=== PATIENT | male | born 1940 | race Caucasian/White ===

== ENCOUNTER 2016-07-14 19:40 | Emergency (ER) | payer MEDICARE, OTHER ==
[~2016-07-14] VITALS: Ht 167.6 cm; Wt 113.4 kg
[2016-07-14 20:21] VITALS: BP 147/60
[2016-07-14 20:39] LABS: BASOPHILS % (AUTO) 1.6 % (0.0-2.0); EOSINOPHILS % (AUTO) 7.5 % (0.0-3.0); LYMPHOCYTES % (AUTO) 14.8 % (20.0-45.0); MEAN CORPUSCULAR HEMOGLOBIN 30.8 PG (27.0-31.0); MEAN CORPUSCULAR HGB CONC 31.2 G/DL (32.0-36.0); MEAN CORPUSCULAR VOLUME 99 FL (80-99); MEAN PLATELET VOLUME 7.3 FL (6.5-10.1); MONOCYTES % (AUTO) 8.8 % (1.0-10.0); NEUTROPHILS % (AUTO) 67.3 % (45.0-75.0); PLATELET COUNT 108 K/UL (150-450); RED BLOOD COUNT 3.07 M/UL (4.70-6.10); RED CELL DISTRIBUTION WIDTH 15.5 % (11.6-14.8); WHITE BLOOD COUNT 7.9 K/UL (4.8-10.8)
[2016-07-14 20:48] LABS: INR 1.2 (0.9-1.1); PROTHROMBIN TIME 11.8 SEC (9.30-11.50)
[2016-07-14 20:51] LABS: TROPONIN I < 0.30 ng/mL (<=0.30)
[2016-07-14 20:54] LABS: AMMONIA 52 umol/L (16-60)
[2016-07-14 20:55] LABS: ALANINE AMINOTRANSFERASE 20 U/L (3-41); ALBUMIN/GLOBULIN RATIO 1.2 (1.0-2.7); ANION GAP 23 (5-15); ASPARTATE AMINO TRANSFERASE 35 U/L (5-40); CALCIUM 8.8 mg/dL (8.6-10.2); CARBON DIOXIDE 13 mEQ/L (20-30); CHLORIDE 103 mEQ/L (98-107); CREATININE 3.5 mg/dL (0.7-1.2); HEMOLYSIS 8; POTASSIUM 4.2 mEQ/L (3.4-4.9); SODIUM 139 mEQ/L (135-145); TOTAL PROTEIN 5.6 g/dL (6.6-8.7)
[2016-07-14 21:00] VITALS: BP 146/54
[2016-07-14 21:05] LABS: CKMB 4.3 ng/mL (< 6.7)
[2016-07-14 21:13] LABS: APPEARANCE,URINE CLEAR; KETONES,URINE NEGATIVE (NEGATIVE); LEUKOCYTE ESTERASE ,URINE NEGATIVE (NEGATIVE); NITRITE,URINE NEGATIVE (NEGATIVE); PH,URINE 5 (4.5-8.0); PROTEIN,URINE 3+ (NEGATIVE); UROBILINOGEN,URINE NORMAL MG/DL (0.0-1.0)
[2016-07-14] MEDS ORDERED: XIFAXAN550 MG ORAL (21:21)
[2016-07-14] MEDS ORDERED: DEXILANT60 MG ORAL (21:21)
[2016-07-14] MEDS ORDERED: FUROSEMIDE40 MG ORAL (21:21)
[2016-07-14] MEDS ORDERED: AMLODIPINE BESYL5 MG ORAL (21:21)
[2016-07-14] MEDS ORDERED: ATORVASTATIN CA40 MG ORAL (21:21)
[2016-07-14] MEDS ORDERED: IRON325 M2 PO (21:21)
[2016-07-14] MEDS ORDERED: TOPROL XL200 MG ORAL (21:21)
[2016-07-14] MEDS ORDERED: CYMBALTA20 MG ORAL (21:21)
[2016-07-14] MEDS ORDERED: ZANTAC150 MG ORAL (21:21)
[2016-07-14] MEDS ORDERED: ROCALTROL0.5 MCG GT (21:21)
[2016-07-14] MEDS ORDERED: ASPIR 8181 MG ORAL (21:21)
[2016-07-14] MEDS ORDERED: CLOPIDOGREL75 MG ORAL (21:21)
[2016-07-14 21:22] LABS: RBC,URINE 0-2 /HPF (0 - 0); WBC,URINE 0-2 /HPF (0 - 0)
--- NOTE | 2016-07-14 21:22 | Emergency Room Report ---
History of Present Illness General Chief Complaint: Altered Level of Consciousness Source: Patient, Family Member, EMS Present Illness HPI Patient was sent to the hospital by paramedics Family reported the patient has been more confused than usual last time he had a presentation like this they were told that his ammonia level was high Patient himself does appear somewhat confused Not able to provide full input Family denies any recent fevers There was no reports of chest pain Patient has multiple medical conditions including liver disease History of present illness the state limited secondary to his mental status Allergies: Coded Allergies: No Known Allergies (Unverified , 07/14/16) Patient History Limited by: medical condition Past Medical History: see triage record Pertinent Family History: none Reviewed Nursing Documentation: PMH: Agreed, PSxH: Agreed Nursing Documentation-PMH Hx Cardiac Problems: Yes - Stent Hx Hypertension: Yes Hx Diabetes: Yes Review of Systems All Other Systems: limited - Other than the ones mentioned in the history of present illness all others are reviewed however they do stay limited due to the patient's mental status Physical Exam Vital Signs Date Time Temp Pulse Resp B/P Pulse Ox O2 Delivery O2 Flow Rate FiO2 07/14/16 19:31 94.6 64 16 147/60 100 Room Air Sp02 EP Interpretation: reviewed, normal General Appearance: no apparent distress Head: normocephalic, atraumatic Eyes: bilateral eye EOMI, bilateral eye PERRL ENT: hearing grossly normal, normal pharynx, TMs + canals normal, uvula midline Neck: full range of motion, supple, no meningismus, no bony tend Respiratory: no respiratory distress, no retraction, no accessory muscle use, crackles - in both lower lobes Cardiovascular #1: normal peripheral pulses, regular rate, rhythm, no gallop, no JVD, no murmur Gastrointestinal: normal bowel sounds, non tender, soft, no mass, no hernia, no pulsatile mass, no rebound Genitourinary: no CVA tenderness Musculoskeletal: other - No obvious focal deficits Neurologic: responsive, 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 III-XII nml as tested, motor strength/tone normal, sensory intact Psychiatric: mood/affect normal Skin: warm/dry, palpation normal Lymphatic: no adenopathy Medical Decision Making Diagnostic Impression: Primary Impression: Altered level of consciousness Additional Impressions: CHF (congestive heart failure) Renal failure ER Course Multiple differentials considered patient's complex require blood work and imaging Patient's ammonia level is 52 not significantly elevated Therefore CT head was also obtained Patient's kidney function appears to be at baseline no obvious signs of sepsis however given the patient's confusion continued decreased oral intake Also CO2 of 13 which is low Patient requires further IV intervention and admission Labs Test 07/14/16 20:15 White Blood Count 7.9 K/UL (4.8-10.8) Red Blood Count 3.07 M/UL (4.70-6.10) Hemoglobin 9.4 G/DL (14.2-18.0) Hematocrit 30.2 % (42.0-52.0) Mean Corpuscular Volume 99 FL (80-99) Mean Corpuscular Hemoglobin 30.8 PG (27.0-31.0) Mean Corpuscular Hemoglobin Concent 31.2 G/DL (32.0-36.0) Red Cell Distribution Width 15.5 % (11.6-14.8) Platelet Count 108 K/UL (150-450) Mean Platelet Volume 7.3 FL (6.5-10.1) Neutrophils (%) (Auto) 67.3 % (45.0-75.0) Lymphocytes (%) (Auto) 14.8 % (20.0-45.0) Monocytes (%) (Auto) 8.8 % (1.0-10.0) Eosinophils (%) (Auto) 7.5 % (0.0-3.0) Basophils (%) (Auto) 1.6 % (0.0-2.0) Prothrombin Time 11.8 SEC (9.30-11.50) Prothromb Time International Ratio 1.2 (0.9-1.1) Activated Partial Thromboplast Time 34 SEC (23-33) Urine Color Pale yellow Urine Appearance Clear Urine pH 5 (4.5-8.0) Urine Specific Odd 1.015 (1.005-1.035) Urine Protein 3+ (NEGATIVE) Urine Glucose (UA) 1+ (NEGATIVE) Urine Ketones Negative (NEGATIVE) Urine Occult Blood 1+ (NEGATIVE) Urine Nitrite Negative (NEGATIVE) Urine Bilirubin Negative (NEGATIVE) Urine Urobilinogen Normal MG/DL (0.0-1.0) Urine Leukocyte Esterase Negative (NEGATIVE) Urine RBC 0-2 /HPF (0 - 0) Urine WBC 0-2 /HPF (0 - 0) Urine Squamous Epithelial Cells None /LPF (NONE/OCC) Urine Bacteria None /HPF (NONE) Sodium Level 139 mEQ/L (135-145) Potassium Level 4.2 mEQ/L (3.4-4.9) Chloride Level 103 mEQ/L (98-107) Carbon Dioxide Level 13 mEQ/L (20-30) Anion Gap 23 (5-15) Blood Urea Nitrogen 64 mg/dL (7-23) Creatinine 3.5 mg/dL (0.7-1.2) Estimat Glomerular Filtration Rate mL/min (>60) Glucose Level 198 mg/dL (74-106) Calcium Level 8.8 mg/dL (8.6-10.2) Total Bilirubin 0.5 mg/dL (0.0-1.2) Aspartate Amino Transf (AST/SGOT) 35 U/L (5-40) Alanine Aminotransferase (ALT/SGPT) 20 U/L (3-41) Alkaline Phosphatase 298 U/L (40-129) Ammonia 52 umol/L (16-60) Total Creatine Kinase 40 U/L (38-174) Creatine Kinase MB 4.3 ng/mL (< 6.7) Creatine Kinase MB Relative Index 10.7 Troponin I < 0.30 ng/mL (<=0.30) Pro-B-Type Natriuretic Peptide 12910 pg/mL (0-450) Total Protein 5.6 g/dL (6.6-8.7) Albumin 3.1 g/dL (3.5-5.2) Globulin 2.5 g/dL Albumin/Globulin Ratio 1.2 (1.0-2.7) Rhythm Strip Diag. Results EP Interpretation: yes Rate: 74 Rhythm: NSR, no PVC's, no ectopy Chest X-Ray Diagnostic Results EP Interpretation: Yes Findings: no consolidation, no pneumothorax, other - Bilateral effusions, appearance of congestion cannot rule out underlying infiltrate, Number of Views: 1 CT/MRI/US Diagnostic Results CT/MRI/US Diagnostic Results : Impression CT head no acute disease Last Vital Signs Date Time Temp Pulse Resp B/P Pulse Ox O2 Delivery O2 Flow Rate FiO2 07/14/16 21:00 69 16 146/54 97 Room Air 07/14/16 20:21 94.6 Status: improved [facility] Condition: Improved Referrals: Carmela Quinteros MD (PCP) СВЕТЛАНА SAVAGE D.O. Jul 14, 2016 21:22
[2016-07-14 22:00] VITALS: BP 151/54
[2016-07-14 23:00] VITALS: BP 159/60
[2016-07-15] VITALS: BP 157/49
[2016-07-15 00:46] VITALS: BP 157/49
--- NOTE | 2016-07-15 11:53 | Diagnostic Imaging Report ---
Indication: Headache Technique: Contiguous 5 mm thick transaxial imaging of the head obtained in a Siemens Sensation [address] scanner. Soft tissue and bone windows generated. Total Dose length Product (DLP): [address] Dose Index Volume (CTDIvol): 70.38 mGy Comparison: none Findings: There is moderate prominence of the ventricles, basal cisterns, and cerebral sulci consistent with atrophy. Moderate, nonspecific, white matter hypoattenuation is noted throughout the brain consistent with chronic small vessel disease. There is no midline shift, edema, acute hemorrhage, mass effect, or abnormal extra-axial fluid collections. Bones and extra osseous soft tissues are unremarkable. Impression: No acute intracranial bleed, mass effect or edema. Moderate atrophy of the brain. Evidence of chronic small vessel disease involving white matter tracts. [facility] has communicated the preliminary results to the Emergency Department. Their findings are largely concordant with this report. The CT scanner at [facility] is accredited by the [employer] and the scans are performed using protocols designed to limit radiation exposure to as low as reasonably achievable to attain images of sufficient resolution adequate for diagnostic evaluation.
--- NOTE | 2016-07-15 12:14 | Diagnostic Imaging Report ---
Indication: Chest Pain Comparison: None A single view chest radiograph was obtained. Findings: Vascular congestion interstitial edema noted with cardio megaly. Bilateral pleural effusion could be present given hazy basilar opacities. Old rib fractures are noted on the left. Bones are osteopenic. Impression: Congestive heart failure
--- NOTE | 2016-08-12 15:29 | Cardiology Report ---
APPROVED REPORT EKG Measurement Heart [id number] Normal sinus rhythm Low voltage QRS Septal infarct, age undetermined Abnormal ECG
== END 2016-07-15 00:48 | disposition short-term general hospital (02) ==
LOC: EDBD 19:40 → EMR 20:53
DX: R40.4 Transient alteration of awareness (principal); I50.9 Heart failure, unspecified; N19 Unspecified kidney failure; I10 Essential (primary) hypertension; E11.9 Type 2 diabetes mellitus without complications; Z95.5 Presence of coronary angioplasty implant and graft
CPT/HCPCS: 36415; 70450; 71010; 80053; 81003; 82140; 82550; 82553; 83880; 84484; 85025; 85610; 85730; 93005; 96361; 96374; 99284; J1940; J7040

== ENCOUNTER 2016-09-02 18:06 | Inpatient (IN) | payer MEDICARE, OTHER ==
[~2016-09-02] VITALS: Ht 180.3 cm; Wt 111.1 kg
[~2016-09-02 18:06] MED LIST: AMLODIPINE BESYL5 MG ORAL; ASPIR 8181 MG ORAL; ATORVASTATIN CA40 MG ORAL; CLOPIDOGREL75 MG ORAL; CYMBALTA20 MG ORAL; DEXILANT60 MG ORAL; FUROSEMIDE40 MG ORAL; IRON325 M2 PO; ROCALTROL0.5 MCG GT; TOPROL XL200 MG ORAL; XIFAXAN550 MG ORAL; ZANTAC150 MG ORAL
[2016-09-02 19:03] VITALS: BP 157/57
[2016-09-02 19:16] LABS: BASOPHILS % (AUTO) 1.5 % (0.0-2.0); EOSINOPHILS % (AUTO) 2.3 % (0.0-3.0); INR 1.3 (0.9-1.1); LYMPHOCYTES % (AUTO) 16.2 % (20.0-45.0); MEAN CORPUSCULAR HEMOGLOBIN 30.8 PG (27.0-31.0); MEAN CORPUSCULAR HGB CONC 31.3 G/DL (32.0-36.0); MEAN CORPUSCULAR VOLUME 99 FL (80-99); MEAN PLATELET VOLUME 6.3 FL (6.5-10.1); MONOCYTES % (AUTO) 8.1 % (1.0-10.0); NEUTROPHILS % (AUTO) 71.8 % (45.0-75.0); PLATELET COUNT 126 K/UL (150-450); PROTHROMBIN TIME 13.4 SEC (9.30-11.50); RED BLOOD COUNT 3.17 M/UL (4.70-6.10); RED CELL DISTRIBUTION WIDTH 17.5 % (11.6-14.8); WHITE BLOOD COUNT 8.3 K/UL (4.8-10.8)
[2016-09-02 19:36] LABS: TROPONIN I < 0.30 ng/mL (<=0.30)
[2016-09-02 19:38] LABS: ALANINE AMINOTRANSFERASE 57 U/L (3-41); ALBUMIN/GLOBULIN RATIO 0.7 (1.0-2.7); ANION GAP 15 (5-15); ASPARTATE AMINO TRANSFERASE 81 U/L (5-40); CALCIUM 8.4 mg/dL (8.6-10.2); CARBON DIOXIDE 28 mEQ/L (20-30); CHLORIDE 95 mEQ/L (98-107); CHOLESTEROL 119 mg/dL (< 200); CHOLESTEROL/HDL RATIO 11.9 (3.3-4.4); CREATININE 4.2 mg/dL (0.7-1.2); HEMOLYSIS 7; LDL CHOLESTEROL (CALC.) 85 mg/dL (60-99); POTASSIUM 3.6 mEQ/L (3.4-4.9); SODIUM 138 mEQ/L (135-145); TOTAL PROTEIN 5.5 g/dL (6.6-8.7)
[2016-09-02 19:54] LABS: BILIRUBIN,DIRECT 1.2 mg/dL (0.1-0.3)
[2016-09-02 20:08] VITALS: BP 160/44
[2016-09-02 22:26] VITALS: BP 154/42
[2016-09-02] MEDS ORDERED: UNOBMED (22:45)
--- NOTE | 2016-09-02 23:03 | Emergency Room Report ---
History of Present Illness General Chief Complaint: Stroke Symptoms Source: Family Member, Medical Record Present Illness HPI 75-year-old male presents to ED. Per EMS patient is having slurred speech and facial droop left arm weakness. Symptoms started approximately 6 hours ago while patient was on dialysis. Daughter saw the patient at the half-way and call 911. Patient is unable to provide any additional history at this time. Patient is having slurred speech and left arm weakness. Patient denies chest pain or shortness of breath. Patient has history of dialysis. No other aggravating relieving factors. Denies any other associated symptoms Allergies: Coded Allergies: No Known Allergies (Unverified , 07/14/16) Patient History Past Medical History: DM, HTN, CAD Past Surgical History: none Pertinent Family History: none Social History: Denies: alcohol use, drug use, smoking Immunizations: UTD Reviewed Nursing Documentation: PMH: Agreed, PSxH: Agreed Nursing Documentation-PMH Hx Cardiac Problems: Yes - Stent Hx Hypertension: Yes Hx Diabetes: Yes Review of Systems All Other Systems: negative except mentioned in HPI Physical Exam Vital Signs Date Time Temp Pulse Resp B/P Pulse Ox O2 Delivery O2 Flow Rate FiO2 09/02/16 18:05 78 20 156/60 98 Room Air 09/02/16 20:08 99.2 Sp02 EP Interpretation: reviewed, normal General Appearance: no apparent distress, alert, GCS 15, non-toxic Head: normocephalic Eyes: bilateral eye PERRL, bilateral eye normal inspection ENT: normal ENT inspection Neck: normal inspection Respiratory: chest non-tender, lungs clear, normal breath sounds, speaking full sentences Cardiovascular #1: regular rate, rhythm, no edema Gastrointestinal: normal bowel sounds, non tender, soft, non-distended, no guarding, no rebound Rectal: deferred Genitourinary: no CVA tenderness Musculoskeletal: normal inspection Neurologic: alert, oriented x3, responsive, sensory intact, facial droop, other - slurred speech. facial droop. L arm weakness Psychiatric: normal inspection Skin: normal inspection Lymphatic: normal inspection Medical Decision Making Diagnostic Impression: Primary Impression: CVA (cerebral vascular accident) Qualified Codes: I63.9 - Cerebral infarction, unspecified Additional Impression: ESRD (end stage renal disease) on dialysis ER Course Hospital Course 75-year-old male presents to ED with slurred speech and facial droop with left arm weakness x6 hours Differential diagnoses include: MS/unstable angina, SVT/Vtach/AFib, CVA/TIA Clinical course Patient placed on stretcher. on playground monitor. After initial history and physical I ordered labs, EKG, chest x-ray, and CT head labs reviewed- BUN/Cr elevated, troponins negative, no leukocytosis, Hb/Hct stable EKG - NSR, no acute changes CT brain - no acute process noted Given rectal aspirin in ED. because patient was at a therapeutic window no TPA indicated Case discussed with Dr. Quinteros and he agreed to accept the patient to his service for further care and support I. I feel this is a highly complex case requiring extensive working including EKG/Rhythm strip, Xray/CT/US, Blood/urine lab work, repeat exams while in ED, and administration of strong opiates/narcotics for pain control, admission to hospital or close patient follow up. Diagnosis - CVA, ESRD on dialysis admitted to telemetry in serious condition Labs Test 09/02/16 18:37 White Blood Count 8.3 K/UL (4.8-10.8) Red Blood Count 3.17 M/UL (4.70-6.10) Hemoglobin 9.8 G/DL (14.2-18.0) Hematocrit 31.2 % (42.0-52.0) Mean Corpuscular Volume 99 FL (80-99) Mean Corpuscular Hemoglobin 30.8 PG (27.0-31.0) Mean Corpuscular Hemoglobin Concent 31.3 G/DL (32.0-36.0) Red Cell Distribution Width 17.5 % (11.6-14.8) Platelet Count 126 K/UL (150-450) Mean Platelet Volume 6.3 FL (6.5-10.1) Neutrophils (%) (Auto) 71.8 % (45.0-75.0) Lymphocytes (%) (Auto) 16.2 % (20.0-45.0) Monocytes (%) (Auto) 8.1 % (1.0-10.0) Eosinophils (%) (Auto) 2.3 % (0.0-3.0) Basophils (%) (Auto) 1.5 % (0.0-2.0) Prothrombin Time 13.4 SEC (9.30-11.50) Prothromb Time International Ratio 1.3 (0.9-1.1) Activated Partial Thromboplast Time 33 SEC (23-33) Sodium Level 138 mEQ/L (135-145) Potassium Level 3.6 mEQ/L (3.4-4.9) Chloride Level 95 mEQ/L (98-107) Carbon Dioxide Level 28 mEQ/L (20-30) Anion Gap 15 (5-15) Blood Urea Nitrogen 40 mg/dL (7-23) Creatinine 4.2 mg/dL (0.7-1.2) Estimat Glomerular Filtration Rate mL/min (>60) Glucose Level 290 mg/dL (74-106) Calcium Level 8.4 mg/dL (8.6-10.2) Total Bilirubin 2.1 mg/dL (0.0-1.2) Direct Bilirubin 1.2 mg/dL (0.1-0.3) Aspartate Amino Transf (AST/SGOT) 81 U/L (5-40) Alanine Aminotransferase (ALT/SGPT) 57 U/L (3-41) Alkaline Phosphatase 536 U/L (40-129) Troponin I < 0.30 ng/mL (<=0.30) Total Protein 5.5 g/dL (6.6-8.7) Albumin 2.3 g/dL (3.5-5.2) Globulin 3.2 g/dL Albumin/Globulin Ratio 0.7 (1.0-2.7) Triglycerides Level 119 mg/dL (< 150) Cholesterol Level 119 mg/dL (< 200) LDL Cholesterol 85 mg/dL (60-99) HDL Cholesterol 10 mg/dL (> 60) Cholesterol/HDL Ratio 11.9 (3.3-4.4) EKG Diagnostic Results Rate: tachycardiac Rhythm: NSR ST Segments: no acute changes ASA given to the pt in ED: No Rhythm Strip Diag. Results EP Interpretation: yes Rhythm: NSR, no PVC's, no ectopy Chest X-Ray Diagnostic Results EP Interpretation: Yes Findings: no consolidation, no effusion, no pneumothorax, no acute cardiopulmonary disease Number of Views: 1 CT/MRI/US Diagnostic Results CT/MRI/US Diagnostic Results : Imaging Test Ordered: CT Head Impression no acute process Last Vital Signs Date Time Temp Pulse Resp B/P Pulse Ox O2 Delivery O2 Flow Rate FiO2 09/02/16 22:26 97.8 83 12 154/42 98 Room Air Status: improved Disposition: ADMITTED INPATIENT Condition: Serious Referrals: Carmela Quinteros MD (PCP) JULISA SMITH M.D. Sep 02, 2016 23:03
[2016-09-03 00:20] VITALS: BP 147/86
[2016-09-03] MEDS ORDERED: ACETAMINOPHEN80 MG ORAL (03:15)
[2016-09-03] MEDS ORDERED: NEPHROVITE1 TAB ORAL (03:15)
[2016-09-03 04:36] VITALS: BP 167/49
[2016-09-03 05:34] LABS: BASOPHILS % (AUTO) 1.3 % (0.0-2.0); EOSINOPHILS % (AUTO) 2.8 % (0.0-3.0); LYMPHOCYTES % (AUTO) 21.4 % (20.0-45.0); MEAN CORPUSCULAR HEMOGLOBIN 30.6 PG (27.0-31.0); MEAN CORPUSCULAR HGB CONC 31.9 G/DL (32.0-36.0); MEAN CORPUSCULAR VOLUME 96 FL (80-99); MEAN PLATELET VOLUME 6.5 FL (6.5-10.1); MONOCYTES % (AUTO) 9.9 % (1.0-10.0); NEUTROPHILS % (AUTO) 64.5 % (45.0-75.0); PLATELET COUNT 150 K/UL (150-450); RED BLOOD COUNT 3.49 M/UL (4.70-6.10); RED CELL DISTRIBUTION WIDTH 16.7 % (11.6-14.8); WHITE BLOOD COUNT 9.9 K/UL (4.8-10.8)
[2016-09-03 05:54] LABS: ANION GAP 16 (5-15); CALCIUM 8.3 mg/dL (8.6-10.2); CARBON DIOXIDE 27 mEQ/L (20-30); CHLORIDE 100 mEQ/L (98-107); CREATININE 4.6 mg/dL (0.7-1.2); HEMOLYSIS 1; SODIUM 143 mEQ/L (135-145)
[2016-09-03] MEDS: NovoLOG Insulin Flexpen SUBQ SCH ×4 (06:30→21:00)
[2016-09-03 07:09] LABS: AMMONIA 105 umol/L (16-60)
[2016-09-03] MEDS: Heparin 5000 units/ml inj SUBQ SCH ×3 (07:30→22:02)
[2016-09-03 07:32] LABS: CHOLESTEROL 115 mg/dL (< 200); CHOLESTEROL/HDL RATIO 8.8 (3.3-4.4); LDL CHOLESTEROL (CALC.) 83 mg/dL (60-99)
[2016-09-03 07:59] VITALS: BP 173/66
[2016-09-03] MEDS: Lactulose 20gm/30ml UDC ORAL SCH ×4 (08:28→18:00)
[2016-09-03] MEDS: Nephrovite tab ORAL SCH ×2 (08:28→09:00)
[2016-09-03] MEDS: Calcitriol 0.25mcg Cap ORAL SCH ×2 (08:28→09:00)
[2016-09-03] MEDS: Famotidine 20 MG/ 2ML VIAL IVP SCH (08:28)
[2016-09-03] MEDS: Rifaximin 550mg tab ORAL SCH ×3 (08:29→21:00)
[2016-09-03] MEDS: Aspirin Baby 81mg ORAL SCH ×2 (08:29→09:00)
[2016-09-03] MEDS: Furosemide 80mg tab ORAL SCH ×3 (08:29→21:00)
[2016-09-03] MEDS: Metoprolol XL 100mg tab ORAL SCH ×2 (08:30→09:00)
--- NOTE | 2016-09-03 09:50 | History & Physical ---
Frieda Bell NP 09/03/16 0950: History and Physical History & Physicial [id number] Carmela Quinteros MD 09/03/16 2220: History and Physical History & Physicial The patient was seen and examined at bedside and all new and available data was reviewed in the patients chart. I agree with the above findings, impression and plan. (Patient seen earlier today. Signature stamp does not reflect patient encounter time.). -MD Arabella Culver Jacqueline Robles NP Sep 03, 2016 09:50 Carmela Quinteros MD Sep 03, 2016 22:20
[2016-09-03] MEDS: D5 1/2NS 1,000 ML IV SCH (10:59)
--- NOTE | 2016-09-03 10:59 | Diagnostic Imaging Report ---
Indication: Altered mental status Technique: Contiguous 5 mm thick transaxial imaging of the head obtained in a Siemens Sensation [address] scanner. Soft tissue and bone windows generated. Total Dose length Product (DLP): [address] Dose Index Volume (CTDIvol): 70.38 mGy Comparison: 07/14/16 Findings: There is mild prominence of the ventricles, basal cisterns, and cerebral sulci consistent with atrophy. Mild, nonspecific, white matter hypoattenuation is noted throughout the brain consistent with chronic small vessel disease. There is no midline shift, edema, acute hemorrhage, mass effect, or abnormal extra-axial fluid collections. Bones and extra osseous soft tissues are unremarkable. Impression: No acute intracranial bleed, mass effect or edema. Mild atrophy of the brain. Nonspecific white matter hypoattenuation probably due to chronic small vessel disease. The CT scanner at [facility] is accredited by the [employer] and the scans are performed using protocols designed to limit radiation exposure to as low as reasonably achievable to attain images of sufficient resolution adequate for diagnostic evaluation.
[2016-09-03 11:23] VITALS: BP 165/71
[2016-09-03] MEDS ORDERED: Metoprolol 5mg/5ml Inj IVP ONE (11:30)
--- NOTE | 2016-09-03 12:12 | Consultation ---
Consult Note Assessment/Plan Renal consult dictated # [id number] NICOLASA WELLS Sep 03, 2016 12:12
--- NOTE | 2016-09-03 12:13 | Neurology Progress Note ---
Objective Physical Exam Last Vital Signs Date Time Temp Pulse Resp B/P Pulse Ox O2 Delivery O2 Flow Rate FiO2 09/03/16 11:37 86 165/71 09/03/16 11:23 99.1 20 100 Room Air Laboratory Tests Test 09/02/16 18:37 09/03/16 05:12 09/03/16 05:15 White Blood Count 8.3 K/UL (4.8-10.8) 9.9 K/UL (4.8-10.8) Red Blood Count 3.17 M/UL (4.70-6.10) L 3.49 M/UL (4.70-6.10) L Hemoglobin 9.8 G/DL (14.2-18.0) L 10.7 G/DL (14.2-18.0) L Hematocrit 31.2 % (42.0-52.0) L 33.5 % (42.0-52.0) L Mean Corpuscular Volume 99 FL (80-99) 96 FL (80-99) Mean Corpuscular Hemoglobin 30.8 PG (27.0-31.0) 30.6 PG (27.0-31.0) Mean Corpuscular Hemoglobin Concent 31.3 G/DL (32.0-36.0) L 31.9 G/DL (32.0-36.0) L Red Cell Distribution Width 17.5 % (11.6-14.8) H 16.7 % (11.6-14.8) H Platelet Count 126 K/UL (150-450) L 150 K/UL (150-450) Mean Platelet Volume 6.3 FL (6.5-10.1) L 6.5 FL (6.5-10.1) Neutrophils (%) (Auto) 71.8 % (45.0-75.0) 64.5 % (45.0-75.0) Lymphocytes (%) (Auto) 16.2 % (20.0-45.0) L 21.4 % (20.0-45.0) Monocytes (%) (Auto) 8.1 % (1.0-10.0) 9.9 % (1.0-10.0) Eosinophils (%) (Auto) 2.3 % (0.0-3.0) 2.8 % (0.0-3.0) Basophils (%) (Auto) 1.5 % (0.0-2.0) 1.3 % (0.0-2.0) Prothrombin Time 13.4 SEC (9.30-11.50) H Prothromb Time International Ratio 1.3 (0.9-1.1) H Activated Partial Thromboplast Time 33 SEC (23-33) Sodium Level 138 mEQ/L (135-145) 143 mEQ/L (135-145) Potassium Level 3.6 mEQ/L (3.4-4.9) 4.0 mEQ/L (3.4-4.9) Chloride Level 95 mEQ/L (98-107) L 100 mEQ/L (98-107) Carbon Dioxide Level 28 mEQ/L (20-30) 27 mEQ/L (20-30) Anion Gap 15 (5-15) 16 (5-15) H Blood Urea Nitrogen 40 mg/dL (7-23) H 48 mg/dL (7-23) H Creatinine 4.2 mg/dL (0.7-1.2) H 4.6 mg/dL (0.7-1.2) H Estimat Glomerular Filtration Rate mL/min (>60) mL/min (>60) Glucose Level 290 mg/dL (74-106) H 202 mg/dL (74-106) H Calcium Level 8.4 mg/dL (8.6-10.2) L 8.3 mg/dL (8.6-10.2) L Total Bilirubin 2.1 mg/dL (0.0-1.2) H Direct Bilirubin 1.2 mg/dL (0.1-0.3) H Aspartate Amino Transf (AST/SGOT) 81 U/L (5-40) H Alanine Aminotransferase (ALT/SGPT) 57 U/L (3-41) H Alkaline Phosphatase 536 U/L (40-129) H Troponin I < 0.30 ng/mL (<=0.30) Total Protein 5.5 g/dL (6.6-8.7) L Albumin 2.3 g/dL (3.5-5.2) L Globulin 3.2 g/dL Albumin/Globulin Ratio 0.7 (1.0-2.7) L Triglycerides Level 119 mg/dL (< 150) 97 mg/dL (< 150) Cholesterol Level 119 mg/dL (< 200) 115 mg/dL (< 200) LDL Cholesterol 85 mg/dL (60-99) 83 mg/dL (60-99) HDL Cholesterol 10 mg/dL (> 60) 13 mg/dL (> 60) Cholesterol/HDL Ratio 11.9 (3.3-4.4) H 8.8 (3.3-4.4) H Hemoglobin A1c 7.0 % (< 6.0) H Ammonia 105 umol/L (16-60) H Thyroid Stimulating Hormone (TSH) 0.960 uIU/mL (0.300-4.500) Impression/Recommendations Problems: (1) L arm palsy, r/p brach plexopathy,r/o lacunar stroke (2) Hepatic encephalopathy (3) ESRD (end stage renal disease) on dialysis (4) CHF (congestive heart failure) Status: unchanged Recommendations # [id number] MICHEAL BLOOM Sep 03, 2016 12:13
--- NOTE | 2016-09-03 14:05 | Diagnostic Imaging Report ---
Indication: Altered level of consciousness. Left-sided weakness Technique: The head was imaged in a 1.5 Radha magnet. Sequences obtained include sagittal T1 FLAIR, axial T2 fast spin echo with fat saturation, diffusion and ADC map. Comparison: None Study is incomplete. Not all pulse sequences were done due to agitation and confusion. Patient could not tolerate further imaging. This there is diffusion restriction involving the right parietal lobe in the area of the postcentral gyrus.. There is no hemorrhage appreciated. Findings consistent with acute CVA. Impression: Acute CVA involving right postcentral gyrus. No acute hemorrhage definitely seen. Critical value communication. Findings were discussed via telephone with 2 E. floor nurse at 09/03/16, 2 PM .
--- NOTE | 2016-09-03 15:35 | Cardiology Report ---
APPROVED REPORT EKG Measurement Heart [id number] CO [id number] [id number] Sinus tachycardia Inferior infarct, age undetermined Anteroseptal infarct, age undetermined Prolonged QT Abnormal ECG
--- NOTE | 2016-09-03 15:48 | Wound Care Consultation ---
Wound Assessment Wound Assessment : Wound Present on Admission: Yes New Wound: No Status Change of Wound: No Wound Location Body Site: perineal area - and sacral area Wound Type: rash - multiple rash Loan Test: Does not Loan Percent of Wound [place]/Red: 100 Wound Drainage Amount: None Wound Drainage Odor: None/Absent Tissue Surrounding Wound: Erythemic Wound General Appearance: Reddened Wound Comment #1 Perineal area rash and sacral area #2 With multiple Scar tissues on different part of the body #3 Scratch hernández on left arm Recommendation -Keep clean and dry -Turn and reposition (Remind Pt not to stay in one position no longer than 2hrs) -Optimize nutrition -Local treatment with nystatin cream TID as ordered -Offload both heels while Pt is in bed -Assess and f/u accordingly for any changes MARLEN FRANK RN Sep 03, 2016 15:48
--- NOTE | 2016-09-03 15:56 | Cardiac Electrophysiology PN ---
Subjective Subjective [id number]. PAF/ RVR on Toprol 100 daily, Coumadin when OK with Neuro. Acute CVA. ESRD Objective Last 24 Hour Vital Signs Date Time Temp Pulse Resp B/P Pulse Ox O2 Delivery O2 Flow Rate FiO2 09/03/16 11:37 86 165/71 09/03/16 11:23 99.1 86 20 165/71 100 Room Air 09/03/16 09:00 90 173/66 09/03/16 08:30 173/66 09/03/16 08:00 91 09/03/16 07:59 99.0 90 20 173/66 100 Room Air 09/03/16 04:36 98.0 84 20 167/49 98 Room Air 09/03/16 04:31 09/03/16 04:00 89 09/03/16 00:20 97.7 85 20 147/86 96 Room Air 09/02/16 23:04 83 12 154/42 98 Room Air 09/02/16 22:26 97.8 83 12 154/42 98 Room Air 09/02/16 20:08 99.2 82 25 160/44 99 Room Air 09/02/16 19:03 106 17 157/57 100 Room Air 09/02/16 18:05 78 20 156/60 98 Room Air Intake and Output 09/02/16 09/03/16 19:00 07:00 Intake Total 0 ml Balance 0 ml Intake Oral 0 ml # Voids 1 Laboratory Tests Test 09/02/16 18:37 09/03/16 05:12 09/03/16 05:15 White Blood Count 8.3 K/UL (4.8-10.8) 9.9 K/UL (4.8-10.8) Red Blood Count 3.17 M/UL (4.70-6.10) L 3.49 M/UL (4.70-6.10) L Hemoglobin 9.8 G/DL (14.2-18.0) L 10.7 G/DL (14.2-18.0) L Hematocrit 31.2 % (42.0-52.0) L 33.5 % (42.0-52.0) L Mean Corpuscular Volume 99 FL (80-99) 96 FL (80-99) Mean Corpuscular Hemoglobin 30.8 PG (27.0-31.0) 30.6 PG (27.0-31.0) Mean Corpuscular Hemoglobin Concent 31.3 G/DL (32.0-36.0) L 31.9 G/DL (32.0-36.0) L Red Cell Distribution Width 17.5 % (11.6-14.8) H 16.7 % (11.6-14.8) H Platelet Count 126 K/UL (150-450) L 150 K/UL (150-450) Mean Platelet Volume 6.3 FL (6.5-10.1) L 6.5 FL (6.5-10.1) Neutrophils (%) (Auto) 71.8 % (45.0-75.0) 64.5 % (45.0-75.0) Lymphocytes (%) (Auto) 16.2 % (20.0-45.0) L 21.4 % (20.0-45.0) Monocytes (%) (Auto) 8.1 % (1.0-10.0) 9.9 % (1.0-10.0) Eosinophils (%) (Auto) 2.3 % (0.0-3.0) 2.8 % (0.0-3.0) Basophils (%) (Auto) 1.5 % (0.0-2.0) 1.3 % (0.0-2.0) Prothrombin Time 13.4 SEC (9.30-11.50) H Prothromb Time International Ratio 1.3 (0.9-1.1) H Activated Partial Thromboplast Time 33 SEC (23-33) Sodium Level 138 mEQ/L (135-145) 143 mEQ/L (135-145) Potassium Level 3.6 mEQ/L (3.4-4.9) 4.0 mEQ/L (3.4-4.9) Chloride Level 95 mEQ/L (98-107) L 100 mEQ/L (98-107) Carbon Dioxide Level 28 mEQ/L (20-30) 27 mEQ/L (20-30) Anion Gap 15 (5-15) 16 (5-15) H Blood Urea Nitrogen 40 mg/dL (7-23) H 48 mg/dL (7-23) H Creatinine 4.2 mg/dL (0.7-1.2) H 4.6 mg/dL (0.7-1.2) H Estimat Glomerular Filtration Rate mL/min (>60) mL/min (>60) Glucose Level 290 mg/dL (74-106) H 202 mg/dL (74-106) H Calcium Level 8.4 mg/dL (8.6-10.2) L 8.3 mg/dL (8.6-10.2) L Total Bilirubin 2.1 mg/dL (0.0-1.2) H Direct Bilirubin 1.2 mg/dL (0.1-0.3) H Aspartate Amino Transf (AST/SGOT) 81 U/L (5-40) H Alanine Aminotransferase (ALT/SGPT) 57 U/L (3-41) H Alkaline Phosphatase 536 U/L (40-129) H Troponin I < 0.30 ng/mL (<=0.30) Total Protein 5.5 g/dL (6.6-8.7) L Albumin 2.3 g/dL (3.5-5.2) L Globulin 3.2 g/dL Albumin/Globulin Ratio 0.7 (1.0-2.7) L Triglycerides Level 119 mg/dL (< 150) 97 mg/dL (< 150) Cholesterol Level 119 mg/dL (< 200) 115 mg/dL (< 200) LDL Cholesterol 85 mg/dL (60-99) 83 mg/dL (60-99) HDL Cholesterol 10 mg/dL (> 60) 13 mg/dL (> 60) Cholesterol/HDL Ratio 11.9 (3.3-4.4) H 8.8 (3.3-4.4) H Hemoglobin A1c 7.0 % (< 6.0) H Ammonia 105 umol/L (16-60) H Thyroid Stimulating Hormone (TSH) 0.960 uIU/mL (0.300-4.500) PRINCESS AGGARWAL Sep 03, 2016 15:56
[2016-09-03 16:00] VITALS: BP 151/69
[2016-09-03] MEDS ORDERED: LORazepam Inj 2mg/ml 1ml IV ONE (17:00)
--- NOTE | 2016-09-03 17:18 | HX and Phyl Repo 2 Sig ---
DATE OF ADMISSION: 09/02/2016 CHIEF COMPLAINT: Altered mental status and weakness. HISTORY OF PRESENT ILLNESS: The patient is a 75-year-old male, who is a resident of [facility] with past medical history of diabetes mellitus, liver cirrhosis, hypertension and end-stage renal disease, on hemodialysis, was taken to [facility] for complaints of altered mental status and slurring of speech as noted by daughter. History was obtained through phone call with the patient's daughter, Divina, at [phone], who stated the patient was on his usual dialysis schedule and she was called by the nurses as the patient kept on screaming and was confused. She later on saw the patient and he was talking nonsense and was noted to have slurring of speech. He was then taken to [facility] where on evaluation, CT of the brain did not show any acute process. He was given aspirin and was admitted to telemetry for further evaluation. PAST MEDICAL HISTORY: As stated above. PAST SURGICAL HISTORY: Status post amputation of the left metatarsal and has a right chest dialysis catheter. SOCIAL HISTORY: The patient lives at a long term. Family is involved in the patient's care. He stopped smoking 20 years ago and used to drink excessively several years ago. CODE STATUS: Full code. ALLERGIES: No known allergy. MEDICATIONS: From long term include famotidine, furosemide, Humalog, Lantus, lactulose, metoprolol succinate, Nephro-Kelly, Lidoderm patch. REVIEW OF SYSTEMS: Unable to be performed. PHYSICAL EXAMINATION: VITAL SIGNS: Blood pressure 173/66, pulse 90, temperature 99, and 100% oxygen saturation on room air. GENERAL APPEARANCE: The patient is awake, able to verbalize, and follows simple commands; however, there was noted facial droop and weakness on the left side. HEENT: Pupils equal and reactive to light. NECK: Supple. CARDIOVASCULAR: S1 and S2 regular. RESPIRATORY: Lungs are clear. No use of accessory muscles of respiration. ABDOMEN: Slightly distended, but soft. Positive bowel sounds. GENITOURINARY: Normal external exam. EXTREMITIES: He has +1 bilateral lower extremity edema. Left foot left toe amputated. SKIN: Warm and dry with a chemical burn on the perianal area. Excoriations on bilateral buttocks. NEUROLOGIC: The patient is awake, able to verbalize, and unable to move the left side of the body. LABORATORY AND DIAGNOSTIC DATA: WBC on admission 8.3, hemoglobin 9.8, hematocrit 31.2, and platelets 126,000. Sodium 138, potassium 3.6, chloride 95, BUN 40, creatinine 4.2, glucose 290, calcium 8.4, total bilirubin 2.1, direct bilirubin 1.2, AST 81, ALT 57, alkaline phosphatase 536, albumin 2.3. INR 1.3. CT scan of the head done at ED, no official result yet. Preliminary result was negative. ASSESSMENT: 1. Acute metabolic encephalopathy. 2. Possible cerebrovascular accident as presented by slurring of speech and left-sided hemiparesis. 3. Liver cirrhosis with hepatic encephalopathy. 4. Hypertensive urgency. 5. Hyperlipidemia. 6. Elevated liver transaminases. 7. End-stage renal disease, on hemodialysis. 8. Perianal and buttock excoriation, present on admission. PLAN: The patient was admitted to telemetry with neuro-checks every shift. Check MRI brain. Ammonia level was elevated. Given Lactulose and Xifaxan. Dr. Magdi Sauceda,nephrology consult; Dr. Hurd, neurology consult ; Dr. Ambrosio, gastrointestinal consult. We will keep the patient on n.p.o. for now pending swallow evaluation. The patient will have PT and OT. Continue to monitor sugar. Initiate wound care. Carmela Quinteros M.D. Frieda Bell N.P. DR: Damian JOB#: [id number] CC: JUSTINA
[2016-09-03 20:00] VITALS: BP 160/56
--- NOTE | 2016-09-03 20:58 | Consultation ---
DATE OF CONSULTATION: NEPHROLOGY CONSULTATION CONSULTING PHYSICIAN: Magdi Sauceda M.D. REFERRING PHYSICIAN: Carmela Quinteros M.D. REASON FOR CONSULTATION: End-stage renal disease, requiring hemodialysis. HISTORY OF PRESENT ILLNESS: This is a 75-year-old [place]er male with history of end-stage renal disease. Apparently, the patient has been on dialysis for about a month and a half. The patient is unable to provide any history. History was obtained from the chart and also talking to the patient's daughter who is at bedside. According to the daughter, the patient has had diabetes and that is why she developed end-stage renal disease. PAST MEDICAL HISTORY: Also includes history of alcoholic liver cirrhosis, history of coronary disease, hypertension, and diabetes. MEDICATIONS: Reviewed in the EMR. ALLERGIES: No known drug allergies. SOCIAL HISTORY: The patient lives in a [facility], [facility]. He has history of alcohol abuse as mentioned. REVIEW OF SYSTEMS: Unobtainable. PHYSICAL EXAMINATION: GENERAL: The patient is a 75-year-old male. He is lethargic, although he was shaking and he shouts. VITAL SIGNS: Blood pressure is 165/71, pulse 86, and temperature 99.1. HEENT: [place] conjunctivae. Anicteric sclerae. NECK: Supple. LUNGS: Coarse breath sounds. HEART: S1 and S2 without murmurs or rubs. ABDOMEN: Soft and nontender. EXTREMITIES: Bilateral pedal edema. LABORATORY FINDINGS: The chemistry panel shows a WBC of 9.9, hematocrit 33.5, hemoglobin is 10.7, and . Chemistry panel shows serum sodium of 143, potassium 4, chloride 100, CO2 of 27, BUN is 48, creatinine 4.6, blood sugar is 202, and calcium is 8.3. Ammonia level is 105 and as of yesterday, ALT was 57, AST 81, and serum albumin of 2.3. ASSESSMENT: This is a 75-year-old [place] male with history of end-stage renal disease, on hemodialysis, every Thursday, , and Thursday. The patient apparently went to dialysis yesterday and developed some slurred speech with facial droop and left arm weakness afterwards. The patient was admitted with diagnosis of cerebrovascular accident. In terms of his dialysis, his numbers are okay for now, although he has edema. He does not appear to be short of breath. He is mildly anemic. PLAN: I will order dialysis for tomorrow. His blood pressure medication will be adjusted. The patient needs to be on lactulose for increased ammonia and change in mental status and hepatic encephalopathy. Case will be discussed with Dr. Quinteros and his PA, Yamilet. Thank you very much for this consultation. Magdi Sauceda M.D. DR: DENNIS JOB#: [id number] CC: JUSTINA
[2016-09-03] MEDS: Atorvastatin 80mg tab ORAL SCH (21:00)
--- NOTE | 2016-09-03 21:07 | General Progress Note ---
Assessment/Plan Assessment/Plan Assessment - EtOH Cirrhosis - Renal failure - Acute CVA - Poor Px Recommendations - NGT - Lactulose - xifaxan - check labs - check U/S - check AFP - Goals and level of care discussion Thank you Suzanne Ambrosio MD Subjective Allergies: Coded Allergies: No Known Allergies (Unverified , 07/14/16) Objective Last 24 Hour Vital Signs Date Time Temp Pulse Resp B/P Pulse Ox O2 Delivery O2 Flow Rate FiO2 09/03/16 20:00 97.7 82 21 160/56 96 Room Air 09/03/16 16:00 98.1 86 21 151/69 97 Room Air 09/03/16 11:37 86 165/71 09/03/16 11:23 99.1 86 20 165/71 100 Room Air 09/03/16 09:00 90 173/66 09/03/16 08:30 173/66 09/03/16 08:00 91 09/03/16 07:59 99.0 90 20 173/66 100 Room Air 09/03/16 04:36 98.0 84 20 167/49 98 Room Air 09/03/16 04:31 09/03/16 04:00 89 09/03/16 00:20 97.7 85 20 147/86 96 Room Air 09/02/16 23:04 83 12 154/42 98 Room Air 09/02/16 22:26 97.8 83 12 154/42 98 Room Air Intake and Output 09/02/16 09/03/16 19:00 07:00 Intake Total 0 ml Balance 0 ml Intake Oral 0 ml # Voids 1 Laboratory Tests 09/03/16 05:12: Hemoglobin A1c 7.0H 09/03/16 05:15: White Blood Count 9.9, Red Blood Count 3.49L, Hemoglobin 10.7L, Hematocrit 33.5L , Mean Corpuscular Volume 96, Mean Corpuscular Hemoglobin 30.6, Mean Corpuscular Hemoglobin Concent 31.9L, Red Cell Distribution Width 16.7H, Platelet Count 150, Mean Platelet Volume 6.5, Neutrophils (%) (Auto) 64.5, Lymphocytes (%) (Auto) 21.4, Monocytes (%) (Auto) 9.9, Eosinophils (%) (Auto) 2.8, Basophils (%) (Auto) 1.3, Sodium Level 143, Potassium Level 4.0, Chloride Level 100, Carbon Dioxide Level 27, Anion Gap 16H, Blood Urea Nitrogen 48H, Creatinine 4.6H, Estimat Glomerular Filtration Rate , Glucose Level 202H, Calcium Level 8.3L, Ammonia 105H, Triglycerides Level 97, Cholesterol Level 115 , LDL Cholesterol 83, HDL Cholesterol 13, Cholesterol/HDL Ratio 8.8H, Thyroid Stimulating Hormone (TSH) 0.960 Height (Feet): 5 Height (Inches): 11.00 Weight (Pounds): 245 ESPINOZA AMBROSIO Sep 03, 2016 21:07
--- NOTE | 2016-09-03 21:38 | Consultation ---
DATE OF CONSULTATION: 09/03/2016 NEUROLOGICAL CONSULTATION CONSULTING PHYSICIAN: Danny Hurd M.D. REQUESTING PHYSICIAN: Carmela Quinteros M.D. HISTORY OF PRESENT ILLNESS: This is a 75-year-old gentleman, who is seen in neurological consultation to evaluate acute stroke. According to the patient's daughter, who was present during this examination known that, the patient who is a resident of nursing facility, was complaining of increasing pain in his both lower extremities for the last couple of weeks. On the day of admission, he was at dialysis. When he started to complain of severe pain and discomfort, the patient's daughter picked up the phone and spoke to him. She found that he was very slurred, very confused, disoriented, and was complaining that his left arm is weak. On arrival, she found him in the bed with left arm motionless, speech still slurred, and with this, the patient was brought to emergency room. On admission, vital signs stable, blood pressure 156/60 and heart rate of 78. Following admission, diagnostic studies included laboratory work with evidence of anemia, hemoglobin 9.9, hematocrit 31.2, and platelet count 126,000, mild coagulopathy with INR 1.3, and PT of 13.4. Chemistry panel, BUN of 40, creatinine 4.2, but also elevated total bilirubin 2.1, AST 81, ALT 67, alk phosphatase 536, and albumin 2.3. Lipid panel, unremarkable as well as TSH. Elevated ammonia level 105. His imaging studies included CAT scan of the brain, which revealed mild diffuse atrophy, but there is no evidence of acute intracranial abnormalities or signs of chronic small vessel disease noted. Following admission, the patient was noted to have episodes of paroxysmal tachycardia at rate of 160. EKG revealed normal sinus rhythm with no acute changes. PAST MEDICAL HISTORY: The patient has a history of hypertension, diabetes type 2, coronary artery disease, status post angioplasty, end-stage renal disease, on hemodialysis, degenerative joint disease with aches and pain in his both lower extremities. The patient described as being increasingly confused and disoriented in the last couple of years and forgetfulness. There is a history of abnormal gait in the last two to three years. He remained essentially bedridden, refusing to ambulate, although he is able to walk using walker. Treatment prior to admission included amlodipine, aspirin, atorvastatin, Plavix, Dexilant, Cymbalta 20 mg b.i.d., ferrous sulfate, furosemide, metoprolol, ranitidine, rifaximin, and vitamin B complex. Following current admission, the patient is started on lactulose, continued with IV fluids, and metoprolol. ALLERGIES: None reported. SOCIAL HISTORY: . He with family. The patient speaks Farsi only. PHYSICAL EXAMINATION: GENERAL: A well-developed, moderately obese man, who was found to be lying in bed with eyes closed. His daughter at the bedside. VITAL SIGNS: Vital signs now are stable. Blood pressure 165/71, heart rate back to 86, and temperature 99.1 degrees. HEENT: Head normocephalic. No evidence of injuries. There is a palpable tenderness in the neck region. The patient apparently did not complain previously of the pain in his neck. MUSCULOSKELETAL EXAMINATION: Revealed arthritic changes and bruises in both knees. Significant palpable tenderness in both knees, ankles, and calves, but also significant pain with palpation and percussion in the cervical region. Peripheral pulses 1+ and symmetric. There is a left toes amputation. MENTAL STATUS: The patient is arousable, speaks Farsi, was able to indicate that he has pain and unable to move his left arm. He is not feeling overall well. Verbal output was limited. He was able to follow simple commands, slow responses. CRANIAL NERVE II: Both pupils appears are 3 mm and responding to light and accommodation. Extraocular movement full range. Visual willard are normal. Fundi, poorly visualized. CRANIAL NERVE V: Normal corneal responses. CRANIAL NERVE VII: Minor facial asymmetry. The patient is edentulous. CRANIAL NERVE VIII: Sightly decreased hearing. CRANIAL NERVE IX THROUGH XII: Tongue is in midline. Symmetric palate elevation. Reduced gag response. MOTOR EXAMINATION: Flaccid left upper extremity painful when lifted arms. Currently, pain in the left shoulder and left elbow. Able to lift right arm against the gravity. Weakness 3/5 in both lower extremities as the patient was able to lift briefly legs against the gravity. Deep tendon reflexes depressed. Biceps, triceps, and brachioradialis plantar response is mute. SENSORY EXAMINATION: Withdrawing to pin stimulation in the right upper and right lower extremity. Lesser response to pin stimulation in the left arm. GAIT: No tested. IMPRESSION: 1. This is a 75-year-old man with acute onset of left upper extremity pulses and sensory loss. Rule out a brachioplexopathy, rule out cervical radiculopathy, rule out acute lacunar brainstem stroke. 2. Abnormal liver function with elevated ammonia level. Rule out ammonia level. 3. Hypertension. 4. Diabetes type 2, diabetic polyneuropathy. 5. Peripheral vascular disease. 6. Coronary artery disease status post angioplasty. 7. End-stage renal disease, on hemodialysis. 8. Chronic anemia. 9. Persistent lethargy, multifactorial probably related to hepatic encephalopathy. Rule out hepatic encephalopathy and metabolic derangement. RECOMMENDATION: 1. MRI of the brain and MRI of the cervical spine without contrast. 2. Carotid duplex study. 3. Hepatitis panel. 4. Hold statins temporarily. 5. Continue aspirin/Plavix. 6. Continue cardiac monitoring in view of paroxysmal tachycardia. 7. Continue current treatment, I discussed the patient's status with the family. Thank you for allowing me to see this interesting patient in neurological consultation. Danny Hurd M.D. DR: EUN JOB#: [id number] CC:
--- NOTE | 2016-09-03 22:38 | Consultation ---
DATE OF CONSULTATION: 09/03/2016 CONSULTING PHYSICIAN: Arnulfo Tapia M.D. REFERRING PHYSICIAN: Carmela Quinteros M.D. REASON FOR CONSULTATION: Management of hypertension and atrial fibrillation in the setting of stroke. HISTORY OF PRESENT ILLNESS: The patient is a 75-year-old [place] gentleman with history of hypertension and atrial fibrillation as well as end-stage renal disease on hemodialysis as well as liver cirrhosis, who was brought to the emergency room for slurring of speech, facial droop, and left-sided weakness. The episode started approximately six hours earlier when he was on dialysis. I saw the patient in the assisted and called 911. The patient was admitted to telemetry floor and cardiology consultation was obtained for further evaluation. REVIEW OF SYSTEMS: Negative other than what is mentioned in history of present illness. PAST MEDICAL HISTORY: 1. Hypertension. 2. Diabetes. 3. Coronary artery disease. 4. End-stage renal disease, on hemodialysis. 5. Atrial fibrillation. FAMILY HISTORY: Noncontributory. SOCIAL HISTORY: He lives in assisted. Does not smoke or drink alcohol. PHYSICAL EXAMINATION: VITAL SIGNS: Blood pressure is 173/66, pulse 90, respirations 18, and temperature 99.1. HEAD AND NECK: No JVD. LUNGS: Decreased breath sounds. CARDIOVASCULAR: Shows irregular S1 and S2 with no gallop or murmur. ABDOMEN: Soft and nontender. EXTREMITIES: There is 1+ pitting edema. DIAGNOSTIC DATA: EKG showed sinus rhythm with frequent PACs. Sinus tachycardia with old inferior myocardial infarction. Apparently, dialysis access in the right chest. Labs - white count 9.9, hemoglobin 10.7, and hematocrit 33.5. Sodium 143, potassium 4.0, BUN 48, and creatinine 4.6. Glucose 202. His INR is 1.3. Telemetry strips show episodes of atrial fibrillation with rapid ventricular response with heart rate up to 150s. ASSESSMENT AND PLAN: 1. Atrial fibrillation with rapid ventricular response. The patient is on Toprol-XL 100 mg daily, already converted to sinus rhythm. I will also start the patient on anticoagulation with heparin, but we will have to wait until we get okay from Neurology, as the patient has history of hemorrhagic conversion stroke. In the meantime, the patient is still on aspirin and Plavix. 2. End-stage renal disease, on hemodialysis. 3. Hyperlipidemia, on Lipitor. 4. Cirrhosis of the liver, on Lasix 80 mg and lactulose. 5. Diabetes, on insulin. Thank you very much, Dr. Carmela Quinteros, for allowing me to participate in the care of this patient. Please do not hesitate to contact me for any questions regarding my evaluation. Arnulfo Tapia M.D. DR: KOSTA JOB#: [id number] CC:
[2016-09-04] VITALS (7 sets, daily range): BP systolic 103–177; BP diastolic 54–68
[2016-09-04] MEDS: Lactulose 20gm/30ml UDC ORAL SCH ×5 (04:36→21:00)
[2016-09-04] MEDS: Heparin 5000 units/ml inj SUBQ SCH ×3 (05:56→23:06)
[2016-09-04] MEDS: NovoLOG Insulin Flexpen SUBQ SCH ×4 (06:30→21:00)
[2016-09-04 08:22] LABS: BASOPHILS % (AUTO) 1.4 % (0.0-2.0); EOSINOPHILS % (AUTO) 2.1 % (0.0-3.0); LYMPHOCYTES % (AUTO) 17.3 % (20.0-45.0); MEAN CORPUSCULAR HGB CONC 32.1 G/DL (32.0-36.0); MEAN CORPUSCULAR VOLUME 97 FL (80-99); MEAN PLATELET VOLUME 6.9 FL (6.5-10.1); MONOCYTES % (AUTO) 9.2 % (1.0-10.0); PLATELET COUNT 160 K/UL (150-450); RED BLOOD COUNT 3.45 M/UL (4.70-6.10); RED CELL DISTRIBUTION WIDTH 16.6 % (11.6-14.8); WHITE BLOOD COUNT 10.9 K/UL (4.8-10.8)
[2016-09-04] MEDS: Nephrovite tab ORAL SCH (08:40)
[2016-09-04] MEDS: Furosemide 80mg tab ORAL SCH ×2 (08:41→21:00)
[2016-09-04] MEDS: Famotidine 20 MG/ 2ML VIAL IVP SCH (08:41)
[2016-09-04] MEDS: Aspirin Baby 81mg ORAL SCH (08:41)
[2016-09-04] MEDS: Calcitriol 0.25mcg Cap ORAL SCH (08:42)
--- NOTE | 2016-09-04 08:43 | General Progress Note ---
Assessment/Plan Assessment/Plan Assessment - EtOH Cirrhosis - Renal failure - Acute CVA, (L) carolyn - Poor Px Recommendations - NGT - Lactulose - xifaxan - check labs - check U/S - check AFP - Goals and level of care discussion Subjective Allergies: Coded Allergies: No Known Allergies (Unverified , 07/14/16) Subjective slightly more awake NGT tube in for swallow eval d/w RN Objective Last 24 Hour Vital Signs Date Time Temp Pulse Resp B/P Pulse Ox O2 Delivery O2 Flow Rate FiO2 09/04/16 04:25 97.9 89 20 151/64 96 Room Air 09/04/16 00:58 98.2 88 18 148/57 94 Room Air 09/04/16 00:00 98.2 115 18 177/59 94 Room Air 09/04/16 00:00 86 09/03/16 20:00 91 09/03/16 20:00 97.7 82 21 160/56 96 Room Air 09/03/16 16:00 85 09/03/16 16:00 98.1 86 21 151/69 97 Room Air 09/03/16 11:37 86 165/71 09/03/16 11:23 99.1 86 20 165/71 100 Room Air 09/03/16 09:00 90 173/66 Intake and Output 09/03/16 09/04/16 19:00 07:00 Intake Total 240 ml Balance 240 ml IV Total 240 ml # Voids 3 Laboratory Tests 09/04/16 06:43: White Blood Count 10.9H, Red Blood Count 3.45L, Hemoglobin 10.7L, Hematocrit 33.3L, Mean Corpuscular Volume 97, Mean Corpuscular Hemoglobin 31.0, Mean Corpuscular Hemoglobin Concent 32.1, Red Cell Distribution Width 16.6H, Platelet Count 160, Mean Platelet Volume 6.9, Neutrophils (%) (Auto) 70.0, Lymphocytes (%) (Auto) 17.3L, Monocytes (%) (Auto) 9.2, Eosinophils (%) (Auto) 2.1, Basophils (%) (Auto) 1.4, Sodium Level [Pending], Potassium Level [Pending] , Chloride Level [Pending], Carbon Dioxide Level [Pending], Blood Urea Nitrogen [Pending], Creatinine [Pending], Estimat Glomerular Filtration Rate [Pending], Glucose Level [Pending], Calcium Level [Pending], Phosphorus Level [Pending], Total Bilirubin [Pending], Aspartate Amino Transf (AST/SGOT) [Pending], Alanine Aminotransferase (ALT/SGPT) [Pending], Alkaline Phosphatase [Pending], Ammonia [ Pending], Total Protein [Pending], Albumin [Pending], Globulin [Pending], Alpha Fetoprotein [Pending] Height (Feet): 5 Height (Inches): 11.00 Weight (Pounds): 245 Objective conversant but confused NCAT supple CTA RRR soft ND NT awake / responsive, but slow to respond slurred speech (L) weakness ESPINOZA WOOTEN Sep 04, 2016 08:43
[2016-09-04] MEDS: Metoprolol XL 100mg tab ORAL SCH (08:46)
[2016-09-04] MEDS: Rifaximin 550mg tab ORAL SCH ×2 (08:47→21:00)
[2016-09-04 08:53] LABS: ALANINE AMINOTRANSFERASE 51 U/L (3-41); ALBUMIN/GLOBULIN RATIO 0.9 (1.0-2.7); ANION GAP 22 (5-15); ASPARTATE AMINO TRANSFERASE 83 U/L (5-40); CALCIUM 8.5 mg/dL (8.6-10.2); CARBON DIOXIDE 25 mEQ/L (20-30); CHLORIDE 97 mEQ/L (98-107); CREATININE 5.8 mg/dL (0.7-1.2); HEMOLYSIS 8; POTASSIUM 4.4 mEQ/L (3.4-4.9); SODIUM 144 mEQ/L (135-145); TOTAL PROTEIN 5.4 g/dL (6.6-8.7)
[2016-09-04 09:43] LABS: BILIRUBIN,DIRECT 1.3 mg/dL (0.1-0.3)
[2016-09-04] MEDS: D5 1/2NS 1,000 ML IV SCH (10:30)
--- NOTE | 2016-09-04 11:16 | Nephrology Progress Note ---
Assessment/Plan Problem List: (1) ESRD (end stage renal disease) on dialysis (2) L arm palsy, r/p brach plexopathy,r/o lacunar stroke (3) Hepatic encephalopathy (4) Altered level of consciousness Plan HD today Discussed with artur and Dr Hurd follow labs cont lactulose Subjective Subjective more alert Objective Objective Last 24 Hour Vital Signs Date Time Temp Pulse Resp B/P Pulse Ox O2 Delivery O2 Flow Rate FiO2 09/04/16 08:46 107 148/63 09/04/16 08:00 97.9 107 18 148/63 97 Room Air 105 09/04/16 04:25 97.9 89 20 151/64 96 Room Air 09/04/16 00:58 98.2 88 18 148/57 94 Room Air 09/04/16 00:00 98.2 115 18 177/59 94 Room Air 09/04/16 00:00 86 09/03/16 20:00 91 09/03/16 20:00 97.7 82 21 160/56 96 Room Air 09/03/16 16:00 85 09/03/16 16:00 98.1 86 21 151/69 97 Room Air 09/03/16 11:37 86 165/71 09/03/16 11:23 99.1 86 20 165/71 100 Room Air Intake and Output 09/03/16 09/04/16 19:00 07:00 Intake Total 240 ml Balance 240 ml IV Total 240 ml # Voids 3 Laboratory Tests 09/04/16 06:43: White Blood Count 10.9H, Red Blood Count 3.45L, Hemoglobin 10.7L, Hematocrit 33.3L, Mean Corpuscular Volume 97, Mean Corpuscular Hemoglobin 31.0, Mean Corpuscular Hemoglobin Concent 32.1, Red Cell Distribution Width 16.6H, Platelet Count 160, Mean Platelet Volume 6.9, Neutrophils (%) (Auto) 70.0, Lymphocytes (%) (Auto) 17.3L, Monocytes (%) (Auto) 9.2, Eosinophils (%) (Auto) 2.1, Basophils (%) (Auto) 1.4, Sodium Level 144, Potassium Level 4.4, Chloride Level 97L, Carbon Dioxide Level 25, Anion Gap 22H, Blood Urea Nitrogen 65H, Creatinine 5.8H, Estimat Glomerular Filtration Rate , Glucose Level 182H, Calcium Level 8.5L, Phosphorus Level 8.4H, Total Bilirubin 2.3H, Direct Bilirubin 1.3H, Aspartate Amino Transf (AST/SGOT) 83H, Alanine Aminotransferase (ALT/SGPT) 51H, Alkaline Phosphatase 490H, Ammonia 160H, Total Protein 5.4L, Albumin 2.6L, Globulin 2.8, Albumin/Globulin Ratio 0.9L, Alpha Fetoprotein [ Pending] Height (Feet): 5 Height (Inches): 11.00 Weight (Pounds): 245 Cardiovascular: normal rate Respiratory/Chest: lungs clear Extremities: severe edema NICOLASA WELLS Sep 04, 2016 11:16
--- NOTE | 2016-09-04 12:32 | Neurology Progress Note ---
Interim History Interim History ROS Limited/Unobtainable: Yes Complaints: lethargic noncommunicating Events: Acute R MCA stroke on MRI brain. restless Objective Physical Exam Last Vital Signs Date Time Temp Pulse Resp B/P Pulse Ox O2 Delivery O2 Flow Rate FiO2 09/04/16 12:01 97.2 77 18 157/68 96 Room Air 83 Laboratory Tests Test 09/04/16 06:43 White Blood Count 10.9 K/UL (4.8-10.8) H Red Blood Count 3.45 M/UL (4.70-6.10) L Hemoglobin 10.7 G/DL (14.2-18.0) L Hematocrit 33.3 % (42.0-52.0) L Mean Corpuscular Volume 97 FL (80-99) Mean Corpuscular Hemoglobin 31.0 PG (27.0-31.0) Mean Corpuscular Hemoglobin Concent 32.1 G/DL (32.0-36.0) Red Cell Distribution Width 16.6 % (11.6-14.8) H Platelet Count 160 K/UL (150-450) Mean Platelet Volume 6.9 FL (6.5-10.1) Neutrophils (%) (Auto) 70.0 % (45.0-75.0) Lymphocytes (%) (Auto) 17.3 % (20.0-45.0) L Monocytes (%) (Auto) 9.2 % (1.0-10.0) Eosinophils (%) (Auto) 2.1 % (0.0-3.0) Basophils (%) (Auto) 1.4 % (0.0-2.0) Sodium Level 144 mEQ/L (135-145) Potassium Level 4.4 mEQ/L (3.4-4.9) Chloride Level 97 mEQ/L (98-107) L Carbon Dioxide Level 25 mEQ/L (20-30) Anion Gap 22 (5-15) H Blood Urea Nitrogen 65 mg/dL (7-23) H Creatinine 5.8 mg/dL (0.7-1.2) H Estimat Glomerular Filtration Rate mL/min (>60) Glucose Level 182 mg/dL (74-106) H Calcium Level 8.5 mg/dL (8.6-10.2) L Phosphorus Level 8.4 mg/dL (2.5-4.8) H Total Bilirubin 2.3 mg/dL (0.0-1.2) H Direct Bilirubin 1.3 mg/dL (0.1-0.3) H Aspartate Amino Transf (AST/SGOT) 83 U/L (5-40) H Alanine Aminotransferase (ALT/SGPT) 51 U/L (3-41) H Alkaline Phosphatase 490 U/L (40-129) H Ammonia 160 umol/L (16-60) H Total Protein 5.4 g/dL (6.6-8.7) L Albumin 2.6 g/dL (3.5-5.2) L Globulin 2.8 g/dL Albumin/Globulin Ratio 0.9 (1.0-2.7) L Alpha Fetoprotein Pending General: well developed, other - obese, on HD L arm pain on movement Head: normocophalic, atraumatic Neck: other - rigid Neurologic Exam Mental Status: other - sleepy restless, Speech: other Language: other - aphasia Cranial Nerve II: no papilledema Cranial Nerves III, IV, : PERRLA, EOMI, pupils Cranial Nerve V: masseters function normal Cranial Nerve VII: other - droopy L face Cranial Nerve VIII: no nystagmus Cranial Nerve IX: other Cranial Nerve X: other Cranial Nerve XI: trapezii function normal Cranial Nerve XII: no tongue atrophy/fasciculations Motor System: other - flaccid L arm 1/5 BLE Sensory: other Coordination: other Deep Tendon Reflexes: 0 ankle (L), 0 ankle (R), 0 bicep (L), 0 bicep (R), 0 brachioradialis (L), 0 brachioradialis (R), 0 knee (L), 0 knee (R), 0 tricep (L) , 0 tricep (R) Reflexes: mute plantar (L), mute plantar (R) Impression/Recommendations Problems: (1) 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 (2) Hepatic encephalopathy (3) ESRD (end stage renal disease) on dialysis (4) CHF (congestive heart failure) (5) Left arm pain (6) L arm pain Status: unchanged, deteriorating Recommendations # [id number] d/w family xray L arm/shoulder keep SBP>130 cont current rx pt/ot MICHEAL BLOOM Sep 04, 2016 12:32
--- NOTE | 2016-09-04 12:45 | Diagnostic Imaging Report ---
Indication: Post nasogastric tube placement Technique: Supine view of the abdomen Comparison: none Findings: There is a right jugular dialysis catheter in place. Nasogastric tube tip projects in the gastric fundus with the proximal port probably just beyond the gastroesophageal junction Impression: Nasogastric tube tip within the stomach. This agrees with the preliminary interpretation provided overnight by [facility].
--- NOTE | 2016-09-04 13:22 | Diagnostic Imaging Report ---
Indication: Post nasogastric tube placement Technique: Supine view of the abdomen Comparison: 2 hours earlier Findings: Nasogastric tube is again demonstrated, projects slightly farther into the stomach currently, currently at the level of the gastric body. Prominent small bowel loops are seen in the right lower quadrant. Impression: Improved and satisfactory position of nasogastric tube This agrees with the preliminary interpretation provided overnight by [facility].
--- NOTE | 2016-09-04 13:46 | Diagnostic Imaging Report ---
Indication: Post nasogastric tube placement Technique: Supine view of the abdomen Comparison: none Findings: Nasogastric tube is difficult to visualize, but the tip projects at the level of the gastric fundus. The bowel gas pattern is unremarkable Impression: Nasogastric tube tip at the level gastric fundus, poorly visualized This agrees with the preliminary interpretation provided overnight by [facility].
[2016-09-04] MEDS ORDERED: Sterile Water Irrig 1000ml IRRIG ONE (15:00)
[2016-09-04] MEDS ORDERED: D5 1/2NS 1000ml IV ONE (15:00)
--- NOTE | 2016-09-04 15:26 | Diagnostic Imaging Report ---
Indication: ABN LABS Technique: Jauregui-scale and duplex images of the upper abdomen were obtained Comparison: None Findings: There is a small amount of ascites fluid present. Gallbladder demonstrates sludge and stones. Gallbladder is incompletely distended. Gallbladder wall is equivocally mildly thickened. Sonographic Fink's sign is negative. Common bile duct measures mm in diameter. No intrahepatic biliary ductal dilatation. Liver demonstrates coarsened echogenicity with surface micro-nodularity. Portal vein and hepatic veins are poorly visualized; patient had difficulty cooperating. Varices are seen adjacent to the left hepatic lobe. Pancreas is unremarkable. The spleen is enlarged, measuring 17 cm long axis dimension. There is a accessory splenule within the splenic hilum. Left kidney measures 11.9 cm in length. Right kidney measures 10.2 cm length. Both kidneys demonstrate normal echogenicity. There is no hydronephrosis. The kidneys demonstrate small cysts bilaterally. Abdominal aorta is partially obscured by bowel gas, visualized portions are non-aneurysmal. There are bilateral pleural effusions Impression: Evidence of cirrhosis, with coarse and echogenic liver, liver surface micro-nodularity Stigmata of portal hypertension, presumably related to the above, with ascites and splenomegaly and varices Gallbladder sludge and stones The bladder wall thickening. Most likely edema secondary to hemodynamic derangements ossified the liver disease, but acute cholecystitis also a possibility. Consider nuclear medicine hepatobiliary scan if there is high clinical suspicion Incidental finding of bilateral renal cysts Bilateral pleural effusions Incomplete visualization of the abdominal aorta Note suboptimal visualization of vascular structures within the liver due to inability of patient to cooperate
--- NOTE | 2016-09-04 16:05 | Cardiac Electrophysiology PN ---
Assessment/Plan Assessment/Plan 1. Atrial fibrillation with rapid ventricular response, already converted to sinus rhythm. The patient is on Toprol-XL 100 mg daily,Hold full anticoagulation until okay from Neurology, as the patient has history of hemorrhagic conversion stroke. In the meantime, the patient is still on aspirin and Plavix. 2. End-stage renal disease, on hemodialysis. 3. Hyperlipidemia, on Lipitor. 4. Cirrhosis of the liver, on Lasix 80 mg and lactulose. 5. Diabetes, on insulin. 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 Just had dialysis today. In SR with PVCs Objective Last 24 Hour Vital Signs Date Time Temp Pulse Resp B/P Pulse Ox O2 Delivery O2 Flow Rate FiO2 09/04/16 15:30 Room Air 09/04/16 12:20 Room Air 09/04/16 12:01 97.2 77 18 157/68 96 Room Air 83 09/04/16 12:00 74 09/04/16 08:46 107 148/63 09/04/16 08:00 87 09/04/16 08:00 97.9 107 18 148/63 97 Room Air 105 09/04/16 04:25 97.9 89 20 151/64 96 Room Air 09/04/16 00:58 98.2 88 18 148/57 94 Room Air 09/04/16 00:00 98.2 115 18 177/59 94 Room Air 09/04/16 00:00 86 09/03/16 20:00 91 09/03/16 20:00 97.7 82 21 160/56 96 Room Air Intake and Output 09/03/16 09/04/16 19:00 07:00 Intake Total 240 ml Balance 240 ml IV Total 240 ml # Voids 3 Laboratory Tests Test 09/04/16 06:43 White Blood Count 10.9 K/UL (4.8-10.8) H Red Blood Count 3.45 M/UL (4.70-6.10) L Hemoglobin 10.7 G/DL (14.2-18.0) L Hematocrit 33.3 % (42.0-52.0) L Mean Corpuscular Volume 97 FL (80-99) Mean Corpuscular Hemoglobin 31.0 PG (27.0-31.0) Mean Corpuscular Hemoglobin Concent 32.1 G/DL (32.0-36.0) Red Cell Distribution Width 16.6 % (11.6-14.8) H Platelet Count 160 K/UL (150-450) Mean Platelet Volume 6.9 FL (6.5-10.1) Neutrophils (%) (Auto) 70.0 % (45.0-75.0) Lymphocytes (%) (Auto) 17.3 % (20.0-45.0) L Monocytes (%) (Auto) 9.2 % (1.0-10.0) Eosinophils (%) (Auto) 2.1 % (0.0-3.0) Basophils (%) (Auto) 1.4 % (0.0-2.0) Sodium Level 144 mEQ/L (135-145) Potassium Level 4.4 mEQ/L (3.4-4.9) Chloride Level 97 mEQ/L (98-107) L Carbon Dioxide Level 25 mEQ/L (20-30) Anion Gap 22 (5-15) H Blood Urea Nitrogen 65 mg/dL (7-23) H Creatinine 5.8 mg/dL (0.7-1.2) H Estimat Glomerular Filtration Rate mL/min (>60) Glucose Level 182 mg/dL (74-106) H Calcium Level 8.5 mg/dL (8.6-10.2) L Phosphorus Level 8.4 mg/dL (2.5-4.8) H Total Bilirubin 2.3 mg/dL (0.0-1.2) H Direct Bilirubin 1.3 mg/dL (0.1-0.3) H Aspartate Amino Transf (AST/SGOT) 83 U/L (5-40) H Alanine Aminotransferase (ALT/SGPT) 51 U/L (3-41) H Alkaline Phosphatase 490 U/L (40-129) H Ammonia 160 umol/L (16-60) H Total Protein 5.4 g/dL (6.6-8.7) L Albumin 2.6 g/dL (3.5-5.2) L Globulin 2.8 g/dL Albumin/Globulin Ratio 0.9 (1.0-2.7) L Alpha Fetoprotein Pending Objective HEAD AND NECK: No JVD. LUNGS: Decreased breath sounds. CARDIOVASCULAR: Regular S1 and S2 with no gallop or murmur. ABDOMEN: Soft and nontender. EXTREMITIES: There is 1+ pitting edema. PRINCESS AGGARWAL Sep 04, 2016 16:05
[2016-09-04] MEDS ORDERED: LORazepam Inj 2mg/ml 1ml IV ONE (20:00)
--- NOTE | 2016-09-04 20:36 | General Progress Note ---
Assessment/Plan Assessment/Plan 75 y/o male admitted with the following problems: pulled out NGT today -Acute CVA with left hemiparesis -Cirrhosi with hepatic encephalopathy -ESRD on HD -DM insulin requiring -paroxismal atrial fibrillation now in sinus rhythm -leukoctosis -left upper extremity edema Plan: -xray and venous duplex of left UE -HD per nephrology -replace NGT, ativan for sedation -video swallow study in am -continue plavix and asa, coumadin when stable from neurology stand point -pt/ot/st and rehab placement when medically stable -continue all meds -VTE with heparin sq tid discussed in detain with daughter and at bedside Subjective Date patient seen: Sep 04, 2016 Time patient seen: 20:30 ROS Limited/Unobtainable: Yes Allergies: Coded Allergies: No Known Allergies (Unverified , 07/14/16) Objective Last 24 Hour Vital Signs Date Time Temp Pulse Resp B/P Pulse Ox O2 Delivery O2 Flow Rate FiO2 09/04/16 16:00 97.6 68 19 138/54 97 Room Air 09/04/16 15:30 Room Air 09/04/16 12:20 Room Air 09/04/16 12:01 97.2 77 18 157/68 96 Room Air 83 09/04/16 12:00 74 09/04/16 08:46 107 148/63 09/04/16 08:00 87 09/04/16 08:00 97.9 107 18 148/63 97 Room Air 105 09/04/16 04:25 97.9 89 20 151/64 96 Room Air 09/04/16 00:58 98.2 88 18 148/57 94 Room Air 09/04/16 00:00 98.2 115 18 177/59 94 Room Air 09/04/16 00:00 86 Intake and Output 09/03/16 09/04/16 19:00 07:00 Intake Total 240 ml Balance 240 ml IV Total 240 ml # Voids 3 Laboratory Tests 09/04/16 06:43: White Blood Count 10.9H, Red Blood Count 3.45L, Hemoglobin 10.7L, Hematocrit 33.3L, Mean Corpuscular Volume 97, Mean Corpuscular Hemoglobin 31.0, Mean Corpuscular Hemoglobin Concent 32.1, Red Cell Distribution Width 16.6H, Platelet Count 160, Mean Platelet Volume 6.9, Neutrophils (%) (Auto) 70.0, Lymphocytes (%) (Auto) 17.3L, Monocytes (%) (Auto) 9.2, Eosinophils (%) (Auto) 2.1, Basophils (%) (Auto) 1.4, Sodium Level 144, Potassium Level 4.4, Chloride Level 97L, Carbon Dioxide Level 25, Anion Gap 22H, Blood Urea Nitrogen 65H, Creatinine 5.8H, Estimat Glomerular Filtration Rate , Glucose Level 182H, Calcium Level 8.5L, Phosphorus Level 8.4H, Total Bilirubin 2.3H, Direct Bilirubin 1.3H, Aspartate Amino Transf (AST/SGOT) 83H, Alanine Aminotransferase (ALT/SGPT) 51H, Alkaline Phosphatase 490H, Ammonia 160H, Total Protein 5.4L, Albumin 2.6L, Globulin 2.8, Albumin/Globulin Ratio 0.9L, Alpha Fetoprotein [ Pending] Height (Feet): 5 Height (Inches): 11.00 Weight (Pounds): 245 General Appearance: WD/WN, overweight, obese EENT: PERRL/EOMI Neck: non-tender Cardiovascular: regular rhythm Respiratory/Chest: chest wall non-tender, lungs clear Abdomen: normal bowel sounds, soft Genitourinary/Rectal: normal genital exam Extremities: other - swelling of left upper extremity Edema: 2+ Arm (L), no edema noted Arm (R), no edema noted Leg (L), no edema noted Leg (R), no edema noted Pedal (L), no edema noted Pedal (R), no edema noted Generalized Edema: mild edema Neurologic: client executive II-XII grossly normal, alert, responsive Skin: normal pigmentation Lymphatic: normal anterior cervical (L), normal anterior cervical (R), normal axillary (L), normal axillary (R), normal inguinal (L), normal inguinal (R), normal other, normal posterior cervical (L), normal posterior cervical (R), normal submandibular (L), normal submandibular (R), normal supraclavicular (L), normal supraclavicular (R) Carmela Quinteros MD Sep 04, 2016 20:36
[2016-09-04] MEDS: Atorvastatin 80mg tab ORAL SCH (21:00)
[2016-09-05] VITALS: BP 138/58
[2016-09-05] MEDS: Haloperidol 5mg/ml Inj IM PRN (01:37)
[2016-09-05 04:00] VITALS: BP 143/58
[2016-09-05] MEDS: NovoLOG Insulin Flexpen SUBQ SCH ×4 (06:30→21:00)
[2016-09-05] MEDS: Heparin 5000 units/ml inj SUBQ SCH ×3 (06:48→21:49)
[2016-09-05 08:00] VITALS: BP 165/55
--- NOTE | 2016-09-05 09:30 | Diagnostic Imaging Report ---
Indication: NG-tube Comparison: 09/04/16 Single view of the abdomen obtained NG tube is been further advanced and is well situated in the stomach. Impression: NG tube in good position
[2016-09-05] MEDS: Lactulose 20gm/30ml UDC ORAL SCH ×4 (10:17→21:40)
[2016-09-05] MEDS: Rifaximin 550mg tab ORAL SCH ×2 (10:17→21:40)
[2016-09-05] MEDS: Metoprolol XL 100mg tab ORAL SCH (10:18)
[2016-09-05] MEDS: Calcitriol 0.25mcg Cap ORAL SCH (10:18)
[2016-09-05] MEDS: Furosemide 80mg tab ORAL SCH (10:19)
[2016-09-05] MEDS: Nephrovite tab ORAL SCH (10:19)
[2016-09-05] MEDS: Aspirin Baby 81mg ORAL SCH (10:20)
[2016-09-05] MEDS: Famotidine 20 MG/ 2ML VIAL IVP SCH (10:23)
[2016-09-05] MEDS: D5 1/2NS 1,000 ML IV SCH ×2 (10:30→11:37)
--- NOTE | 2016-09-05 10:36 | Neurology Progress Note ---
Interim History Interim History ROS Limited/Unobtainable: Yes Complaints: lethargic limited communicating Events: intermittently restless pulled NG, moreresponsive Objective Physical Exam Last Vital Signs Date Time Temp Pulse Resp B/P Pulse Ox O2 Delivery O2 Flow Rate FiO2 09/05/16 10:18 72 165/55 09/05/16 08:00 97.5 Room Air 09/05/16 04:00 18 99 General: well developed, other - obese, on HD L arm pain on movementr/o L shoulder fx get xray Head: normocophalic, atraumatic Neck: other - rigid Neurologic Exam Mental Status: other - sleepy restless,mumbling Speech: other - incoherent inFarsy Language: other - aphasia Cranial Nerve II: no papilledema Cranial Nerves III, IV, : PERRLA, EOMI, pupils Cranial Nerve V: masseters function normal Cranial Nerve VII: other - droopy L face Cranial Nerve VIII: no nystagmus Cranial Nerve IX: other Cranial Nerve X: other Cranial Nerve XI: trapezii function normal Cranial Nerve XII: no tongue atrophy/fasciculations Motor System: other - flaccid L arm 1/5 BLE Sensory: other Coordination: other Deep Tendon Reflexes: 0 ankle (L), 0 ankle (R), 0 bicep (L), 0 bicep (R), 0 brachioradialis (L), 0 brachioradialis (R), 0 knee (L), 0 knee (R), 0 tricep (L) , 0 tricep (R) Reflexes: mute plantar (L), mute plantar (R) Impression/Recommendations Problems: (1) 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 (2) Hepatic encephalopathy (3) ESRD (end stage renal disease) on dialysis (4) CHF (congestive heart failure) (5) L arm pain Status: unchanged, deteriorating Recommendations # [id number] d/w family xray L arm/shoulder keep SBP>130 cont current rx pt/ot MICHEAL BLOOM Sep 05, 2016 10:36
[2016-09-05 12:00] VITALS: BP 130/67
--- NOTE | 2016-09-05 13:01 | Nephrology Progress Note ---
Assessment/Plan Problem List: (1) ESRD (end stage renal disease) on dialysis (2) L arm palsy, r/p brach plexopathy,r/o lacunar stroke (3) Hepatic encephalopathy (4) Altered level of consciousness Plan HD tomorrow DC Lasix follow labs increase lactulose ? Discussed with daughter Subjective Subjective In NAD Objective Objective Last 24 Hour Vital Signs Date Time Temp Pulse Resp B/P Pulse Ox O2 Delivery O2 Flow Rate FiO2 09/05/16 12:00 97.7 67 18 130/67 96 Room Air 09/05/16 10:18 72 165/55 09/05/16 08:00 97.5 70 165/55 Room Air 72 09/05/16 04:00 98.2 72 18 143/58 99 Room Air 09/05/16 04:00 71 09/05/16 00:00 69 09/05/16 00:00 98.1 72 18 138/58 94 Room Air 09/04/16 20:00 97.5 110 19 103/65 98 Room Air 09/04/16 20:00 132 09/04/16 16:00 71 09/04/16 16:00 97.6 68 19 138/54 97 Room Air 09/04/16 15:30 Room Air Intake and Output 09/04/16 09/05/16 19:00 07:00 Output Total 2000 ml 1 ml Balance -2000 ml -1 ml Output Stool Total 1 ml Hemodialysis UF 2000 ml # Voids 2 2 # Bowel Movements 3 Height (Feet): 5 Height (Inches): 11.00 Weight (Pounds): 245 Cardiovascular: normal rate Respiratory/Chest: lungs clear Extremities: moderate edema NICOLASA WELLS Sep 05, 2016 13:01
--- NOTE | 2016-09-05 13:54 | Diagnostic Imaging Report ---
Indication: Pain Findings: 3 views of the left shoulder were obtained. The bones are osteopenic. There is no fracture or malalignment. There is moderate to severe osteoarthritis with narrowing of the clinic in the joint, subchondral sclerosis and osteophyte formation. Impression: No acute injury Severe osteoarthritis
[2016-09-05] MEDS ORDERED: LORazepam 0.5mg tab ORAL ONE (14:15)
--- NOTE | 2016-09-05 14:27 | Cardiac Electrophysiology PN ---
Assessment/Plan Assessment/Plan 1. Atrial fibrillation with rapid ventricular response, converted to sinus rhythm. Change Toprol-XL 100 mg daily to metoprolol 50 bid as unable to swallow .Hold full anticoagulation until okay from Neurology, as the patient has history of hemorrhagic conversion stroke. On aspirin and Plavix. 2. End-stage renal disease, on hemodialysis. 3. Hyperlipidemia, on Lipitor. 4. Cirrhosis of the liver, on Lasix 80 mg and lactulose. 5. Diabetes, on insulin. 6. Dysphagia. 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 In SR with PVCs. Failed Video swallow today and pulled out the NG tube. Objective Last 24 Hour Vital Signs Date Time Temp Pulse Resp B/P Pulse Ox O2 Delivery O2 Flow Rate FiO2 09/05/16 12:00 97.7 67 18 130/67 96 Room Air 09/05/16 10:18 72 165/55 09/05/16 08:00 97.5 70 165/55 Room Air 72 09/05/16 04:00 98.2 72 18 143/58 99 Room Air 09/05/16 04:00 71 09/05/16 00:00 69 09/05/16 00:00 98.1 72 18 138/58 94 Room Air 09/04/16 20:00 97.5 110 19 103/65 98 Room Air 09/04/16 20:00 132 09/04/16 16:00 71 09/04/16 16:00 97.6 68 19 138/54 97 Room Air 09/04/16 15:30 Room Air Intake and Output 09/04/16 09/05/16 19:00 07:00 Output Total 2000 ml 1 ml Balance -2000 ml -1 ml Output Stool Total 1 ml Hemodialysis UF 2000 ml # Voids 2 2 # Bowel Movements 3 Labs Test 09/04/16 06:43 White Blood Count 10.9 K/UL (4.8-10.8) Red Blood Count 3.45 M/UL (4.70-6.10) Hemoglobin 10.7 G/DL (14.2-18.0) Hematocrit 33.3 % (42.0-52.0) Mean Corpuscular Volume 97 FL (80-99) Mean Corpuscular Hemoglobin 31.0 PG (27.0-31.0) Mean Corpuscular Hemoglobin Concent 32.1 G/DL (32.0-36.0) Red Cell Distribution Width 16.6 % (11.6-14.8) Platelet Count 160 K/UL (150-450) Mean Platelet Volume 6.9 FL (6.5-10.1) Neutrophils (%) (Auto) 70.0 % (45.0-75.0) Lymphocytes (%) (Auto) 17.3 % (20.0-45.0) Monocytes (%) (Auto) 9.2 % (1.0-10.0) Eosinophils (%) (Auto) 2.1 % (0.0-3.0) Basophils (%) (Auto) 1.4 % (0.0-2.0) Sodium Level 144 mEQ/L (135-145) Potassium Level 4.4 mEQ/L (3.4-4.9) Chloride Level 97 mEQ/L (98-107) Carbon Dioxide Level 25 mEQ/L (20-30) Anion Gap 22 (5-15) Blood Urea Nitrogen 65 mg/dL (7-23) Creatinine 5.8 mg/dL (0.7-1.2) Estimat Glomerular Filtration Rate mL/min (>60) Glucose Level 182 mg/dL (74-106) Calcium Level 8.5 mg/dL (8.6-10.2) Phosphorus Level 8.4 mg/dL (2.5-4.8) Total Bilirubin 2.3 mg/dL (0.0-1.2) Direct Bilirubin 1.3 mg/dL (0.1-0.3) Aspartate Amino Transf (AST/SGOT) 83 U/L (5-40) Alanine Aminotransferase (ALT/SGPT) 51 U/L (3-41) Alkaline Phosphatase 490 U/L (40-129) Ammonia 160 umol/L (16-60) Total Protein 5.4 g/dL (6.6-8.7) Albumin 2.6 g/dL (3.5-5.2) Globulin 2.8 g/dL Albumin/Globulin Ratio 0.9 (1.0-2.7) Alpha Fetoprotein 1.4 ng/mL (0.0-8.3) Current Medications Medications (Trade) Dose Ordered Sig/Jacqueline Route PRN Reason Start Time Stop Time Status Last Admin Dose Admin Acetaminophen (Tylenol) 650 mg Q6H PRN ORAL Mild Pain/Temp > 100.5 09/03/16 04:30 10/03/16 04:29 Aspirin (ASA) 81 mg DAILY ORAL 09/03/16 09:00 10/03/16 08:59 09/05/16 10:20 Atorvastatin Calcium (Lipitor) 80 mg BEDTIME ORAL 09/03/16 21:00 10/03/16 20:59 Calcitriol (Rocatrol) 0.25 mcg DAILY ORAL 09/03/16 09:00 10/03/16 08:59 09/05/16 10:18 Clonidine HCl (Catapres) 0.1 mg Q4H PRN ORAL for SBP >170 09/03/16 04:30 10/03/16 04:29 09/03/16 08:30 Clopidogrel Bisulfate (Plavix) 75 mg DAILY ORAL 09/03/16 09:00 10/03/16 08:59 09/05/16 10:19 Dextrose (Dextrose 50%) STAT PRN IV Hypoglycemia 09/03/16 04:30 10/03/16 04:29 Dextrose/Sodium Chloride (D5 0.45% NS) 1,000 ml @ 30 mls/hr Q24H IV 09/03/16 10:30 10/03/16 10:29 09/05/16 11:37 Duloxetine HCl (Cymbalta) 20 mg BID ORAL 09/03/16 09:00 10/03/16 08:59 09/05/16 10:17 Famotidine (Pepcid I.v.) 20 mg DAILY IVP 09/03/16 09:00 10/03/16 08:59 09/05/16 10:23 Haloperidol Lactate 2 mg 2 mg Q6H PRN IM Agitation 09/04/16 10:30 10/04/16 10:29 09/05/16 01:37 Heparin Sodium (Porcine) (Heparin 5000 units/ml) 5,000 units EVERY 8 HOURS SUBQ 09/03/16 07:30 10/03/16 07:29 09/05/16 06:48 Insulin Aspart (NovoLOG) BEFORE MEALS AND HS SUBQ 09/03/16 06:30 10/03/16 06:29 09/05/16 11:47 Lactulose (Cephulac) 20 gm FOUR TIMES A DAY ORAL 09/03/16 09:00 10/03/16 08:59 09/05/16 10:17 Lidocaine (Lidoderm 5% PATCH) 2 patch DAILY TDERMAL 09/03/16 09:00 10/03/16 08:59 09/05/16 09:00 Lorazepam (Ativan) 0.5 mg ONCE ONCE ORAL 09/05/16 14:15 09/05/16 14:16 UNV Metoprolol Succinate 100 mg 100 mg DAILY ORAL 09/03/16 09:00 10/03/16 08:59 09/05/16 10:18 Nystatin (Nystatin) 1 applic THREE TIMES A DAY TOPIC 09/03/16 18:00 10/03/16 17:59 09/05/16 13:00 Rifaximin (Xifaxan) 550 mg EVERY 12 HOURS ORAL 09/03/16 09:00 09/10/16 08:59 09/05/16 10:17 Sennosides (Senokot) 8.6 mg BEDTIME PRN ORAL Constipation 09/03/16 04:30 10/03/16 04:29 Sodium Chloride (Sodium Chloride 1000ml bag) 1,000 ml @ 500 mls/hr Q2H PRN IVLG sbp<90 during hd 09/06/16 12:40 09/06/16 23:59 Vitamin B Complex/ Vit C/Folic Acid (Nephrovite) 1 tab DAILY ORAL 09/03/16 09:00 10/03/16 08:59 09/05/16 10:19 Microbiology Date/Time Source Procedure Growth Status 09/02/16 22:54 Nasal Nares MRSA Culture - Final NO METHICILLIN RESISTANT STAPH AUREUS... Complete 09/02/16 22:54 Rectum VRE Culture - Final Enterococcus Faecium - Vre Complete Objective HEAD AND NECK: No JVD. LUNGS: Decreased breath sounds. CARDIOVASCULAR: Regular S1 and S2 with no gallop or murmur. ABDOMEN: Soft and nontender. EXTREMITIES: There is 1+ pitting edema. PRINCESS AGGARWAL Sep 05, 2016 14:27
[2016-09-05] MEDS ORDERED: LORazepam Inj 2mg/ml 1ml IV SCH (14:30)
[2016-09-05 16:00] VITALS: BP 121/53
--- NOTE | 2016-09-05 19:16 | General Progress Note ---
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 -ESRD on HD -DM insulin requiring -paroxismal atrial fibrillation now in sinus rhythm -leukoctosis -left upper extremity edema, improving -dysphasia -severe OA of left shoulder Plan: -xray and venous duplex of left UE -HD per nephrology -replace NGT, ativan for sedation -video swallow study in am -continue plavix and asa, coumadin when stable from neurology stand point -pt/ot/st and rehab placement when medically stable -continue all meds -VTE with heparin sq tid -recheck xray for NGT position prior to starting meds and tube feeding discussed in detain with nurse am labs Subjective Date patient seen: Sep 05, 2016 Time patient seen: 19:12 ROS Limited/Unobtainable: Yes Allergies: Coded Allergies: No Known Allergies (Unverified , 07/14/16) Objective Last 24 Hour Vital Signs Date Time Temp Pulse Resp B/P Pulse Ox O2 Delivery O2 Flow Rate FiO2 09/05/16 16:00 97.7 68 17 121/53 94 Room Air 09/05/16 12:00 68 09/05/16 12:00 97.7 67 18 130/67 96 Room Air 09/05/16 10:18 72 165/55 09/05/16 08:00 97.5 70 165/55 Room Air 72 09/05/16 08:00 69 09/05/16 04:00 98.2 72 18 143/58 99 Room Air 09/05/16 04:00 71 09/05/16 00:00 69 09/05/16 00:00 98.1 72 18 138/58 94 Room Air 09/04/16 20:00 97.5 110 19 103/65 98 Room Air 09/04/16 20:00 132 Intake and Output 09/04/16 09/05/16 19:00 07:00 Output Total 2000 ml 1 ml Balance -2000 ml -1 ml Output Stool Total 1 ml Hemodialysis UF 2000 ml # Voids 2 2 # Bowel Movements 3 Height (Feet): 5 Height (Inches): 11.00 Weight (Pounds): 245 General Appearance: WD/WN, lethargic EENT: PERRL/EOMI Neck: non-tender Cardiovascular: normal rate Respiratory/Chest: lungs clear Abdomen: normal bowel sounds Extremities: normal range of motion Edema: 1+ Arm (L), no edema noted Arm (R), no edema noted Leg (L), no edema noted Leg (R), no edema noted Pedal (L), no edema noted Pedal (R), no edema noted Generalized Edema: trace edema Neurologic: unresponsive Skin: normal pigmentation Lymphatic: normal anterior cervical (L), normal anterior cervical (R), normal axillary (L), normal axillary (R), normal inguinal (L), normal inguinal (R), normal other, normal posterior cervical (L), normal posterior cervical (R), normal submandibular (L), normal submandibular (R), normal supraclavicular (L), normal supraclavicular (R) Carmela Quinteros MD Sep 05, 2016 19:16
[2016-09-05 20:00] VITALS: BP 67/39
[2016-09-05] MEDS: Atorvastatin 80mg tab ORAL SCH (21:00)
[2016-09-05] MEDS: Metoprolol 50mg tab ORAL SCH (21:45)
--- NOTE | 2016-09-05 21:51 | General Progress Note ---
Assessment/Plan Assessment/Plan Assessment - EtOH Cirrhosis - Renal failure - Acute CVA, (L) carolyn - dysphagia -- unable to place PEG due to cirrhosis - agitation - Poor Px Recommendations - NGT - Lactulose --> can potentially give rectally, but still needs NGT for feeds - xifaxan - Goals and level of care discussion Subjective Allergies: Coded Allergies: No Known Allergies (Unverified , 07/14/16) Subjective more awake NGT tube in --> but pulled out by pt failed swallow eval d/w RN Objective Last 24 Hour Vital Signs Date Time Temp Pulse Resp B/P Pulse Ox O2 Delivery O2 Flow Rate FiO2 09/05/16 20:00 97.9 69 18 67/39 97 Room Air 09/05/16 16:48 82 09/05/16 16:00 97.7 68 17 121/53 94 Room Air 09/05/16 12:00 68 09/05/16 12:00 97.7 67 18 130/67 96 Room Air 09/05/16 10:18 72 165/55 09/05/16 08:00 97.5 70 165/55 Room Air 72 09/05/16 08:00 69 09/05/16 04:00 98.2 72 18 143/58 99 Room Air 09/05/16 04:00 71 09/05/16 00:00 69 09/05/16 00:00 98.1 72 18 138/58 94 Room Air Intake and Output 09/04/16 09/05/16 19:00 07:00 Output Total 2000 ml 1 ml Balance -2000 ml -1 ml Output Stool Total 1 ml Hemodialysis UF 2000 ml # Voids 2 2 # Bowel Movements 3 Height (Feet): 5 Height (Inches): 11.00 Weight (Pounds): 245 Objective conversant but confused NCAT supple CTA RRR soft ND NT awake / responsive, but slow to respond slurred speech (L) weakness ESPINOZA WOOTEN Sep 05, 2016 21:51
[2016-09-06] VITALS: BP 144/61
[2016-09-06] MEDS ORDERED: NovoLOG Insulin Flexpen SUBQ ONE (00:45)
[2016-09-06] MEDS: NovoLOG Insulin Flexpen SUBQ SCH ×4 (01:43→17:36)
[2016-09-06 04:00] VITALS: BP 149/54
[2016-09-06] MEDS ORDERED: NovoLOG Insulin Flexpen SUBQ SCH (06:00)
[2016-09-06] MEDS: Heparin 5000 units/ml inj SUBQ SCH ×3 (06:18→21:14)
[2016-09-06 07:17] LABS: BASOPHILS % (AUTO) 1.7 % (0.0-2.0); EOSINOPHILS % (AUTO) 3.6 % (0.0-3.0); LYMPHOCYTES % (AUTO) 19.1 % (20.0-45.0); MEAN CORPUSCULAR HEMOGLOBIN 30.9 PG (27.0-31.0); MEAN CORPUSCULAR HGB CONC 31.9 G/DL (32.0-36.0); MEAN CORPUSCULAR VOLUME 97 FL (80-99); MEAN PLATELET VOLUME 6.2 FL (6.5-10.1); MONOCYTES % (AUTO) 10.1 % (1.0-10.0); NEUTROPHILS % (AUTO) 65.4 % (45.0-75.0); PLATELET COUNT 184 K/UL (150-450); RED BLOOD COUNT 3.59 M/UL (4.70-6.10)
[2016-09-06 07:58] VITALS: BP 126/46
[2016-09-06 08:01] LABS: ANION GAP 23 (5-15); CALCIUM 8.6 mg/dL (8.6-10.2); CARBON DIOXIDE 22 mEQ/L (20-30); CHLORIDE 95 mEQ/L (98-107); CREATININE 5.7 mg/dL (0.7-1.2); HEMOLYSIS 11; PHOSPHORUS 8.6 mg/dL (2.5-4.8); POTASSIUM 4.3 mEQ/L (3.4-4.9); SODIUM 140 mEQ/L (135-145)
[2016-09-06] MEDS: Metoprolol 50mg tab ORAL SCH ×2 (09:00→21:10)
[2016-09-06] MEDS: Aspirin Baby 81mg ORAL SCH (09:03)
[2016-09-06] MEDS: Rifaximin 550mg tab ORAL SCH ×2 (09:03→21:11)
[2016-09-06] MEDS: Famotidine 20 MG/ 2ML VIAL IVP SCH (09:03)
[2016-09-06] MEDS: Lactulose 20gm/30ml UDC ORAL SCH ×4 (09:03→21:11)
[2016-09-06] MEDS: Calcitriol 0.25mcg Cap ORAL SCH (09:03)
[2016-09-06] MEDS: Nephrovite tab ORAL SCH (09:03)
--- NOTE | 2016-09-06 10:11 | Diagnostic Imaging Report ---
Indication: NG tube placement Technique: XRAY ABDOMEN 1VIEW/KUB Comparison: 09/05/2016. Findings: There is considerable motion making visualization difficult. However, a nasogastric tube does appear to be in the stomach. The bowel gas pattern is nonobstructive. No other change. Impression: NG tube in the stomach. Nonobstructive bowel gas pattern. The above report is concordant with preliminary reading by [facility] .
[2016-09-06 11:25] VITALS: BP 105/51
--- NOTE | 2016-09-06 13:16 | General Progress Note ---
Assessment/Plan Assessment/Plan Assessment - EtOH Cirrhosis - Renal failure - Acute CVA, (L) carolyn - dysphagia -- unable to place PEG due to cirrhosis - agitation - Poor Px Recommendations - NGT - Lactulose --> can potentially give rectally, but still needs NGT for feeds - xifaxan - Goals and level of care discussion Subjective Allergies: Coded Allergies: No Known Allergies (Unverified , 07/14/16) Subjective sleepy / arousable getting HD NGT tube in d/w RN Objective Last 24 Hour Vital Signs Date Time Temp Pulse Resp B/P Pulse Ox O2 Delivery O2 Flow Rate FiO2 09/06/16 12:00 Room Air 09/06/16 11:25 97.1 72 20 105/51 92 Room Air 09/06/16 09:00 70 126/46 09/06/16 08:50 Room Air 09/06/16 08:00 73 09/06/16 07:58 96.8 70 20 126/46 94 Room Air 09/06/16 04:00 97.9 69 20 149/54 95 Room Air 09/06/16 04:00 69 09/06/16 00:00 97.9 68 20 144/61 96 Room Air 09/05/16 21:45 68 142/54 09/05/16 20:00 97.9 69 18 67/39 97 Room Air 09/05/16 16:48 82 09/05/16 16:00 97.7 68 17 121/53 94 Room Air Intake and Output 09/05/16 09/06/16 19:00 07:00 Intake Total 430 ml Balance 430 ml Free Water 100 ml Tube Feeding 330 ml # Voids 2 1 # Bowel Movements 1 Laboratory Tests 09/06/16 04:45: White Blood Count 13.0H, Red Blood Count 3.59L, Hemoglobin 11.1L, Hematocrit 34.8L, Mean Corpuscular Volume 97, Mean Corpuscular Hemoglobin 30.9, Mean Corpuscular Hemoglobin Concent 31.9L, Red Cell Distribution Width 17.0H, Platelet Count 184, Mean Platelet Volume 6.2L, Neutrophils (%) (Auto) 65.4, Lymphocytes (%) (Auto) 19.1L, Monocytes (%) (Auto) 10.1H, Eosinophils (%) (Auto ) 3.6H, Basophils (%) (Auto) 1.7, Sodium Level 140, Potassium Level 4.3, Chloride Level 95L, Carbon Dioxide Level 22, Anion Gap 23H, Blood Urea Nitrogen 66H, Creatinine 5.7H, Estimat Glomerular Filtration Rate , Glucose Level 193H, Calcium Level 8.6, Phosphorus Level 8.6H Height (Feet): 5 Height (Inches): 11.00 Weight (Pounds): 245 Objective conversant but confused NCAT supple CTA RRR soft ND NT awake / responsive, but slow to respond slurred speech (L) weakness ESPINOZA WOOTEN Sep 06, 2016 13:16
--- NOTE | 2016-09-06 14:10 | Cardiac Electrophysiology PN ---
Assessment/Plan Assessment/Plan 1. Atrial fibrillation with rapid ventricular response, converted to sinus rhythm. On metoprolol 50 bid. Hold full anticoagulation until okay from Neurology, as the patient has history of hemorrhagic conversion stroke. On aspirin and Plavix. 2. End-stage renal disease, had hemodialysis today. 3. Hyperlipidemia, on Lipitor. 4. Cirrhosis of the liver 5. Diabetes, on insulin. 6. Dysphagia. May need PEG DW RStill awaiting transfer to [facility] Subjective Subjective Confused.In NAD. SR.NG tube is back in. Objective Last 24 Hour Vital Signs Date Time Temp Pulse Resp B/P Pulse Ox O2 Delivery O2 Flow Rate FiO2 09/06/16 12:00 Room Air 09/06/16 11:25 97.1 72 20 105/51 92 Room Air 09/06/16 09:00 70 126/46 09/06/16 08:50 Room Air 09/06/16 08:00 73 09/06/16 07:58 96.8 70 20 126/46 94 Room Air 09/06/16 04:00 97.9 69 20 149/54 95 Room Air 09/06/16 04:00 69 09/06/16 00:00 97.9 68 20 144/61 96 Room Air 09/05/16 21:45 68 142/54 09/05/16 20:00 97.9 69 18 67/39 97 Room Air 09/05/16 16:48 82 09/05/16 16:00 97.7 68 17 121/53 94 Room Air Intake and Output 09/05/16 09/06/16 19:00 07:00 Intake Total 430 ml Balance 430 ml Free Water 100 ml Tube Feeding 330 ml # Voids 2 1 # Bowel Movements 1 Laboratory Tests Test 09/06/16 04:45 White Blood Count 13.0 K/UL (4.8-10.8) H Red Blood Count 3.59 M/UL (4.70-6.10) L Hemoglobin 11.1 G/DL (14.2-18.0) L Hematocrit 34.8 % (42.0-52.0) L Mean Corpuscular Volume 97 FL (80-99) Mean Corpuscular Hemoglobin 30.9 PG (27.0-31.0) Mean Corpuscular Hemoglobin Concent 31.9 G/DL (32.0-36.0) L Red Cell Distribution Width 17.0 % (11.6-14.8) H Platelet Count 184 K/UL (150-450) Mean Platelet Volume 6.2 FL (6.5-10.1) L Neutrophils (%) (Auto) 65.4 % (45.0-75.0) Lymphocytes (%) (Auto) 19.1 % (20.0-45.0) L Monocytes (%) (Auto) 10.1 % (1.0-10.0) H Eosinophils (%) (Auto) 3.6 % (0.0-3.0) H Basophils (%) (Auto) 1.7 % (0.0-2.0) Sodium Level 140 mEQ/L (135-145) Potassium Level 4.3 mEQ/L (3.4-4.9) Chloride Level 95 mEQ/L (98-107) L Carbon Dioxide Level 22 mEQ/L (20-30) Anion Gap 23 (5-15) H Blood Urea Nitrogen 66 mg/dL (7-23) H Creatinine 5.7 mg/dL (0.7-1.2) H Estimat Glomerular Filtration Rate mL/min (>60) Glucose Level 193 mg/dL (74-106) H Calcium Level 8.6 mg/dL (8.6-10.2) Phosphorus Level 8.6 mg/dL (2.5-4.8) H Objective HEAD AND NECK: No JVD. LUNGS: Decreased breath sounds. CARDIOVASCULAR: Regular S1 and S2 with no gallop or murmur. ABDOMEN: Soft and nontender. EXTREMITIES: There is 1+ pitting edema. PRINCESS AGGARWAL Sep 06, 2016 14:10
--- NOTE | 2016-09-06 14:51 | Cardiology Report ---
APPROVED REPORT EXAM: Two-dimensional and M-mode echocardiogram with Doppler and color Doppler. INDICATION CVA M-Mode DIMENSIONS IVSd1.6 (0.7-1.1cm)Left Atrium (MM)3.2 (1.6-4.0cm) LVDd5.6 (3.5-5.6cm)Aortic Root3.5 (2.0-3.7cm) PWd1.5 (0.7-1.1cm)Aortic Cusp Exc.1.7 (1.5-2.0cm) LVDs3.8 (2.5-4.0cm) PWs2.1 cm Technically difficult study due to poor acoustic windows. Study quality precludes accurate assessment of regional wall motion. Normal left ventricular chamber size, systolic function and wall motion. Left ventricular ejection fraction estimated to be 55 %. Mild left ventricular hypertrophy. No evidence of pericardial fat or effusion. All other cardiac chamber sizes are within normal limits. Mild focal aortic valve sclerosis with adequate cusp excursion. Mildly thickened mitral valve leaflets with normal excursion. Mild mitral annulus and aortic root calcification. Pulmonic valve not well visualized. Normal tricuspid valve structure. IVC at normal size with minimal physiologic collapse. A color flow and spectral Doppler study was performed and revealed: No aortic regurgitation. Trace mitral regurgitation. Mitral diastolic velocities shows E/A near equalization suggesting beginning of reduced left ventricular relaxation c/w diastolic dysfunction Trace tricuspid regurgitation. Tricuspid systolic velocities suggests peak right ventricular systolic pressure of 19 mmHg. No pulmonic regurgitation present.
--- NOTE | 2016-09-06 15:30 | Nephrology Progress Note ---
Assessment/Plan Problem List: (1) ESRD (end stage renal disease) on dialysis (2) L arm palsy, r/p brach plexopathy,r/o lacunar stroke (3) Hepatic encephalopathy (4) Altered level of consciousness Plan HD as tolerated TF cont lactulose follow labs Subjective Subjective In NAD Objective Objective Last 24 Hour Vital Signs Date Time Temp Pulse Resp B/P Pulse Ox O2 Delivery O2 Flow Rate FiO2 09/06/16 12:00 74 09/06/16 12:00 Room Air 09/06/16 11:25 97.1 72 20 105/51 92 Room Air 09/06/16 09:00 70 126/46 09/06/16 08:50 Room Air 09/06/16 08:00 73 09/06/16 07:58 96.8 70 20 126/46 94 Room Air 09/06/16 04:00 97.9 69 20 149/54 95 Room Air 09/06/16 04:00 69 09/06/16 00:00 97.9 68 20 144/61 96 Room Air 09/05/16 21:45 68 142/54 09/05/16 20:00 97.9 69 18 67/39 97 Room Air 09/05/16 16:48 82 09/05/16 16:00 97.7 68 17 121/53 94 Room Air Intake and Output 09/05/16 09/06/16 19:00 07:00 Intake Total 530 ml Balance 530 ml Free Water 150 ml Tube Feeding 380 ml # Voids 2 1 # Bowel Movements 1 Laboratory Tests 09/06/16 04:45: White Blood Count 13.0H, Red Blood Count 3.59L, Hemoglobin 11.1L, Hematocrit 34.8L, Mean Corpuscular Volume 97, Mean Corpuscular Hemoglobin 30.9, Mean Corpuscular Hemoglobin Concent 31.9L, Red Cell Distribution Width 17.0H, Platelet Count 184, Mean Platelet Volume 6.2L, Neutrophils (%) (Auto) 65.4, Lymphocytes (%) (Auto) 19.1L, Monocytes (%) (Auto) 10.1H, Eosinophils (%) (Auto ) 3.6H, Basophils (%) (Auto) 1.7, Sodium Level 140, Potassium Level 4.3, Chloride Level 95L, Carbon Dioxide Level 22, Anion Gap 23H, Blood Urea Nitrogen 66H, Creatinine 5.7H, Estimat Glomerular Filtration Rate , Glucose Level 193H, Calcium Level 8.6, Phosphorus Level 8.6H Height (Feet): 5 Height (Inches): 11.00 Weight (Pounds): 245 Cardiovascular: normal rate Respiratory/Chest: lungs clear Extremities: moderate edema NICOLASA WELLS Sep 06, 2016 15:30
[2016-09-06 16:00] VITALS: BP 138/80
--- NOTE | 2016-09-06 17:35 | General Progress Note ---
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 -ESRD on HD -DM insulin requiring -paroxismal atrial fibrillation now in sinus rhythm -leukoctosis -left upper extremity edema, improving -dysphasia -severe OA of left shoulder Plan: -xray and venous duplex of left UE -HD per nephrology -replace NGT, ativan for sedation -failed swallow study in am -continue plavix and asa, coumadin when stable from neurology stand point -pt/ot/st and rehab placement when medically stable -continue all meds -VTE with heparin sq tid -continue NGT position prior to starting meds and tube feeding discussed in detain with nurse am labs discussed with Dr Hassan Subjective Date patient seen: Sep 06, 2016 Time patient seen: 17:30 ROS Limited/Unobtainable: Yes Allergies: Coded Allergies: No Known Allergies (Unverified , 07/14/16) Objective Last 24 Hour Vital Signs Date Time Temp Pulse Resp B/P Pulse Ox O2 Delivery O2 Flow Rate FiO2 09/06/16 16:00 98.1 84 22 138/80 94 Room Air 09/06/16 12:00 74 09/06/16 12:00 Room Air 09/06/16 11:25 97.1 72 20 105/51 92 Room Air 09/06/16 09:00 70 126/46 09/06/16 08:50 Room Air 09/06/16 08:00 73 09/06/16 07:58 96.8 70 20 126/46 94 Room Air 09/06/16 04:00 97.9 69 20 149/54 95 Room Air 09/06/16 04:00 69 09/06/16 00:00 97.9 68 20 144/61 96 Room Air 09/05/16 21:45 68 142/54 09/05/16 20:00 97.9 69 18 67/39 97 Room Air Intake and Output 09/05/16 09/06/16 19:00 07:00 Intake Total 530 ml Balance 530 ml Free Water 150 ml Tube Feeding 380 ml # Voids 2 1 # Bowel Movements 1 Laboratory Tests 09/06/16 04:45: White Blood Count 13.0H, Red Blood Count 3.59L, Hemoglobin 11.1L, Hematocrit 34.8L, Mean Corpuscular Volume 97, Mean Corpuscular Hemoglobin 30.9, Mean Corpuscular Hemoglobin Concent 31.9L, Red Cell Distribution Width 17.0H, Platelet Count 184, Mean Platelet Volume 6.2L, Neutrophils (%) (Auto) 65.4, Lymphocytes (%) (Auto) 19.1L, Monocytes (%) (Auto) 10.1H, Eosinophils (%) (Auto ) 3.6H, Basophils (%) (Auto) 1.7, Sodium Level 140, Potassium Level 4.3, Chloride Level 95L, Carbon Dioxide Level 22, Anion Gap 23H, Blood Urea Nitrogen 66H, Creatinine 5.7H, Estimat Glomerular Filtration Rate , Glucose Level 193H, Calcium Level 8.6, Phosphorus Level 8.6H Height (Feet): 5 Height (Inches): 11.00 Weight (Pounds): 245 General Appearance: WD/WN, alert, overweight EENT: PERRL/EOMI Neck: non-tender Cardiovascular: regular rhythm Respiratory/Chest: chest wall non-tender Abdomen: normal bowel sounds Genitourinary/Rectal: normal genital exam Extremities: non-tender Edema: no edema noted Arm (L), no edema noted Arm (R), no edema noted Leg (L), no edema noted Leg (R), no edema noted Pedal (L), no edema noted Pedal (R), no edema noted Generalized 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
[2016-09-06 19:30] LABS: BASOPHILS % (AUTO) 1.6 % (0.0-2.0); EOSINOPHILS % (AUTO) 2.2 % (0.0-3.0); LYMPHOCYTES % (AUTO) 19.2 % (20.0-45.0); MEAN CORPUSCULAR HEMOGLOBIN 33.4 PG (27.0-31.0); MEAN CORPUSCULAR HGB CONC 34.4 G/DL (32.0-36.0); MEAN CORPUSCULAR VOLUME 97 FL (80-99); MONOCYTES % (AUTO) 5.2 % (1.0-10.0); NEUTROPHILS % (AUTO) 71.9 % (45.0-75.0); PLATELET COUNT 161 K/UL (150-450); RED BLOOD COUNT 3.08 M/UL (4.70-6.10); RED CELL DISTRIBUTION WIDTH 16.7 % (11.6-14.8); WHITE BLOOD COUNT 14.9 K/UL (4.8-10.8)
[2016-09-06 20:00] VITALS: BP 140/58
[2016-09-06 20:07] LABS: ALANINE AMINOTRANSFERASE 71 U/L (3-41); ALBUMIN/GLOBULIN RATIO 0.8 (1.0-2.7); ANION GAP 20 (5-15); ASPARTATE AMINO TRANSFERASE 169 U/L (5-40); CALCIUM 8.2 mg/dL (8.6-10.2); CARBON DIOXIDE 24 mEQ/L (20-30); CHLORIDE 96 mEQ/L (98-107); CREATININE 3.8 mg/dL (0.7-1.2); HEMOLYSIS 5; POTASSIUM 3.6 mEQ/L (3.4-4.9); SODIUM 140 mEQ/L (135-145); TOTAL PROTEIN 5.3 g/dL (6.6-8.7)
[2016-09-06 20:33] LABS: BILIRUBIN,DIRECT 1.7 mg/dL (0.1-0.3)
[2016-09-06] MEDS: Atorvastatin 80mg tab ORAL SCH (21:10)
[2016-09-06] MEDS ORDERED: Sterile Water For Irrig 2000ml IRRIG ONE (21:40)
[2016-09-07 00:22] VITALS: BP 115/50
[2016-09-07] MEDS: NovoLOG Insulin Flexpen SUBQ SCH ×4 (00:45→19:21)
[2016-09-07 04:22] VITALS: BP 109/78
[2016-09-07] MEDS: Heparin 5000 units/ml inj SUBQ SCH ×3 (05:32→21:33)
[2016-09-07 08:00] VITALS: BP 115/46
[2016-09-07] MEDS: Calcitriol 0.25mcg Cap ORAL SCH (08:47)
[2016-09-07] MEDS: Metoprolol 50mg tab ORAL SCH ×2 (08:47→21:35)
[2016-09-07] MEDS: Lactulose 20gm/30ml UDC ORAL SCH ×4 (08:48→21:30)
[2016-09-07] MEDS: Aspirin Baby 81mg ORAL SCH (08:50)
[2016-09-07] MEDS: Nephrovite tab ORAL SCH (08:50)
[2016-09-07] MEDS: Rifaximin 550mg tab ORAL SCH ×2 (08:50→21:30)
[2016-09-07] MEDS: Famotidine 20 MG/ 2ML VIAL IVP SCH (08:50)
[2016-09-07] MEDS: D5 1/2NS 1,000 ML IV SCH (10:39)
[2016-09-07 11:35] VITALS: BP 123/56
--- NOTE | 2016-09-07 14:12 | Cardiac Electrophysiology PN ---
Assessment/Plan Assessment/Plan 1. Atrial fibrillation with rapid ventricular response. Remained in SR over night on metoprolol 50 bid. Off full anticoagulation until okay from Neurology, as the patient has history of hemorrhagic conversion stroke. On aspirin and Plavix. 2. End-stage renal disease on hemodialysis 3. Hyperlipidemia, on Lipitor. 4. Cirrhosis of the liver 5. Diabetes, on insulin. 6. Dysphagia. PEG DW RN Awaiting transfer to [facility] Subjective Subjective Confused.In restraint. In SR.NG tube is in. Objective Last 24 Hour Vital Signs Date Time Temp Pulse Resp B/P Pulse Ox O2 Delivery O2 Flow Rate FiO2 09/07/16 12:00 74 09/07/16 11:35 99.1 76 20 123/56 96 Room Air 09/07/16 08:47 75 115/79 09/07/16 08:00 77 09/07/16 08:00 99.1 75 20 115/46 95 Room Air 09/07/16 04:22 98.8 77 19 109/78 98 09/07/16 04:00 75 09/07/16 00:22 98.8 77 19 115/50 93 Room Air 09/07/16 00:00 78 09/06/16 21:10 83 140/58 09/06/16 20:00 81 09/06/16 20:00 97.7 83 20 140/58 94 Room Air 09/06/16 16:00 98.1 84 22 138/80 94 Room Air 09/06/16 16:00 79 Intake and Output 09/06/16 09/07/16 19:00 07:00 Intake Total 200 ml 150 ml Output Total 2580 ml Balance -2380 ml 150 ml Free Water 50 ml 100 ml Tube Feeding 150 ml 50 ml Hemodialysis UF 2580 ml # Bowel Movements 1 Laboratory Tests Test 09/06/16 19:00 White Blood Count 14.9 K/UL (4.8-10.8) H Red Blood Count 3.08 M/UL (4.70-6.10) L Hemoglobin 10.3 G/DL (14.2-18.0) L Hematocrit 29.9 % (42.0-52.0) L Mean Corpuscular Volume 97 FL (80-99) Mean Corpuscular Hemoglobin 33.4 PG (27.0-31.0) H Mean Corpuscular Hemoglobin Concent 34.4 G/DL (32.0-36.0) Red Cell Distribution Width 16.7 % (11.6-14.8) H Platelet Count 161 K/UL (150-450) Mean Platelet Volume 6.0 FL (6.5-10.1) L Neutrophils (%) (Auto) 71.9 % (45.0-75.0) Lymphocytes (%) (Auto) 19.2 % (20.0-45.0) L Monocytes (%) (Auto) 5.2 % (1.0-10.0) Eosinophils (%) (Auto) 2.2 % (0.0-3.0) Basophils (%) (Auto) 1.6 % (0.0-2.0) Objective HEAD AND NECK: No JVD.NG tube is in LUNGS: Decreased breath sounds. CARDIOVASCULAR: Regular S1 and S2 with no gallop or murmur. ABDOMEN: Soft and nontender. EXTREMITIES: 1+ pitting edema. PRINCESS AGGARWAL Sep 07, 2016 14:12
--- NOTE | 2016-09-07 14:53 | General Progress Note ---
Assessment/Plan Assessment/Plan Assessment - EtOH Cirrhosis - Renal failure - Acute CVA, (L) carolyn - dysphagia -- unable to place PEG due to cirrhosis - agitation - Poor Px Recommendations - NGT - Lactulose --> can potentially give rectally, but still needs NGT for feeds - xifaxan - Goals and level of care discussion Subjective Allergies: Coded Allergies: No Known Allergies (Unverified , 07/14/16) Subjective sleepy / arousable incoherent responses NGT tube in d/w RN Objective Last 24 Hour Vital Signs Date Time Temp Pulse Resp B/P Pulse Ox O2 Delivery O2 Flow Rate FiO2 09/07/16 12:00 74 09/07/16 11:35 99.1 76 20 123/56 96 Room Air 09/07/16 08:47 75 115/79 09/07/16 08:00 77 09/07/16 08:00 99.1 75 20 115/46 95 Room Air 09/07/16 04:22 98.8 77 19 109/78 98 09/07/16 04:00 75 09/07/16 00:22 98.8 77 19 115/50 93 Room Air 09/07/16 00:00 78 09/06/16 21:10 83 140/58 09/06/16 20:00 81 09/06/16 20:00 97.7 83 20 140/58 94 Room Air 09/06/16 16:00 98.1 84 22 138/80 94 Room Air 09/06/16 16:00 79 Intake and Output 09/06/16 09/07/16 19:00 07:00 Intake Total 200 ml 150 ml Output Total 2580 ml Balance -2380 ml 150 ml Free Water 50 ml 100 ml Tube Feeding 150 ml 50 ml Hemodialysis UF 2580 ml # Bowel Movements 1 Laboratory Tests 09/06/16 19:00: White Blood Count 14.9H, Red Blood Count 3.08L, Hemoglobin 10.3L, Hematocrit 29.9L, Mean Corpuscular Volume 97, Mean Corpuscular Hemoglobin 33.4H, Mean Corpuscular Hemoglobin Concent 34.4, Red Cell Distribution Width 16.7H, Platelet Count 161, Mean Platelet Volume 6.0L, Neutrophils (%) (Auto) 71.9, Lymphocytes (%) (Auto) 19.2L, Monocytes (%) (Auto) 5.2, Eosinophils (%) (Auto) 2.2, Basophils (%) (Auto) 1.6 Height (Feet): 5 Height (Inches): 11.00 Weight (Pounds): 245 Objective conversant but confused NCAT supple CTA RRR soft ND NT awake / responsive, but slow to respond slurred speech (L) weakness ESPINOZA WOOTEN Sep 07, 2016 14:53
--- NOTE | 2016-09-07 15:44 | Nephrology Progress Note ---
Assessment/Plan Problem List: (1) ESRD (end stage renal disease) on dialysis (2) L arm palsy, r/p brach plexopathy,r/o lacunar stroke (3) Hepatic encephalopathy (4) Altered level of consciousness Plan HD on 09/09 TF cont lactulose follow labs Subjective Subjective In NAD Objective Objective Last 24 Hour Vital Signs Date Time Temp Pulse Resp B/P Pulse Ox O2 Delivery O2 Flow Rate FiO2 09/07/16 12:00 74 09/07/16 11:35 99.1 76 20 123/56 96 Room Air 09/07/16 08:47 75 115/79 09/07/16 08:00 77 09/07/16 08:00 99.1 75 20 115/46 95 Room Air 09/07/16 04:22 98.8 77 19 109/78 98 09/07/16 04:00 75 09/07/16 00:22 98.8 77 19 115/50 93 Room Air 09/07/16 00:00 78 09/06/16 21:10 83 140/58 09/06/16 20:00 81 09/06/16 20:00 97.7 83 20 140/58 94 Room Air 09/06/16 16:00 98.1 84 22 138/80 94 Room Air 09/06/16 16:00 79 Intake and Output 09/06/16 09/07/16 19:00 07:00 Intake Total 200 ml 150 ml Output Total 2580 ml Balance -2380 ml 150 ml Free Water 50 ml 100 ml Tube Feeding 150 ml 50 ml Hemodialysis UF 2580 ml # Bowel Movements 1 Laboratory Tests 09/06/16 19:00: White Blood Count 14.9H, Red Blood Count 3.08L, Hemoglobin 10.3L, Hematocrit 29.9L, Mean Corpuscular Volume 97, Mean Corpuscular Hemoglobin 33.4H, Mean Corpuscular Hemoglobin Concent 34.4, Red Cell Distribution Width 16.7H, Platelet Count 161, Mean Platelet Volume 6.0L, Neutrophils (%) (Auto) 71.9, Lymphocytes (%) (Auto) 19.2L, Monocytes (%) (Auto) 5.2, Eosinophils (%) (Auto) 2.2, Basophils (%) (Auto) 1.6 Height (Feet): 5 Height (Inches): 11.00 Weight (Pounds): 245 Cardiovascular: normal rate Respiratory/Chest: lungs clear Extremities: moderate edema NICOLASA WELLS Sep 07, 2016 15:44
[2016-09-07 16:00] VITALS: BP 90/42
--- NOTE | 2016-09-07 16:26 | General Progress Note ---
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 -ESRD on HD -DM insulin requiring -paroxismal atrial fibrillation now in sinus rhythm -leukoctosis -left upper extremity edema, improving -dysphasia -severe OA of left shoulder Plan: -xray and venous duplex of left UE -HD per nephrology -continue NGT -failed swallow study -continue plavix and asa, coumadin when stable from neurology stand point -pt/ot/st and rehab placement when medically stable -continue all meds -VTE with heparin sq tid -continue NGT position prior to starting meds and tube feeding discussed in detail with nurse and family am labs pt/ot/st Subjective Date patient seen: Sep 07, 2016 Time patient seen: 16:23 ROS Limited/Unobtainable: Yes Allergies: Coded Allergies: No Known Allergies (Unverified , 07/14/16) Objective Last 24 Hour Vital Signs Date Time Temp Pulse Resp B/P Pulse Ox O2 Delivery O2 Flow Rate FiO2 09/07/16 12:00 74 09/07/16 11:35 99.1 76 20 123/56 96 Room Air 09/07/16 08:47 75 115/79 09/07/16 08:00 77 09/07/16 08:00 99.1 75 20 115/46 95 Room Air 09/07/16 04:22 98.8 77 19 109/78 98 09/07/16 04:00 75 09/07/16 00:22 98.8 77 19 115/50 93 Room Air 09/07/16 00:00 78 09/06/16 21:10 83 140/58 09/06/16 20:00 81 09/06/16 20:00 97.7 83 20 140/58 94 Room Air Intake and Output 09/06/16 09/07/16 19:00 07:00 Intake Total 200 ml 150 ml Output Total 2580 ml Balance -2380 ml 150 ml Free Water 50 ml 100 ml Tube Feeding 150 ml 50 ml Hemodialysis UF 2580 ml # Bowel Movements 1 Laboratory Tests 09/06/16 19:00: White Blood Count 14.9H, Red Blood Count 3.08L, Hemoglobin 10.3L, Hematocrit 29.9L, Mean Corpuscular Volume 97, Mean Corpuscular Hemoglobin 33.4H, Mean Corpuscular Hemoglobin Concent 34.4, Red Cell Distribution Width 16.7H, Platelet Count 161, Mean Platelet Volume 6.0L, Neutrophils (%) (Auto) 71.9, Lymphocytes (%) (Auto) 19.2L, Monocytes (%) (Auto) 5.2, Eosinophils (%) (Auto) 2.2, Basophils (%) (Auto) 1.6 Height (Feet): 5 Height (Inches): 11.00 Weight (Pounds): 245 General Appearance: WD/WN, lethargic EENT: PERRL/EOMI, scleral icterus Neck: non-tender Cardiovascular: normal peripheral pulses, normal rate Respiratory/Chest: chest wall non-tender, lungs clear Abdomen: normal bowel sounds, soft Genitourinary/Rectal: normal genital exam Extremities: no calf tenderness, swelling - left arm Edema: 1+ Arm (L), no edema noted Arm (R), no edema noted Leg (L), no edema noted Leg (R), no edema noted Pedal (L), no edema noted Pedal (R), no edema noted Generalized Edema: trace edema Neurologic: responsive, motor weakness - left arm Skin: normal pigmentation Lymphatic: normal anterior cervical (L), normal anterior cervical (R), normal axillary (L), normal axillary (R), normal inguinal (L), normal inguinal (R), normal other, normal posterior cervical (L), normal posterior cervical (R), normal submandibular (L), normal submandibular (R), normal supraclavicular (L), normal supraclavicular (R) Carmela Quinteros MD Sep 07, 2016 16:25
[2016-09-07 20:00] VITALS: BP 139/54
[2016-09-07] MEDS: Atorvastatin 80mg tab ORAL SCH (21:31)
[2016-09-08 00:20] VITALS: BP 115/47
[2016-09-08] MEDS: NovoLOG Insulin Flexpen SUBQ SCH ×4 (00:32→17:12)
[2016-09-08 04:08] VITALS: BP 118/48
[2016-09-08] MEDS: Heparin 5000 units/ml inj SUBQ SCH ×3 (06:54→22:01)
[2016-09-08 08:02] VITALS: BP 128/45
[2016-09-08 08:07] LABS: ALANINE AMINOTRANSFERASE 74 U/L (3-41); ALBUMIN/GLOBULIN RATIO 0.6 (1.0-2.7); ANION GAP 20 (5-15); ASPARTATE AMINO TRANSFERASE 85 U/L (5-40); CALCIUM 8.4 mg/dL (8.6-10.2); CARBON DIOXIDE 23 mEQ/L (20-30); CHLORIDE 94 mEQ/L (98-107); CREATININE 5.5 mg/dL (0.7-1.2); HEMOLYSIS 3; POTASSIUM 3.1 mEQ/L (3.4-4.9); SODIUM 137 mEQ/L (135-145); TOTAL PROTEIN 5.7 g/dL (6.6-8.7)
[2016-09-08 08:08] LABS: EOSINOPHILS % (AUTO) 2.4 % (0.0-3.0); LYMPHOCYTES % (AUTO) 14.4 % (20.0-45.0); MEAN CORPUSCULAR HEMOGLOBIN 32.2 PG (27.0-31.0); MEAN CORPUSCULAR HGB CONC 32.5 G/DL (32.0-36.0); MEAN CORPUSCULAR VOLUME 99 FL (80-99); MEAN PLATELET VOLUME 6.9 FL (6.5-10.1); MONOCYTES % (AUTO) 9.1 % (1.0-10.0); NEUTROPHILS % (AUTO) 73.2 % (45.0-75.0); PLATELET COUNT 153 K/UL (150-450); RED CELL DISTRIBUTION WIDTH 17.6 % (11.6-14.8); WHITE BLOOD COUNT 14.3 K/UL (4.8-10.8)
[2016-09-08 08:21] LABS: BILIRUBIN,DIRECT 1.5 mg/dL (0.1-0.3)
[2016-09-08] MEDS: Rifaximin 550mg tab ORAL SCH ×2 (08:47→21:14)
[2016-09-08] MEDS: Aspirin Baby 81mg ORAL SCH (08:47)
[2016-09-08] MEDS: Calcitriol 0.25mcg Cap ORAL SCH (08:47)
[2016-09-08] MEDS: Nephrovite tab ORAL SCH (08:47)
[2016-09-08] MEDS: Famotidine 20 MG/ 2ML VIAL IVP SCH (08:47)
[2016-09-08] MEDS: Lactulose 20gm/30ml UDC ORAL SCH ×4 (08:48→21:13)
[2016-09-08] MEDS: Metoprolol 50mg tab ORAL SCH ×2 (08:48→21:14)
[2016-09-08] MEDS ORDERED: KCl 10% 40mEq/30ml liquid NG ONE ×2 (10:00)
[2016-09-08] MEDS: D5 1/2NS 1,000 ML IV SCH (10:46)
--- NOTE | 2016-09-08 10:59 | General Progress Note ---
Assessment/Plan Assessment/Plan 75 y/o male admitted with the following problems: -Acute CVA with left hemiparesis -Cirrhosis with hepatic encephalopathy -ESRD on HD -DM insulin requiring -paroxismal atrial fibrillation now in sinus rhythm -leukoctosis -left upper extremity edema, improving -dysphasia -severe OA of left shoulder Plan: -HD per nephrology -continue NGT -failed swallow study -continue plavix and asa, coumadin when stable from neurology stand point, possilby in 2 weekd -pt/ot/st and rehab placement when medically stable -continue all meds -VTE with heparin sq tid -continue NGT position prior to starting meds and tube feeding discussed with nurse am labs pt/ot/st, ?[facility] placement vs sn[facility] Subjective Date patient seen: Sep 08, 2016 Time patient seen: 10:56 ROS Limited/Unobtainable: Yes - mumbles Allergies: Coded Allergies: No Known Allergies (Unverified , 07/14/16) Objective Last 24 Hour Vital Signs Date Time Temp Pulse Resp B/P Pulse Ox O2 Delivery O2 Flow Rate FiO2 09/08/16 08:48 77 128/45 09/08/16 08:02 98.6 77 20 128/45 93 Room Air 09/08/16 04:08 98.8 74 20 118/48 96 Room Air 09/08/16 03:56 73 09/08/16 00:24 75 09/08/16 00:20 98.6 71 21 115/47 93 Room Air 09/07/16 21:35 75 139/54 09/07/16 20:00 98.6 75 20 139/54 99 Room Air 09/07/16 20:00 72 09/07/16 19:23 72 09/07/16 16:00 98.0 75 22 90/42 96 Room Air 09/07/16 16:00 75 09/07/16 12:00 74 09/07/16 11:35 99.1 76 20 123/56 96 Room Air Intake and Output 09/07/16 09/08/16 19:00 07:00 Intake Total 220 ml 600 ml Balance 220 ml 600 ml IV Total 180 ml Tube Feeding 40 ml 520 ml Other 80 ml # Voids 2 # Bowel Movements 3 2 Laboratory Tests 09/08/16 07:10: White Blood Count 14.3H, Red Blood Count 3.30L, Hemoglobin 10.6L, Hematocrit 32.8L, Mean Corpuscular Volume 99, Mean Corpuscular Hemoglobin 32.2H, Mean Corpuscular Hemoglobin Concent 32.5, Red Cell Distribution Width 17.6H, Platelet Count 153, Mean Platelet Volume 6.9, Neutrophils (%) (Auto) 73.2, Lymphocytes (%) (Auto) 14.4L, Monocytes (%) (Auto) 9.1, Eosinophils (%) (Auto) 2.4, Basophils (%) (Auto) 1.0, Sodium Level 137, Potassium Level 3.1L, Chloride Level 94L, Carbon Dioxide Level 23, Anion Gap 20H, Blood Urea Nitrogen 64H, Creatinine 5.5H, Estimat Glomerular Filtration Rate , Glucose Level 430H, Calcium Level 8.4L, Total Bilirubin 2.6H, Direct Bilirubin 1.5H, Aspartate Amino Transf (AST/SGOT) 85H, Alanine Aminotransferase (ALT/SGPT) 74H, Alkaline Phosphatase 359H, Total Protein 5.7L, Albumin 2.2L, Globulin 3.5, Albumin/ Globulin Ratio 0.6L Height (Feet): 5 Height (Inches): 11.00 Weight (Pounds): 245 General Appearance: no apparent distress, alert, overweight EENT: PERRL/EOMI, scleral icterus Neck: non-tender Cardiovascular: regular rhythm Respiratory/Chest: lungs clear Abdomen: normal bowel sounds Genitourinary/Rectal: normal genital exam Extremities: non-tender Edema: 1+ Arm (L), 1+ Arm (R), 1+ Leg (L), 1+ Leg (R), 1+ Pedal (L), 1+ Pedal ( R), 1+ Generalized Edema: trace edema 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
[2016-09-08] MEDS ORDERED: Levemir Flexpen SUBQ SCH (11:00)
[2016-09-08] MEDS ORDERED: NovoLOG Insulin Flexpen SUBQ SCH (11:30)
[2016-09-08 11:36] VITALS: BP 115/41
--- NOTE | 2016-09-08 12:03 | Nephrology Progress Note ---
Assessment/Plan Problem List: (1) ESRD (end stage renal disease) on dialysis (2) L arm palsy, r/p brach plexopathy,r/o lacunar stroke (3) Hepatic encephalopathy (4) Altered level of consciousness (5) Hypokalemia Plan HD on 09/09 TF cont lactulose follow labs Replete K Subjective Subjective confused Objective Objective Last 24 Hour Vital Signs Date Time Temp Pulse Resp B/P Pulse Ox O2 Delivery O2 Flow Rate FiO2 09/08/16 11:36 98.4 71 20 115/41 99 Room Air 09/08/16 08:48 77 128/45 09/08/16 08:02 98.6 77 20 128/45 93 Room Air 09/08/16 04:08 98.8 74 20 118/48 96 Room Air 09/08/16 03:56 73 09/08/16 00:24 75 09/08/16 00:20 98.6 71 21 115/47 93 Room Air 09/07/16 21:35 75 139/54 09/07/16 20:00 98.6 75 20 139/54 99 Room Air 09/07/16 20:00 72 09/07/16 19:23 72 09/07/16 16:00 98.0 75 22 90/42 96 Room Air 09/07/16 16:00 75 Intake and Output 09/07/16 09/08/16 19:00 07:00 Intake Total 220 ml 600 ml Balance 220 ml 600 ml IV Total 180 ml Tube Feeding 40 ml 520 ml Other 80 ml # Voids 2 # Bowel Movements 3 2 Laboratory Tests 09/08/16 07:10: White Blood Count 14.3H, Red Blood Count 3.30L, Hemoglobin 10.6L, Hematocrit 32.8L, Mean Corpuscular Volume 99, Mean Corpuscular Hemoglobin 32.2H, Mean Corpuscular Hemoglobin Concent 32.5, Red Cell Distribution Width 17.6H, Platelet Count 153, Mean Platelet Volume 6.9, Neutrophils (%) (Auto) 73.2, Lymphocytes (%) (Auto) 14.4L, Monocytes (%) (Auto) 9.1, Eosinophils (%) (Auto) 2.4, Basophils (%) (Auto) 1.0, Sodium Level 137, Potassium Level 3.1L, Chloride Level 94L, Carbon Dioxide Level 23, Anion Gap 20H, Blood Urea Nitrogen 64H, Creatinine 5.5H, Estimat Glomerular Filtration Rate , Glucose Level 430H, Calcium Level 8.4L, Total Bilirubin 2.6H, Direct Bilirubin 1.5H, Aspartate Amino Transf (AST/SGOT) 85H, Alanine Aminotransferase (ALT/SGPT) 74H, Alkaline Phosphatase 359H, Total Protein 5.7L, Albumin 2.2L, Globulin 3.5, Albumin/ Globulin Ratio 0.6L Height (Feet): 5 Height (Inches): 11.00 Weight (Pounds): 245 Cardiovascular: normal rate Respiratory/Chest: rhonchi - bilaterally Extremities: moderate edema NICOLASA WELLS Sep 08, 2016 12:03
[2016-09-08] MEDS ORDERED: Vancomycin 1.5 GM in D5W 325 ML IVPB ONE (14:00)
--- NOTE | 2016-09-08 14:57 | Cardiac Electrophysiology PN ---
Assessment/Plan Assessment/Plan 1. Atrial fibrillation with rapid ventricular response. Remained in SR on metoprolol 50 bid. Off full anticoagulation until okay from Neurology, as the patient has history of hemorrhagic conversion stroke. On aspirin and Plavix. 2. End-stage renal disease hemodialysis tomorrow 3. Hyperlipidemia, on Lipitor. 4. Cirrhosis of the liver 5. Diabetes, on insulin. 6. Dysphagia. Still NG tube is in. DW RN Awaiting placement Subjective Subjective Confused. In SR 70s with PVCs.NG tube is in. Objective Last 24 Hour Vital Signs Date Time Temp Pulse Resp B/P Pulse Ox O2 Delivery O2 Flow Rate FiO2 09/08/16 12:00 69 09/08/16 11:36 98.4 71 20 115/41 99 Room Air 09/08/16 08:48 77 128/45 09/08/16 08:02 98.6 77 20 128/45 93 Room Air 09/08/16 08:00 76 09/08/16 04:08 98.8 74 20 118/48 96 Room Air 09/08/16 03:56 73 09/08/16 00:24 75 09/08/16 00:20 98.6 71 21 115/47 93 Room Air 09/07/16 21:35 75 139/54 09/07/16 20:00 98.6 75 20 139/54 99 Room Air 09/07/16 20:00 72 09/07/16 19:23 72 09/07/16 16:00 98.0 75 22 90/42 96 Room Air 09/07/16 16:00 75 Intake and Output 09/07/16 09/08/16 19:00 07:00 Intake Total 220 ml 600 ml Balance 220 ml 600 ml IV Total 180 ml Tube Feeding 40 ml 520 ml Other 80 ml # Voids 2 # Bowel Movements 3 2 Laboratory Tests Test 09/08/16 07:10 White Blood Count 14.3 K/UL (4.8-10.8) H Red Blood Count 3.30 M/UL (4.70-6.10) L Hemoglobin 10.6 G/DL (14.2-18.0) L Hematocrit 32.8 % (42.0-52.0) L Mean Corpuscular Volume 99 FL (80-99) Mean Corpuscular Hemoglobin 32.2 PG (27.0-31.0) H Mean Corpuscular Hemoglobin Concent 32.5 G/DL (32.0-36.0) Red Cell Distribution Width 17.6 % (11.6-14.8) H Platelet Count 153 K/UL (150-450) Mean Platelet Volume 6.9 FL (6.5-10.1) Neutrophils (%) (Auto) 73.2 % (45.0-75.0) Lymphocytes (%) (Auto) 14.4 % (20.0-45.0) L Monocytes (%) (Auto) 9.1 % (1.0-10.0) Eosinophils (%) (Auto) 2.4 % (0.0-3.0) Basophils (%) (Auto) 1.0 % (0.0-2.0) Sodium Level 137 mEQ/L (135-145) Potassium Level 3.1 mEQ/L (3.4-4.9) L Chloride Level 94 mEQ/L (98-107) L Carbon Dioxide Level 23 mEQ/L (20-30) Anion Gap 20 (5-15) H Blood Urea Nitrogen 64 mg/dL (7-23) H Creatinine 5.5 mg/dL (0.7-1.2) H Estimat Glomerular Filtration Rate mL/min (>60) Glucose Level 430 mg/dL (74-106) H Calcium Level 8.4 mg/dL (8.6-10.2) L Total Bilirubin 2.6 mg/dL (0.0-1.2) H Direct Bilirubin 1.5 mg/dL (0.1-0.3) H Aspartate Amino Transf (AST/SGOT) 85 U/L (5-40) H Alanine Aminotransferase (ALT/SGPT) 74 U/L (3-41) H Alkaline Phosphatase 359 U/L (40-129) H Total Protein 5.7 g/dL (6.6-8.7) L Albumin 2.2 g/dL (3.5-5.2) L Globulin 3.5 g/dL Albumin/Globulin Ratio 0.6 (1.0-2.7) L Objective HEAD AND NECK: No JVD.NG tube is in LUNGS: Decreased breath sounds. CARDIOVASCULAR: Regular S1 and S2 with no gallop or murmur. ABDOMEN: Soft and nontender.Ascites EXTREMITIES: 1+ pitting edema. PRINCESS AGGARWAL Sep 08, 2016 14:57
[2016-09-08 16:00] VITALS: BP 123/69
[2016-09-08] MEDS: Haloperidol 5mg/ml Inj IM PRN (17:14)
--- NOTE | 2016-09-08 18:58 | Consultation ---
DATE OF CONSULTATION: 09/08/2016 INFECTIOUS DISEASE CONSULTATION CONSULTING PHYSICIAN: Kathryn Garvin M.D REFERRING PHYSICIAN: Carmela Quinteros M.D. REASON FOR CONSULTATION: Leukocytosis. HISTORY OF PRESENTING ILLNESS: This is a 75-year-old gentleman with history of diabetes, hypertension, cirrhosis, end-stage renal disease on dialysis who came in with altered mental status and slurring of speech. He was found to have a leukocytosis and an Infectious Diseases consultation has been obtained for antibiotics. PAST MEDICAL HISTORY: 1. History of diabetes. 2. Hypertension. 3. Cirrhosis. 4. End-stage renal failure, on dialysis. 5. Status post amputation of the left toes. MEDICATIONS: As an inpatient, he is on albumin, insulin, metoprolol, , atorvastatin, nystatin, vitamin B and C, folic acid, rifaximin, aspirin, calcitriol, Plavix, duloxetine, famotidine, lidocaine, lactulose, subcutaneous heparin, Tylenol, Senokot, clonidine. SOCIAL HISTORY: He used to be a smoker, he does not smoke anymore. He used to drink but does not drink anymore. FAMILY HISTORY: Unknown. REVIEW OF SYSTEMS: Unable to obtain currently. ALLERGIES: No known drug allergies. PHYSICAL EXAMINATION: VITAL SIGNS: Temperature of 98.6, T-max of 99.1, pulse of 77, respiratory rate 20, blood pressure 128/45, O2 saturation of 93%. HEENT: Pupils are equally reactive to light and accommodation. Mouth appears clean without thrush. NECK: Supple. No adenopathy. No JVD. CARDIOVASCULAR: Regular rate and rhythm. No murmurs. Right chest catheter noted. LUNGS: Clear to auscultation bilaterally. No crackles. No wheezes. ABDOMEN: Soft, nontender. No organomegaly. EXTREMITIES: No cyanosis. No clubbing. Edema noted bilaterally. Left foot stump appears clean. LABORATORY AND DIAGNOSTIC DATA: White count of 14.3, hemoglobin 10.6, hematocrit 32.8, MCV 99, platelet count of 153,000 with neutrophils of 73%. Sodium 137, potassium 3.1, chloride 94, bicarbonate 23, BUN 64, creatinine 5.5, glucose 430. Calcium 8.4. Total bilirubin 2.6 and . AST 85, ALT 74, alkaline phosphatase 359. Total protein 5.7. Albumin 2.2. 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 Nasal swab was negative for MRSA. Abdominal x-ray showing nonobstructive bowel gas pattern. 2D echocardiogram showing trace mitral regurgitation, trace tricuspid regurgitation. Abdominal ultrasound showing cirrhosis, portal hypertension, ascites, splenomegaly and varices, gallbladder sludge and stones noted, bladder wall thickening noted. MRI of the brain showing acute CVA involving the right postcentral gyrus. CT head showing no bleed, mass effect, or edema, mild atrophy of the brain noted. ASSESSMENT: 1. This is a 75-year-old gentleman with history of cirrhosis, diabetes, hypertension and renal failure, who comes in and is found to have a leukocytosis, would be concerned regarding a catheter sepsis as a possibility. 2. We will also be concerned regarding pneumonia as a possibility. PLAN: 1. We will order blood cultures. 2. We will order a chest x-ray. 3. We will give one dose of intravenous vancomycin. 4. We will follow up cultures and adjust antibiotics accordingly. I would like to thank, Dr. Quinteros for this consultation. Kathryn Garvin M.D. DR: Irvin JOB#: [id number] CC: Carmela Quinteros M.D.
[2016-09-08 20:00] VITALS: BP 102/45
[2016-09-08] MEDS: Atorvastatin 80mg tab ORAL SCH (21:14)
--- NOTE | 2016-09-08 21:54 | General Progress Note ---
Assessment/Plan Assessment/Plan Assessment - EtOH Cirrhosis - Renal failure - Acute CVA, (L) carolyn - dysphagia -- unable to place PEG due to cirrhosis - agitation - Poor Px Recommendations - NGT - Lactulose --> can potentially give rectally, but still needs NGT for feeds - xifaxan - Goals and level of care discussion Subjective Allergies: Coded Allergies: No Known Allergies (Unverified , 07/14/16) Subjective sleepy / arousable incoherent responses NGT tube in d/w PMD re feeding options Objective Last 24 Hour Vital Signs Date Time Temp Pulse Resp B/P Pulse Ox O2 Delivery O2 Flow Rate FiO2 09/08/16 21:14 76 132/74 09/08/16 16:00 97.7 68 16 123/69 100 Room Air 09/08/16 12:00 69 09/08/16 11:36 98.4 71 20 115/41 99 Room Air 09/08/16 08:48 77 128/45 09/08/16 08:02 98.6 77 20 128/45 93 Room Air 09/08/16 08:00 76 09/08/16 04:08 98.8 74 20 118/48 96 Room Air 09/08/16 03:56 73 09/08/16 00:24 75 09/08/16 00:20 98.6 71 21 115/47 93 Room Air Intake and Output 09/07/16 09/08/16 19:00 07:00 Intake Total 220 ml 630 ml Balance 220 ml 630 ml IV Total 180 ml 30 ml Tube Feeding 40 ml 520 ml Other 80 ml # Voids 2 # Bowel Movements 3 2 Laboratory Tests 09/08/16 07:10: White Blood Count 14.3H, Red Blood Count 3.30L, Hemoglobin 10.6L, Hematocrit 32.8L, Mean Corpuscular Volume 99, Mean Corpuscular Hemoglobin 32.2H, Mean Corpuscular Hemoglobin Concent 32.5, Red Cell Distribution Width 17.6H, Platelet Count 153, Mean Platelet Volume 6.9, Neutrophils (%) (Auto) 73.2, Lymphocytes (%) (Auto) 14.4L, Monocytes (%) (Auto) 9.1, Eosinophils (%) (Auto) 2.4, Basophils (%) (Auto) 1.0, Sodium Level 137, Potassium Level 3.1L, Chloride Level 94L, Carbon Dioxide Level 23, Anion Gap 20H, Blood Urea Nitrogen 64H, Creatinine 5.5H, Estimat Glomerular Filtration Rate , Glucose Level 430H, Calcium Level 8.4L, Total Bilirubin 2.6H, Direct Bilirubin 1.5H, Aspartate Amino Transf (AST/SGOT) 85H, Alanine Aminotransferase (ALT/SGPT) 74H, Alkaline Phosphatase 359H, Total Protein 5.7L, Albumin 2.2L, Globulin 3.5, Albumin/ Globulin Ratio 0.6L Height (Feet): 5 Height (Inches): 11.00 Weight (Pounds): 245 Objective conversant but confused NCAT supple CTA RRR soft ND NT awake / responsive, but slow to respond slurred speech (L) weakness ESPINOZA WOOTEN Sep 08, 2016 21:53
[2016-09-09] MEDS: NovoLOG Insulin Flexpen SUBQ SCH ×4 (00:17→18:56)
[2016-09-09 00:19] VITALS: BP 101/38
[2016-09-09 04:06] VITALS: BP 107/43
[2016-09-09] MEDS: Heparin 5000 units/ml inj SUBQ SCH ×3 (05:23→21:10)
[2016-09-09] MEDS: Haloperidol 5mg/ml Inj IM PRN (06:37)
[2016-09-09 07:14] LABS: BASOPHILS % (AUTO) 1.1 % (0.0-2.0); EOSINOPHILS % (AUTO) 3.7 % (0.0-3.0); LYMPHOCYTES % (AUTO) 14.9 % (20.0-45.0); MEAN CORPUSCULAR HEMOGLOBIN 31.6 PG (27.0-31.0); MEAN CORPUSCULAR HGB CONC 31.6 G/DL (32.0-36.0); MEAN CORPUSCULAR VOLUME 100 FL (80-99); MEAN PLATELET VOLUME 7.3 FL (6.5-10.1); MONOCYTES % (AUTO) 9.9 % (1.0-10.0); NEUTROPHILS % (AUTO) 70.5 % (45.0-75.0); PLATELET COUNT 128 K/UL (150-450); RED BLOOD COUNT 3.05 M/UL (4.70-6.10); RED CELL DISTRIBUTION WIDTH 17.5 % (11.6-14.8); WHITE BLOOD COUNT 11.8 K/UL (4.8-10.8)
[2016-09-09 07:22] LABS: ANION GAP 21 (5-15); CALCIUM 7.9 mg/dL (8.6-10.2); CARBON DIOXIDE 22 mEQ/L (20-30); CHLORIDE 97 mEQ/L (98-107); CREATININE 6.4 mg/dL (0.7-1.2); HEMOLYSIS 9; PHOSPHORUS 6.2 mg/dL (2.5-4.8); POTASSIUM 3.7 mEQ/L (3.4-4.9); SODIUM 140 mEQ/L (135-145)
[2016-09-09 08:18] VITALS: BP 124/46
--- NOTE | 2016-09-09 08:48 | Nephrology Progress Note ---
Assessment/Plan Problem List: (1) ESRD (end stage renal disease) on dialysis (2) L arm palsy, r/p brach plexopathy,r/o lacunar stroke (3) Hepatic encephalopathy (4) Altered level of consciousness (5) Hypokalemia Plan HD today TF cont lactulose Subjective Subjective In NAD Objective Objective Last 24 Hour Vital Signs Date Time Temp Pulse Resp B/P Pulse Ox O2 Delivery O2 Flow Rate FiO2 09/09/16 08:18 98.2 69 20 124/46 96 Room Air 09/09/16 04:06 98.8 69 19 107/43 100 Room Air 09/09/16 04:00 63 09/09/16 00:19 98.2 66 20 101/38 97 Room Air 09/08/16 21:14 76 132/74 09/08/16 20:00 76 09/08/16 20:00 98.2 73 18 102/45 96 Room Air 09/08/16 16:00 97.7 68 16 123/69 100 Room Air 09/08/16 12:00 69 09/08/16 11:36 98.4 71 20 115/41 99 Room Air 09/08/16 08:48 77 128/45 Intake and Output 09/08/16 09/09/16 19:00 07:00 Intake Total 1015.0 ml 580 ml Balance 1015.0 ml 580 ml Free Water 100 ml IV Total 595.0 ml 180 ml Tube Feeding 320 ml 400 ml # Bowel Movements 1 1 Laboratory Tests 09/09/16 06:20: White Blood Count 11.8H, Red Blood Count 3.05L, Hemoglobin 9.6L, Hematocrit 30.5L, Mean Corpuscular Volume 100H, Mean Corpuscular Hemoglobin 31.6H, Mean Corpuscular Hemoglobin Concent 31.6L, Red Cell Distribution Width 17.5H, Platelet Count 128L, Mean Platelet Volume 7.3, Neutrophils (%) (Auto) 70.5, Lymphocytes (%) (Auto) 14.9L, Monocytes (%) (Auto) 9.9, Eosinophils (%) (Auto) 3.7H, Basophils (%) (Auto) 1.1, Sodium Level 140, Potassium Level 3.7, Chloride Level 97L, Carbon Dioxide Level 22, Anion Gap 21H, Blood Urea Nitrogen 77H, Creatinine 6.4H, Estimat Glomerular Filtration Rate , Glucose Level 354H, Calcium Level 7.9L, Phosphorus Level 6.2H, Random Vancomycin Level 27.4 Height (Feet): 5 Height (Inches): 11.00 Weight (Pounds): 245 Cardiovascular: normal rate Respiratory/Chest: lungs clear Extremities: moderate edema NICOLASA WELLS Sep 09, 2016 08:48
[2016-09-09] MEDS: Famotidine 20 MG/ 2ML VIAL IVP SCH (09:04)
[2016-09-09] MEDS: Aspirin Baby 81mg ORAL SCH (09:05)
[2016-09-09] MEDS: Metoprolol 50mg tab ORAL SCH ×2 (09:05→21:00)
[2016-09-09] MEDS: Lactulose 20gm/30ml UDC ORAL SCH ×4 (09:05→21:07)
[2016-09-09] MEDS: Nephrovite tab ORAL SCH (09:05)
[2016-09-09] MEDS: Rifaximin 550mg tab ORAL SCH ×2 (09:05→21:08)
[2016-09-09] MEDS: Calcitriol 0.25mcg Cap ORAL SCH (09:10)
--- NOTE | 2016-09-09 09:14 | Diagnostic Imaging Report ---
Indication: COUGH Technique: One view of the chest Comparison: 07/14/2016 Findings: Bilateral diffuse extensive mostly interstitial parenchymal disease appears similar to the previous study. No definite effusions. The heart is enlarged. There is a right jugular tunneled dialysis catheter now present. Previously demonstrated rib fracture deformities are less evident currently. There is a nasogastric tube in good position Impression: Bilateral extensive interstitial disease. This is similar to the previous exam. Suspect on the basis of recurrent interstitial edema, but could indicate chronic fibrotic changes.
[2016-09-09] MEDS: Levemir Flexpen SUBQ SCH (09:18)
[2016-09-09 11:51] VITALS: BP 128/41
[2016-09-09 16:00] VITALS: BP 92/38
--- NOTE | 2016-09-09 16:13 | Cardiac Electrophysiology PN ---
Assessment/Plan Assessment/Plan 1. Atrial fibrillation with rapid ventricular response. Remained in SR on metoprolol 50 bid. On aspirin and Plavix.Off full anticoagulation until okay from Neurology, as the patient has history of hemorrhagic conversion stroke. 2. End-stage renal disease, getting hemodialysis today 3. Hyperlipidemia, on Lipitor. 4. Cirrhosis of the liver 5. Diabetes, on insulin. 6. Dysphagia. NG tube is in.No PEG per GI in view of ascites. DW RN Awaiting placement Subjective Subjective Confused.Getting hemodialysis. In SR with PVCs. No events overnight. Objective Last 24 Hour Vital Signs Date Time Temp Pulse Resp B/P Pulse Ox O2 Delivery O2 Flow Rate FiO2 09/09/16 15:58 Room Air 09/09/16 12:00 Room Air 09/09/16 11:51 98.4 66 20 128/41 95 Room Air 09/09/16 09:05 69 124/46 09/09/16 08:18 98.2 69 20 124/46 96 Room Air 09/09/16 08:00 69 09/09/16 04:06 98.8 69 19 107/43 100 Room Air 09/09/16 04:00 63 09/09/16 00:19 98.2 66 20 101/38 97 Room Air 09/08/16 21:14 76 132/74 09/08/16 20:00 76 09/08/16 20:00 98.2 73 18 102/45 96 Room Air Intake and Output 09/08/16 09/09/16 19:00 07:00 Intake Total 1015.0 ml 650 ml Balance 1015.0 ml 650 ml Free Water 100 ml IV Total 595.0 ml 210 ml Tube Feeding 320 ml 440 ml # Bowel Movements 1 1 Laboratory Tests Test 09/09/16 06:20 White Blood Count 11.8 K/UL (4.8-10.8) H Red Blood Count 3.05 M/UL (4.70-6.10) L Hemoglobin 9.6 G/DL (14.2-18.0) L Hematocrit 30.5 % (42.0-52.0) L Mean Corpuscular Volume 100 FL (80-99) H Mean Corpuscular Hemoglobin 31.6 PG (27.0-31.0) H Mean Corpuscular Hemoglobin Concent 31.6 G/DL (32.0-36.0) L Red Cell Distribution Width 17.5 % (11.6-14.8) H Platelet Count 128 K/UL (150-450) L Mean Platelet Volume 7.3 FL (6.5-10.1) Neutrophils (%) (Auto) 70.5 % (45.0-75.0) Lymphocytes (%) (Auto) 14.9 % (20.0-45.0) L Monocytes (%) (Auto) 9.9 % (1.0-10.0) Eosinophils (%) (Auto) 3.7 % (0.0-3.0) H Basophils (%) (Auto) 1.1 % (0.0-2.0) Sodium Level 140 mEQ/L (135-145) Potassium Level 3.7 mEQ/L (3.4-4.9) Chloride Level 97 mEQ/L (98-107) L Carbon Dioxide Level 22 mEQ/L (20-30) Anion Gap 21 (5-15) H Blood Urea Nitrogen 77 mg/dL (7-23) H Creatinine 6.4 mg/dL (0.7-1.2) H Estimat Glomerular Filtration Rate mL/min (>60) Glucose Level 354 mg/dL (74-106) H Calcium Level 7.9 mg/dL (8.6-10.2) L Phosphorus Level 6.2 mg/dL (2.5-4.8) H Random Vancomycin Level 27.4 ug/mL Objective HEAD AND NECK: No JVD.NG tube is in LUNGS: Decreased breath sounds. CARDIOVASCULAR: Regular S1 and S2 with no gallop or murmur. ABDOMEN: Soft and nontender.Ascites EXTREMITIES: 1+ pitting edema. PRINCESS AGGARWAL Sep 09, 2016 16:13
[2016-09-09 20:00] VITALS: BP 98/76
--- NOTE | 2016-09-09 20:18 | Consultation ---
History of Present Illness General Date patient seen: Sep 09, 2016 Chief Complaint: Stroke Symptoms Reason for Consultation: G tube placement Present Illness HPI 75 M with multiple medical comorbidities as noted below. Currently been hospitalized after stoke. Unfortunately has not been able to regain full function and is unable to have oral intake. Has NG tube in place with feeds but has pulled tube out multiple times requiring re-insertion and restraints. Unknown if will be safe for oral intake soon. Surgery called to evaluate for possible G tube placement. Allergies: Coded Allergies: No Known Allergies (Unverified , 07/14/16) Medication History Scheduled Amlodipine Besylate* (Amlodipine Besylate*), 5 MG ORAL DAILY, (Reported) Aspirin* (Aspir 81*), 81 MG ORAL DAILY, (Reported) Atorvastatin Calcium* (Atorvastatin Calcium*), 80 MG ORAL BEDTIME, (Reported) Calcitriol (Calcitriol), 0.25 MCG GT DAILY, (Reported) Clopidogrel* (Clopidogrel*), 75 MG ORAL DAILY, (Reported) Dexlansoprazole (Dexilant), 60 MG ORAL DAILY, (Reported) Duloxetine (Cymbalta), 20 MG ORAL BID, (Reported) Ferrous Sulfate (Iron), 325 MG PO DAILY, (Reported) Furosemide* (Lasix*), 40 MG ORAL TWICE A DAY, (Reported) Metoprolol Succinate (Toprol Xl), 100 MG ORAL DAILY, (Reported) Ranitidine Hcl* (Zantac*), 150 MG ORAL DAILY, (Reported) Rifaximin* (Xifaxan*), 550 MG ORAL TWICE A DAY, (Reported) Vitamin B Cmplx/Vit C/Folic AC (Nephro-Kelly Tablet), 1 TAB ORAL DAILY, (Reported ) Scheduled PRN Acetaminophen (Acetaminophen), 325 MG ORAL Q6HR PRN for Prn Headache/Temp > 101, (Reported) Miscellaneous Medications Unable to Obtain Medications (Unable To Obtain Meds), (Reported) Patient History Limited by: medical condition History Provided By: Family Member Healthcare decision maker pt's dtr Resuscitation status Full Code Advanced Directive on File Past Medical/Surgical History Past Medical/Surgical History: (1) CVA (cerebral vascular accident) (2) Kidney disease, chronic, end stage on dialysis (3) Renal failure (4) Hepatic encephalopathy (5) CHF (congestive heart failure) (6) ESRD (end stage renal disease) on dialysis (7) L arm palsy, r/p brach plexopathy,r/o lacunar stroke (8) Altered level of consciousness (9) Left arm pain (10) L arm pain (11) 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 (12) Hypokalemia (13) Dysphagia Review of Systems ROS Narrative unable to obtain given current medical condition Physical Exam General Appearance: confused, agitated Lines, tubes and drains: peripheral HEENT: atraumatic Respiratory/Chest: normal breath sounds Cardiovascular/Chest: regularly irregular Abdomen: normal bowel sounds, non tender, soft, distended Extremities: moderate edema Skin Exam: normal pigmentation Neurologic: disoriented Last 24 Hour Vital Signs Date Time Temp Pulse Resp B/P Pulse Ox O2 Delivery O2 Flow Rate FiO2 09/09/16 16:00 97.3 66 18 92/38 97 Room Air 09/09/16 15:58 Room Air 09/09/16 12:00 Room Air 09/09/16 11:51 98.4 66 20 128/41 95 Room Air 09/09/16 09:05 69 124/46 09/09/16 08:18 98.2 69 20 124/46 96 Room Air 09/09/16 08:00 69 09/09/16 04:06 98.8 69 19 107/43 100 Room Air 09/09/16 04:00 63 09/09/16 00:19 98.2 66 20 101/38 97 Room Air 09/08/16 21:14 76 132/74 Intake and Output 09/08/16 09/09/16 19:00 07:00 Intake Total 1015.0 ml 650 ml Balance 1015.0 ml 650 ml Free Water 100 ml IV Total 595.0 ml 210 ml Tube Feeding 320 ml 440 ml # Bowel Movements 1 1 Laboratory Tests Test 09/09/16 06:20 White Blood Count 11.8 K/UL (4.8-10.8) H Red Blood Count 3.05 M/UL (4.70-6.10) L Hemoglobin 9.6 G/DL (14.2-18.0) L Hematocrit 30.5 % (42.0-52.0) L Mean Corpuscular Volume 100 FL (80-99) H Mean Corpuscular Hemoglobin 31.6 PG (27.0-31.0) H Mean Corpuscular Hemoglobin Concent 31.6 G/DL (32.0-36.0) L Red Cell Distribution Width 17.5 % (11.6-14.8) H Platelet Count 128 K/UL (150-450) L Mean Platelet Volume 7.3 FL (6.5-10.1) Neutrophils (%) (Auto) 70.5 % (45.0-75.0) Lymphocytes (%) (Auto) 14.9 % (20.0-45.0) L Monocytes (%) (Auto) 9.9 % (1.0-10.0) Eosinophils (%) (Auto) 3.7 % (0.0-3.0) H Basophils (%) (Auto) 1.1 % (0.0-2.0) Sodium Level 140 mEQ/L (135-145) Potassium Level 3.7 mEQ/L (3.4-4.9) Chloride Level 97 mEQ/L (98-107) L Carbon Dioxide Level 22 mEQ/L (20-30) Anion Gap 21 (5-15) H Blood Urea Nitrogen 77 mg/dL (7-23) H Creatinine 6.4 mg/dL (0.7-1.2) H Estimat Glomerular Filtration Rate mL/min (>60) Glucose Level 354 mg/dL (74-106) H Calcium Level 7.9 mg/dL (8.6-10.2) L Phosphorus Level 6.2 mg/dL (2.5-4.8) H Random Vancomycin Level 27.4 ug/mL Height (Feet): 5 Height (Inches): 11.00 Weight (Pounds): 245 Medications Current Medications Medications (Trade) Dose Ordered Sig/Jacqueline Route PRN Reason Start Time Stop Time Status Last Admin Dose Admin Acetaminophen (Tylenol) 650 mg Q6H PRN ORAL Mild Pain/Temp > 100.5 09/03/16 04:30 10/03/16 04:29 Albumin Human (Albumisol) 100 ml @ 200 mls/hr PRN PRN IV sbp<90 during hd 09/09/16 06:00 09/09/16 23:59 Aspirin (ASA) 81 mg DAILY ORAL 09/03/16 09:00 10/03/16 08:59 09/09/16 09:05 Atorvastatin Calcium (Lipitor) 80 mg BEDTIME ORAL 09/03/16 21:00 10/03/16 20:59 09/08/16 21:14 Calcitriol (Rocatrol) 0.25 mcg DAILY ORAL 09/03/16 09:00 10/03/16 08:59 09/09/16 09:10 Clonidine HCl (Catapres) 0.1 mg Q4H PRN ORAL for SBP >170 09/03/16 04:30 10/03/16 04:29 09/03/16 08:30 Clopidogrel Bisulfate (Plavix) 75 mg DAILY ORAL 09/03/16 09:00 10/03/16 08:59 09/09/16 09:05 Dextrose STAT PRN IV Hypoglycemia 09/08/16 09:30 10/08/16 09:29 Duloxetine HCl (Cymbalta) 20 mg BID ORAL 09/03/16 09:00 10/03/16 08:59 09/09/16 18:55 Famotidine (Pepcid I.v.) 20 mg DAILY IVP 09/03/16 09:00 10/03/16 08:59 09/09/16 09:04 Haloperidol Lactate (Haldol) 2 mg Q6H PRN IM Agitation 09/04/16 10:30 10/04/16 10:29 09/09/16 06:37 Heparin Sodium (Porcine) (Heparin 5000 units/ml) 5,000 units EVERY 8 HOURS SUBQ 09/03/16 07:30 10/03/16 07:29 09/09/16 05:23 Insulin Aspart (NovoLOG) Q6HR SUBQ 09/08/16 12:00 10/08/16 11:59 09/09/16 18:56 Insulin Detemir 25 units 25 units DAILY SUBQ 09/09/16 09:00 10/09/16 08:59 09/09/16 09:18 Lactulose (Cephulac) 20 gm FOUR TIMES A DAY ORAL 09/03/16 09:00 10/03/16 08:59 09/09/16 18:55 Lidocaine (Lidoderm 5% PATCH) 2 patch DAILY TDERMAL 09/03/16 09:00 10/03/16 08:59 09/09/16 09:05 Metoprolol Tartrate (Lopressor) 50 mg Q12HR ORAL 09/05/16 21:00 10/05/16 20:59 09/09/16 09:05 Nystatin (Nystatin) 1 applic THREE TIMES A DAY TOPIC 09/03/16 18:00 10/03/16 17:59 09/09/16 18:55 Rifaximin (Xifaxan) 550 mg EVERY 12 HOURS ORAL 09/03/16 09:00 09/10/16 08:59 09/09/16 09:05 Sennosides (Senokot) 8.6 mg BEDTIME PRN ORAL Constipation 09/03/16 04:30 10/03/16 04:29 Sodium Chloride (Sodium Chloride 1000ml bag) 1,000 ml @ 30 mls/hr Q24H IV 09/08/16 23:00 10/08/16 22:59 09/08/16 23:00 Vancomycin HCl (Vanco rx to dose) 1 ea DAILY PRN MISC Per rx protocol 09/08/16 11:30 10/08/16 11:29 Vitamin B Complex/ Vit C/Folic Acid (Nephrovite) 1 tab DAILY ORAL 09/03/16 09:00 10/03/16 08:59 09/09/16 09:05 Assessment/Plan Assessment/Plan 75 male requiring feeds. unsafe for oral intake given recent stroke but has functioning GI tract. NG tube with feeds currently but requires restraints given multiple removal of NG tube. Unsure of when or if he will regain capacity for safe oral intake. Unfortunately given medical comorbidities, ct findings of ascites, hepatic cirrhosis, varices, would not advise G tube placement. High risk for self removal of tube, infection, poor healing of surgical wounds, leaking ascites and further complications. Safest method of nutrition for him with functional GI tract would be nasogastric. Can consider placement of smaller feeding tube for comfort instead of NG tube but would not advise g-tube or peg placement. Thank you for this consultation. Alexis Blanca Sep 09, 2016 20:18
--- NOTE | 2016-09-09 20:20 | General Progress Note ---
Assessment/Plan Status: progressing Assessment/Plan 75 y/o male admitted with the following problems: -Acute CVA with left hemiparesis -Cirrhosis with hepatic encephalopathy -ESRD on HD -DM insulin requiring -paroxismal atrial fibrillation now in sinus rhythm -leukoctosis -left upper extremity edema, improving -dysphasia -severe OA of left shoulder -Bilatera UE dependant edema Plan: -HD per nephrology -continue NGT -failed swallow study -continue plavix and asa, coumadin when stable from neurology stand point, possilby in 2 weekd -pt/ot/st and rehab placement when medically stable -continue all meds -VTE with heparin sq tid -continue NGT -ID fu appreciated -per GI and surgery not feasable to place G tube due to high risk of infection and patient noncompliance discussed with nurse and daughter at lenght am labs pt/ot/st, ?[place] [facility] placement vs rehab [facility] Subjective Date patient seen: Sep 09, 2016 Time patient seen: 20:16 Allergies: Coded Allergies: No Known Allergies (Unverified , 07/14/16) All Systems: reviewed and negative except above Objective Last 24 Hour Vital Signs Date Time Temp Pulse Resp B/P Pulse Ox O2 Delivery O2 Flow Rate FiO2 09/09/16 16:00 97.3 66 18 92/38 97 Room Air 09/09/16 15:58 Room Air 09/09/16 12:00 Room Air 09/09/16 11:51 98.4 66 20 128/41 95 Room Air 09/09/16 09:05 69 124/46 09/09/16 08:18 98.2 69 20 124/46 96 Room Air 09/09/16 08:00 69 09/09/16 04:06 98.8 69 19 107/43 100 Room Air 09/09/16 04:00 63 09/09/16 00:19 98.2 66 20 101/38 97 Room Air 09/08/16 21:14 76 132/74 Intake and Output 09/08/16 09/09/16 19:00 07:00 Intake Total 1015.0 ml 650 ml Balance 1015.0 ml 650 ml Free Water 100 ml IV Total 595.0 ml 210 ml Tube Feeding 320 ml 440 ml # Bowel Movements 1 1 Laboratory Tests 09/09/16 06:20: White Blood Count 11.8H, Red Blood Count 3.05L, Hemoglobin 9.6L, Hematocrit 30.5L, Mean Corpuscular Volume 100H, Mean Corpuscular Hemoglobin 31.6H, Mean Corpuscular Hemoglobin Concent 31.6L, Red Cell Distribution Width 17.5H, Platelet Count 128L, Mean Platelet Volume 7.3, Neutrophils (%) (Auto) 70.5, Lymphocytes (%) (Auto) 14.9L, Monocytes (%) (Auto) 9.9, Eosinophils (%) (Auto) 3.7H, Basophils (%) (Auto) 1.1, Sodium Level 140, Potassium Level 3.7, Chloride Level 97L, Carbon Dioxide Level 22, Anion Gap 21H, Blood Urea Nitrogen 77H, Creatinine 6.4H, Estimat Glomerular Filtration Rate , Glucose Level 354H, Calcium Level 7.9L, Phosphorus Level 6.2H, Random Vancomycin Level 27.4 Height (Feet): 5 Height (Inches): 11.00 Weight (Pounds): 245 General Appearance: WD/WN, alert, mild distress EENT: PERRL/EOMI Neck: non-tender Cardiovascular: normal rate Respiratory/Chest: lungs clear Abdomen: normal bowel sounds, soft Genitourinary/Rectal: normal genital exam Extremities: swelling - bilateral upper extremities due to dependant edema Edema: 1+ Arm (L), 1+ Arm (R), no edema noted Leg (L), no edema noted Leg (R), no edema noted Pedal (L), no edema noted Pedal (R), no edema noted Generalized Edema: trace edema Neurologic: envelope maker II-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
[2016-09-09] MEDS: Atorvastatin 80mg tab ORAL SCH (21:07)
--- NOTE | 2016-09-09 21:59 | General Progress Note ---
Assessment/Plan Assessment/Plan Assessment - EtOH Cirrhosis - Renal failure - Acute CVA, (L) carolyn - dysphagia -- unable to place PEG due to cirrhosis -- may not be accepted to SNF with NGT - Poor Px Recommendations - NGT - Lactulose --> can potentially give rectally, but still needs NGT for feeds - xifaxan - check NH3 - Goals and level of care discussion Subjective Allergies: Coded Allergies: No Known Allergies (Unverified , 07/14/16) Subjective sleepy / arousable incoherent responses NGT tube in getting HD Objective Last 24 Hour Vital Signs Date Time Temp Pulse Resp B/P Pulse Ox O2 Delivery O2 Flow Rate FiO2 09/09/16 21:00 91 98/76 09/09/16 20:00 97.5 91 20 98/76 96 Room Air 09/09/16 16:00 97.3 66 18 92/38 97 Room Air 09/09/16 15:58 Room Air 09/09/16 12:00 Room Air 09/09/16 11:51 98.4 66 20 128/41 95 Room Air 09/09/16 09:05 69 124/46 09/09/16 08:18 98.2 69 20 124/46 96 Room Air 09/09/16 08:00 69 09/09/16 04:06 98.8 69 19 107/43 100 Room Air 09/09/16 04:00 63 09/09/16 00:19 98.2 66 20 101/38 97 Room Air Intake and Output 09/08/16 09/09/16 19:00 07:00 Intake Total 1015.0 ml 650 ml Balance 1015.0 ml 650 ml Free Water 100 ml IV Total 595.0 ml 210 ml Tube Feeding 320 ml 440 ml # Bowel Movements 1 1 Laboratory Tests 09/09/16 06:20: White Blood Count 11.8H, Red Blood Count 3.05L, Hemoglobin 9.6L, Hematocrit 30.5L, Mean Corpuscular Volume 100H, Mean Corpuscular Hemoglobin 31.6H, Mean Corpuscular Hemoglobin Concent 31.6L, Red Cell Distribution Width 17.5H, Platelet Count 128L, Mean Platelet Volume 7.3, Neutrophils (%) (Auto) 70.5, Lymphocytes (%) (Auto) 14.9L, Monocytes (%) (Auto) 9.9, Eosinophils (%) (Auto) 3.7H, Basophils (%) (Auto) 1.1, Sodium Level 140, Potassium Level 3.7, Chloride Level 97L, Carbon Dioxide Level 22, Anion Gap 21H, Blood Urea Nitrogen 77H, Creatinine 6.4H, Estimat Glomerular Filtration Rate , Glucose Level 354H, Calcium Level 7.9L, Phosphorus Level 6.2H, Random Vancomycin Level 27.4 Height (Feet): 5 Height (Inches): 11.00 Weight (Pounds): 245 Objective conversant but confused NCAT supple CTA RRR soft ND NT awake / responsive, but slow to respond slurred speech (L) weakness ESPINOZA WOOTEN Sep 09, 2016 21:59
[2016-09-10] VITALS: BP 115/56
[2016-09-10] MEDS: NovoLOG Insulin Flexpen SUBQ SCH ×4 (00:47→18:11)
[2016-09-10 04:00] VITALS: BP 159/62
[2016-09-10] MEDS: Heparin 5000 units/ml inj SUBQ SCH ×3 (06:16→21:13)
[2016-09-10 08:25] VITALS: BP 146/57
[2016-09-10] MEDS: Nephrovite tab ORAL SCH (09:57)
[2016-09-10] MEDS: Calcitriol 0.25mcg Cap ORAL SCH (09:57)
[2016-09-10] MEDS: Metoprolol 50mg tab ORAL SCH ×2 (09:57→21:12)
[2016-09-10] MEDS: Lactulose 20gm/30ml UDC ORAL SCH ×4 (09:57→21:12)
[2016-09-10] MEDS: Famotidine 20 MG/ 2ML VIAL IVP SCH (09:58)
[2016-09-10] MEDS: Aspirin Baby 81mg ORAL SCH (09:58)
[2016-09-10] MEDS: Levemir Flexpen SUBQ SCH (10:21)
[2016-09-10 11:40] VITALS: BP 126/46
--- NOTE | 2016-09-10 11:58 | General Progress Note ---
Progress Note Progress Note Surgery: patient seen and examined at bedside. more alert this morning and talkative. no acute events abdomen distended, non tender, soft, fluid shift Continue current care and management Tube feeds as tolerated Not candidate for g tube or peg as mental status improves can repeat swallow study and see if he can eat. next time will do swallow study without NG tube in place. if fails will replace with smaller feeding tube. Alexis Blanca Sep 10, 2016 11:58
--- NOTE | 2016-09-10 15:01 | Wound Care Consultation ---
Wound Assessment Wound Assessment : Wound Number: #1 Wound Present on Admission: Yes New Wound: No Status Change of Wound: No Wound Location Body Site: perineal area - and sacral area Wound Type: rash - multiple rash Loan Test: Does not Loan Percent of Wound [place]/Red: 100 Wound Drainage Amount: None Wound Drainage Odor: None/Absent Tissue Surrounding Wound: Erythemic Wound General Appearance: Reddened Wound Comment #1 Perineal area rash and sacral area- noted good progress, treatment effective , decrease in redness noted, skin remains intact, clean and dry. #2 With multiple Scar tissues on different part of the body #3 Scratch hernández on left arm - clean , dry. Recommendation -Keep clean and dry -Turn and reposition (Remind Pt not to stay in one position no longer than 2hrs) -Optimize nutrition -Local treatment with nystatin cream TID as ordered -Offload both heels while Pt is in bed -Avoid shear and friction -Assess and notify MD for any changes of condition to skin. GIOVANA ROTH Sep 10, 2016 15:01
--- NOTE | 2016-09-10 15:49 | Nephrology Progress Note ---
Assessment/Plan Problem List: (1) ESRD (end stage renal disease) on dialysis (2) L arm palsy, r/p brach plexopathy,r/o lacunar stroke (3) Hepatic encephalopathy (4) Altered level of consciousness (5) Hypokalemia Plan HD tomorrow TF cont lactulose follow BMP Subjective Subjective In NAD Objective Objective Last 24 Hour Vital Signs Date Time Temp Pulse Resp B/P Pulse Ox O2 Delivery O2 Flow Rate FiO2 09/10/16 11:54 65 09/10/16 11:40 97.7 64 20 126/46 97 Room Air 09/10/16 09:57 74 146/57 09/10/16 09:00 74 09/10/16 08:25 98.1 78 20 146/57 95 Room Air 09/10/16 04:00 77 09/10/16 04:00 97.7 76 18 159/62 96 09/10/16 00:00 98.1 68 18 115/56 96 Room Air 09/10/16 00:00 68 09/09/16 21:00 91 98/76 09/09/16 20:00 97.5 91 20 98/76 96 Room Air 09/09/16 20:00 94 09/09/16 16:00 68 09/09/16 16:00 97.3 66 18 92/38 97 Room Air 09/09/16 15:58 Room Air Intake and Output 09/09/16 09/10/16 19:00 07:00 Intake Total 870 ml 960 ml Output Total 1700 ml 1 ml Balance -830 ml 959 ml Free Water 100 ml 80 ml IV Total 330 ml 360 ml Tube Feeding 400 ml 480 ml Other 40 ml 40 ml Output Urine Total 1 ml Hemodialysis UF 1700 ml # Bowel Movements 1 1 Laboratory Tests 09/10/16 12:45: Ammonia 63H, Random Vancomycin Level 22.7 Height (Feet): 5 Height (Inches): 11.00 Weight (Pounds): 245 Cardiovascular: normal rate Respiratory/Chest: lungs clear Extremities: moderate edema NICOLASA WELLS Sep 10, 2016 15:49
--- NOTE | 2016-09-10 16:03 | Infectious Diseases Prog Note ---
Assessment/Plan Assessment/Plan A; Leukocytosis ESRD on HD Cirrhosis DM HPN P: will f/u cultures Subjective ROS Limited/Unobtainable: Yes Neurologic: Reports: confusion, other - on restraint Allergies: Coded Allergies: No Known Allergies (Unverified , 07/14/16) Objective Vital Signs Last 24 Hour Vital Signs Date Time Temp Pulse Resp B/P Pulse Ox O2 Delivery O2 Flow Rate FiO2 09/10/16 11:54 65 09/10/16 11:40 97.7 64 20 126/46 97 Room Air 09/10/16 09:57 74 146/57 09/10/16 09:00 74 09/10/16 08:25 98.1 78 20 146/57 95 Room Air 09/10/16 04:00 77 09/10/16 04:00 97.7 76 18 159/62 96 09/10/16 00:00 98.1 68 18 115/56 96 Room Air 09/10/16 00:00 68 09/09/16 21:00 91 98/76 09/09/16 20:00 97.5 91 20 98/76 96 Room Air 09/09/16 20:00 94 Height (Feet): 5 Height (Inches): 11.00 Weight (Pounds): 245 HEENT: mucous membranes moist Respiratory/Chest: lungs clear Cardiovascular: normal rate Abdomen: soft, non tender, other - NG tube Extremities: other - mild edema of hands Neurologic/Psychiatric: alert, responsive, disoriented Microbiology Date/Time Source Procedure Growth Status 09/08/16 13:35 Blood Blood Culture - Preliminary NO GROWTH AFTER 24 HOURS Resulted Laboratory Tests Test 09/10/16 12:45 Ammonia 63 umol/L (16-60) H Random Vancomycin Level 22.7 ug/mL Current Medications Medications (Trade) Dose Ordered Sig/Jacqueline Route PRN Reason Start Time Stop Time Status Last Admin Dose Admin Acetaminophen (Tylenol) 650 mg Q6H PRN ORAL Mild Pain/Temp > 100.5 09/03/16 04:30 10/03/16 04:29 Aspirin (ASA) 81 mg DAILY ORAL 09/03/16 09:00 10/03/16 08:59 09/10/16 09:58 Atorvastatin Calcium (Lipitor) 80 mg BEDTIME ORAL 09/03/16 21:00 10/03/16 20:59 09/09/16 21:07 Calcitriol (Rocatrol) 0.25 mcg DAILY ORAL 09/03/16 09:00 10/03/16 08:59 09/10/16 09:57 Clonidine HCl (Catapres) 0.1 mg Q4H PRN ORAL for SBP >170 09/03/16 04:30 10/03/16 04:29 09/03/16 08:30 Clopidogrel Bisulfate (Plavix) 75 mg DAILY ORAL 09/03/16 09:00 10/03/16 08:59 09/10/16 09:57 Dextrose (Dextrose 50%) STAT PRN IV Hypoglycemia 09/08/16 09:30 10/08/16 09:29 Duloxetine HCl (Cymbalta) 20 mg BID ORAL 09/03/16 09:00 10/03/16 08:59 09/10/16 09:57 Famotidine (Pepcid I.v.) 20 mg DAILY IVP 09/03/16 09:00 10/03/16 08:59 09/10/16 09:58 Haloperidol Lactate (Haldol) 2 mg Q6H PRN IM Agitation 09/04/16 10:30 10/04/16 10:29 09/09/16 06:37 Heparin Sodium (Porcine) (Heparin 5000 units/ml) 5,000 units EVERY 8 HOURS SUBQ 09/03/16 07:30 10/03/16 07:29 09/10/16 06:16 Insulin Aspart (NovoLOG) Q6HR SUBQ 09/08/16 12:00 10/08/16 11:59 09/10/16 12:38 Insulin Detemir 25 units 25 units DAILY SUBQ 09/09/16 09:00 10/09/16 08:59 09/10/16 10:21 Lactulose (Cephulac) 20 gm FOUR TIMES A DAY ORAL 09/03/16 09:00 10/03/16 08:59 09/10/16 12:46 Lidocaine (Lidoderm 5% PATCH) 2 patch DAILY TDERMAL 09/03/16 09:00 10/03/16 08:59 09/10/16 09:58 Metoprolol Tartrate (Lopressor) 50 mg Q12HR ORAL 09/05/16 21:00 10/05/16 20:59 09/10/16 09:57 Nystatin (Nystatin) 1 applic THREE TIMES A DAY TOPIC 09/03/16 18:00 10/03/16 17:59 09/10/16 12:46 Sennosides (Senokot) 8.6 mg BEDTIME PRN ORAL Constipation 09/03/16 04:30 10/03/16 04:29 Sodium Chloride 1,000 ml @ 30 mls/hr Q24H IV 09/08/16 23:00 10/08/16 22:59 09/09/16 21:08 Vancomycin HCl (Vanco rx to dose) 1 ea DAILY PRN MISC Per rx protocol 09/08/16 11:30 10/08/16 11:29 Vancomycin HCl/ Dextrose (Vancomycin/D5W) 275 ml @ 183.708 mls/hr ONCE ONCE IVPB 09/11/16 21:00 09/11/16 22:29 Vitamin B Complex/ Vit C/Folic Acid (Nephrovite) 1 tab DAILY ORAL 09/03/16 09:00 10/03/16 08:59 09/10/16 09:57 TOY WELLS Sep 10, 2016 16:03
[2016-09-10 16:13] VITALS: BP 141/54
[2016-09-10 20:00] VITALS: BP 120/46
[2016-09-10] MEDS: Atorvastatin 80mg tab ORAL SCH (21:12)
--- NOTE | 2016-09-10 21:56 | General Progress Note ---
Assessment/Plan Assessment/Plan 75 y/o male admitted with the following problems: -Acute CVA with left hemiparesis -Cirrhosis with hepatic encephalopathy -ESRD on HD -DM insulin requiring -paroxismal atrial fibrillation now in sinus rhythm -leukoctosis -left upper extremity edema, improving -dysphasia -severe OA of left shoulder -Bilatera UE dependant edema Plan: -HD per nephrology -continue NGT -failed swallow study -continue plavix and asa, coumadin when stable from neurology stand point, possilby in 2 weekd -pt/ot/st and rehab placement when medically stable -continue all meds -VTE with heparin sq tid -continue NGT -ID fu appreciated -per GI and surgery not feasable to place G tube due to high risk of infection and patient noncompliance discussed with nurse and daughter at lenght am labs pt/ot/st, ?[place] [facility] placement vs rehab center [facility] will dc to rehab when bed available and cleared by all consultants Subjective Date patient seen: Sep 10, 2016 Time patient seen: 21:54 ROS Limited/Unobtainable: Yes Allergies: Coded Allergies: No Known Allergies (Unverified , 07/14/16) All Systems: reviewed and negative except above Objective Last 24 Hour Vital Signs Date Time Temp Pulse Resp B/P Pulse Ox O2 Delivery O2 Flow Rate FiO2 09/10/16 21:12 69 141/54 09/10/16 16:13 98.2 69 20 141/54 95 Room Air 09/10/16 11:54 65 09/10/16 11:40 97.7 64 20 126/46 97 Room Air 09/10/16 09:57 74 146/57 09/10/16 09:00 74 09/10/16 08:25 98.1 78 20 146/57 95 Room Air 09/10/16 04:00 77 09/10/16 04:00 97.7 76 18 159/62 96 09/10/16 00:00 98.1 68 18 115/56 96 Room Air 09/10/16 00:00 68 Intake and Output 09/09/16 09/10/16 19:00 07:00 Intake Total 870 ml 960 ml Output Total 1700 ml 1 ml Balance -830 ml 959 ml Free Water 100 ml 80 ml IV Total 330 ml 360 ml Tube Feeding 400 ml 480 ml Other 40 ml 40 ml Output Urine Total 1 ml Hemodialysis UF 1700 ml # Bowel Movements 1 1 Laboratory Tests 09/10/16 12:45: Ammonia 63H, Random Vancomycin Level 22.7 Height (Feet): 5 Height (Inches): 11.00 Weight (Pounds): 245 General Appearance: WD/WN, overweight EENT: PERRL/EOMI Neck: non-tender Cardiovascular: normal peripheral pulses, regular rhythm Respiratory/Chest: lungs clear Abdomen: non tender Genitourinary/Rectal: normal genital exam Extremities: non-tender Edema: 1+ Arm (L), 1+ Arm (R), no edema noted Leg (L), no edema noted Leg (R), no edema noted Pedal (L), no edema noted Pedal (R), no edema noted Generalized Edema: trace edema 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
--- NOTE | 2016-09-10 22:21 | General Progress Note ---
Assessment/Plan Assessment/Plan Assessment - EtOH Cirrhosis - Renal failure - Acute CVA, (L) carolyn - dysphagia - Jaundice - Poor Px Recommendations - NGT feeds - Lactulose - xifaxan - check CT abd - d/c Statin and tylenol - HD per renal - recheck swallow evaluation next week Subjective Allergies: Coded Allergies: No Known Allergies (Unverified , 07/14/16) Subjective resting NGT tube in tolerating NGT feeds arousable Objective Last 24 Hour Vital Signs Date Time Temp Pulse Resp B/P Pulse Ox O2 Delivery O2 Flow Rate FiO2 09/10/16 21:12 69 141/54 09/10/16 16:13 98.2 69 20 141/54 95 Room Air 09/10/16 11:54 65 09/10/16 11:40 97.7 64 20 126/46 97 Room Air 09/10/16 09:57 74 146/57 09/10/16 09:00 74 09/10/16 08:25 98.1 78 20 146/57 95 Room Air 09/10/16 04:00 77 09/10/16 04:00 97.7 76 18 159/62 96 09/10/16 00:00 98.1 68 18 115/56 96 Room Air 09/10/16 00:00 68 Intake and Output 09/09/16 09/10/16 19:00 07:00 Intake Total 870 ml 960 ml Output Total 1700 ml 1 ml Balance -830 ml 959 ml Free Water 100 ml 80 ml IV Total 330 ml 360 ml Tube Feeding 400 ml 480 ml Other 40 ml 40 ml Output Urine Total 1 ml Hemodialysis UF 1700 ml # Bowel Movements 1 1 Laboratory Tests 09/10/16 12:45: Ammonia 63H, Random Vancomycin Level 22.7 Height (Feet): 5 Height (Inches): 11.00 Weight (Pounds): 245 Objective conversant but confused NCAT, (+) NGT supple CTA RRR soft ND NT awake / responsive, but slow to respond slurred speech (L) weakness (+) trace edema ESPINOZA WOOTEN Sep 10, 2016 22:21
[2016-09-11] VITALS: BP 126/55
[2016-09-11] MEDS: NovoLOG Insulin Flexpen SUBQ SCH ×4 (00:10→18:44)
[2016-09-11 04:00] VITALS: BP 132/80
[2016-09-11] MEDS: Heparin 5000 units/ml inj SUBQ SCH ×3 (06:00→21:54)
[2016-09-11 08:27] VITALS: BP 137/49
[2016-09-11 08:51] LABS: BASOPHILS % (AUTO) 0.9 % (0.0-2.0); EOSINOPHILS % (AUTO) 3.4 % (0.0-3.0); LYMPHOCYTES % (AUTO) 14.5 % (20.0-45.0); MEAN CORPUSCULAR HGB CONC 31.9 G/DL (32.0-36.0); MEAN CORPUSCULAR VOLUME 101 FL (80-99); MEAN PLATELET VOLUME 7.9 FL (6.5-10.1); MONOCYTES % (AUTO) 11.1 % (1.0-10.0); NEUTROPHILS % (AUTO) 70.2 % (45.0-75.0); PLATELET COUNT 132 K/UL (150-450); RED BLOOD COUNT 3.05 M/UL (4.70-6.10); RED CELL DISTRIBUTION WIDTH 18.1 % (11.6-14.8); WHITE BLOOD COUNT 10.6 K/UL (4.8-10.8)
[2016-09-11 08:52] LABS: INR 1.2 (0.9-1.1); PROTHROMBIN TIME 12.1 SEC (9.30-11.50)
[2016-09-11 08:58] LABS: ALANINE AMINOTRANSFERASE 54 U/L (3-41); ALBUMIN/GLOBULIN RATIO 0.7 (1.0-2.7); ANION GAP 19 (5-15); ASPARTATE AMINO TRANSFERASE 56 U/L (5-40); CALCIUM 8.1 mg/dL (8.6-10.2); CARBON DIOXIDE 24 mEQ/L (20-30); CHLORIDE 95 mEQ/L (98-107); CREATININE 6.8 mg/dL (0.7-1.2); HEMOLYSIS 4; POTASSIUM 3.8 mEQ/L (3.4-4.9); SODIUM 138 mEQ/L (135-145); TOTAL PROTEIN 5.1 g/dL (6.6-8.7)
[2016-09-11] MEDS: Aspirin Baby 81mg ORAL SCH (09:00)
[2016-09-11] MEDS: Metoprolol 50mg tab ORAL SCH ×2 (09:00→21:52)
[2016-09-11] MEDS: Nephrovite tab ORAL SCH (09:00)
[2016-09-11] MEDS: Lactulose 20gm/30ml UDC ORAL SCH ×4 (09:00→21:52)
[2016-09-11] MEDS: Calcitriol 0.25mcg Cap ORAL SCH (09:00)
[2016-09-11] MEDS: Famotidine 20 MG/ 2ML VIAL IVP SCH (09:00)
--- NOTE | 2016-09-11 09:13 | Infectious Diseases Prog Note ---
Assessment/Plan Assessment/Plan A; Leukocytosis resolved ESRD on HD Cirrhosis DM HPN P: will f/u cultures Observe off antibiotic Subjective ROS Limited/Unobtainable: Yes Allergies: Coded Allergies: No Known Allergies (Unverified , 07/14/16) Objective Vital Signs Last 24 Hour Vital Signs Date Time Temp Pulse Resp B/P Pulse Ox O2 Delivery O2 Flow Rate FiO2 09/11/16 08:27 98.9 73 20 137/49 94 Room Air 09/11/16 04:00 98.2 70 20 132/80 100 Room Air 09/11/16 04:00 70 09/11/16 00:00 97.9 65 20 126/55 93 Room Air 09/11/16 00:00 64 09/10/16 21:12 69 141/54 09/10/16 20:00 93 09/10/16 20:00 97.9 96 20 120/46 93 Room Air 09/10/16 16:13 98.2 69 20 141/54 95 Room Air 09/10/16 16:00 68 09/10/16 11:54 65 09/10/16 11:40 97.7 64 20 126/46 97 Room Air 09/10/16 09:57 74 146/57 Height (Feet): 5 Height (Inches): 11.00 Weight (Pounds): 245 General Appearance: no acute distress HEENT: mucous membranes moist Respiratory/Chest: lungs clear Cardiovascular: normal rate, other - R side Port Abdomen: soft, non tender, other - NG tube Extremities: other - edema more in hands Neurologic/Psychiatric: other - sleeping Microbiology Date/Time Source Procedure Growth Status 09/08/16 13:35 Blood Blood Culture - Preliminary NO GROWTH AFTER 48 HOURS Resulted Laboratory Tests Test 09/10/16 12:45 09/11/16 06:40 Ammonia 63 umol/L (16-60) H Random Vancomycin Level 22.7 ug/mL White Blood Count 10.6 K/UL (4.8-10.8) Red Blood Count 3.05 M/UL (4.70-6.10) L Hemoglobin 9.8 G/DL (14.2-18.0) L Hematocrit 30.6 % (42.0-52.0) L Mean Corpuscular Volume 101 FL (80-99) H Mean Corpuscular Hemoglobin 32.0 PG (27.0-31.0) H Mean Corpuscular Hemoglobin Concent 31.9 G/DL (32.0-36.0) L Red Cell Distribution Width 18.1 % (11.6-14.8) H Platelet Count 132 K/UL (150-450) L Mean Platelet Volume 7.9 FL (6.5-10.1) Neutrophils (%) (Auto) 70.2 % (45.0-75.0) Lymphocytes (%) (Auto) 14.5 % (20.0-45.0) L Monocytes (%) (Auto) 11.1 % (1.0-10.0) H Eosinophils (%) (Auto) 3.4 % (0.0-3.0) H Basophils (%) (Auto) 0.9 % (0.0-2.0) Prothrombin Time 12.1 SEC (9.30-11.50) H Prothromb Time International Ratio 1.2 (0.9-1.1) H Activated Partial Thromboplast Time 35 SEC (23-33) H Sodium Level 138 mEQ/L (135-145) Potassium Level 3.8 mEQ/L (3.4-4.9) Chloride Level 95 mEQ/L (98-107) L Carbon Dioxide Level 24 mEQ/L (20-30) Anion Gap 19 (5-15) H Blood Urea Nitrogen 80 mg/dL (7-23) H Creatinine 6.8 mg/dL (0.7-1.2) H Estimat Glomerular Filtration Rate mL/min (>60) Glucose Level 299 mg/dL (74-106) H Calcium Level 8.1 mg/dL (8.6-10.2) L Phosphorus Level 7.1 mg/dL (2.5-4.8) H Total Bilirubin 1.8 mg/dL (0.0-1.2) H Direct Bilirubin Pending Aspartate Amino Transf (AST/SGOT) 56 U/L (5-40) H Alanine Aminotransferase (ALT/SGPT) 54 U/L (3-41) H Alkaline Phosphatase 329 U/L (40-129) H Total Protein 5.1 g/dL (6.6-8.7) L Albumin 2.2 g/dL (3.5-5.2) L Globulin 2.9 g/dL Albumin/Globulin Ratio 0.7 (1.0-2.7) L Current Medications Medications (Trade) Dose Ordered Sig/Jacqueline Route PRN Reason Start Time Stop Time Status Last Admin Dose Admin Albumin Human (Albumisol) 100 ml @ 200 mls/hr PRN PRN IV sbp<90 during hd 09/11/16 16:00 10/11/16 15:59 Aspirin (ASA) 81 mg DAILY ORAL 09/03/16 09:00 10/03/16 08:59 09/10/16 09:58 Calcitriol (Rocatrol) 0.25 mcg DAILY ORAL 09/03/16 09:00 10/03/16 08:59 09/10/16 09:57 Clonidine HCl (Catapres) 0.1 mg Q4H PRN ORAL for SBP >170 09/03/16 04:30 10/03/16 04:29 09/03/16 08:30 Clopidogrel Bisulfate (Plavix) 75 mg DAILY ORAL 09/03/16 09:00 10/03/16 08:59 09/10/16 09:57 Dextrose (Dextrose 50%) STAT PRN IV Hypoglycemia 09/08/16 09:30 10/08/16 09:29 Duloxetine HCl (Cymbalta) 20 mg BID ORAL 09/03/16 09:00 10/03/16 08:59 09/10/16 18:05 Famotidine (Pepcid I.v.) 20 mg DAILY IVP 09/03/16 09:00 10/03/16 08:59 09/10/16 09:58 Haloperidol Lactate (Haldol) 2 mg Q6H PRN IM Agitation 09/04/16 10:30 10/04/16 10:29 09/09/16 06:37 Heparin Sodium (Porcine) (Heparin 5000 units/ml) 5,000 units EVERY 8 HOURS SUBQ 09/03/16 07:30 10/03/16 07:29 09/10/16 21:13 Insulin Aspart (NovoLOG) Q6HR SUBQ 09/08/16 12:00 10/08/16 11:59 09/11/16 06:03 Insulin Detemir 25 units 25 units DAILY SUBQ 09/09/16 09:00 10/09/16 08:59 09/10/16 10:21 Lactulose (Cephulac) 20 gm FOUR TIMES A DAY ORAL 09/03/16 09:00 10/03/16 08:59 09/10/16 21:12 Lidocaine (Lidoderm 5% PATCH) 2 patch DAILY TDERMAL 09/03/16 09:00 10/03/16 08:59 09/10/16 09:58 Metoprolol Tartrate (Lopressor) 50 mg Q12HR ORAL 09/05/16 21:00 10/05/16 20:59 09/10/16 21:12 Nystatin (Nystatin) 1 applic THREE TIMES A DAY TOPIC 09/03/16 18:00 10/03/16 17:59 09/10/16 18:06 Sennosides (Senokot) 8.6 mg BEDTIME PRN ORAL Constipation 09/03/16 04:30 10/03/16 04:29 Sodium Chloride 1,000 ml @ 30 mls/hr Q24H IV 09/08/16 23:00 10/08/16 22:59 09/11/16 00:08 Vancomycin HCl (Vanco rx to dose) 1 ea DAILY PRN MISC Per rx protocol 09/08/16 11:30 10/08/16 11:29 Vancomycin HCl 1 gm/Dextrose 275 ml @ 183.708 mls/hr ONCE ONCE IVPB 09/11/16 21:00 09/11/16 22:29 Vitamin B Complex/ Vit C/Folic Acid (Nephrovite) 1 tab DAILY ORAL 09/03/16 09:00 10/03/16 08:59 09/10/16 09:57 TOY WELLS Sep 11, 2016 09:12
[2016-09-11] MEDS: Levemir Flexpen SUBQ SCH (09:46)
[2016-09-11 11:30] VITALS: BP 132/37
--- NOTE | 2016-09-11 11:45 | General Progress Note ---
Progress Note Progress Note Afebrile. Pt is awake, non communicative, NG tube is in place thanks to arm restraints. Due to cirrhosis and renal failure he is not a good candidate for an open gastrostomy tube placement. Jake Hale MD Sep 11, 2016 11:45
--- NOTE | 2016-09-11 13:35 | Nephrology Progress Note ---
Assessment/Plan Problem List: (1) ESRD (end stage renal disease) on dialysis (2) L arm palsy, r/p brach plexopathy,r/o lacunar stroke (3) Hepatic encephalopathy (4) Altered level of consciousness (5) Hypokalemia Plan HD as tolerated TF cont lactulose Subjective Subjective In NAD Objective Objective Last 24 Hour Vital Signs Date Time Temp Pulse Resp B/P Pulse Ox O2 Delivery O2 Flow Rate FiO2 09/11/16 11:30 97.7 74 20 132/37 96 Room Air 09/11/16 11:15 Room Air 09/11/16 11:05 Room Air 09/11/16 09:00 73 137/49 09/11/16 08:27 98.9 73 20 137/49 94 Room Air 09/11/16 04:00 98.2 70 20 132/80 100 Room Air 09/11/16 04:00 70 09/11/16 00:00 97.9 65 20 126/55 93 Room Air 09/11/16 00:00 64 09/10/16 21:12 69 141/54 09/10/16 20:00 93 09/10/16 20:00 97.9 96 20 120/46 93 Room Air 09/10/16 16:13 98.2 69 20 141/54 95 Room Air 09/10/16 16:00 68 Intake and Output 09/10/16 09/11/16 19:00 07:00 Intake Total 960 ml 840 ml Balance 960 ml 840 ml Free Water 80 ml 40 ml IV Total 360 ml 360 ml Tube Feeding 520 ml 440 ml # Bowel Movements 3 3 Laboratory Tests 09/11/16 06:40: White Blood Count 10.6, Red Blood Count 3.05L, Hemoglobin 9.8L, Hematocrit 30.6L , Mean Corpuscular Volume 101H, Mean Corpuscular Hemoglobin 32.0H, Mean Corpuscular Hemoglobin Concent 31.9L, Red Cell Distribution Width 18.1H, Platelet Count 132L, Mean Platelet Volume 7.9, Neutrophils (%) (Auto) 70.2, Lymphocytes (%) (Auto) 14.5L, Monocytes (%) (Auto) 11.1H, Eosinophils (%) (Auto ) 3.4H, Basophils (%) (Auto) 0.9, Prothrombin Time 12.1H, Prothromb Time International Ratio 1.2H, Activated Partial Thromboplast Time 35H, Sodium Level 138, Potassium Level 3.8, Chloride Level 95L, Carbon Dioxide Level 24, Anion Gap 19H, Blood Urea Nitrogen 80H, Creatinine 6.8H, Estimat Glomerular Filtration Rate , Glucose Level 299H, Calcium Level 8.1L, Phosphorus Level 7.1H , Total Bilirubin 1.8H, Direct Bilirubin 1.0H, Aspartate Amino Transf (AST/SGOT ) 56H, Alanine Aminotransferase (ALT/SGPT) 54H, Alkaline Phosphatase 329H, Total Protein 5.1L, Albumin 2.2L, Globulin 2.9, Albumin/Globulin Ratio 0.7L Height (Feet): 5 Height (Inches): 11.00 Weight (Pounds): 245 Cardiovascular: normal rate Respiratory/Chest: lungs clear Extremities: moderate edema NICOLASA WELLS Sep 11, 2016 13:35
--- NOTE | 2016-09-11 14:00 | Cardiology Report ---
APPROVED REPORT EKG Measurement Heart [id number] Atrial fibrillation with rapid ventricular response Septal infarct, age undetermined Abnormal ECG
[2016-09-11] MEDS ORDERED: D5NS 1000ml IV ONE (15:26)
[2016-09-11] MEDS ORDERED: NS 275ml ONE (15:26)
[2016-09-11 16:00] VITALS: BP 121/48
--- NOTE | 2016-09-11 16:01 | Diagnostic Imaging Report ---
Indication: Abdominal pain. History of occult cirrhosis, renal failure, dysphagia Technique: Spiral acquisitions obtained through the abdomen only, per referring physician request. Patient ingested oral contrast. No IV contrast utilized, per referring physician request. Multiplanar reconstructions were generated. Total dose length product 634 mGycm. CTDIvol(s) mGy Comparison: None Findings: There is a nasogastric tube, tip at the level gastric body/antrum junction. There is equivocal mild wall thickening of the stomach, but this is probably an artifact of under distention. There is likewise equivocal minimal wall thickening of the duodenum. Proximal small bowel loops are nondilated. There is suggestion of wall thickening of the splenic flexure the colon and the proximal transverse: Again this is likely artifact of under distention. The appendix is visualized and appears normal. No free or loculated intraperitoneal air or fluid. There is a small amount of ascites present over the dome of the liver. The liver demonstrates slight atrophy, and nodular surface architecture. It demonstrates one or more small calcifications. The gallbladder demonstrates one or more small gallstones. There is no pericholecystic inflammation. Bile ducts are unremarkable. The pancreas is unremarkable. The spleen is enlarged, measuring 16 cm long axis dimension. The adrenals are unremarkable. The left kidney is larger than the right. The left kidney demonstrates multiple cysts. Both kidneys demonstrate subcentimeter low-attenuation lesions which are too small to characterize, most likely benign simple cortical cysts. The right kidney demonstrates a 14 mm exophytic lesion which demonstrates nonspecific soft tissue attenuation. Calcifications are seen in the left renal sinus. Suspect more likely arterial than calyceal. No retroperitoneal mass or adenopathy. There is edema of the bilateral flank subcutaneous fat There is a large right pleural effusion, resulting in compressive atelectasis of much of the right lower lobe. There is a smaller left pleural effusion, likewise with a small amount of compressive atelectasis of the left lower lobe. Impression: Suggest wall thickening of the hepatic flexure of the colon and proximal transverse colon. Suspect that this is artifactual due to under distention, but colitis cannot be excluded. Likewise, there is suggestion of gastric and duodenal wall thickening. Suspect also artifact of under distention, but gastritis/duodenitis should be considered Nasogastric tube in good position Evidence of hepatic cirrhosis, with somewhat atrophic liver with surface nodularity Small amount of ascites. Splenomegaly. The presence of these suggests portal hypertension Bilateral right greater than left pleural effusions graft edema of the bilateral flank subcutaneous fat Cholelithiasis Right renal atrophy 14 mm right renal exophytic lesion with nonspecific soft tissue attenuation. Recent ultrasound shows what appears to be a cyst in this area, so suspect this lesion represents a hyperdense cyst. However, this cannot be stated for certain, and short interval followup imaging should be obtained, versus multiphasic contrast imaging when patient able to tolerate such Other bilateral renal cysts. Bilateral low-attenuation renal lesions are too small to characterize, most likely benign simple cortical cysts. Further followup necessary Bilateral pleural effusions, right greater than left Bilateral subcutaneous flank edema The CT scanner at [facility] is accredited by the [employer] and the scans are performed using protocols designed to limit radiation exposure to as low as reasonably achievable to attain images of sufficient resolution adequate for diagnostic evaluation. Abdomen noncontrast
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
--- NOTE | 2016-09-11 19:35 | Cardiac Electrophysiology PN ---
Assessment/Plan Assessment/Plan 1. Atrial fibrillation with rapid ventricular response. In SR on metoprolol 50 bid aspirin and Plavix.Off full anticoagulation for history of hemorrhagic conversion stroke and cirrhosis.. 2. End-stage renal disease, S/P hemodialysis today 3. Hyperlipidemia, on Lipitor. 4. Cirrhosis of the liver 5. Diabetes, on insulin. 6. Dysphagia. NG tube is in.No PEG per GI in view of ascites. DW RN and family Subjective Subjective Confused.Had hemodialysis. In SR with PVCs. Family at bedside. Objective Last 24 Hour Vital Signs Date Time Temp Pulse Resp B/P Pulse Ox O2 Delivery O2 Flow Rate FiO2 09/11/16 16:00 97.9 71 18 121/48 95 Room Air 09/11/16 16:00 70 09/11/16 11:55 70 09/11/16 11:30 97.7 74 20 132/37 96 Room Air 09/11/16 11:15 Room Air 09/11/16 11:05 Room Air 09/11/16 09:00 73 137/49 09/11/16 08:27 98.9 73 20 137/49 94 Room Air 09/11/16 08:00 74 09/11/16 04:00 98.2 70 20 132/80 100 Room Air 09/11/16 04:00 70 09/11/16 00:00 97.9 65 20 126/55 93 Room Air 09/11/16 00:00 64 09/10/16 21:12 69 141/54 09/10/16 20:00 93 09/10/16 20:00 97.9 96 20 120/46 93 Room Air Intake and Output 09/10/16 09/11/16 19:00 07:00 Intake Total 960 ml 840 ml Balance 960 ml 840 ml Free Water 80 ml 40 ml IV Total 360 ml 360 ml Tube Feeding 520 ml 440 ml # Bowel Movements 3 3 Laboratory Tests Test 09/11/16 06:40 White Blood Count 10.6 K/UL (4.8-10.8) Red Blood Count 3.05 M/UL (4.70-6.10) L Hemoglobin 9.8 G/DL (14.2-18.0) L Hematocrit 30.6 % (42.0-52.0) L Mean Corpuscular Volume 101 FL (80-99) H Mean Corpuscular Hemoglobin 32.0 PG (27.0-31.0) H Mean Corpuscular Hemoglobin Concent 31.9 G/DL (32.0-36.0) L Red Cell Distribution Width 18.1 % (11.6-14.8) H Platelet Count 132 K/UL (150-450) L Mean Platelet Volume 7.9 FL (6.5-10.1) Neutrophils (%) (Auto) 70.2 % (45.0-75.0) Lymphocytes (%) (Auto) 14.5 % (20.0-45.0) L Monocytes (%) (Auto) 11.1 % (1.0-10.0) H Eosinophils (%) (Auto) 3.4 % (0.0-3.0) H Basophils (%) (Auto) 0.9 % (0.0-2.0) Prothrombin Time 12.1 SEC (9.30-11.50) H Prothromb Time International Ratio 1.2 (0.9-1.1) H Activated Partial Thromboplast Time 35 SEC (23-33) H Sodium Level 138 mEQ/L (135-145) Potassium Level 3.8 mEQ/L (3.4-4.9) Chloride Level 95 mEQ/L (98-107) L Carbon Dioxide Level 24 mEQ/L (20-30) Anion Gap 19 (5-15) H Blood Urea Nitrogen 80 mg/dL (7-23) H Creatinine 6.8 mg/dL (0.7-1.2) H Estimat Glomerular Filtration Rate mL/min (>60) Glucose Level 299 mg/dL (74-106) H Calcium Level 8.1 mg/dL (8.6-10.2) L Phosphorus Level 7.1 mg/dL (2.5-4.8) H Total Bilirubin 1.8 mg/dL (0.0-1.2) H Direct Bilirubin 1.0 mg/dL (0.1-0.3) H Aspartate Amino Transf (AST/SGOT) 56 U/L (5-40) H Alanine Aminotransferase (ALT/SGPT) 54 U/L (3-41) H Alkaline Phosphatase 329 U/L (40-129) H Total Protein 5.1 g/dL (6.6-8.7) L Albumin 2.2 g/dL (3.5-5.2) L Globulin 2.9 g/dL Albumin/Globulin Ratio 0.7 (1.0-2.7) L Microbiology Date/Time Source Procedure Growth Status 09/10/16 06:30 Indwelling Cath Urine Culture - Preliminary Resulted Objective HEAD AND NECK: No JVD.NG tube is in LUNGS: Decreased breath sounds. CARDIOVASCULAR: Regular S1 and S2 with no gallop or murmur. ABDOMEN: Soft and nontender.Ascites EXTREMITIES: 1+ pitting edema. PRINCESS AGGARWAL Sep 11, 2016 19:35
[2016-09-11 20:00] VITALS: BP 133/48
--- NOTE | 2016-09-11 20:16 | General Progress Note ---
Assessment/Plan Status: doing well Assessment/Plan 75 y/o male admitted with the following problems: -Acute CVA with left hemiparesis -Cirrhosis with hepatic encephalopathy -ESRD on HD -DM insulin requiring -paroxismal atrial fibrillation now in sinus rhythm -leukoctosis -left upper extremity edema, improving -dysphasia -severe OA of left shoulder -Bilatera UE dependant edema Plan: -HD per nephrology -continue NGT -failed swallow study -continue plavix and asa, coumadin when stable from neurology stand point, possilby in 2 weekd -pt/ot/st and rehab placement when medically stable -continue all meds -VTE with heparin sq tid -continue NGT -ID fu appreciated -per GI and surgery not feasable to place G tube due to high risk of infection and patient noncompliance discussed with nurse and daughter at lenght am labs pt/ot/st, ?[place] [facility] placement vs [facility] will dc to rehab when bed available and cleared by all consultants Gi carlson in progress, repeat swallow eval for tomorrow, if fails may need to have PEG placed next week discussed at length with family Subjective Date patient seen: Sep 11, 2016 Time patient seen: 20:11 Allergies: Coded Allergies: No Known Allergies (Unverified , 07/14/16) Objective Last 24 Hour Vital Signs Date Time Temp Pulse Resp B/P Pulse Ox O2 Delivery O2 Flow Rate FiO2 09/11/16 16:00 97.9 71 18 121/48 95 Room Air 09/11/16 16:00 70 09/11/16 11:55 70 09/11/16 11:30 97.7 74 20 132/37 96 Room Air 09/11/16 11:15 Room Air 09/11/16 11:05 Room Air 09/11/16 09:00 73 137/49 09/11/16 08:27 98.9 73 20 137/49 94 Room Air 09/11/16 08:00 74 09/11/16 04:00 98.2 70 20 132/80 100 Room Air 09/11/16 04:00 70 09/11/16 00:00 97.9 65 20 126/55 93 Room Air 09/11/16 00:00 64 09/10/16 21:12 69 141/54 Intake and Output 09/10/16 09/11/16 19:00 07:00 Intake Total 960 ml 840 ml Balance 960 ml 840 ml Free Water 80 ml 40 ml IV Total 360 ml 360 ml Tube Feeding 520 ml 440 ml # Bowel Movements 3 3 Laboratory Tests 09/11/16 06:40: White Blood Count 10.6, Red Blood Count 3.05L, Hemoglobin 9.8L, Hematocrit 30.6L , Mean Corpuscular Volume 101H, Mean Corpuscular Hemoglobin 32.0H, Mean Corpuscular Hemoglobin Concent 31.9L, Red Cell Distribution Width 18.1H, Platelet Count 132L, Mean Platelet Volume 7.9, Neutrophils (%) (Auto) 70.2, Lymphocytes (%) (Auto) 14.5L, Monocytes (%) (Auto) 11.1H, Eosinophils (%) (Auto ) 3.4H, Basophils (%) (Auto) 0.9, Prothrombin Time 12.1H, Prothromb Time International Ratio 1.2H, Activated Partial Thromboplast Time 35H, Sodium Level 138, Potassium Level 3.8, Chloride Level 95L, Carbon Dioxide Level 24, Anion Gap 19H, Blood Urea Nitrogen 80H, Creatinine 6.8H, Estimat Glomerular Filtration Rate , Glucose Level 299H, Calcium Level 8.1L, Phosphorus Level 7.1H , Total Bilirubin 1.8H, Direct Bilirubin 1.0H, Aspartate Amino Transf (AST/SGOT ) 56H, Alanine Aminotransferase (ALT/SGPT) 54H, Alkaline Phosphatase 329H, Total Protein 5.1L, Albumin 2.2L, Globulin 2.9, Albumin/Globulin Ratio 0.7L Height (Feet): 5 Height (Inches): 11.00 Weight (Pounds): 245 General Appearance: no apparent distress, alert EENT: normal ENT inspection Neck: non-tender Cardiovascular: normal rate Respiratory/Chest: lungs clear Abdomen: non tender Pelvis: normal external exam, normal rectal exam Extremities: normal range of motion Edema: 1+ Arm (L), 1+ Arm (R), no edema noted Leg (L), no edema noted Leg (R), no edema noted Pedal (L), no edema noted Pedal (R), no edema noted Generalized Edema: mild edema Neurologic: synchro assembler II-XII grossly normal, alert, oriented x 3 Lymphatic: normal anterior cervical (L), normal anterior cervical (R), normal axillary (L), normal axillary (R), normal inguinal (L), normal inguinal (R), normal other, normal posterior cervical (L), normal posterior cervical (R), normal submandibular (L), normal submandibular (R), normal supraclavicular (L), normal supraclavicular (R) Carmela Quinteros MD Sep 11, 2016 20:16
[2016-09-11] MEDS ORDERED: Vancomycin 1gm/D5W 275ml IVPB ONE ×2 (21:00)
--- NOTE | 2016-09-11 21:46 | General Progress Note ---
Assessment/Plan Assessment/Plan Assessment - EtOH Cirrhosis - Renal failure - Acute CVA, (L) carolyn - dysphagia - Jaundice - Poor Px Recommendations - NGT feeds - Lactulose - xifaxan - Review CT abd images in am for PEG feasibility - Follow labs - d/c cymbalta - HD per renal - recheck swallow evaluation Thursday Subjective Allergies: Coded Allergies: No Known Allergies (Unverified , 07/14/16) Subjective Seen earlier today during HD sleepy / arousable slurred speech NGT in restrained Objective Last 24 Hour Vital Signs Date Time Temp Pulse Resp B/P Pulse Ox O2 Delivery O2 Flow Rate FiO2 09/11/16 20:00 97.9 77 18 133/48 95 Room Air 09/11/16 16:00 97.9 71 18 121/48 95 Room Air 09/11/16 16:00 70 09/11/16 11:55 70 09/11/16 11:30 97.7 74 20 132/37 96 Room Air 09/11/16 11:15 Room Air 09/11/16 11:05 Room Air 09/11/16 09:00 73 137/49 09/11/16 08:27 98.9 73 20 137/49 94 Room Air 09/11/16 08:00 74 09/11/16 04:00 98.2 70 20 132/80 100 Room Air 09/11/16 04:00 70 09/11/16 00:00 97.9 65 20 126/55 93 Room Air 09/11/16 00:00 64 Intake and Output 09/10/16 09/11/16 19:00 07:00 Intake Total 960 ml 840 ml Balance 960 ml 840 ml Free Water 80 ml 40 ml IV Total 360 ml 360 ml Tube Feeding 520 ml 440 ml # Bowel Movements 3 3 Laboratory Tests 09/11/16 06:40: White Blood Count 10.6, Red Blood Count 3.05L, Hemoglobin 9.8L, Hematocrit 30.6L , Mean Corpuscular Volume 101H, Mean Corpuscular Hemoglobin 32.0H, Mean Corpuscular Hemoglobin Concent 31.9L, Red Cell Distribution Width 18.1H, Platelet Count 132L, Mean Platelet Volume 7.9, Neutrophils (%) (Auto) 70.2, Lymphocytes (%) (Auto) 14.5L, Monocytes (%) (Auto) 11.1H, Eosinophils (%) (Auto ) 3.4H, Basophils (%) (Auto) 0.9, Prothrombin Time 12.1H, Prothromb Time International Ratio 1.2H, Activated Partial Thromboplast Time 35H, Sodium Level 138, Potassium Level 3.8, Chloride Level 95L, Carbon Dioxide Level 24, Anion Gap 19H, Blood Urea Nitrogen 80H, Creatinine 6.8H, Estimat Glomerular Filtration Rate , Glucose Level 299H, Calcium Level 8.1L, Phosphorus Level 7.1H , Total Bilirubin 1.8H, Direct Bilirubin 1.0H, Aspartate Amino Transf (AST/SGOT ) 56H, Alanine Aminotransferase (ALT/SGPT) 54H, Alkaline Phosphatase 329H, Total Protein 5.1L, Albumin 2.2L, Globulin 2.9, Albumin/Globulin Ratio 0.7L Height (Feet): 5 Height (Inches): 11.00 Weight (Pounds): 245 Objective conversant but confused NCAT, (+) NGT, (+) mild icterus supple CTA RRR soft ND NT awake / responsive, but slow to respond slurred speech (L) weakness (+) trace edema ESPINOZA WOOTEN Sep 11, 2016 21:46
[2016-09-12] MEDS: NovoLOG Insulin Flexpen SUBQ SCH ×4 (00:12→18:42)
[2016-09-12 00:37] VITALS: BP 144/36
[2016-09-12 04:04] VITALS: BP 145/51
[2016-09-12] MEDS: Heparin 5000 units/ml inj SUBQ SCH ×3 (06:00→21:36)
[2016-09-12 06:12] LABS: BASOPHILS % (AUTO) 1.9 % (0.0-2.0); EOSINOPHILS % (AUTO) 3.2 % (0.0-3.0); LYMPHOCYTES % (AUTO) 15.1 % (20.0-45.0); MEAN CORPUSCULAR HEMOGLOBIN 32.2 PG (27.0-31.0); MEAN CORPUSCULAR VOLUME 101 FL (80-99); MEAN PLATELET VOLUME 7.3 FL (6.5-10.1); MONOCYTES % (AUTO) 12.6 % (1.0-10.0); NEUTROPHILS % (AUTO) 67.2 % (45.0-75.0); PLATELET COUNT 127 K/UL (150-450); RED BLOOD COUNT 2.96 M/UL (4.70-6.10); RED CELL DISTRIBUTION WIDTH 17.8 % (11.6-14.8); WHITE BLOOD COUNT 12.1 K/UL (4.8-10.8)
[2016-09-12 06:23] LABS: INR 1.2 (0.9-1.1); PROTHROMBIN TIME 12.4 SEC (9.30-11.50)
[2016-09-12 06:29] LABS: ALANINE AMINOTRANSFERASE 61 U/L (3-41); ALBUMIN/GLOBULIN RATIO 0.6 (1.0-2.7); ANION GAP 19 (5-15); ASPARTATE AMINO TRANSFERASE 77 U/L (5-40); CALCIUM 8.4 mg/dL (8.6-10.2); CARBON DIOXIDE 22 mEQ/L (20-30); CHLORIDE 90 mEQ/L (98-107); CREATININE 5.1 mg/dL (0.7-1.2); HEMOLYSIS 2; POTASSIUM 3.6 mEQ/L (3.4-4.9); SODIUM 131 mEQ/L (135-145); TOTAL PROTEIN 5.4 g/dL (6.6-8.7)
[2016-09-12 06:32] LABS: AMMONIA 35 umol/L (16-60)
[2016-09-12 06:50] LABS: BILIRUBIN,DIRECT 1.4 mg/dL (0.1-0.3)
[2016-09-12 08:00] VITALS: BP 150/53
[2016-09-12] MEDS: Famotidine 20 MG/ 2ML VIAL IVP SCH (09:32)
[2016-09-12] MEDS: Aspirin Baby 81mg ORAL SCH (09:33)
[2016-09-12] MEDS: Metoprolol 50mg tab ORAL SCH ×2 (09:33→21:35)
[2016-09-12] MEDS: Calcitriol 0.25mcg Cap ORAL SCH (09:33)
[2016-09-12] MEDS: Lactulose 20gm/30ml UDC ORAL SCH ×4 (09:33→21:00)
[2016-09-12] MEDS: Nephrovite tab ORAL SCH (09:33)
[2016-09-12] MEDS: Levemir Flexpen SUBQ SCH (09:35)
[2016-09-12] MEDS ORDERED: Sterile Water Irrig 1000ml IRRIG ONE (10:18)
--- NOTE | 2016-09-12 10:47 | Infectious Diseases Prog Note ---
Assessment/Plan Assessment/Plan antibiotics : none A 1. leucocytosis resolved 2. cirrhosis 3. renal failure 4. HTN 5. rectal VRE colonization P 1. continue off antibiotics Subjective ROS Limited/Unobtainable: Yes Allergies: Coded Allergies: No Known Allergies (Unverified , 07/14/16) Objective Vital Signs Last 24 Hour Vital Signs Date Time Temp Pulse Resp B/P Pulse Ox O2 Delivery O2 Flow Rate FiO2 09/12/16 09:33 74 150/53 09/12/16 08:00 97.9 70 18 150/53 96 Room Air 09/12/16 04:04 98.3 70 19 145/51 97 Room Air 09/12/16 04:00 69 09/12/16 02:17 70 09/12/16 00:37 98.6 69 20 144/36 96 Room Air 09/11/16 21:52 77 133/48 09/11/16 20:00 78 09/11/16 20:00 97.9 77 18 133/48 95 Room Air 09/11/16 16:00 97.9 71 18 121/48 95 Room Air 09/11/16 16:00 70 09/11/16 11:55 70 09/11/16 11:30 97.7 74 20 132/37 96 Room Air 09/11/16 11:15 Room Air 09/11/16 11:05 Room Air Height (Feet): 5 Height (Inches): 11.00 Weight (Pounds): 245 Respiratory/Chest: lungs clear Cardiovascular: normal rate, regular rhythm, no gallop/murmur Abdomen: soft, non tender Extremities: other - + edema, right subclavian catheter Microbiology Date/Time Source Procedure Growth Status 09/10/16 06:30 Indwelling Cath Urine Culture - Preliminary Resulted Laboratory Tests Test 09/12/16 05:30 White Blood Count 12.1 K/UL (4.8-10.8) H Red Blood Count 2.96 M/UL (4.70-6.10) L Hemoglobin 9.5 G/DL (14.2-18.0) L Hematocrit 29.8 % (42.0-52.0) L Mean Corpuscular Volume 101 FL (80-99) H Mean Corpuscular Hemoglobin 32.2 PG (27.0-31.0) H Mean Corpuscular Hemoglobin Concent 32.0 G/DL (32.0-36.0) Red Cell Distribution Width 17.8 % (11.6-14.8) H Platelet Count 127 K/UL (150-450) L Mean Platelet Volume 7.3 FL (6.5-10.1) Neutrophils (%) (Auto) 67.2 % (45.0-75.0) Lymphocytes (%) (Auto) 15.1 % (20.0-45.0) L Monocytes (%) (Auto) 12.6 % (1.0-10.0) H Eosinophils (%) (Auto) 3.2 % (0.0-3.0) H Basophils (%) (Auto) 1.9 % (0.0-2.0) Prothrombin Time 12.4 SEC (9.30-11.50) H Prothromb Time International Ratio 1.2 (0.9-1.1) H Sodium Level 131 mEQ/L (135-145) L Potassium Level 3.6 mEQ/L (3.4-4.9) Chloride Level 90 mEQ/L (98-107) L Carbon Dioxide Level 22 mEQ/L (20-30) Anion Gap 19 (5-15) H Blood Urea Nitrogen 57 mg/dL (7-23) H Creatinine 5.1 mg/dL (0.7-1.2) H Estimat Glomerular Filtration Rate mL/min (>60) Glucose Level 326 mg/dL (74-106) H Calcium Level 8.4 mg/dL (8.6-10.2) L Total Bilirubin 2.5 mg/dL (0.0-1.2) H Direct Bilirubin 1.4 mg/dL (0.1-0.3) H Aspartate Amino Transf (AST/SGOT) 77 U/L (5-40) H Alanine Aminotransferase (ALT/SGPT) 61 U/L (3-41) H Alkaline Phosphatase 367 U/L (40-129) H Ammonia 35 umol/L (16-60) Total Protein 5.4 g/dL (6.6-8.7) L Albumin 2.2 g/dL (3.5-5.2) L Globulin 3.2 g/dL Albumin/Globulin Ratio 0.6 (1.0-2.7) L Hepatitis B Surface Antigen Pending Hepatitis C Antibody Pending TRACY BENITEZ Sep 12, 2016 10:47
[2016-09-12 12:00] VITALS: BP 130/57
--- NOTE | 2016-09-12 13:03 | Nephrology Progress Note ---
Assessment/Plan Problem List: (1) ESRD (end stage renal disease) on dialysis (2) L arm palsy, r/p brach plexopathy,r/o lacunar stroke (3) Hepatic encephalopathy (4) Altered level of consciousness (5) Hypokalemia Plan HD in AM TF off Abxs Subjective Subjective In NAD Objective Objective Last 24 Hour Vital Signs Date Time Temp Pulse Resp B/P Pulse Ox O2 Delivery O2 Flow Rate FiO2 09/12/16 12:00 98.1 62 17 130/57 98 Room Air 09/12/16 09:33 74 150/53 09/12/16 08:00 97.9 70 18 150/53 96 Room Air 09/12/16 04:04 98.3 70 19 145/51 97 Room Air 09/12/16 04:00 69 09/12/16 02:17 70 09/12/16 00:37 98.6 69 20 144/36 96 Room Air 09/11/16 21:52 77 133/48 09/11/16 20:00 78 09/11/16 20:00 97.9 77 18 133/48 95 Room Air 09/11/16 16:00 97.9 71 18 121/48 95 Room Air 09/11/16 16:00 70 Intake and Output 09/11/16 09/12/16 19:00 07:00 Intake Total 330 ml 730 ml Output Total 1984 ml Balance -1654 ml 730 ml Free Water 80 ml IV Total 330 ml 330 ml Tube Feeding 320 ml Hemodialysis UF 1984 ml # Voids 3 # Bowel Movements 2 5 Laboratory Tests 09/12/16 05:30: White Blood Count 12.1H, Red Blood Count 2.96L, Hemoglobin 9.5L, Hematocrit 29.8L, Mean Corpuscular Volume 101H, Mean Corpuscular Hemoglobin 32.2H, Mean Corpuscular Hemoglobin Concent 32.0, Red Cell Distribution Width 17.8H, Platelet Count 127L, Mean Platelet Volume 7.3, Neutrophils (%) (Auto) 67.2, Lymphocytes (%) (Auto) 15.1L, Monocytes (%) (Auto) 12.6H, Eosinophils (%) (Auto ) 3.2H, Basophils (%) (Auto) 1.9, Prothrombin Time 12.4H, Prothromb Time International Ratio 1.2H, Sodium Level 131L, Potassium Level 3.6, Chloride Level 90L, Carbon Dioxide Level 22, Anion Gap 19H, Blood Urea Nitrogen 57H, Creatinine 5.1H, Estimat Glomerular Filtration Rate , Glucose Level 326H, Calcium Level 8.4L, Total Bilirubin 2.5H, Direct Bilirubin 1.4H, Aspartate Amino Transf (AST/SGOT) 77H, Alanine Aminotransferase (ALT/SGPT) 61H, Alkaline Phosphatase 367H, Ammonia 35, Total Protein 5.4L, Albumin 2.2L, Globulin 3.2, Albumin/Globulin Ratio 0.6L, Hepatitis B Surface Antigen [Pending], Hepatitis C Antibody [Pending] Height (Feet): 5 Height (Inches): 11.00 Weight (Pounds): 245 Cardiovascular: normal rate Respiratory/Chest: lungs clear Extremities: moderate edema NICOLASA WELLS Sep 12, 2016 13:03
--- NOTE | 2016-09-12 13:22 | General Progress Note ---
Progress Note Progress Note Surgery: patient seen and examined at bedside. doing well. mental status about the same. feeds though ng tube going well. plan as prior. when mental status improves will attempt swallow study without ng tube in place and if passes can have diet. if fails will have nasogastric small feeding tube placed instead of ng tube. not safe for g tube or peg. Surgery will follow peripherally for now. if any questions or concerns please call surgery team at anytime. Alexis Blanca Sep 12, 2016 13:22
--- NOTE | 2016-09-12 14:48 | General Progress Note ---
Assessment/Plan Assessment/Plan Assessment - EtOH Cirrhosis - mild ascites --> Reasonable to attempt endoscopic PEG if needed - Renal failure - Acute CVA, (L) carolyn - dysphagia - Jaundice - Poor Px Recommendations - NGT feeds - Lactulose - xifaxan - Review CT abd images in am for PEG feasibility - Follow labs - HD per renal - recheck swallow evaluation Thursday - PEG possibly Thursday - Hold ASA / plavix after Sun dose Subjective Allergies: Coded Allergies: No Known Allergies (Unverified , 07/14/16) Subjective sleepy but arousable tolerating TF speech more clear Objective Last 24 Hour Vital Signs Date Time Temp Pulse Resp B/P Pulse Ox O2 Delivery O2 Flow Rate FiO2 09/12/16 12:00 98.1 62 17 130/57 98 Room Air 09/12/16 09:33 74 150/53 09/12/16 08:00 97.9 70 18 150/53 96 Room Air 09/12/16 04:04 98.3 70 19 145/51 97 Room Air 09/12/16 04:00 69 09/12/16 02:17 70 09/12/16 00:37 98.6 69 20 144/36 96 Room Air 09/11/16 21:52 77 133/48 09/11/16 20:00 78 09/11/16 20:00 97.9 77 18 133/48 95 Room Air 09/11/16 16:00 97.9 71 18 121/48 95 Room Air 09/11/16 16:00 70 Intake and Output 09/11/16 09/12/16 19:00 07:00 Intake Total 330 ml 730 ml Output Total 1984 ml Balance -1654 ml 730 ml Free Water 80 ml IV Total 330 ml 330 ml Tube Feeding 320 ml Hemodialysis UF 1984 ml # Voids 3 # Bowel Movements 2 5 Laboratory Tests 09/12/16 05:30: White Blood Count 12.1H, Red Blood Count 2.96L, Hemoglobin 9.5L, Hematocrit 29.8L, Mean Corpuscular Volume 101H, Mean Corpuscular Hemoglobin 32.2H, Mean Corpuscular Hemoglobin Concent 32.0, Red Cell Distribution Width 17.8H, Platelet Count 127L, Mean Platelet Volume 7.3, Neutrophils (%) (Auto) 67.2, Lymphocytes (%) (Auto) 15.1L, Monocytes (%) (Auto) 12.6H, Eosinophils (%) (Auto ) 3.2H, Basophils (%) (Auto) 1.9, Prothrombin Time 12.4H, Prothromb Time International Ratio 1.2H, Sodium Level 131L, Potassium Level 3.6, Chloride Level 90L, Carbon Dioxide Level 22, Anion Gap 19H, Blood Urea Nitrogen 57H, Creatinine 5.1H, Estimat Glomerular Filtration Rate , Glucose Level 326H, Calcium Level 8.4L, Total Bilirubin 2.5H, Direct Bilirubin 1.4H, Aspartate Amino Transf (AST/SGOT) 77H, Alanine Aminotransferase (ALT/SGPT) 61H, Alkaline Phosphatase 367H, Ammonia 35, Total Protein 5.4L, Albumin 2.2L, Globulin 3.2, Albumin/Globulin Ratio 0.6L, Hepatitis B Surface Antigen [Pending], Hepatitis C Antibody [Pending] Height (Feet): 5 Height (Inches): 11.00 Weight (Pounds): 245 Objective debilitated NCAT, (+) NGT, (+) mild icterus supple CTA RRR soft ND NT awake / responsive, but slow to respond (L) weakness (+) trace edema ESPINOZA WOOTEN Sep 12, 2016 14:47
[2016-09-12 16:00] VITALS: BP 169/51
--- NOTE | 2016-09-12 18:18 | Cardiac Electrophysiology PN ---
Assessment/Plan Assessment/Plan 1. Atrial fibrillation with rapid ventricular response. In SR on metoprolol 50 bid, aspirin and Plavix.Off full anticoagulation for history of hemorrhagic conversion stroke and cirrhosis. 2. End-stage renal disease, On hemodialysis. 3. Hyperlipidemia, on Lipitor. 4. Cirrhosis of the liver and hepatic encephalopathy 5. Diabetes, on insulin. 6. Dysphagia. NG tube is in. Possible PEG Thursday DW RN Subjective Subjective Confused in NAD. In SR with PVCs. RN at bedside. Objective Last 24 Hour Vital Signs Date Time Temp Pulse Resp B/P Pulse Ox O2 Delivery O2 Flow Rate FiO2 09/12/16 16:00 97.8 63 19 169/51 96 Room Air 09/12/16 12:00 98.1 62 17 130/57 98 Room Air 09/12/16 11:44 62 09/12/16 09:33 74 150/53 09/12/16 08:09 71 09/12/16 08:00 97.9 70 18 150/53 96 Room Air 09/12/16 04:04 98.3 70 19 145/51 97 Room Air 09/12/16 04:00 69 09/12/16 02:17 70 09/12/16 00:37 98.6 69 20 144/36 96 Room Air 09/11/16 21:52 77 133/48 09/11/16 20:00 78 09/11/16 20:00 97.9 77 18 133/48 95 Room Air Intake and Output 09/11/16 09/12/16 19:00 07:00 Intake Total 330 ml 730 ml Output Total 1984 ml Balance -1654 ml 730 ml Free Water 80 ml IV Total 330 ml 330 ml Tube Feeding 320 ml Hemodialysis UF 1984 ml # Voids 3 # Bowel Movements 2 5 Laboratory Tests Test 09/12/16 05:30 White Blood Count 12.1 K/UL (4.8-10.8) H Red Blood Count 2.96 M/UL (4.70-6.10) L Hemoglobin 9.5 G/DL (14.2-18.0) L Hematocrit 29.8 % (42.0-52.0) L Mean Corpuscular Volume 101 FL (80-99) H Mean Corpuscular Hemoglobin 32.2 PG (27.0-31.0) H Mean Corpuscular Hemoglobin Concent 32.0 G/DL (32.0-36.0) Red Cell Distribution Width 17.8 % (11.6-14.8) H Platelet Count 127 K/UL (150-450) L Mean Platelet Volume 7.3 FL (6.5-10.1) Neutrophils (%) (Auto) 67.2 % (45.0-75.0) Lymphocytes (%) (Auto) 15.1 % (20.0-45.0) L Monocytes (%) (Auto) 12.6 % (1.0-10.0) H Eosinophils (%) (Auto) 3.2 % (0.0-3.0) H Basophils (%) (Auto) 1.9 % (0.0-2.0) Prothrombin Time 12.4 SEC (9.30-11.50) H Prothromb Time International Ratio 1.2 (0.9-1.1) H Sodium Level 131 mEQ/L (135-145) L Potassium Level 3.6 mEQ/L (3.4-4.9) Chloride Level 90 mEQ/L (98-107) L Carbon Dioxide Level 22 mEQ/L (20-30) Anion Gap 19 (5-15) H Blood Urea Nitrogen 57 mg/dL (7-23) H Creatinine 5.1 mg/dL (0.7-1.2) H Estimat Glomerular Filtration Rate mL/min (>60) Glucose Level 326 mg/dL (74-106) H Calcium Level 8.4 mg/dL (8.6-10.2) L Total Bilirubin 2.5 mg/dL (0.0-1.2) H Direct Bilirubin 1.4 mg/dL (0.1-0.3) H Aspartate Amino Transf (AST/SGOT) 77 U/L (5-40) H Alanine Aminotransferase (ALT/SGPT) 61 U/L (3-41) H Alkaline Phosphatase 367 U/L (40-129) H Ammonia 35 umol/L (16-60) Total Protein 5.4 g/dL (6.6-8.7) L Albumin 2.2 g/dL (3.5-5.2) L Globulin 3.2 g/dL Albumin/Globulin Ratio 0.6 (1.0-2.7) L Hepatitis B Surface Antigen Pending Hepatitis C Antibody Pending Microbiology Date/Time Source Procedure Growth Status 3/15/17 06:30 Indwelling Cath Urine Culture - Preliminary Resulted Objective HEAD AND NECK: No JVD.NG tube is in LUNGS: Decreased breath sounds. CARDIOVASCULAR: Regular S1 and S2 with no gallop or murmur. ABDOMEN: Soft and nontender.Ascites EXTREMITIES: 1+ pitting edema. PRINCESS AGGARWAL Sep 12, 2016 18:18
--- NOTE | 2016-09-12 19:03 | General Progress Note ---
Assessment/Plan Status: doing well Assessment/Plan 75 y/o male admitted with the following problems: -Acute CVA with left hemiparesis -Cirrhosis with hepatic encephalopathy -ESRD on HD -DM insulin requiring -paroxismal atrial fibrillation now in sinus rhythm -leukoctosis -left upper extremity edema, improving -dysphasia -severe OA of left shoulder -Bilateral UE dependant edema Plan: -HD per nephrology -continue NGT -failed swallow study -continue plavix and asa, coumadin when stable from neurology stand point, possilby in 2 weekd -pt/ot/st and rehab placement when medically stable -continue all meds -VTE with heparin sq tid -continue NGT -ID fu appreciated -per GI and surgery not feasable to place G tube due to high risk of infection and patient noncompliance discussed with nurse and daughter at lenght am labs pt/ot/st, ?[facility] vs [facility] will dc to rehab when bed available and cleared by all consultants [facility] in progress, repeat swallow eval Thursday, if fails may need to have PEG placed next Thursday discussed with nurse HD tomorrow Subjective Date patient seen: Sep 12, 2016 Time patient seen: 19:01 ROS Limited/Unobtainable: Yes Allergies: Coded Allergies: No Known Allergies (Unverified , 07/14/16) All Systems: reviewed and negative except above Objective Last 24 Hour Vital Signs Date Time Temp Pulse Resp B/P Pulse Ox O2 Delivery O2 Flow Rate FiO2 09/12/16 16:00 97.8 63 19 169/51 96 Room Air 09/12/16 12:00 98.1 62 17 130/57 98 Room Air 09/12/16 11:44 62 09/12/16 09:33 74 150/53 09/12/16 08:09 71 09/12/16 08:00 97.9 70 18 150/53 96 Room Air 09/12/16 04:04 98.3 70 19 145/51 97 Room Air 09/12/16 04:00 69 09/12/16 02:17 70 09/12/16 00:37 98.6 69 20 144/36 96 Room Air 09/11/16 21:52 77 133/48 09/11/16 20:00 78 09/11/16 20:00 97.9 77 18 133/48 95 Room Air Intake and Output 09/11/16 09/12/16 19:00 07:00 Intake Total 330 ml 730 ml Output Total 1984 ml Balance -1654 ml 730 ml Free Water 80 ml IV Total 330 ml 330 ml Tube Feeding 320 ml Hemodialysis UF 1984 ml # Voids 3 # Bowel Movements 2 5 Laboratory Tests 09/12/16 05:30: White Blood Count 12.1H, Red Blood Count 2.96L, Hemoglobin 9.5L, Hematocrit 29.8L, Mean Corpuscular Volume 101H, Mean Corpuscular Hemoglobin 32.2H, Mean Corpuscular Hemoglobin Concent 32.0, Red Cell Distribution Width 17.8H, Platelet Count 127L, Mean Platelet Volume 7.3, Neutrophils (%) (Auto) 67.2, Lymphocytes (%) (Auto) 15.1L, Monocytes (%) (Auto) 12.6H, Eosinophils (%) (Auto ) 3.2H, Basophils (%) (Auto) 1.9, Prothrombin Time 12.4H, Prothromb Time International Ratio 1.2H, Sodium Level 131L, Potassium Level 3.6, Chloride Level 90L, Carbon Dioxide Level 22, Anion Gap 19H, Blood Urea Nitrogen 57H, Creatinine 5.1H, Estimat Glomerular Filtration Rate , Glucose Level 326H, Calcium Level 8.4L, Total Bilirubin 2.5H, Direct Bilirubin 1.4H, Aspartate Amino Transf (AST/SGOT) 77H, Alanine Aminotransferase (ALT/SGPT) 61H, Alkaline Phosphatase 367H, Ammonia 35, Total Protein 5.4L, Albumin 2.2L, Globulin 3.2, Albumin/Globulin Ratio 0.6L, Hepatitis B Surface Antigen [Pending], Hepatitis C Antibody [Pending] 09/12/16 05:58: Magnesium Level [Pending] Height (Feet): 5 Height (Inches): 11.00 Weight (Pounds): 245 General Appearance: no apparent distress EENT: PERRL/EOMI Neck: normal alignment Cardiovascular: normal rate Respiratory/Chest: chest wall non-tender Abdomen: normal bowel sounds Genitourinary/Rectal: normal genital exam Extremities: swelling Edema: no edema noted Arm (L), 1+ Arm (R), no edema noted Leg (L), no edema noted Leg (R), no edema noted Pedal (L), no edema noted Pedal (R), no edema noted Generalized 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
[2016-09-12 20:00] VITALS: BP 131/51
[2016-09-13 00:22] VITALS: BP 128/47
[2016-09-13] MEDS: NovoLOG Insulin Flexpen SUBQ SCH ×4 (01:38→18:45)
[2016-09-13 04:05] VITALS: BP 115/41
[2016-09-13] MEDS: Heparin 5000 units/ml inj SUBQ SCH ×3 (05:06→22:31)
[2016-09-13] MEDS ORDERED: Heparin Sod 1000 units/ml 10ml IV PRN (06:00)
[2016-09-13] MEDS: Haloperidol 5mg/ml Inj IM PRN (06:44)
[2016-09-13 07:16] LABS: INR 1.3 (0.9-1.1); PROTHROMBIN TIME 13.1 SEC (9.30-11.50)
[2016-09-13 07:32] LABS: ALANINE AMINOTRANSFERASE 55 U/L (3-41); ALBUMIN/GLOBULIN RATIO 0.5 (1.0-2.7); ANION GAP 22 (5-15); ASPARTATE AMINO TRANSFERASE 57 U/L (5-40); CALCIUM 8.3 mg/dL (8.6-10.2); CARBON DIOXIDE 18 mEQ/L (20-30); CHLORIDE 92 mEQ/L (98-107); CREATININE 6.3 mg/dL (0.7-1.2); HEMOLYSIS 11; POTASSIUM 4.3 mEQ/L (3.4-4.9); SODIUM 132 mEQ/L (135-145); TOTAL PROTEIN 5.6 g/dL (6.6-8.7)
[2016-09-13 07:48] LABS: BILIRUBIN,DIRECT 1.3 mg/dL (0.1-0.3)
[2016-09-13 07:53] LABS: BASOPHILS % (AUTO) 1.2 % (0.0-2.0); EOSINOPHILS % (AUTO) 4.3 % (0.0-3.0); LYMPHOCYTES % (AUTO) 14.6 % (20.0-45.0); MEAN CORPUSCULAR HEMOGLOBIN 27.3 PG (27.0-31.0); MEAN CORPUSCULAR HGB CONC 27.7 G/DL (32.0-36.0); MEAN CORPUSCULAR VOLUME 99 FL (80-99); MONOCYTES % (AUTO) 12.8 % (1.0-10.0); NEUTROPHILS % (AUTO) 67.1 % (45.0-75.0); PLATELET COUNT 103 K/UL (150-450); RED BLOOD COUNT 3.49 M/UL (4.70-6.10); RED CELL DISTRIBUTION WIDTH 17.1 % (11.6-14.8); WHITE BLOOD COUNT 13.4 K/UL (4.8-10.8)
[2016-09-13 08:00] VITALS: BP 157/67
[2016-09-13] MEDS: Aspirin Baby 81mg ORAL SCH (08:57)
[2016-09-13] MEDS: Nephrovite tab ORAL SCH (08:58)
[2016-09-13] MEDS: Famotidine 20 MG/ 2ML VIAL IVP SCH (08:58)
[2016-09-13] MEDS: Metoprolol 50mg tab ORAL SCH ×2 (09:00→22:31)
[2016-09-13] MEDS: Lactulose 20gm/30ml UDC ORAL SCH ×4 (09:03→22:31)
[2016-09-13] MEDS: Calcitriol 0.25mcg Cap ORAL SCH (09:03)
[2016-09-13] MEDS: Levemir Flexpen SUBQ SCH (09:04)
--- NOTE | 2016-09-13 09:37 | General Progress Note ---
Assessment/Plan Problem List: (1) Cirrhosis ICD Codes: K74.60 - Unspecified cirrhosis of liver SNOMED: 76424634 (2) Altered level of consciousness ICD Codes: R40.4 - Transient alteration of awareness SNOMED: 7978219 (3) Dysphagia ICD Codes: R13.10 - Dysphagia, unspecified SNOMED: 93108634, 715834516 Assessment/Plan ngtf pend repeat swallow eval on thursday possible peg on Thursday if needed Subjective ROS Limited/Unobtainable: No Allergies: Coded Allergies: No Known Allergies (Unverified , 07/14/16) Objective Last 24 Hour Vital Signs Date Time Temp Pulse Resp B/P Pulse Ox O2 Delivery O2 Flow Rate FiO2 09/13/16 09:00 62 115/41 09/13/16 04:05 98.3 62 19 115/41 95 Room Air 09/13/16 03:47 63 09/13/16 00:22 97.0 59 20 128/47 97 Room Air 09/12/16 23:58 59 09/12/16 21:35 69 131/51 09/12/16 21:00 69 09/12/16 20:00 97.4 69 21 131/51 97 Room Air 09/12/16 16:00 64 09/12/16 16:00 97.8 63 19 169/51 96 Room Air 09/12/16 12:00 98.1 62 17 130/57 98 Room Air 09/12/16 11:44 62 Intake and Output 09/12/16 09/13/16 19:00 07:00 Intake Total 570 ml 710 ml Balance 570 ml 710 ml Free Water 80 ml 40 ml IV Total 210 ml 270 ml Tube Feeding 280 ml 400 ml Laboratory Tests 09/13/16 05:40: White Blood Count 13.4H, Red Blood Count 3.49L, Hemoglobin 9.5L, Hematocrit 34.4L, Mean Corpuscular Volume 99, Mean Corpuscular Hemoglobin 27.3, Mean Corpuscular Hemoglobin Concent 27.7L, Red Cell Distribution Width 17.1H, Platelet Count 103L, Mean Platelet Volume 7.0, Neutrophils (%) (Auto) 67.1, Lymphocytes (%) (Auto) 14.6L, Monocytes (%) (Auto) 12.8H, Eosinophils (%) (Auto ) 4.3H, Basophils (%) (Auto) 1.2, Prothrombin Time 13.1H, Prothromb Time International Ratio 1.3H, Sodium Level 132L, Potassium Level 4.3, Chloride Level 92L, Carbon Dioxide Level 18L, Anion Gap 22H, Blood Urea Nitrogen 82#H, Creatinine 6.3H, Estimat Glomerular Filtration Rate , Glucose Level 285H, Calcium Level 8.3L, Phosphorus Level 7.8H, Total Bilirubin 2.2H, Direct Bilirubin 1.3H, Aspartate Amino Transf (AST/SGOT) 57H, Alanine Aminotransferase (ALT/SGPT) 55H, Alkaline Phosphatase 388H, Total Protein 5.6L, Albumin 2.0L, Globulin 3.6, Albumin/Globulin Ratio 0.5L Height (Feet): 5 Height (Inches): 11.00 Weight (Pounds): 245 General Appearance: lethargic EENT: normal ENT inspection Neck: supple Cardiovascular: normal rate Respiratory/Chest: decreased breath sounds Abdomen: normal bowel sounds, non tender, soft Extremities: non-tender MARK LEACH Sep 13, 2016 09:37
--- NOTE | 2016-09-13 11:59 | General Progress Note ---
Progress Note Progress Note Preceding noted . Poor candidate for any kind of tube (pulls lines and tubes out!) Very poor surgical candidate YESI AGUSTIN Sep 13, 2016 11:59
[2016-09-13 12:00] VITALS: BP 130/46
--- NOTE | 2016-09-13 14:16 | Cardiac Electrophysiology PN ---
Assessment/Plan Assessment/Plan 1. Atrial fibrillation with rapid ventricular response. In SR . Continue metoprolol 50 bid, aspirin and Plavix. Off anticoagulation for cirrhosis. 2. End-stage renal disease, On hemodialysis. 3. Hyperlipidemia, on Lipitor. 4. 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 On Lactulose 5. Diabetes, on insulin. 6. Dysphagia. NG tube is in. Possible PEG Thursday DW RN Subjective Subjective Confused in NAD. In SR with PVCs. Getting dialysis. Has diarrhea RN at bedside. Objective Last 24 Hour Vital Signs Date Time Temp Pulse Resp B/P Pulse Ox O2 Delivery O2 Flow Rate FiO2 09/13/16 12:00 64 09/13/16 12:00 97.0 65 16 130/46 95 Room Air 09/13/16 10:50 Room Air 09/13/16 09:00 62 115/41 09/13/16 08:00 97.5 68 17 157/67 97 Room Air 09/13/16 08:00 66 09/13/16 04:05 98.3 62 19 115/41 95 Room Air 09/13/16 03:47 63 09/13/16 00:22 97.0 59 20 128/47 97 Room Air 09/12/16 23:58 59 09/12/16 21:35 69 131/51 09/12/16 21:00 69 09/12/16 20:00 97.4 69 21 131/51 97 Room Air 09/12/16 16:00 64 09/12/16 16:00 97.8 63 19 169/51 96 Room Air Intake and Output 09/12/16 09/13/16 19:00 07:00 Intake Total 570 ml 710 ml Balance 570 ml 710 ml Free Water 80 ml 40 ml IV Total 210 ml 270 ml Tube Feeding 280 ml 400 ml Laboratory Tests Test 09/13/16 05:40 White Blood Count 13.4 K/UL (4.8-10.8) H Red Blood Count 3.49 M/UL (4.70-6.10) L Hemoglobin 9.5 G/DL (14.2-18.0) L Hematocrit 34.4 % (42.0-52.0) L Mean Corpuscular Volume 99 FL (80-99) Mean Corpuscular Hemoglobin 27.3 PG (27.0-31.0) Mean Corpuscular Hemoglobin Concent 27.7 G/DL (32.0-36.0) L Red Cell Distribution Width 17.1 % (11.6-14.8) H Platelet Count 103 K/UL (150-450) L Mean Platelet Volume 7.0 FL (6.5-10.1) Neutrophils (%) (Auto) 67.1 % (45.0-75.0) Lymphocytes (%) (Auto) 14.6 % (20.0-45.0) L Monocytes (%) (Auto) 12.8 % (1.0-10.0) H Eosinophils (%) (Auto) 4.3 % (0.0-3.0) H Basophils (%) (Auto) 1.2 % (0.0-2.0) Prothrombin Time 13.1 SEC (9.30-11.50) H Prothromb Time International Ratio 1.3 (0.9-1.1) H Sodium Level 132 mEQ/L (135-145) L Potassium Level 4.3 mEQ/L (3.4-4.9) Chloride Level 92 mEQ/L (98-107) L Carbon Dioxide Level 18 mEQ/L (20-30) L Anion Gap 22 (5-15) H Blood Urea Nitrogen 82 mg/dL (7-23) #H Creatinine 6.3 mg/dL (0.7-1.2) H Estimat Glomerular Filtration Rate mL/min (>60) Glucose Level 285 mg/dL (74-106) H Calcium Level 8.3 mg/dL (8.6-10.2) L Phosphorus Level 7.8 mg/dL (2.5-4.8) H Total Bilirubin 2.2 mg/dL (0.0-1.2) H Direct Bilirubin 1.3 mg/dL (0.1-0.3) H Aspartate Amino Transf (AST/SGOT) 57 U/L (5-40) H Alanine Aminotransferase (ALT/SGPT) 55 U/L (3-41) H Alkaline Phosphatase 388 U/L (40-129) H Total Protein 5.6 g/dL (6.6-8.7) L Albumin 2.0 g/dL (3.5-5.2) L Globulin 3.6 g/dL Albumin/Globulin Ratio 0.5 (1.0-2.7) L Objective HEAD AND NECK: No JVD.NG tube is in LUNGS: Clear CARDIOVASCULAR: Regular S1 and S2 with no gallop or murmur. ABDOMEN: Soft and nontender.Ascites EXTREMITIES: 1+ pitting edema. PRINCESS AGGARWAL Sep 13, 2016 14:16
[2016-09-13 16:00] VITALS: BP 181/57
--- NOTE | 2016-09-13 17:06 | General Progress Note ---
Assessment/Plan Status: stable Assessment/Plan 75 y/o male admitted with the following problems: -Acute CVA with left hemiparesis -Cirrhosis with hepatic encephalopathy -ESRD on HD -DM insulin requiring -paroxismal atrial fibrillation now in sinus rhythm -leukoctosis -left upper extremity edema, improving -dysphasia -severe OA of left shoulder -Bilateral UE dependant edema Plan: -HD per nephrology -continue NGT -failed swallow study -continue plavix and asa, coumadin when stable from neurology stand point, possilby in 2 weekd -pt/ot/st and rehab placement when medically stable -continue all meds -VTE with heparin sq tid -continue NGT -ID fu appreciated -per GI and surgery not feasable to place G tube due to high risk of infection and patient noncompliance discussed with nurse and daughter at lenght am labs pt/ot/st, ?[place] [facility] placement vs rehab [facility] will dc to rehab when bed available and cleared by all consultants Gi carlson in progress, repeat swallow eval Thursday, if fails may need to have PEG placed next Thursday discussed with family HD today Subjective Date patient seen: Sep 13, 2016 Time patient seen: 17:04 ROS Limited/Unobtainable: Yes Allergies: Coded Allergies: No Known Allergies (Unverified , 07/14/16) Objective Last 24 Hour Vital Signs Date Time Temp Pulse Resp B/P Pulse Ox O2 Delivery O2 Flow Rate FiO2 09/13/16 14:58 Room Air 09/13/16 12:00 64 09/13/16 12:00 97.0 65 16 130/46 95 Room Air 09/13/16 10:50 Room Air 09/13/16 09:00 62 115/41 09/13/16 08:00 97.5 68 17 157/67 97 Room Air 09/13/16 08:00 66 09/13/16 04:05 98.3 62 19 115/41 95 Room Air 09/13/16 03:47 63 09/13/16 00:22 97.0 59 20 128/47 97 Room Air 09/12/16 23:58 59 09/12/16 21:35 69 131/51 09/12/16 21:00 69 09/12/16 20:00 97.4 69 21 131/51 97 Room Air Intake and Output 09/12/16 09/13/16 19:00 07:00 Intake Total 570 ml 710 ml Balance 570 ml 710 ml Free Water 80 ml 40 ml IV Total 210 ml 270 ml Tube Feeding 280 ml 400 ml Laboratory Tests 09/13/16 05:40: White Blood Count 13.4H, Red Blood Count 3.49L, Hemoglobin 9.5L, Hematocrit 34.4L, Mean Corpuscular Volume 99, Mean Corpuscular Hemoglobin 27.3, Mean Corpuscular Hemoglobin Concent 27.7L, Red Cell Distribution Width 17.1H, Platelet Count 103L, Mean Platelet Volume 7.0, Neutrophils (%) (Auto) 67.1, Lymphocytes (%) (Auto) 14.6L, Monocytes (%) (Auto) 12.8H, Eosinophils (%) (Auto ) 4.3H, Basophils (%) (Auto) 1.2, Prothrombin Time 13.1H, Prothromb Time International Ratio 1.3H, Sodium Level 132L, Potassium Level 4.3, Chloride Level 92L, Carbon Dioxide Level 18L, Anion Gap 22H, Blood Urea Nitrogen 82#H, Creatinine 6.3H, Estimat Glomerular Filtration Rate , Glucose Level 285H, Calcium Level 8.3L, Phosphorus Level 7.8H, Total Bilirubin 2.2H, Direct Bilirubin 1.3H, Aspartate Amino Transf (AST/SGOT) 57H, Alanine Aminotransferase (ALT/SGPT) 55H, Alkaline Phosphatase 388H, Total Protein 5.6L, Albumin 2.0L, Globulin 3.6, Albumin/Globulin Ratio 0.5L Height (Feet): 5 Height (Inches): 11.00 Weight (Pounds): 245 General Appearance: WD/WN EENT: PERRL/EOMI Neck: non-tender Cardiovascular: normal peripheral pulses Respiratory/Chest: chest wall non-tender Abdomen: normal bowel sounds Genitourinary/Rectal: normal genital exam Extremities: swelling Edema: 1+ Arm (L), 1+ Arm (R), no edema noted Leg (L), no edema noted Leg (R), no edema noted Pedal (L), no edema noted Pedal (R), no edema noted Generalized Edema: mild edema Neurologic: alert, oriented x 3, responsive Skin: warm/dry Lymphatic: normal anterior cervical (L), normal anterior cervical (R), normal axillary (L), normal axillary (R), normal inguinal (L), normal inguinal (R), normal other, normal posterior cervical (L), normal posterior cervical (R), normal submandibular (L), normal submandibular (R), normal supraclavicular (L), normal supraclavicular (R) Carmela Quinteros MD Sep 13, 2016 17:06
[2016-09-13 20:00] VITALS: BP 150/56
--- NOTE | 2016-09-13 20:29 | Nephrology Progress Note ---
Assessment/Plan Problem List: (1) ESRD (end stage renal disease) on dialysis (2) L arm palsy, r/p brach plexopathy,r/o lacunar stroke (3) Hepatic encephalopathy (4) Altered level of consciousness (5) Hypokalemia Plan HD as tolerated TF off Abxs Subjective Subjective In NAD Objective Objective Last 24 Hour Vital Signs Date Time Temp Pulse Resp B/P Pulse Ox O2 Delivery O2 Flow Rate FiO2 09/13/16 18:42 181/57 09/13/16 16:00 97.2 72 18 181/57 96 Room Air 09/13/16 14:58 Room Air 09/13/16 12:00 64 09/13/16 12:00 97.0 65 16 130/46 95 Room Air 09/13/16 10:50 Room Air 09/13/16 09:00 62 115/41 09/13/16 08:00 97.5 68 17 157/67 97 Room Air 09/13/16 08:00 66 09/13/16 04:05 98.3 62 19 115/41 95 Room Air 09/13/16 03:47 63 09/13/16 00:22 97.0 59 20 128/47 97 Room Air 09/12/16 23:58 59 09/12/16 21:35 69 131/51 09/12/16 21:00 69 Intake and Output 09/12/16 09/13/16 19:00 07:00 Intake Total 570 ml 710 ml Balance 570 ml 710 ml Free Water 80 ml 40 ml IV Total 210 ml 270 ml Tube Feeding 280 ml 400 ml Laboratory Tests 09/13/16 05:40: White Blood Count 13.4H, Red Blood Count 3.49L, Hemoglobin 9.5L, Hematocrit 34.4L, Mean Corpuscular Volume 99, Mean Corpuscular Hemoglobin 27.3, Mean Corpuscular Hemoglobin Concent 27.7L, Red Cell Distribution Width 17.1H, Platelet Count 103L, Mean Platelet Volume 7.0, Neutrophils (%) (Auto) 67.1, Lymphocytes (%) (Auto) 14.6L, Monocytes (%) (Auto) 12.8H, Eosinophils (%) (Auto ) 4.3H, Basophils (%) (Auto) 1.2, Prothrombin Time 13.1H, Prothromb Time International Ratio 1.3H, Sodium Level 132L, Potassium Level 4.3, Chloride Level 92L, Carbon Dioxide Level 18L, Anion Gap 22H, Blood Urea Nitrogen 82#H, Creatinine 6.3H, Estimat Glomerular Filtration Rate , Glucose Level 285H, Calcium Level 8.3L, Phosphorus Level 7.8H, Total Bilirubin 2.2H, Direct Bilirubin 1.3H, Aspartate Amino Transf (AST/SGOT) 57H, Alanine Aminotransferase (ALT/SGPT) 55H, Alkaline Phosphatase 388H, Total Protein 5.6L, Albumin 2.0L, Globulin 3.6, Albumin/Globulin Ratio 0.5L Height (Feet): 5 Height (Inches): 11.00 Weight (Pounds): 245 Cardiovascular: normal rate Respiratory/Chest: lungs clear Extremities: moderate edema NICOLASA WELLS Sep 13, 2016 20:29
[2016-09-14] VITALS: BP 143/58
[2016-09-14] MEDS: NovoLOG Insulin Flexpen SUBQ SCH ×4 (00:06→18:05)
[2016-09-14 04:00] VITALS: BP 144/54
[2016-09-14] MEDS: Heparin 5000 units/ml inj SUBQ SCH ×3 (06:00→20:55)
[2016-09-14 08:22] VITALS: BP 117/44
--- NOTE | 2016-09-14 09:21 | General Progress Note ---
Assessment/Plan Problem List: (1) Cirrhosis ICD Codes: K74.60 - Unspecified cirrhosis of liver SNOMED: 91163232 (2) Altered level of consciousness ICD Codes: R40.4 - Transient alteration of awareness SNOMED: 3255964 (3) Dysphagia ICD Codes: R13.10 - Dysphagia, unspecified SNOMED: 84519900, 990756105 Assessment/Plan ngtf pend repeat swallow eval on thursday possible peg on Thursday if needed Subjective ROS Limited/Unobtainable: No Allergies: Coded Allergies: No Known Allergies (Unverified , 07/14/16) Objective Last 24 Hour Vital Signs Date Time Temp Pulse Resp B/P Pulse Ox O2 Delivery O2 Flow Rate FiO2 09/14/16 08:22 96.4 73 20 117/44 96 Room Air 09/14/16 04:00 71 09/14/16 04:00 97.5 72 20 144/54 98 Room Air 09/14/16 00:00 97.5 66 20 143/58 98 Room Air 09/14/16 00:00 63 09/13/16 22:31 73 150/56 09/13/16 20:00 76 09/13/16 20:00 97.3 73 18 150/56 100 Room Air 09/13/16 18:42 181/57 09/13/16 16:00 73 09/13/16 16:00 97.2 72 18 181/57 96 Room Air 09/13/16 14:58 Room Air 09/13/16 12:00 64 09/13/16 12:00 97.0 65 16 130/46 95 Room Air 09/13/16 10:50 Room Air Intake and Output 09/13/16 09/14/16 19:00 07:00 Intake Total 210 ml 690 ml Output Total 2100 ml Balance -1890 ml 690 ml Free Water 80 ml IV Total 210 ml 210 ml Tube Feeding 400 ml Hemodialysis UF 2100 ml # Voids 2 # Bowel Movements 1 6 Height (Feet): 5 Height (Inches): 11.00 Weight (Pounds): 245 General Appearance: lethargic EENT: TMs normal Neck: supple Cardiovascular: normal rate Respiratory/Chest: decreased breath sounds Abdomen: normal bowel sounds, non tender, soft Extremities: non-tender MARK LEACH Sep 14, 2016 09:21
[2016-09-14] MEDS: Lactulose 20gm/30ml UDC ORAL SCH ×4 (10:36→20:54)
[2016-09-14] MEDS: Famotidine 20 MG/ 2ML VIAL IVP SCH (10:37)
[2016-09-14] MEDS: Aspirin Baby 81mg ORAL SCH (10:37)
[2016-09-14] MEDS: Calcitriol 0.25mcg Cap ORAL SCH (10:37)
[2016-09-14] MEDS: Nephrovite tab ORAL SCH (10:37)
[2016-09-14] MEDS: Metoprolol 50mg tab ORAL SCH ×2 (10:37→20:53)
[2016-09-14] MEDS: Levemir Flexpen SUBQ SCH (10:41)
[2016-09-14 11:53] VITALS: BP 107/44
--- NOTE | 2016-09-14 12:26 | Infectious Diseases Prog Note ---
Assessment/Plan Assessment/Plan A; Leukocytosis ESRD on HD Cirrhosis DM HPN Dysphagia R pleural effusion, atelectasis P: will f/u CBC Chest US to measure effusion Observe off antibiotic Subjective ROS Limited/Unobtainable: Yes Neurologic: Reports: confusion, other - off restraint Allergies: Coded Allergies: No Known Allergies (Unverified , 07/14/16) Objective Vital Signs Last 24 Hour Vital Signs Date Time Temp Pulse Resp B/P Pulse Ox O2 Delivery O2 Flow Rate FiO2 09/14/16 11:53 98.1 73 20 107/44 95 Room Air 09/14/16 10:37 73 117/44 09/14/16 08:22 96.4 73 20 117/44 96 Room Air 09/14/16 04:00 71 09/14/16 04:00 97.5 72 20 144/54 98 Room Air 09/14/16 00:00 97.5 66 20 143/58 98 Room Air 09/14/16 00:00 63 09/13/16 22:31 73 150/56 09/13/16 20:00 76 09/13/16 20:00 97.3 73 18 150/56 100 Room Air 09/13/16 18:42 181/57 09/13/16 16:00 73 09/13/16 16:00 97.2 72 18 181/57 96 Room Air 09/13/16 14:58 Room Air Height (Feet): 5 Height (Inches): 11.00 Weight (Pounds): 245 General Appearance: no acute distress HEENT: mucous membranes moist Respiratory/Chest: lungs clear Cardiovascular: normal rate, other - Permacath Abdomen: soft, non tender, other - GT feeding Neurologic/Psychiatric: other - opens eyes Current Medications Medications (Trade) Dose Ordered Sig/Jacqueline Route PRN Reason Start Time Stop Time Status Last Admin Dose Admin Aspirin (ASA) 81 mg DAILY NG 09/16/16 12:00 10/16/16 11:59 Calcitriol (Rocatrol) 0.25 mcg DAILY ORAL 09/03/16 09:00 10/03/16 08:59 09/14/16 10:37 Clonidine HCl (Catapres) 0.1 mg Q4H PRN ORAL for SBP >170 09/03/16 04:30 10/03/16 04:29 09/13/16 18:42 Clopidogrel Bisulfate (Plavix) 75 mg ONCE ONCE ORAL 09/16/16 12:30 09/16/16 12:31 Dextrose (Dextrose 50%) STAT PRN IV Hypoglycemia 09/08/16 09:30 10/08/16 09:29 Famotidine (Pepcid I.v.) 20 mg DAILY IVP 09/03/16 09:00 10/03/16 08:59 09/14/16 10:37 Haloperidol Lactate (Haldol) 2 mg Q6H PRN IM Agitation 09/04/16 10:30 10/04/16 10:29 09/13/16 06:44 Heparin Sodium (Porcine) (Heparin 5000 units/ml) 5,000 units EVERY 8 HOURS SUBQ 09/03/16 07:30 10/03/16 07:29 09/10/16 21:13 Insulin Aspart (NovoLOG) Q6HR SUBQ 09/08/16 12:00 10/08/16 11:59 09/14/16 06:02 Insulin Detemir 25 units 25 units DAILY SUBQ 09/09/16 09:00 10/09/16 08:59 09/14/16 10:41 Lactulose (Cephulac) 20 gm FOUR TIMES A DAY ORAL 09/03/16 09:00 10/03/16 08:59 09/14/16 10:36 Lidocaine (Lidoderm 5% PATCH) 2 patch DAILY TDERMAL 09/03/16 09:00 10/03/16 08:59 09/14/16 10:38 Metoprolol Tartrate (Lopressor) 50 mg Q12HR ORAL 09/05/16 21:00 10/05/16 20:59 09/14/16 10:37 Nystatin (Nystatin) 1 applic THREE TIMES A DAY TOPIC 09/03/16 18:00 10/03/16 17:59 09/14/16 10:36 Sennosides (Senokot) 8.6 mg BEDTIME PRN ORAL Constipation 09/03/16 04:30 10/03/16 04:29 Sodium Chloride (Sodium Chloride 1000ml bag) 1,000 ml @ 30 mls/hr Q24H IV 09/08/16 23:00 10/08/16 22:59 09/13/16 07:28 Vancomycin HCl (Vanco rx to dose) 1 ea DAILY PRN MISC Per rx protocol 09/08/16 11:30 10/08/16 11:29 Vitamin B Complex/ Vit C/Folic Acid (Nephrovite) 1 tab DAILY ORAL 09/03/16 09:00 10/03/16 08:59 09/14/16 10:37 TOY WELLS Sep 14, 2016 12:26
--- NOTE | 2016-09-14 12:32 | General Progress Note ---
Progress Note Progress Note Swallow eval tomorrow, poss Peg Thursday. Poor surgical candidate. (cirrhosis, ascites) YESI AGUSTIN Sep 14, 2016 12:32
[2016-09-14 15:41] VITALS: BP 135/49
--- NOTE | 2016-09-14 17:53 | Nephrology Progress Note ---
Assessment/Plan Problem List: (1) ESRD (end stage renal disease) on dialysis (2) L arm palsy, r/p brach plexopathy,r/o lacunar stroke (3) Hepatic encephalopathy (4) Altered level of consciousness (5) Hypokalemia Plan HDon 09/16 Discussed with family Subjective Subjective In NAD Objective Objective Last 24 Hour Vital Signs Date Time Temp Pulse Resp B/P Pulse Ox O2 Delivery O2 Flow Rate FiO2 09/14/16 15:41 97.5 61 20 135/49 97 Room Air 09/14/16 12:00 71 09/14/16 11:53 98.1 73 20 107/44 95 Room Air 09/14/16 10:37 73 117/44 09/14/16 08:22 96.4 73 20 117/44 96 Room Air 09/14/16 08:00 68 09/14/16 04:00 71 09/14/16 04:00 97.5 72 20 144/54 98 Room Air 09/14/16 00:00 97.5 66 20 143/58 98 Room Air 09/14/16 00:00 63 09/13/16 22:31 73 150/56 09/13/16 20:00 76 09/13/16 20:00 97.3 73 18 150/56 100 Room Air 09/13/16 18:42 181/57 Intake and Output 09/13/16 09/14/16 19:00 07:00 Intake Total 210 ml 690 ml Output Total 2100 ml Balance -1890 ml 690 ml Free Water 80 ml IV Total 210 ml 210 ml Tube Feeding 400 ml Hemodialysis UF 2100 ml # Voids 2 # Bowel Movements 1 6 Height (Feet): 5 Height (Inches): 11.00 Weight (Pounds): 245 Cardiovascular: normal rate Respiratory/Chest: lungs clear Extremities: moderate edema NICOLASA WELLS Sep 14, 2016 17:53
[2016-09-14 20:00] VITALS: BP 85/58
--- NOTE | 2016-09-14 22:04 | General Progress Note ---
Assessment/Plan Assessment/Plan 75 y/o male admitted with the following problems: -Acute CVA with left hemiparesis -Cirrhosis with hepatic encephalopathy -ESRD on HD -DM insulin requiring -paroxismal atrial fibrillation now in sinus rhythm -leukoctosis -left upper extremity edema, improving -dysphasia -severe OA of left shoulder -Bilateral UE dependant edema Plan: -HD per nephrology -continue NGT -failed swallow study -continue plavix and asa, coumadin when stable from neurology stand point, possilby in 2 weekd -pt/ot/st and rehab placement when medically stable -continue all meds -VTE with heparin sq tid -continue NGT -ID fu appreciated -per GI and surgery not feasable to place G tube due to high risk of infection and patient noncompliance discussed with nurse and daughter at lenght am labs pt/ot/st, ?[place] [facility] placement vs rehab [facility] will dc to rehab when bed available and cleared by all consultants Gi carlson in progress, repeat swallow eval tomorrow, if fails may need to have PEG placed on Thursday discussed with nurse Subjective Date patient seen: Sep 14, 2016 Time patient seen: 22:02 Allergies: Coded Allergies: No Known Allergies (Unverified , 07/14/16) All Systems: reviewed and negative except above Objective Last 24 Hour Vital Signs Date Time Temp Pulse Resp B/P Pulse Ox O2 Delivery O2 Flow Rate FiO2 09/14/16 20:53 61 135/49 09/14/16 20:00 96.4 64 20 85/58 97 Room Air 09/14/16 15:41 97.5 61 20 135/49 97 Room Air 09/14/16 12:00 71 09/14/16 11:53 98.1 73 20 107/44 95 Room Air 09/14/16 10:37 73 117/44 09/14/16 08:22 96.4 73 20 117/44 96 Room Air 09/14/16 08:00 68 09/14/16 04:00 71 09/14/16 04:00 97.5 72 20 144/54 98 Room Air 09/14/16 00:00 97.5 66 20 143/58 98 Room Air 09/14/16 00:00 63 09/13/16 22:31 73 150/56 Intake and Output 09/13/16 09/14/16 19:00 07:00 Intake Total 210 ml 690 ml Output Total 2100 ml Balance -1890 ml 690 ml Free Water 80 ml IV Total 210 ml 210 ml Tube Feeding 400 ml Hemodialysis UF 2100 ml # Voids 2 # Bowel Movements 1 6 Height (Feet): 5 Height (Inches): 11.00 Weight (Pounds): 245 General Appearance: WD/WN, obese EENT: normal ENT inspection Neck: non-tender Cardiovascular: normal peripheral pulses Respiratory/Chest: chest wall non-tender, lungs clear Abdomen: normal bowel sounds, non tender, soft Genitourinary/Rectal: normal genital exam Extremities: calf tenderness, swelling Edema: 1+ Arm (L), 1+ Arm (R), no edema noted Leg (L), no edema noted Leg (R), no edema noted Pedal (L), no edema noted Pedal (R), no edema noted Generalized Carmela Quinteros MD Sep 14, 2016 22:04
[2016-09-15] VITALS: BP 130/60
[2016-09-15] MEDS: NovoLOG Insulin Flexpen SUBQ SCH ×4 (00:41→18:12)
[2016-09-15 04:00] VITALS: BP 147/65
[2016-09-15] MEDS: Heparin 5000 units/ml inj SUBQ SCH ×3 (06:00→21:51)
[2016-09-15 07:15] LABS: BASOPHILS % (AUTO) 1.6 % (0.0-2.0); EOSINOPHILS % (AUTO) 3.1 % (0.0-3.0); LYMPHOCYTES % (AUTO) 15.5 % (20.0-45.0); MEAN CORPUSCULAR HEMOGLOBIN 32.3 PG (27.0-31.0); MEAN CORPUSCULAR HGB CONC 32.2 G/DL (32.0-36.0); MEAN CORPUSCULAR VOLUME 100 FL (80-99); MEAN PLATELET VOLUME 6.6 FL (6.5-10.1); MONOCYTES % (AUTO) 9.8 % (1.0-10.0); PLATELET COUNT 133 K/UL (150-450); RED BLOOD COUNT 2.96 M/UL (4.70-6.10); RED CELL DISTRIBUTION WIDTH 17.4 % (11.6-14.8); WHITE BLOOD COUNT 11.5 K/UL (4.8-10.8)
[2016-09-15 07:39] LABS: ALANINE AMINOTRANSFERASE 55 U/L (3-41); ALBUMIN/GLOBULIN RATIO 0.6 (1.0-2.7); ANION GAP 21 (5-15); ASPARTATE AMINO TRANSFERASE 61 U/L (5-40); CALCIUM 8.3 mg/dL (8.6-10.2); CARBON DIOXIDE 22 mEQ/L (20-30); CHLORIDE 95 mEQ/L (98-107); CREATININE 6.1 mg/dL (0.7-1.2); HEMOLYSIS 7; POTASSIUM 4.1 mEQ/L (3.4-4.9); SODIUM 138 mEQ/L (135-145); TOTAL PROTEIN 5.3 g/dL (6.6-8.7)
[2016-09-15 07:52] LABS: BILIRUBIN,DIRECT 1.1 mg/dL (0.1-0.3)
[2016-09-15 08:00] VITALS: BP 144/50
[2016-09-15] MEDS: Lactulose 20gm/30ml UDC ORAL SCH ×3 (09:00→18:00)
[2016-09-15] MEDS: Metoprolol 50mg tab ORAL SCH ×2 (09:34→21:00)
[2016-09-15] MEDS: Calcitriol 0.25mcg Cap ORAL SCH (09:34)
[2016-09-15] MEDS: Nephrovite tab ORAL SCH (09:34)
[2016-09-15] MEDS: Famotidine 20 MG/ 2ML VIAL IVP SCH (09:34)
[2016-09-15] MEDS: Levemir Flexpen SUBQ SCH (09:36)
[2016-09-15] MEDS ORDERED: Vancomycin 1gm in D5W 275ml IVPB ONE (10:45)
--- NOTE | 2016-09-15 11:28 | General Progress Note ---
Progress Note Progress Note Surgery: pt seen and examined at bedside. much more alert and responsive today. following commands. swallow study today with NG tube out. if passes, can start oral diet. if not, will replace with soft feeding tube. Alexis Blanca Sep 15, 2016 11:28
[2016-09-15 12:14] VITALS: BP 139/90
--- NOTE | 2016-09-15 13:12 | Infectious Diseases Prog Note ---
Assessment/Plan Assessment/Plan A; Leukocytosis improving ESRD on HD Cirrhosis DM HPN R pleural effusion, atelectasis P: will f/u CBC Observe off antibiotic Subjective ROS Limited/Unobtainable: Yes Gastrointestinal/Abdominal: Reports: other - passed swallowing study Allergies: Coded Allergies: No Known Allergies (Unverified , 07/14/16) Objective Vital Signs Last 24 Hour Vital Signs Date Time Temp Pulse Resp B/P Pulse Ox O2 Delivery O2 Flow Rate FiO2 09/15/16 12:14 98.0 83 18 139/90 97 Room Air 09/15/16 09:34 73 144/50 09/15/16 08:00 98.2 73 17 144/50 95 Room Air 09/15/16 04:00 76 09/15/16 04:00 97.6 80 20 147/65 100 Room Air 09/15/16 00:00 69 09/15/16 00:00 97.7 71 20 130/60 99 Room Air 09/14/16 20:53 61 135/49 09/14/16 20:00 96.4 64 20 85/58 97 Room Air 09/14/16 20:00 69 09/14/16 15:41 97.5 61 20 135/49 97 Room Air Height (Feet): 5 Height (Inches): 11.00 Weight (Pounds): 245 General Appearance: no acute distress HEENT: normocephalic Respiratory/Chest: lungs clear Cardiovascular: normal rate Abdomen: soft, non tender Extremities: no edema Neurologic/Psychiatric: other - sleeping Laboratory Tests Test 09/15/16 06:23 White Blood Count 11.5 K/UL (4.8-10.8) H Red Blood Count 2.96 M/UL (4.70-6.10) L Hemoglobin 9.5 G/DL (14.2-18.0) L Hematocrit 29.6 % (42.0-52.0) L Mean Corpuscular Volume 100 FL (80-99) H Mean Corpuscular Hemoglobin 32.3 PG (27.0-31.0) H Mean Corpuscular Hemoglobin Concent 32.2 G/DL (32.0-36.0) Red Cell Distribution Width 17.4 % (11.6-14.8) H Platelet Count 133 K/UL (150-450) L Mean Platelet Volume 6.6 FL (6.5-10.1) Neutrophils (%) (Auto) 70.0 % (45.0-75.0) Lymphocytes (%) (Auto) 15.5 % (20.0-45.0) L Monocytes (%) (Auto) 9.8 % (1.0-10.0) Eosinophils (%) (Auto) 3.1 % (0.0-3.0) H Basophils (%) (Auto) 1.6 % (0.0-2.0) Sodium Level 138 mEQ/L (135-145) Potassium Level 4.1 mEQ/L (3.4-4.9) Chloride Level 95 mEQ/L (98-107) L Carbon Dioxide Level 22 mEQ/L (20-30) Anion Gap 21 (5-15) H Blood Urea Nitrogen 83 mg/dL (7-23) H Creatinine 6.1 mg/dL (0.7-1.2) H Estimat Glomerular Filtration Rate mL/min (>60) Glucose Level 278 mg/dL (74-106) H Calcium Level 8.3 mg/dL (8.6-10.2) L Total Bilirubin 1.9 mg/dL (0.0-1.2) H Direct Bilirubin 1.1 mg/dL (0.1-0.3) H Aspartate Amino Transf (AST/SGOT) 61 U/L (5-40) H Alanine Aminotransferase (ALT/SGPT) 55 U/L (3-41) H Alkaline Phosphatase 421 U/L (40-129) H Total Protein 5.3 g/dL (6.6-8.7) L Albumin 2.0 g/dL (3.5-5.2) L Globulin 3.3 g/dL Albumin/Globulin Ratio 0.6 (1.0-2.7) L Random Vancomycin Level 22.6 ug/mL Current Medications Medications (Trade) Dose Ordered Sig/Jacqueline Route PRN Reason Start Time Stop Time Status Last Admin Dose Admin Aspirin (ASA) 81 mg DAILY NG 09/16/16 12:00 10/16/16 11:59 Calcitriol (Rocatrol) 0.25 mcg DAILY ORAL 09/03/16 09:00 10/03/16 08:59 09/15/16 09:34 Clonidine HCl (Catapres) 0.1 mg Q4H PRN ORAL for SBP >170 09/03/16 04:30 10/03/16 04:29 09/13/16 18:42 Clopidogrel Bisulfate (Plavix) 75 mg ONCE ONCE ORAL 09/16/16 12:30 09/16/16 12:31 Dextrose (Dextrose 50%) STAT PRN IV Hypoglycemia 09/08/16 09:30 10/08/16 09:29 Famotidine (Pepcid I.v.) 20 mg DAILY IVP 09/03/16 09:00 10/03/16 08:59 09/15/16 09:34 Haloperidol Lactate (Haldol) 2 mg Q6H PRN IM Agitation 09/04/16 10:30 10/04/16 10:29 09/13/16 06:44 Heparin Sodium (Porcine) (Heparin 5000 units/ml) 5,000 units EVERY 8 HOURS SUBQ 09/03/16 07:30 10/03/16 07:29 09/10/16 21:13 Insulin Aspart (NovoLOG) Q6HR SUBQ 09/08/16 12:00 10/08/16 11:59 09/15/16 06:06 Insulin Detemir 25 units 25 units DAILY SUBQ 09/09/16 09:00 10/09/16 08:59 09/15/16 09:36 Lactulose 20 gm 20 gm TID ORAL 09/15/16 09:00 10/15/16 08:59 Lidocaine (Lidoderm 5% PATCH) 2 patch DAILY TDERMAL 09/03/16 09:00 10/03/16 08:59 09/15/16 09:48 Metoprolol Tartrate (Lopressor) 50 mg Q12HR ORAL 09/05/16 21:00 10/05/16 20:59 09/15/16 09:34 Nystatin (Nystatin) 1 applic THREE TIMES A DAY TOPIC 09/03/16 18:00 10/03/16 17:59 09/15/16 09:33 Sennosides (Senokot) 8.6 mg BEDTIME PRN ORAL Constipation 09/03/16 04:30 10/03/16 04:29 Sodium Chloride (Sodium Chloride 1000ml bag) 1,000 ml @ 30 mls/hr Q24H IV 09/08/16 23:00 10/08/16 22:59 09/14/16 22:40 Sodium Chloride (Sodium Chloride 1000ml bag) 1,000 ml @ 500 mls/hr Q2H PRN IVLG sbp<90 during hd 09/16/16 12:27 09/16/16 23:59 Vancomycin HCl (Vanco rx to dose) 1 ea DAILY PRN MISC Per rx protocol 09/08/16 11:30 10/08/16 11:29 Vancomycin HCl 1 gm/Dextrose 275 ml @ 183.708 mls/hr ONCE ONCE IVPB 09/16/16 21:00 09/16/16 22:29 Vitamin B Complex/ Vit C/Folic Acid (Nephrovite) 1 tab DAILY ORAL 09/03/16 09:00 10/03/16 08:59 09/15/16 09:34 TOY WELLS Sep 15, 2016 13:12
--- NOTE | 2016-09-15 13:38 | Wound Nurse Progress Note ---
Wound RN Progress Note Wound Consult left buttock stage II reassessed no further deterioration present, current treatment remains effective, wound bed 100% pink. scrotal chemical burn noted with good progress decrease in size noted, current treatment remains effective. rash to perineal area noted good progress decrease in size. GIOVANA ROTH Sep 15, 2016 13:38
--- NOTE | 2016-09-15 13:50 | Nephrology Progress Note ---
Assessment/Plan Problem List: (1) ESRD (end stage renal disease) on dialysis (2) L arm palsy, r/p brach plexopathy,r/o lacunar stroke (3) Hepatic encephalopathy (4) Altered level of consciousness (5) Hypokalemia Plan HD on 09/16 follow labs Subjective Subjective In NAD Objective Objective Last 24 Hour Vital Signs Date Time Temp Pulse Resp B/P Pulse Ox O2 Delivery O2 Flow Rate FiO2 09/15/16 12:14 98.0 83 18 139/90 97 Room Air 09/15/16 09:34 73 144/50 09/15/16 08:00 98.2 73 17 144/50 95 Room Air 09/15/16 04:00 76 09/15/16 04:00 97.6 80 20 147/65 100 Room Air 09/15/16 00:00 69 09/15/16 00:00 97.7 71 20 130/60 99 Room Air 09/14/16 20:53 61 135/49 09/14/16 20:00 96.4 64 20 85/58 97 Room Air 09/14/16 20:00 69 09/14/16 15:41 97.5 61 20 135/49 97 Room Air Intake and Output 09/14/16 09/15/16 19:00 07:00 Intake Total 300 ml 620 ml Balance 300 ml 620 ml Free Water 80 ml IV Total 300 ml 180 ml Tube Feeding 360 ml # Bowel Movements 1 4 Laboratory Tests 09/15/16 06:23: White Blood Count 11.5H, Red Blood Count 2.96L, Hemoglobin 9.5L, Hematocrit 29.6L, Mean Corpuscular Volume 100H, Mean Corpuscular Hemoglobin 32.3H, Mean Corpuscular Hemoglobin Concent 32.2, Red Cell Distribution Width 17.4H, Platelet Count 133L, Mean Platelet Volume 6.6, Neutrophils (%) (Auto) 70.0, Lymphocytes (%) (Auto) 15.5L, Monocytes (%) (Auto) 9.8, Eosinophils (%) (Auto) 3.1H, Basophils (%) (Auto) 1.6, Sodium Level 138, Potassium Level 4.1, Chloride Level 95L, Carbon Dioxide Level 22, Anion Gap 21H, Blood Urea Nitrogen 83H, Creatinine 6.1H, Estimat Glomerular Filtration Rate , Glucose Level 278H, Calcium Level 8.3L, Total Bilirubin 1.9H, Direct Bilirubin 1.1H, Aspartate Amino Transf (AST/SGOT) 61H, Alanine Aminotransferase (ALT/SGPT) 55H, Alkaline Phosphatase 421H, Total Protein 5.3L, Albumin 2.0L, Globulin 3.3, Albumin/ Globulin Ratio 0.6L, Random Vancomycin Level 22.6 Height (Feet): 5 Height (Inches): 11.00 Weight (Pounds): 245 Cardiovascular: normal rate Respiratory/Chest: lungs clear Extremities: moderate edema NICOLASA WELLS Sep 15, 2016 13:50
--- NOTE | 2016-09-15 15:45 | Cardiac Electrophysiology PN ---
Assessment/Plan Assessment/Plan 1. Atrial fibrillation with rapid ventricular response. In SR on metoprolol 50 bid, aspirin and Plavix. Off anticoagulation for cirrhosis. 2. End-stage renal disease, On hemodialysis. 3. Hyperlipidemia, on Lipitor. 4. 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 On Lactulose 5. Diabetes, on insulin. 6. Dysphagia. Passed swallow eval. ON Puree diet. 7. Thrombocytopenia. Due to cirrhosis. RICHARD RN Subjective Subjective More alert in NAD. In SR with PVCs. Had yesterday dialysis. Still has diarrhea RN at bedside.Passed swallow eval now on renal puree diet. NG is out. Objective Last 24 Hour Vital Signs Date Time Temp Pulse Resp B/P Pulse Ox O2 Delivery O2 Flow Rate FiO2 09/15/16 12:14 98.0 83 18 139/90 97 Room Air 09/15/16 09:34 73 144/50 09/15/16 08:00 98.2 73 17 144/50 95 Room Air 09/15/16 04:00 76 09/15/16 04:00 97.6 80 20 147/65 100 Room Air 09/15/16 00:00 69 09/15/16 00:00 97.7 71 20 130/60 99 Room Air 09/14/16 20:53 61 135/49 09/14/16 20:00 96.4 64 20 85/58 97 Room Air 09/14/16 20:00 69 Intake and Output 09/14/16 09/15/16 19:00 07:00 Intake Total 300 ml 620 ml Balance 300 ml 620 ml Free Water 80 ml IV Total 300 ml 180 ml Tube Feeding 360 ml # Bowel Movements 1 4 Laboratory Tests Test 09/15/16 06:23 White Blood Count 11.5 K/UL (4.8-10.8) H Red Blood Count 2.96 M/UL (4.70-6.10) L Hemoglobin 9.5 G/DL (14.2-18.0) L Hematocrit 29.6 % (42.0-52.0) L Mean Corpuscular Volume 100 FL (80-99) H Mean Corpuscular Hemoglobin 32.3 PG (27.0-31.0) H Mean Corpuscular Hemoglobin Concent 32.2 G/DL (32.0-36.0) Red Cell Distribution Width 17.4 % (11.6-14.8) H Platelet Count 133 K/UL (150-450) L Mean Platelet Volume 6.6 FL (6.5-10.1) Neutrophils (%) (Auto) 70.0 % (45.0-75.0) Lymphocytes (%) (Auto) 15.5 % (20.0-45.0) L Monocytes (%) (Auto) 9.8 % (1.0-10.0) Eosinophils (%) (Auto) 3.1 % (0.0-3.0) H Basophils (%) (Auto) 1.6 % (0.0-2.0) Sodium Level 138 mEQ/L (135-145) Potassium Level 4.1 mEQ/L (3.4-4.9) Chloride Level 95 mEQ/L (98-107) L Carbon Dioxide Level 22 mEQ/L (20-30) Anion Gap 21 (5-15) H Blood Urea Nitrogen 83 mg/dL (7-23) H Creatinine 6.1 mg/dL (0.7-1.2) H Estimat Glomerular Filtration Rate mL/min (>60) Glucose Level 278 mg/dL (74-106) H Calcium Level 8.3 mg/dL (8.6-10.2) L Total Bilirubin 1.9 mg/dL (0.0-1.2) H Direct Bilirubin 1.1 mg/dL (0.1-0.3) H Aspartate Amino Transf (AST/SGOT) 61 U/L (5-40) H Alanine Aminotransferase (ALT/SGPT) 55 U/L (3-41) H Alkaline Phosphatase 421 U/L (40-129) H Total Protein 5.3 g/dL (6.6-8.7) L Albumin 2.0 g/dL (3.5-5.2) L Globulin 3.3 g/dL Albumin/Globulin Ratio 0.6 (1.0-2.7) L Random Vancomycin Level 22.6 ug/mL Objective HEAD AND NECK: No JVD. LUNGS: Clear CARDIOVASCULAR: Regular S1 and S2 with no gallop or murmur. ABDOMEN: Soft and nontender.Ascites EXTREMITIES: 1+ pitting edema. PRINCESS AGGARWAL Sep 15, 2016 15:45
[2016-09-15 16:00] VITALS: BP 104/41
[2016-09-15] MEDS ORDERED: Sterile Water Irrig 1000ml IRRIG ONE (18:52)
--- NOTE | 2016-09-15 19:32 | General Progress Note ---
Assessment/Plan Status: progressing - passed swallow eval with purree and nectar thickened liquids Assessment/Plan 75 y/o male admitted with the following problems: -Acute CVA with left hemiparesis -Cirrhosis with hepatic encephalopathy -ESRD on HD -DM insulin requiring -paroxismal atrial fibrillation now in sinus rhythm -leukoctosis -left upper extremity edema, improving -dysphasia -severe OA of left shoulder -Bilateral UE dependant edema Plan: -HD per nephrology -continue NGT -failed swallow study -continue plavix and asa, coumadin when stable from neurology stand point, possilby soon -pt/ot/st and rehab placement when medically stable -continue all meds -VTE with heparin sq tid -ID fu appreciated -purree diet with nectar thickend liquids discussed with nurse and daughter at length am labs pt/ot/st dc planning for rehab Subjective Date patient seen: Sep 15, 2016 Time patient seen: 19:28 ROS Limited/Unobtainable: Yes Allergies: Coded Allergies: No Known Allergies (Unverified , 07/14/16) All Systems: reviewed and negative except above Objective Last 24 Hour Vital Signs Date Time Temp Pulse Resp B/P Pulse Ox O2 Delivery O2 Flow Rate FiO2 09/15/16 16:00 98.0 60 21 104/41 98 Room Air 09/15/16 12:14 98.0 83 18 139/90 97 Room Air 09/15/16 09:34 73 144/50 09/15/16 08:00 98.2 73 17 144/50 95 Room Air 09/15/16 04:00 76 09/15/16 04:00 97.6 80 20 147/65 100 Room Air 09/15/16 00:00 69 09/15/16 00:00 97.7 71 20 130/60 99 Room Air 09/14/16 20:53 61 135/49 09/14/16 20:00 96.4 64 20 85/58 97 Room Air 09/14/16 20:00 69 Intake and Output 09/14/16 09/15/16 19:00 07:00 Intake Total 300 ml 620 ml Balance 300 ml 620 ml Free Water 80 ml IV Total 300 ml 180 ml Tube Feeding 360 ml # Bowel Movements 1 4 Laboratory Tests 09/15/16 06:23: White Blood Count 11.5H, Red Blood Count 2.96L, Hemoglobin 9.5L, Hematocrit 29.6L, Mean Corpuscular Volume 100H, Mean Corpuscular Hemoglobin 32.3H, Mean Corpuscular Hemoglobin Concent 32.2, Red Cell Distribution Width 17.4H, Platelet Count 133L, Mean Platelet Volume 6.6, Neutrophils (%) (Auto) 70.0, Lymphocytes (%) (Auto) 15.5L, Monocytes (%) (Auto) 9.8, Eosinophils (%) (Auto) 3.1H, Basophils (%) (Auto) 1.6, Sodium Level 138, Potassium Level 4.1, Chloride Level 95L, Carbon Dioxide Level 22, Anion Gap 21H, Blood Urea Nitrogen 83H, Creatinine 6.1H, Estimat Glomerular Filtration Rate , Glucose Level 278H, Calcium Level 8.3L, Total Bilirubin 1.9H, Direct Bilirubin 1.1H, Aspartate Amino Transf (AST/SGOT) 61H, Alanine Aminotransferase (ALT/SGPT) 55H, Alkaline Phosphatase 421H, Total Protein 5.3L, Albumin 2.0L, Globulin 3.3, Albumin/ Globulin Ratio 0.6L, Random Vancomycin Level 22.6 Height (Feet): 5 Height (Inches): 11.00 Weight (Pounds): 245 General Appearance: WD/WN, lethargic EENT: PERRL/EOMI Neck: non-tender Cardiovascular: normal peripheral pulses Respiratory/Chest: chest wall non-tender Abdomen: normal bowel sounds Pelvis: normal external exam Genitourinary/Rectal: normal genital exam Extremities: normal range of motion Edema: 1+ Arm (L), 1+ Arm (R), no edema noted Leg (L), no edema noted Leg (R), no edema noted Pedal (L), no edema noted Pedal (R), no edema noted Generalized Edema: mild edema Neurologic: responsive Skin: normal pigmentation Lymphatic: normal anterior cervical (L), normal anterior cervical (R), normal axillary (L), normal axillary (R), normal inguinal (L), normal inguinal (R), normal other, normal posterior cervical (L), normal posterior cervical (R), normal submandibular (L), normal submandibular (R), normal supraclavicular (L), normal supraclavicular (R) Carmela Quinteros MD Sep 15, 2016 19:32
[2016-09-15 20:00] VITALS: BP 114/47
--- NOTE | 2016-09-15 22:03 | General Progress Note ---
Assessment/Plan Assessment/Plan Assessment - EtOH Cirrhosis - mild ascites - Renal failure - Acute CVA, (L) carolyn - dysphagia --> marginal swallow study - Jaundice - Poor Px Recommendations - NGT feeds - begin po diet trial - Lactulose - decrease dose to reduce excess diarrhea - xifaxan - Follow labs - HD per renal - resume ASA / Plavix since no plan for PEG Subjective Allergies: Coded Allergies: No Known Allergies (Unverified , 07/14/16) Subjective sleepy but arousable tolerating TF speech more clear d/w DTR this am at length declines GT wants to wait for swallow recovery Objective Last 24 Hour Vital Signs Date Time Temp Pulse Resp B/P Pulse Ox O2 Delivery O2 Flow Rate FiO2 09/15/16 21:00 64 114/47 09/15/16 20:00 98.4 64 20 114/47 98 Room Air 09/15/16 16:00 98.0 60 21 104/41 98 Room Air 09/15/16 12:14 98.0 83 18 139/90 97 Room Air 09/15/16 09:34 73 144/50 09/15/16 08:00 98.2 73 17 144/50 95 Room Air 09/15/16 04:00 76 09/15/16 04:00 97.6 80 20 147/65 100 Room Air 09/15/16 00:00 69 09/15/16 00:00 97.7 71 20 130/60 99 Room Air Intake and Output 09/14/16 09/15/16 19:00 07:00 Intake Total 300 ml 620 ml Balance 300 ml 620 ml Free Water 80 ml IV Total 300 ml 180 ml Tube Feeding 360 ml # Bowel Movements 1 4 Laboratory Tests 09/15/16 06:23: White Blood Count 11.5H, Red Blood Count 2.96L, Hemoglobin 9.5L, Hematocrit 29.6L, Mean Corpuscular Volume 100H, Mean Corpuscular Hemoglobin 32.3H, Mean Corpuscular Hemoglobin Concent 32.2, Red Cell Distribution Width 17.4H, Platelet Count 133L, Mean Platelet Volume 6.6, Neutrophils (%) (Auto) 70.0, Lymphocytes (%) (Auto) 15.5L, Monocytes (%) (Auto) 9.8, Eosinophils (%) (Auto) 3.1H, Basophils (%) (Auto) 1.6, Sodium Level 138, Potassium Level 4.1, Chloride Level 95L, Carbon Dioxide Level 22, Anion Gap 21H, Blood Urea Nitrogen 83H, Creatinine 6.1H, Estimat Glomerular Filtration Rate , Glucose Level 278H, Calcium Level 8.3L, Total Bilirubin 1.9H, Direct Bilirubin 1.1H, Aspartate Amino Transf (AST/SGOT) 61H, Alanine Aminotransferase (ALT/SGPT) 55H, Alkaline Phosphatase 421H, Total Protein 5.3L, Albumin 2.0L, Globulin 3.3, Albumin/ Globulin Ratio 0.6L, Random Vancomycin Level 22.6 Height (Feet): 5 Height (Inches): 11.00 Weight (Pounds): 245 Objective debilitated NCAT, (+) NGT, (+) mild icterus supple CTA RRR soft ND NT awake / responsive, but slow to respond (L) weakness (+) trace edema ESPINOZA WOOTEN Sep 15, 2016 22:03
[2016-09-15] MEDS ORDERED: Aspirin Baby 81mg ORAL ONE (23:30)
[2016-09-16] VITALS (10 sets, daily range): BP systolic 101–161; BP diastolic 26–62
[2016-09-16] MEDS: NovoLOG Insulin Flexpen SUBQ SCH ×4 (00:22→17:59)
[2016-09-16 06:33] LABS: EOSINOPHILS % (AUTO) 0.9 % (0.0-3.0); MEAN CORPUSCULAR HEMOGLOBIN 32.3 PG (27.0-31.0); MEAN CORPUSCULAR HGB CONC 32.4 G/DL (32.0-36.0); MEAN CORPUSCULAR VOLUME 100 FL (80-99); MEAN PLATELET VOLUME 6.5 FL (6.5-10.1); MONOCYTES % (AUTO) 5.7 % (1.0-10.0); NEUTROPHILS % (AUTO) 82.4 % (45.0-75.0); PLATELET COUNT 179 K/UL (150-450); RED BLOOD COUNT 3.18 M/UL (4.70-6.10); RED CELL DISTRIBUTION WIDTH 17.8 % (11.6-14.8); WHITE BLOOD COUNT 12.7 K/UL (4.8-10.8)
[2016-09-16 06:52] LABS: ALANINE AMINOTRANSFERASE 50 U/L (3-41); ALBUMIN/GLOBULIN RATIO 0.6 (1.0-2.7); ANION GAP 23 (5-15); ASPARTATE AMINO TRANSFERASE 51 U/L (5-40); CALCIUM 8.1 mg/dL (8.6-10.2); CARBON DIOXIDE 20 mEQ/L (20-30); CHLORIDE 91 mEQ/L (98-107); CREATININE 6.7 mg/dL (0.7-1.2); HEMOLYSIS 0; POTASSIUM 4.7 mEQ/L (3.4-4.9); SODIUM 134 mEQ/L (135-145); TOTAL PROTEIN 5.7 g/dL (6.6-8.7)
[2016-09-16] MEDS: Heparin 5000 units/ml inj SUBQ SCH ×3 (06:52→21:46)
[2016-09-16 07:46] LABS: BILIRUBIN,DIRECT 1.4 mg/dL (0.1-0.3)
[2016-09-16] MEDS: Famotidine 20 MG/ 2ML VIAL IVP SCH (08:15)
[2016-09-16] MEDS: Lactulose 20gm/30ml UDC ORAL SCH ×2 (08:15→13:00)
[2016-09-16] MEDS: Levemir Flexpen SUBQ SCH (08:16)
--- NOTE | 2016-09-16 08:21 | General Progress Note ---
Assessment/Plan Assessment/Plan Assessment - EtOH Cirrhosis - hepatic encephalopathy, worse today - mild ascites - Renal failure - on HD - Acute CVA, (L) carolyn --> dysphagia - dysphagia --> marginal swallow study --> need to continue NGT feeds until po safety and intake established - Jaundice/decompensated liver disease - Poor Px Recommendations - replace NGT and restart all meds - avoid hepatotoxic or sedative meds - Hold po diet trial - xifaxan - Follow labs - HD per renal - elevate HOB - aspiration precautions Subjective Allergies: Coded Allergies: No Known Allergies (Unverified , 07/14/16) Subjective NGT out per RN, no lactulose given patient not arousable today Glucose 149 unresponsive NH3 > 400 this am Objective Last 24 Hour Vital Signs Date Time Temp Pulse Resp B/P Pulse Ox O2 Delivery O2 Flow Rate FiO2 09/16/16 04:03 98.8 107 20 125/47 98 Room Air 09/16/16 04:00 99 09/16/16 00:33 98.3 66 21 101/37 97 Room Air 09/16/16 00:00 99 09/15/16 21:00 64 114/47 09/15/16 20:00 98.4 64 20 114/47 98 Room Air 09/15/16 20:00 61 09/15/16 16:00 60 09/15/16 16:00 98.0 60 21 104/41 98 Room Air 09/15/16 12:14 98.0 83 18 139/90 97 Room Air 09/15/16 12:00 92 09/15/16 09:34 73 144/50 Intake and Output 09/15/16 09/16/16 19:00 07:00 Intake Total 240 ml Balance 240 ml IV Total 240 ml # Voids 1 # Bowel Movements 1 Laboratory Tests 09/16/16 06:15: White Blood Count 12.7H, Red Blood Count 3.18L, Hemoglobin 10.3L, Hematocrit 31.7L, Mean Corpuscular Volume 100H, Mean Corpuscular Hemoglobin 32.3H, Mean Corpuscular Hemoglobin Concent 32.4, Red Cell Distribution Width 17.8H, Platelet Count 179, Mean Platelet Volume 6.5, Neutrophils (%) (Auto) 82.4H, Lymphocytes (%) (Auto) 9.0L, Monocytes (%) (Auto) 5.7, Eosinophils (%) (Auto) 0.9, Basophils (%) (Auto) 2.0, Sodium Level 134L, Potassium Level 4.7, Chloride Level 91L, Carbon Dioxide Level 20, Anion Gap 23H, Blood Urea Nitrogen 90H, Creatinine 6.7H, Estimat Glomerular Filtration Rate , Glucose Level 117#H, Calcium Level 8.1L, Total Bilirubin 2.3H, Direct Bilirubin 1.4H, Aspartate Amino Transf (AST/SGOT) 51H, Alanine Aminotransferase (ALT/SGPT) 50H, Alkaline Phosphatase 377H, Ammonia 423H, Total Protein 5.7L, Albumin 2.2L, Globulin 3.5, Albumin/Globulin Ratio 0.6L Height (Feet): 5 Height (Inches): 11.00 Weight (Pounds): 245 Objective obtunded NCAT, (+) mild icterus supple CTA RRR soft ND NT (+) trace edema ESPINOZA WOOTEN Sep 16, 2016 08:21
[2016-09-16] MEDS ORDERED: Lactulose 20gm/30ml UDC ORAL ONE (08:30)
[2016-09-16] MEDS ORDERED: Aspirin Baby 81mg NG SCH ×2 (09:00→12:00)
[2016-09-16] MEDS ORDERED: Lactulose 200 GM in NS Irrig 1000ml 700 ML RECTAL SCH (09:00)
--- NOTE | 2016-09-16 11:11 | Diagnostic Imaging Report ---
Indication: Status post nasogastric tube placement Technique: Supine view of the abdomen Comparison: 09/05/2016 Findings: No nasogastric tube is demonstrated. Bowel gas pattern is unremarkable. Contrast, presumably from recent CT scan, is seen within the colon. No unusual masses or calcifications Impression: Nasogastric tube is not visualized, presumably above the imaging volume and malpositioned. This critical value was phoned to patient's nurse at the time of interpretation
--- NOTE | 2016-09-16 11:13 | Infectious Diseases Prog Note ---
Assessment/Plan Assessment/Plan antibiotics : vancomycin iv A 1. leucocytosis resolved 2. cirrhosis 3. renal failure 4. HTN 5. rectal VRE colonization 6. ? aspiration pneumonia P 1. continue iv vancomycin 2. sputum culture 3. start zosyn Subjective ROS Limited/Unobtainable: Yes Allergies: Coded Allergies: No Known Allergies (Unverified , 07/14/16) Objective Vital Signs Last 24 Hour Vital Signs Date Time Temp Pulse Resp B/P Pulse Ox O2 Delivery O2 Flow Rate FiO2 09/16/16 08:00 97.3 75 23 118/43 98 Room Air 09/16/16 04:03 98.8 107 20 125/47 98 Room Air 09/16/16 04:00 99 09/16/16 00:33 98.3 66 21 101/37 97 Room Air 09/16/16 00:00 99 09/15/16 21:00 64 114/47 09/15/16 20:00 98.4 64 20 114/47 98 Room Air 09/15/16 20:00 61 09/15/16 16:00 60 09/15/16 16:00 98.0 60 21 104/41 98 Room Air 09/15/16 12:14 98.0 83 18 139/90 97 Room Air 09/15/16 12:00 92 Height (Feet): 5 Height (Inches): 11.00 Weight (Pounds): 245 Respiratory/Chest: crackles/rales, rhonchi - bilaterally Cardiovascular: normal rate, regular rhythm, no gallop/murmur Abdomen: soft, non tender Extremities: no edema, other - right subclavian Laboratory Tests Test 09/16/16 06:15 White Blood Count 12.7 K/UL (4.8-10.8) H Red Blood Count 3.18 M/UL (4.70-6.10) L Hemoglobin 10.3 G/DL (14.2-18.0) L Hematocrit 31.7 % (42.0-52.0) L Mean Corpuscular Volume 100 FL (80-99) H Mean Corpuscular Hemoglobin 32.3 PG (27.0-31.0) H Mean Corpuscular Hemoglobin Concent 32.4 G/DL (32.0-36.0) Red Cell Distribution Width 17.8 % (11.6-14.8) H Platelet Count 179 K/UL (150-450) Mean Platelet Volume 6.5 FL (6.5-10.1) Neutrophils (%) (Auto) 82.4 % (45.0-75.0) H Lymphocytes (%) (Auto) 9.0 % (20.0-45.0) L Monocytes (%) (Auto) 5.7 % (1.0-10.0) Eosinophils (%) (Auto) 0.9 % (0.0-3.0) Basophils (%) (Auto) 2.0 % (0.0-2.0) Sodium Level 134 mEQ/L (135-145) L Potassium Level 4.7 mEQ/L (3.4-4.9) Chloride Level 91 mEQ/L (98-107) L Carbon Dioxide Level 20 mEQ/L (20-30) Anion Gap 23 (5-15) H Blood Urea Nitrogen 90 mg/dL (7-23) H Creatinine 6.7 mg/dL (0.7-1.2) H Estimat Glomerular Filtration Rate mL/min (>60) Glucose Level 117 mg/dL (74-106) #H Calcium Level 8.1 mg/dL (8.6-10.2) L Total Bilirubin 2.3 mg/dL (0.0-1.2) H Direct Bilirubin 1.4 mg/dL (0.1-0.3) H Aspartate Amino Transf (AST/SGOT) 51 U/L (5-40) H Alanine Aminotransferase (ALT/SGPT) 50 U/L (3-41) H Alkaline Phosphatase 377 U/L (40-129) H Ammonia 423 umol/L (16-60) H Total Protein 5.7 g/dL (6.6-8.7) L Albumin 2.2 g/dL (3.5-5.2) L Globulin 3.5 g/dL Albumin/Globulin Ratio 0.6 (1.0-2.7) L TRACY BENITEZ Sep 16, 2016 11:13
--- NOTE | 2016-09-16 11:25 | General Progress Note ---
Progress Note Progress Note Afebrile. Pt is not communicative, NG tube was placed for administration of lactulose. Abdomen is distended but soft. There is nothing to add from a surgical standpoint. Jake Hale MD Sep 16, 2016 11:25
[2016-09-16] MEDS: Calcitriol 0.25mcg Cap ORAL SCH (12:55)
[2016-09-16] MEDS: Nephrovite tab ORAL SCH (12:55)
[2016-09-16 13:12] LABS: MEAN CORPUSCULAR HEMOGLOBIN 31.7 PG (27.0-31.0); MEAN CORPUSCULAR HGB CONC 31.9 G/DL (32.0-36.0); MEAN CORPUSCULAR VOLUME 99 FL (80-99); MEAN PLATELET VOLUME 6.6 FL (6.5-10.1); PLATELET COUNT 185 K/UL (150-450); RED BLOOD COUNT 3.13 M/UL (4.70-6.10); RED CELL DISTRIBUTION WIDTH 17.2 % (11.6-14.8); WHITE BLOOD COUNT 13.1 K/UL (4.8-10.8)
[2016-09-16 13:30] LABS: ANION GAP 26 (5-15); CALCIUM 8.4 mg/dL (8.6-10.2); CARBON DIOXIDE 17 mEQ/L (20-30); CHLORIDE 94 mEQ/L (98-107); CREATININE 7.1 mg/dL (0.7-1.2); HEMOLYSIS 2; PHOSPHORUS 9.4 mg/dL (2.5-4.8); POTASSIUM 5.4 mEQ/L (3.4-4.9); SODIUM 137 mEQ/L (135-145)
--- NOTE | 2016-09-16 13:32 | Neurology Progress Note ---
Interim History Interim History ROS Limited/Unobtainable: Yes Complaints: lethargic non communicating nonarousable Events: intermittently restless pulled NG, moved R arm not left Objective Physical Exam Last Vital Signs Date Time Temp Pulse Resp B/P Pulse Ox O2 Delivery O2 Flow Rate FiO2 09/16/16 12:21 97.5 74 34 130/59 98 Room Air Laboratory Tests Test 09/16/16 06:15 09/16/16 12:30 White Blood Count 12.7 K/UL (4.8-10.8) H 13.1 K/UL (4.8-10.8) H Red Blood Count 3.18 M/UL (4.70-6.10) L 3.13 M/UL (4.70-6.10) L Hemoglobin 10.3 G/DL (14.2-18.0) L 9.9 G/DL (14.2-18.0) L Hematocrit 31.7 % (42.0-52.0) L 31.1 % (42.0-52.0) L Mean Corpuscular Volume 100 FL (80-99) H 99 FL (80-99) Mean Corpuscular Hemoglobin 32.3 PG (27.0-31.0) H 31.7 PG (27.0-31.0) H Mean Corpuscular Hemoglobin Concent 32.4 G/DL (32.0-36.0) 31.9 G/DL (32.0-36.0) L Red Cell Distribution Width 17.8 % (11.6-14.8) H 17.2 % (11.6-14.8) H Platelet Count 179 K/UL (150-450) 185 K/UL (150-450) Mean Platelet Volume 6.5 FL (6.5-10.1) 6.6 FL (6.5-10.1) Neutrophils (%) (Auto) 82.4 % (45.0-75.0) H % (45.0-75.0) Lymphocytes (%) (Auto) 9.0 % (20.0-45.0) L % (20.0-45.0) Monocytes (%) (Auto) 5.7 % (1.0-10.0) % (1.0-10.0) Eosinophils (%) (Auto) 0.9 % (0.0-3.0) % (0.0-3.0) Basophils (%) (Auto) 2.0 % (0.0-2.0) % (0.0-2.0) Sodium Level 134 mEQ/L (135-145) L Pending Potassium Level 4.7 mEQ/L (3.4-4.9) Pending Chloride Level 91 mEQ/L (98-107) L Pending Carbon Dioxide Level 20 mEQ/L (20-30) Pending Anion Gap 23 (5-15) H Blood Urea Nitrogen 90 mg/dL (7-23) H Pending Creatinine 6.7 mg/dL (0.7-1.2) H Pending Estimat Glomerular Filtration Rate mL/min (>60) Pending Glucose Level 117 mg/dL (74-106) #H Pending Calcium Level 8.1 mg/dL (8.6-10.2) L Pending Total Bilirubin 2.3 mg/dL (0.0-1.2) H Direct Bilirubin 1.4 mg/dL (0.1-0.3) H Aspartate Amino Transf (AST/SGOT) 51 U/L (5-40) H Alanine Aminotransferase (ALT/SGPT) 50 U/L (3-41) H Alkaline Phosphatase 377 U/L (40-129) H Ammonia 423 umol/L (16-60) H Total Protein 5.7 g/dL (6.6-8.7) L Albumin 2.2 g/dL (3.5-5.2) L Globulin 3.5 g/dL Albumin/Globulin Ratio 0.6 (1.0-2.7) L Neutrophils % (Manual) Pending Lymphocytes % (Manual) Pending Platelet Estimate Pending Platelet Morphology Pending Phosphorus Level Pending General: well developed, other - , NGT L arm pain no movementr/swallen Head: normocophalic, atraumatic Neck: other - rigid Neurologic Exam Mental Status: other - sleepy restless,mumbling Speech: other - nonverbal Language: other - aphasia Cranial Nerve II: no papilledema, other Cranial Nerves III, IV, : PERRLA, EOMI, pupils, other Cranial Nerve V: masseters function normal, other Cranial Nerve VII: other - droopy L face Cranial Nerve VIII: no nystagmus Cranial Nerve IX: other - no gag Cranial Nerve X: other Cranial Nerve XI: trapezii function normal Cranial Nerve XII: no tongue atrophy/fasciculations Motor System: other - flaccid L arm 1/5 BLE Sensory: other Coordination: other Deep Tendon Reflexes: 0 ankle (L), 0 ankle (R), 0 bicep (L), 0 bicep (R), 0 brachioradialis (L), 0 brachioradialis (R), 0 knee (L), 0 knee (R), 0 tricep (L) , 0 tricep (R) Reflexes: mute plantar (L), mute plantar (R) Impression/Recommendations Problems: (1) 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 (2) Hepatic encephalopathy (3) ESRD (end stage renal disease) on dialysis (4) CHF (congestive heart failure) (5) Paroxysmal atrial fibrillation Status: progressing - passed swallow eval with purree and nectar thickened liquids, deteriorating Recommendations # [id number] d/w staff and dr.Be webster current rx hold anticoagulation 2/2 bleed risk/hepatic failure MICHEAL BLOOM Sep 16, 2016 13:32
[2016-09-16] MEDS: Metoprolol 50mg tab ORAL SCH (13:34)
[2016-09-16 13:40] LABS: LYMPHOCYTES % (MANUAL) 9 % (20-45); NEUTROPHILS % (MANUAL) 89 % (45-75); TOTAL CELLS COUNTED 100
[2016-09-16 13:41] LABS: ANISOCYTOSIS 1+; BAND NEUTROPHILS % (MANUAL) 0 % (0-8); BASOPHILS % (MANUAL) 0 % (0-2); EOSINOPHILS % (MANUAL) 0 % (0-3); PLATELET ESTIMATE ADEQUATE; PLATELET MORPHOLOGY NORMAL
[2016-09-16 13:42] LABS: HYPOCHROMASIA 1+
[2016-09-16] MEDS ORDERED: Zosyn 2.25 gm in D5W 55ml IV SCH ×2 (14:00→18:00)
[2016-09-16] MEDS ORDERED: Calcitriol 0.25mcg Cap GT SCH (14:43)
[2016-09-16] MEDS ORDERED: Lactulose 20gm/30ml UDC GT SCH (14:43)
[2016-09-16] MEDS ORDERED: Nephrovite tab GT SCH (14:44)
[2016-09-16] MEDS ORDERED: Metoprolol 50mg tab GT SCH ×2 (14:44→21:00)
--- NOTE | 2016-09-16 15:09 | Cardiac Electrophysiology PN ---
Assessment/Plan Assessment/Plan 1. Atrial fibrillation with rapid ventricular response. In SR. Continue metoprolol 50 bid, aspirin and Plavix. Off anticoagulation for cirrhosis. 2. End-stage renal disease, On hemodialysis. DC NS 3. Hyperlipidemia, on Lipitor. 4. 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 Encephalopathy getting worse. 5. Diabetes, on insulin. 6. Dysphagia. Passed swallow eval and was on Puree diet. NG tube back in for worsening encephalopathy. 7. Thrombocytopenia. Due to cirrhosis. DW RN Subjective Subjective In SR. Getting dialysis. Still has diarrhea RN at bedside. Objective Last 24 Hour Vital Signs Date Time Temp Pulse Resp B/P Pulse Ox O2 Delivery O2 Flow Rate FiO2 09/16/16 13:34 81 155/61 09/16/16 13:20 Nasal Cannula 09/16/16 12:21 97.5 74 34 130/59 98 Room Air 09/16/16 08:00 77 09/16/16 08:00 97.3 75 23 118/43 98 Room Air 09/16/16 04:03 98.8 107 20 125/47 98 Room Air 09/16/16 04:00 99 09/16/16 00:33 98.3 66 21 101/37 97 Room Air 09/16/16 00:00 99 09/15/16 21:00 64 114/47 09/15/16 20:00 98.4 64 20 114/47 98 Room Air 09/15/16 20:00 61 09/15/16 16:00 60 09/15/16 16:00 98.0 60 21 104/41 98 Room Air Intake and Output 09/15/16 09/16/16 19:00 07:00 Intake Total 240 ml Balance 240 ml IV Total 240 ml # Voids 1 # Bowel Movements 1 Laboratory Tests Test 09/16/16 06:15 09/16/16 12:30 White Blood Count 12.7 K/UL (4.8-10.8) H 13.1 K/UL (4.8-10.8) H Red Blood Count 3.18 M/UL (4.70-6.10) L 3.13 M/UL (4.70-6.10) L Hemoglobin 10.3 G/DL (14.2-18.0) L 9.9 G/DL (14.2-18.0) L Hematocrit 31.7 % (42.0-52.0) L 31.1 % (42.0-52.0) L Mean Corpuscular Volume 100 FL (80-99) H 99 FL (80-99) Mean Corpuscular Hemoglobin 32.3 PG (27.0-31.0) H 31.7 PG (27.0-31.0) H Mean Corpuscular Hemoglobin Concent 32.4 G/DL (32.0-36.0) 31.9 G/DL (32.0-36.0) L Red Cell Distribution Width 17.8 % (11.6-14.8) H 17.2 % (11.6-14.8) H Platelet Count 179 K/UL (150-450) 185 K/UL (150-450) Mean Platelet Volume 6.5 FL (6.5-10.1) 6.6 FL (6.5-10.1) Neutrophils (%) (Auto) 82.4 % (45.0-75.0) H % (45.0-75.0) Lymphocytes (%) (Auto) 9.0 % (20.0-45.0) L % (20.0-45.0) Monocytes (%) (Auto) 5.7 % (1.0-10.0) % (1.0-10.0) Eosinophils (%) (Auto) 0.9 % (0.0-3.0) % (0.0-3.0) Basophils (%) (Auto) 2.0 % (0.0-2.0) % (0.0-2.0) Sodium Level 134 mEQ/L (135-145) L 137 mEQ/L (135-145) Potassium Level 4.7 mEQ/L (3.4-4.9) 5.4 mEQ/L (3.4-4.9) H Chloride Level 91 mEQ/L (98-107) L 94 mEQ/L (98-107) L Carbon Dioxide Level 20 mEQ/L (20-30) 17 mEQ/L (20-30) L Anion Gap 23 (5-15) H 26 (5-15) H Blood Urea Nitrogen 90 mg/dL (7-23) H 98 mg/dL (7-23) H Creatinine 6.7 mg/dL (0.7-1.2) H 7.1 mg/dL (0.7-1.2) H Estimat Glomerular Filtration Rate mL/min (>60) mL/min (>60) Glucose Level 117 mg/dL (74-106) #H 177 mg/dL (74-106) H Calcium Level 8.1 mg/dL (8.6-10.2) L 8.4 mg/dL (8.6-10.2) L Total Bilirubin 2.3 mg/dL (0.0-1.2) H Direct Bilirubin 1.4 mg/dL (0.1-0.3) H Aspartate Amino Transf (AST/SGOT) 51 U/L (5-40) H Alanine Aminotransferase (ALT/SGPT) 50 U/L (3-41) H Alkaline Phosphatase 377 U/L (40-129) H Ammonia 423 umol/L (16-60) H Total Protein 5.7 g/dL (6.6-8.7) L Albumin 2.2 g/dL (3.5-5.2) L Globulin 3.5 g/dL Albumin/Globulin Ratio 0.6 (1.0-2.7) L Differential Total Cells Counted 100 Neutrophils % (Manual) 89 % (45-75) H Lymphocytes % (Manual) 9 % (20-45) L Monocytes % (Manual) 2 % (1-10) Eosinophils % (Manual) 0 % (0-3) Basophils % (Manual) 0 % (0-2) Band Neutrophils 0 % (0-8) Platelet Estimate Adequate Platelet Morphology Normal Hypochromasia 1+ Anisocytosis 1+ Phosphorus Level 9.4 mg/dL (2.5-4.8) H Objective HEAD AND NECK: No JVD. LUNGS: Clear CARDIOVASCULAR: Regular S1 and S2 with no gallop or murmur. ABDOMEN: Soft and nontender.Ascites EXTREMITIES: 1+ pitting edema. PRINCESS AGGARWAL Sep 16, 2016 15:09
--- NOTE | 2016-09-16 15:29 | Diagnostic Imaging Report ---
Indication: Status post nasogastric tube placement Technique: Supine view of the abdomen Comparison: One hour earlier Findings: Nasogastric tube is now visible, tip projects at the level gastric fundus, proximal port below the gastroesophageal junction.. Impression: Nasogastric tube tip is within the stomach, still could be advanced as the proximal port is at the gastroesophageal junction. Patient's nurse was notified previously at the time the image is taken
--- NOTE | 2016-09-16 15:45 | Nephrology Progress Note ---
Assessment/Plan Problem List: (1) ESRD (end stage renal disease) on dialysis (2) L arm palsy, r/p brach plexopathy,r/o lacunar stroke (3) Hepatic encephalopathy (4) Altered level of consciousness (5) Hyperphosphatemia Plan UF as tolerated Discussed with HD RN start phoslo Increase Lactulose ? Subjective Subjective seen on dialysis tachypneic Objective Objective Last 24 Hour Vital Signs Date Time Temp Pulse Resp B/P Pulse Ox O2 Delivery O2 Flow Rate FiO2 09/16/16 13:34 81 155/61 09/16/16 13:20 Nasal Cannula 09/16/16 12:50 Room Air 09/16/16 12:21 97.5 74 34 130/59 98 Room Air 09/16/16 08:00 77 09/16/16 08:00 97.3 75 23 118/43 98 Room Air 09/16/16 04:03 98.8 107 20 125/47 98 Room Air 09/16/16 04:00 99 09/16/16 00:33 98.3 66 21 101/37 97 Room Air 09/16/16 00:00 99 09/15/16 21:00 64 114/47 09/15/16 20:00 98.4 64 20 114/47 98 Room Air 09/15/16 20:00 61 09/15/16 16:00 60 09/15/16 16:00 98.0 60 21 104/41 98 Room Air Intake and Output 09/15/16 09/16/16 19:00 07:00 Intake Total 240 ml Balance 240 ml IV Total 240 ml # Voids 1 # Bowel Movements 1 Laboratory Tests 09/16/16 06:15: White Blood Count 12.7H, Red Blood Count 3.18L, Hemoglobin 10.3L, Hematocrit 31.7L, Mean Corpuscular Volume 100H, Mean Corpuscular Hemoglobin 32.3H, Mean Corpuscular Hemoglobin Concent 32.4, Red Cell Distribution Width 17.8H, Platelet Count 179, Mean Platelet Volume 6.5, Neutrophils (%) (Auto) 82.4H, Lymphocytes (%) (Auto) 9.0L, Monocytes (%) (Auto) 5.7, Eosinophils (%) (Auto) 0.9, Basophils (%) (Auto) 2.0, Sodium Level 134L, Potassium Level 4.7, Chloride Level 91L, Carbon Dioxide Level 20, Anion Gap 23H, Blood Urea Nitrogen 90H, Creatinine 6.7H, Estimat Glomerular Filtration Rate , Glucose Level 117#H, Calcium Level 8.1L, Total Bilirubin 2.3H, Direct Bilirubin 1.4H, Aspartate Amino Transf (AST/SGOT) 51H, Alanine Aminotransferase (ALT/SGPT) 50H, Alkaline Phosphatase 377H, Ammonia 423H, Total Protein 5.7L, Albumin 2.2L, Globulin 3.5, Albumin/Globulin Ratio 0.6L 09/16/16 12:30: White Blood Count 13.1H, Red Blood Count 3.13L, Hemoglobin 9.9L, Hematocrit 31.1L, Mean Corpuscular Volume 99, Mean Corpuscular Hemoglobin 31.7H, Mean Corpuscular Hemoglobin Concent 31.9L, Red Cell Distribution Width 17.2H, Platelet Count 185, Mean Platelet Volume 6.6, Neutrophils (%) (Auto) , Lymphocytes (%) (Auto) , Monocytes (%) (Auto) , Eosinophils (%) (Auto) , Basophils (%) (Auto) , Sodium Level 137, Potassium Level 5.4H, Chloride Level 94L, Carbon Dioxide Level 17L, Anion Gap 26H, Blood Urea Nitrogen 98H, Creatinine 7.1H, Estimat Glomerular Filtration Rate , Glucose Level 177H, Calcium Level 8.4L, Differential Total Cells Counted 100, Neutrophils % (Manual ) 89H, Lymphocytes % (Manual) 9L, Monocytes % (Manual) 2, Eosinophils % (Manual ) 0, Basophils % (Manual) 0, Band Neutrophils 0, Platelet Estimate Adequate, Platelet Morphology Normal, Hypochromasia 1+, Anisocytosis 1+, Phosphorus Level 9.4H Height (Feet): 5 Height (Inches): 11.00 Weight (Pounds): 245 Cardiovascular: normal rate Respiratory/Chest: rhonchi - bilaterally Extremities: moderate edema NICOLASA WELLS Sep 16, 2016 15:45
[2016-09-16] MEDS ORDERED: Calcium Acetate 667mg Tab ORAL SCH (16:00)
[2016-09-16] MEDS ORDERED: DuoNeb 0.5-3(2.5)mg/3ml neb HHN PRN ×2 (18:30→22:30)
[2016-09-16 18:55] LABS: MEAN CORPUSCULAR HEMOGLOBIN 31.7 PG (27.0-31.0); MEAN CORPUSCULAR HGB CONC 31.9 G/DL (32.0-36.0); MEAN CORPUSCULAR VOLUME 99 FL (80-99); MEAN PLATELET VOLUME 6.1 FL (6.5-10.1); PLATELET COUNT 222 K/UL (150-450); RED BLOOD COUNT 3.27 M/UL (4.70-6.10); RED CELL DISTRIBUTION WIDTH 17.6 % (11.6-14.8); WHITE BLOOD COUNT 17.8 K/UL (4.8-10.8)
[2016-09-16 19:09] LABS: CALCIUM 8.6 mg/dL (8.6-10.2); CHLORIDE 93 mEQ/L (98-107); CREATININE 5.8 mg/dL (0.7-1.2); POTASSIUM 4.3 mEQ/L (3.4-4.9); SODIUM 139 mEQ/L (135-145)
[2016-09-16 19:31] LABS: ANION GAP 29 (5-15); CARBON DIOXIDE 17 mEQ/L (20-30); HEMOLYSIS 3
[2016-09-16 19:35] LABS: TROPONIN I 0.39 ng/mL (<=0.30)
[2016-09-16 19:51] LABS: ABG ALLEN TEST POSITIVE; ABG BASE EXCESS -3.9
[2016-09-16 20:50] LABS: ANISOCYTOSIS 1+; BAND NEUTROPHILS % (MANUAL) 2 % (0-8); BASOPHILS % (MANUAL) 1 % (0-2); EOSINOPHILS % (MANUAL) 2 % (0-3); LYMPHOCYTES % (MANUAL) 12 % (20-45); NEUTROPHILS % (MANUAL) 77 % (45-75); TOTAL CELLS COUNTED 100
[2016-09-16 20:51] LABS: HYPOCHROMASIA 1+; PLATELET ESTIMATE ADEQUATE; PLATELET MORPHOLOGY NORMAL
[2016-09-16] MEDS ORDERED: Vancomycin 1 GM in D5W 275 ML IVPB ONE (21:00)
[2016-09-16] MEDS ORDERED: Vancomycin 1gm in D5W 275ml IVPB ONE (21:00)
--- NOTE | 2016-09-16 21:06 | General Progress Note ---
Assessment/Plan Status: deteriorating Assessment/Plan 75 y/o male admitted with the following problems: patient had HD on 09/16/16 and soon after developed respiratory distress, now transfered to ICU family decided on DNR/DNI comfort measures if deteriorates -Acute CVA with left hemiparesis -Cirrhosis with hepatic encephalopathy -ESRD on HD -DM insulin requiring -paroxismal atrial fibrillation now with RVR -leukoctosis -left upper extremity edema, improving -dysphasia -severe OA of left shoulder -Bilateral UE dependant edema -acute respiratory failure -pulmonary edema -?aspiration pneumonia -UTI possible sepsis Plan: -HD per nephrology -continue NGT -continue plavix and asa, coumadin when stable from neurology stand point, possilby soon -pt/ot/st and rehab placement when medically stable -continue all meds -VTE with heparin sq tid -ID fu appreciated to broaden antibiotics -NPO discussed with ICU nursed, consultants and family at length am labs POOR Prognosis Subjective Date patient seen: Sep 16, 2016 Time patient seen: 20:56 ROS Limited/Unobtainable: Yes Respiratory: Reports: SOB at rest, shortness of breath Allergies: Coded Allergies: No Known Allergies (Unverified , 07/14/16) Objective Last 24 Hour Vital Signs Date Time Temp Pulse Resp B/P Pulse Ox O2 Delivery O2 Flow Rate FiO2 09/16/16 16:23 Nasal Cannula 09/16/16 16:00 97.2 70 18 108/26 97 Room Air 09/16/16 13:34 81 155/61 09/16/16 13:20 Nasal Cannula 09/16/16 12:50 Room Air 09/16/16 12:21 97.5 74 34 130/59 98 Room Air 09/16/16 08:00 77 09/16/16 08:00 97.3 75 23 118/43 98 Room Air 09/16/16 04:03 98.8 107 20 125/47 98 Room Air 09/16/16 04:00 99 09/16/16 00:33 98.3 66 21 101/37 97 Room Air 09/16/16 00:00 99 09/15/16 21:00 64 114/47 Intake and Output 09/15/16 09/16/16 19:00 07:00 Intake Total 240 ml Balance 240 ml IV Total 240 ml # Voids 1 # Bowel Movements 1 Laboratory Tests 09/16/16 06:15: White Blood Count 12.7H, Red Blood Count 3.18L, Hemoglobin 10.3L, Hematocrit 31.7L, Mean Corpuscular Volume 100H, Mean Corpuscular Hemoglobin 32.3H, Mean Corpuscular Hemoglobin Concent 32.4, Red Cell Distribution Width 17.8H, Platelet Count 179, Mean Platelet Volume 6.5, Neutrophils (%) (Auto) 82.4H, Lymphocytes (%) (Auto) 9.0L, Monocytes (%) (Auto) 5.7, Eosinophils (%) (Auto) 0.9, Basophils (%) (Auto) 2.0, Sodium Level 134L, Potassium Level 4.7, Chloride Level 91L, Carbon Dioxide Level 20, Anion Gap 23H, Blood Urea Nitrogen 90H, Creatinine 6.7H, Estimat Glomerular Filtration Rate , Glucose Level 117#H, Calcium Level 8.1L, Total Bilirubin 2.3H, Direct Bilirubin 1.4H, Aspartate Amino Transf (AST/SGOT) 51H, Alanine Aminotransferase (ALT/SGPT) 50H, Alkaline Phosphatase 377H, Ammonia 423H, Total Protein 5.7L, Albumin 2.2L, Globulin 3.5, Albumin/Globulin Ratio 0.6L 09/16/16 12:30: White Blood Count 13.1H, Red Blood Count 3.13L, Hemoglobin 9.9L, Hematocrit 31.1L, Mean Corpuscular Volume 99, Mean Corpuscular Hemoglobin 31.7H, Mean Corpuscular Hemoglobin Concent 31.9L, Red Cell Distribution Width 17.2H, Platelet Count 185, Mean Platelet Volume 6.6, Neutrophils (%) (Auto) , Lymphocytes (%) (Auto) , Monocytes (%) (Auto) , Eosinophils (%) (Auto) , Basophils (%) (Auto) , Sodium Level 137, Potassium Level 5.4H, Chloride Level 94L, Carbon Dioxide Level 17L, Anion Gap 26H, Blood Urea Nitrogen 98H, Creatinine 7.1H, Estimat Glomerular Filtration Rate , Glucose Level 177H, Calcium Level 8.4L, Differential Total Cells Counted 100, Neutrophils % (Manual ) 89H, Lymphocytes % (Manual) 9L, Monocytes % (Manual) 2, Eosinophils % (Manual ) 0, Basophils % (Manual) 0, Band Neutrophils 0, Platelet Estimate Adequate, Platelet Morphology Normal, Hypochromasia 1+, Anisocytosis 1+, Phosphorus Level 9.4H 09/16/16 18:16: Arterial Blood pH 7.543H, Arterial Blood Partial Pressure CO2 20.0*L, Arterial Blood Partial Pressure O2 105.2H, Arterial Blood HCO3 16.8L, Arterial Blood Oxygen Saturation 97.4, Arterial Blood Base Excess -3.9, Jarred Test Positive 09/16/16 18:45: White Blood Count 17.8H, Red Blood Count 3.27L, Hemoglobin 10.3L, Hematocrit 32.4L, Mean Corpuscular Volume 99, Mean Corpuscular Hemoglobin 31.7H, Mean Corpuscular Hemoglobin Concent 31.9L, Red Cell Distribution Width 17.6H, Platelet Count 222, Mean Platelet Volume 6.1L, Neutrophils (%) (Auto) , Lymphocytes (%) (Auto) , Monocytes (%) (Auto) , Eosinophils (%) (Auto) , Basophils (%) (Auto) , Sodium Level 139, Potassium Level 4.3, Chloride Level 93L , Carbon Dioxide Level 17L, Anion Gap 29H, Blood Urea Nitrogen 73#H, Creatinine 5.8H, Estimat Glomerular Filtration Rate , Glucose Level 175H, Calcium Level 8.6 , Differential Total Cells Counted 100, Neutrophils % (Manual) 77H, Lymphocytes % (Manual) 12L, Monocytes % (Manual) 6, Eosinophils % (Manual) 2, Basophils % ( Manual) 1, Band Neutrophils 2, Platelet Estimate Adequate, Platelet Morphology Normal, Hypochromasia 1+, Anisocytosis 1+, Troponin I 0.39*H, Pro-B-Type Natriuretic Peptide [id number] Height (Feet): 5 Height (Inches): 11.00 Weight (Pounds): 245 General Appearance: lethargic, severe distress EENT: PERRL/EOMI Neck: non-tender Cardiovascular: tachycardia, irregularly irregular Respiratory/Chest: respiratory distress, crackles/rales Abdomen: soft Genitourinary/Rectal: normal genital exam Extremities: no calf tenderness, swelling Edema: 1+ Arm (L), 1+ Arm (R), 1+ Leg (L), 1+ Leg (R), 1+ Pedal (L), 1+ Pedal ( R), 1+ Generalized Edema: mild edema Neurologic: unresponsive Skin: normal pigmentation Lymphatic: normal anterior cervical (L), normal anterior cervical (R), normal axillary (L), normal axillary (R), normal inguinal (L), normal inguinal (R), normal other, normal posterior cervical (L), normal posterior cervical (R), normal submandibular (L), normal submandibular (R), normal supraclavicular (L), normal supraclavicular (R) Carmela Quinteros MD Sep 16, 2016 21:06
[2016-09-16] MEDS ORDERED: Morphine Sulfate 2mg/ml Inj IVP ONE (21:15)
[2016-09-16 22:27] LABS: ABG BASE EXCESS -1.6; ABG PCO2 19.7 mmHg (35.0-45.0)
[2016-09-16 22:28] LABS: ABG ALLEN TEST POSITIVE
[2016-09-16] MEDS ORDERED: Meropenem 1gm/NS 110ml IVPB ONE ×2 (22:30)
[2016-09-17] VITALS (24 sets, daily range): BP systolic 108–142; BP diastolic 41–95
[2016-09-17] MEDS ORDERED: Morphine Sulfate 2mg/ml Inj IM PRN
[2016-09-17] MEDS: Lactulose 20gm/30ml UDC GT SCH ×2 (00:01→05:58)
[2016-09-17] MEDS: NovoLOG Insulin Flexpen SUBQ SCH ×2 (00:05→06:08)
[2016-09-17] MEDS ORDERED: Piperacillin/Tazobactam 2.25 GM in D5W 55 ML IV SCH (02:00)
[2016-09-17] MEDS: Heparin 5000 units/ml inj SUBQ SCH (06:00)
[2016-09-17] MEDS: Levemir Flexpen SUBQ SCH (06:09)
[2016-09-17 06:55] LABS: BASOPHILS % (AUTO) 0.9 % (0.0-2.0); EOSINOPHILS % (AUTO) 0.3 % (0.0-3.0); LYMPHOCYTES % (AUTO) 9.1 % (20.0-45.0); MEAN CORPUSCULAR HEMOGLOBIN 32.6 PG (27.0-31.0); MEAN CORPUSCULAR VOLUME 99 FL (80-99); MEAN PLATELET VOLUME 6.5 FL (6.5-10.1); MONOCYTES % (AUTO) 8.3 % (1.0-10.0); NEUTROPHILS % (AUTO) 81.4 % (45.0-75.0); PLATELET COUNT 174 K/UL (150-450); RED BLOOD COUNT 2.95 M/UL (4.70-6.10); RED CELL DISTRIBUTION WIDTH 17.2 % (11.6-14.8); WHITE BLOOD COUNT 15.2 K/UL (4.8-10.8)
[2016-09-17 07:19] LABS: ALANINE AMINOTRANSFERASE 48 U/L (3-41); ALBUMIN/GLOBULIN RATIO 0.7 (1.0-2.7); ANION GAP 28 (5-15); ASPARTATE AMINO TRANSFERASE 52 U/L (5-40); CALCIUM 8.3 mg/dL (8.6-10.2); CARBON DIOXIDE 19 mEQ/L (20-30); CHLORIDE 93 mEQ/L (98-107); CREATININE 6.5 mg/dL (0.7-1.2); HEMOLYSIS 10; POTASSIUM 4.1 mEQ/L (3.4-4.9); SODIUM 140 mEQ/L (135-145); TOTAL PROTEIN 5.4 g/dL (6.6-8.7)
[2016-09-17 07:34] LABS: BILIRUBIN,DIRECT 1.4 mg/dL (0.1-0.3)
--- NOTE | 2016-09-17 08:27 | Diagnostic Imaging Report ---
Indication: Status post readjustment of nasogastric tube Technique: Supine view of the upper abdomen Comparison: 3 hours earlier Findings: Interim advancement of previously demonstrated nasogastric tube, tip now projected at the level of the gastric antrum. Other findings are unchanged. Impression: Improved and now satisfactory position of nasogastric tube Patient's nurse notified at the time of interpretation
--- NOTE | 2016-09-17 08:34 | General Progress Note ---
Assessment/Plan Assessment/Plan Assessment - EtOH Cirrhosis - hepatic encephalopathy - mild ascites - Renal failure - on HD - Acute CVA, (L) carolyn --> dysphagia - dysphagia - Jaundice/decompensated liver disease - Poor Px Recommendations - Hold NGT feeds for today - ICU care - xifaxan / lactulose - Follow labs - HD per renal - elevate HOB - BIPAP - poor px Subjective Allergies: Coded Allergies: No Known Allergies (Unverified , 07/14/16) Subjective Now in ICU respiratory distress family declined intubation on BIPAP still unresponsive getting lactulose NH3 lower, but still elevated Objective Last 24 Hour Vital Signs Date Time Temp Pulse Resp B/P Pulse Ox O2 Delivery O2 Flow Rate FiO2 09/17/16 07:23 67 18 100 Full Face 30 09/17/16 06:00 64 20 129/47 100 Bi-pap 30 09/17/16 05:28 64 20 100 Full Face 30 09/17/16 05:00 65 18 141/69 100 Bi-pap 30 09/17/16 04:00 98.4 64 23 137/42 100 Bi-pap 30 09/17/16 04:00 63 09/17/16 03:00 66 21 126/43 100 Bi-pap 30 09/17/16 03:00 66 20 100 Full Face 30 09/17/16 02:00 66 21 125/60 100 Bi-pap 30 09/17/16 01:14 66 27 100 Full Face 30 09/17/16 01:00 63 23 116/50 100 Bi-pap 30 09/17/16 00:00 62 24 130/56 100 Bi-pap 30 09/17/16 00:00 63 09/16/16 23:18 63 31 100 Full Face 30 09/16/16 23:00 62 24 143/56 100 Bi-pap 30 09/16/16 22:00 97.6 64 25 142/62 100 Bi-pap 30 09/16/16 21:34 62 158/57 09/16/16 21:00 71 25 158/57 98 Bi-pap 30 09/16/16 20:30 116 31 100 Facial 100 09/16/16 20:00 74 30 161/51 98 Bi-pap 30 09/16/16 20:00 74 09/16/16 16:23 Nasal Cannula 09/16/16 16:00 97.2 70 18 108/26 97 Room Air 09/16/16 13:34 81 155/61 09/16/16 13:20 Nasal Cannula 09/16/16 12:50 Room Air 09/16/16 12:21 97.5 74 34 130/59 98 Room Air Intake and Output 09/16/16 09/17/16 19:00 07:00 Intake Total 110 ml Output Total 3100 ml 140 ml Balance -3100 ml -30 ml Free Water 60 ml IV Total 50 ml Output Urine Total 140 ml Hemodialysis UF 3100 ml # Voids 2 Laboratory Tests 09/16/16 12:30: White Blood Count 13.1H, Red Blood Count 3.13L, Hemoglobin 9.9L, Hematocrit 31.1L, Mean Corpuscular Volume 99, Mean Corpuscular Hemoglobin 31.7H, Mean Corpuscular Hemoglobin Concent 31.9L, Red Cell Distribution Width 17.2H, Platelet Count 185, Mean Platelet Volume 6.6, Neutrophils (%) (Auto) , Lymphocytes (%) (Auto) , Monocytes (%) (Auto) , Eosinophils (%) (Auto) , Basophils (%) (Auto) , Differential Total Cells Counted 100, Neutrophils % ( Manual) 89H, Lymphocytes % (Manual) 9L, Monocytes % (Manual) 2, Eosinophils % ( Manual) 0, Basophils % (Manual) 0, Band Neutrophils 0, Platelet Estimate Adequate, Platelet Morphology Normal, Hypochromasia 1+, Anisocytosis 1+, Sodium Level 137, Potassium Level 5.4H, Chloride Level 94L, Carbon Dioxide Level 17L, Anion Gap 26H, Blood Urea Nitrogen 98H, Creatinine 7.1H, Estimat Glomerular Filtration Rate , Glucose Level 177H, Calcium Level 8.4L, Phosphorus Level 9.4H 09/16/16 18:16: Arterial Blood pH 7.543H, Arterial Blood Partial Pressure CO2 20.0*L, Arterial Blood Partial Pressure O2 105.2H, Arterial Blood HCO3 16.8L, Arterial Blood Oxygen Saturation 97.4, Arterial Blood Base Excess -3.9, Jarred Test Positive 09/16/16 18:45: White Blood Count 17.8H, Red Blood Count 3.27L, Hemoglobin 10.3L, Hematocrit 32.4L, Mean Corpuscular Volume 99, Mean Corpuscular Hemoglobin 31.7H, Mean Corpuscular Hemoglobin Concent 31.9L, Red Cell Distribution Width 17.6H, Platelet Count 222, Mean Platelet Volume 6.1L, Neutrophils (%) (Auto) , Lymphocytes (%) (Auto) , Monocytes (%) (Auto) , Eosinophils (%) (Auto) , Basophils (%) (Auto) , Differential Total Cells Counted 100, Neutrophils % ( Manual) 77H, Lymphocytes % (Manual) 12L, Monocytes % (Manual) 6, Eosinophils % ( Manual) 2, Basophils % (Manual) 1, Band Neutrophils 2, Platelet Estimate Adequate, Platelet Morphology Normal, Hypochromasia 1+, Anisocytosis 1+, Sodium Level 139, Potassium Level 4.3, Chloride Level 93L, Carbon Dioxide Level 17L, Anion Gap 29H, Blood Urea Nitrogen 73#H, Creatinine 5.8H, Estimat Glomerular Filtration Rate , Glucose Level 175H, Calcium Level 8.6, Troponin I 0.39*H, Pro- B-Type Natriuretic Peptide [id number] 09/16/16 21:14: Arterial Blood pH 7.592*H, Arterial Blood Partial Pressure CO2 19.7*L, Arterial Blood Partial Pressure O2 144.3H, Arterial Blood HCO3 18.6L, Arterial Blood Oxygen Saturation 98.5H, Arterial Blood Base Excess -1.6, Jarred Test Positive 09/17/16 05:40: White Blood Count 15.2H, Red Blood Count 2.95L, Hemoglobin 9.6L, Hematocrit 29.1L, Mean Corpuscular Volume 99, Mean Corpuscular Hemoglobin 32.6H, Mean Corpuscular Hemoglobin Concent 33.0, Red Cell Distribution Width 17.2H, Platelet Count 174, Mean Platelet Volume 6.5, Neutrophils (%) (Auto) 81.4H, Lymphocytes (%) (Auto) 9.1L, Monocytes (%) (Auto) 8.3, Eosinophils (%) (Auto) 0.3, Basophils (%) (Auto) 0.9, Sodium Level 140, Potassium Level 4.1, Chloride Level 93L, Carbon Dioxide Level 19L, Anion Gap 28H, Blood Urea Nitrogen 85H, Creatinine 6.5H, Estimat Glomerular Filtration Rate , Glucose Level 145H, Calcium Level 8.3L, Magnesium Level 2.7H, Total Bilirubin 2.5H, Direct Bilirubin 1.4H, Aspartate Amino Transf (AST/SGOT) 52H, Alanine Aminotransferase (ALT/SGPT) 48H, Alkaline Phosphatase 355H, Ammonia 145H, Total Protein 5.4L, Albumin 2.3L, Globulin 3.1, Albumin/Globulin Ratio 0.7L, Cytomegalovirus DNA Qual (PCR) [Pending], Jo Ann-Skinner Virus Capsid Ag IgM Ab [Pending], Hepatitis A IgM Antibody [Pending], Herpes Simplex Virus I IgM Ab (IFA) [Pending], Herpes Simplex Virus II IgM Ab (IFA [Pending] Height (Feet): 5 Height (Inches): 11.00 Weight (Pounds): 245 Objective obtunded NCAT, (+) mild icterus supple CTA RRR soft ND NT (+) trace edema ESPINOZA WOOTEN Sep 17, 2016 08:34
[2016-09-17 08:48] LABS: APPEARANCE,URINE TURBID; KETONES,URINE 1+ (NEGATIVE); LEUKOCYTE ESTERASE ,URINE 3+ (NEGATIVE); NITRITE,URINE POSITIVE (NEGATIVE); PH,URINE 5 (4.5-8.0); PROTEIN,URINE 4+ (NEGATIVE); UROBILINOGEN,URINE 1 MG/DL (0.0-1.0)
[2016-09-17 08:51] LABS: ABG BASE EXCESS 0.7; ABG PCO2 20.6 mmHg (35.0-45.0)
[2016-09-17 08:52] LABS: ABG ALLEN TEST NEGATIVE
[2016-09-17] MEDS ORDERED: Calcitriol 0.25mcg Cap GT SCH (09:00)
[2016-09-17] MEDS ORDERED: Aspirin Baby 81mg NG SCH (09:00)
[2016-09-17] MEDS ORDERED: Famotidine 20 MG/ 2ML VIAL IVP SCH (09:00)
[2016-09-17] MEDS ORDERED: Nephrovite tab GT SCH (09:00)
[2016-09-17] MEDS ORDERED: Calcium Acetate 667mg Tab ORAL SCH (09:00)
[2016-09-17] MEDS ORDERED: Lactulose 20gm/30ml UDC GT SCH (09:00)
[2016-09-17 09:05] LABS: BACTERIA,URINE MODERATE /HPF; RBC,URINE 30-40 /HPF (0 - 0); SQUAMOUS EPITHELIAL CELL,UR FEW /LPF (NONE/OCC); WBC,URINE TNTC /HPF (0 - 0); YEAST,URINE MODERATE /HPF
[2016-09-17 09:26] LABS: ICTOTEST NEGATIVE
--- NOTE | 2016-09-17 10:17 | Diagnostic Imaging Report ---
Indication:pleural effusion Technique: Grayscale and duplex Doppler imaging of the chest performed. Comparison: None Findings: There is a right pleural effusion mild to moderate in size. No left pleural effusion seen. Impression: Moderate right pleural effusion
[2016-09-17] MEDS ORDERED: Morphine Sulfate 2mg/ml Inj IVP ONE (10:30)
--- NOTE | 2016-09-17 10:42 | Pulmonolgy Critical Care Note ---
Critical Care - Asmt/Plan Problems: (1) Respiratory failure, acute (2) Altered level of consciousness (3) ESRD (end stage renal disease) on dialysis (4) Cirrhosis (5) CVA (cerebral vascular accident) Respiratory: monitor respiratory rate, adjust FIO2, CXR Cardiac: continue to monitor HR/BP Renal: F/U I&O, check electrolytes Infectious Disease: check cultures, continue antibiotics Gastrointestinal: continue feedings/current rate Endocrine: monitor blood sugar, continue sliding scale insulin Hematologic: monitor H/H, transfuse if hgb<8.5 Neurologic: PRN Ativan, PRN Morphine, keep patient comfortable Affect: PRN ativan Discussed with: nurses, consultants, caseworker intake, family member - discussed at bed site with the daughter while Dr. Soares was present. I presneted the options, which are intubation and trach and gtube feeding soon, or taking off the biapa and comfort care following. She will call other relatives to come for remvoing biapap. Critical Care - Objective Last 24 Hour Vital Signs Date Time Temp Pulse Resp B/P Pulse Ox O2 Delivery O2 Flow Rate FiO2 09/17/16 10:00 69 8 124/44 100 Bi-pap 30 09/17/16 09:20 68 21 100 Full Face 30 09/17/16 09:00 69 18 108/49 100 Bi-pap 30 09/17/16 08:00 98.0 66 18 124/42 100 Bi-pap 30 09/17/16 08:00 66 09/17/16 07:23 67 18 100 Full Face 30 09/17/16 06:00 64 20 129/47 100 Bi-pap 30 09/17/16 05:28 64 20 100 Full Face 30 09/17/16 05:00 65 18 141/69 100 Bi-pap 30 09/17/16 04:00 98.4 64 23 137/42 100 Bi-pap 30 09/17/16 04:00 63 09/17/16 03:00 66 21 126/43 100 Bi-pap 30 09/17/16 03:00 66 20 100 Full Face 30 09/17/16 02:00 66 21 125/60 100 Bi-pap 30 09/17/16 01:14 66 27 100 Full Face 30 09/17/16 01:00 63 23 116/50 100 Bi-pap 30 09/17/16 00:00 62 24 130/56 100 Bi-pap 30 09/17/16 00:00 63 09/16/16 23:18 63 31 100 Full Face 30 09/16/16 23:00 62 24 143/56 100 Bi-pap 30 09/16/16 22:00 97.6 64 25 142/62 100 Bi-pap 30 09/16/16 21:34 62 158/57 09/16/16 21:00 71 25 158/57 98 Bi-pap 30 09/16/16 20:30 116 31 100 Facial 100 09/16/16 20:00 74 30 161/51 98 Bi-pap 30 09/16/16 20:00 74 09/16/16 16:23 Nasal Cannula 09/16/16 16:00 97.2 70 18 108/26 97 Room Air 09/16/16 13:34 81 155/61 09/16/16 13:20 Nasal Cannula 09/16/16 12:50 Room Air 09/16/16 12:21 97.5 74 34 130/59 98 Room Air Status: awake Condition: critical, grave HEENT: atraumatic Lungs: rales, rhonchi Heart: HR/BP unstable Abdomen: soft, non-tender Extremities: no C/C/E Accucheck: 152 Critical Care - Subjective ICU Day: 2 Intubation Day: bipap Interval Events: 75 year old male with hx of ESRF, Cirrhosis, recent CVA, developed respiratory failure on the floor and brought to ICU on biapap. Currently, pt is comatose with paradoxical breathing. FI02: 30 Sputum Amount: None Tube Feeding Amount: 0 I&O: Intake and Output 09/16/16 09/17/16 19:00 07:00 Intake Total 110 ml Output Total 3100 ml 140 ml Balance -3100 ml -30 ml Free Water 60 ml IV Total 50 ml Output Urine Total 140 ml Hemodialysis UF 3100 ml # Voids 2 CXR: RLL effusion Labs: Laboratory Tests Test 09/16/16 12:30 09/16/16 18:16 09/16/16 18:45 09/16/16 21:14 White Blood Count 13.1 K/UL (4.8-10.8) H 17.8 K/UL (4.8-10.8) H Red Blood Count 3.13 M/UL (4.70-6.10) L 3.27 M/UL (4.70-6.10) L Hemoglobin 9.9 G/DL (14.2-18.0) L 10.3 G/DL (14.2-18.0) L Hematocrit 31.1 % (42.0-52.0) L 32.4 % (42.0-52.0) L Mean Corpuscular Volume 99 FL (80-99) 99 FL (80-99) Mean Corpuscular Hemoglobin 31.7 PG (27.0-31.0) H 31.7 PG (27.0-31.0) H Mean Corpuscular Hemoglobin Concent 31.9 G/DL (32.0-36.0) L 31.9 G/DL (32.0-36.0) L Red Cell Distribution Width 17.2 % (11.6-14.8) H 17.6 % (11.6-14.8) H Platelet Count 185 K/UL (150-450) 222 K/UL (150-450) Mean Platelet Volume 6.6 FL (6.5-10.1) 6.1 FL (6.5-10.1) L Neutrophils (%) (Auto) % (45.0-75.0) % (45.0-75.0) Lymphocytes (%) (Auto) % (20.0-45.0) % (20.0-45.0) Monocytes (%) (Auto) % (1.0-10.0) % (1.0-10.0) Eosinophils (%) (Auto) % (0.0-3.0) % (0.0-3.0) Basophils (%) (Auto) % (0.0-2.0) % (0.0-2.0) Differential Total Cells Counted 100 100 Neutrophils % (Manual) 89 % (45-75) H 77 % (45-75) H Lymphocytes % (Manual) 9 % (20-45) L 12 % (20-45) L Monocytes % (Manual) 2 % (1-10) 6 % (1-10) Eosinophils % (Manual) 0 % (0-3) 2 % (0-3) Basophils % (Manual) 0 % (0-2) 1 % (0-2) Band Neutrophils 0 % (0-8) 2 % (0-8) Platelet Estimate Adequate Adequate Platelet Morphology Normal Normal Hypochromasia 1+ 1+ Anisocytosis 1+ 1+ Sodium Level 137 mEQ/L (135-145) 139 mEQ/L (135-145) Potassium Level 5.4 mEQ/L (3.4-4.9) H 4.3 mEQ/L (3.4-4.9) Chloride Level 94 mEQ/L (98-107) L 93 mEQ/L (98-107) L Carbon Dioxide Level 17 mEQ/L (20-30) L 17 mEQ/L (20-30) L Anion Gap 26 (5-15) H 29 (5-15) H Blood Urea Nitrogen 98 mg/dL (7-23) H 73 mg/dL (7-23) #H Creatinine 7.1 mg/dL (0.7-1.2) H 5.8 mg/dL (0.7-1.2) H Estimat Glomerular Filtration Rate mL/min (>60) mL/min (>60) Glucose Level 177 mg/dL (74-106) H 175 mg/dL (74-106) H Calcium Level 8.4 mg/dL (8.6-10.2) L 8.6 mg/dL (8.6-10.2) Phosphorus Level 9.4 mg/dL (2.5-4.8) H Arterial Blood pH 7.543 (7.350-7.450) 7.592 (7.350-7.450) Arterial Blood Partial Pressure CO2 20.0 mmHg (35.0-45.0) *L 19.7 mmHg (35.0-45.0) *L Arterial Blood Partial Pressure O2 105.2 mmHg (75.0-100.0) H 144.3 mmHg (75.0-100.0) H Arterial Blood HCO3 16.8 mmol/L (22.0-26.0) L 18.6 mmol/L (22.0-26.0) L Arterial Blood Oxygen Saturation 97.4 % (92.0-98.0) 98.5 % (92.0-98.0) H Arterial Blood Base Excess -3.9 -1.6 Jarred Test Positive Positive Troponin I 0.39 ng/mL (<=0.30) *H Pro-B-Type Natriuretic Peptide 84165 pg/mL (0-450) H Test 09/17/16 05:40 09/17/16 08:00 09/17/16 08:38 White Blood Count 15.2 K/UL (4.8-10.8) H Red Blood Count 2.95 M/UL (4.70-6.10) L Hemoglobin 9.6 G/DL (14.2-18.0) L Hematocrit 29.1 % (42.0-52.0) L Mean Corpuscular Volume 99 FL (80-99) Mean Corpuscular Hemoglobin 32.6 PG (27.0-31.0) H Mean Corpuscular Hemoglobin Concent 33.0 G/DL (32.0-36.0) Red Cell Distribution Width 17.2 % (11.6-14.8) H Platelet Count 174 K/UL (150-450) Mean Platelet Volume 6.5 FL (6.5-10.1) Neutrophils (%) (Auto) 81.4 % (45.0-75.0) H Lymphocytes (%) (Auto) 9.1 % (20.0-45.0) L Monocytes (%) (Auto) 8.3 % (1.0-10.0) Eosinophils (%) (Auto) 0.3 % (0.0-3.0) Basophils (%) (Auto) 0.9 % (0.0-2.0) Sodium Level 140 mEQ/L (135-145) Potassium Level 4.1 mEQ/L (3.4-4.9) Chloride Level 93 mEQ/L (98-107) L Carbon Dioxide Level 19 mEQ/L (20-30) L Anion Gap 28 (5-15) H Blood Urea Nitrogen 85 mg/dL (7-23) H Creatinine 6.5 mg/dL (0.7-1.2) H Estimat Glomerular Filtration Rate mL/min (>60) Glucose Level 145 mg/dL (74-106) H Calcium Level 8.3 mg/dL (8.6-10.2) L Magnesium Level 2.7 mg/dL (1.7-2.5) H Total Bilirubin 2.5 mg/dL (0.0-1.2) H Direct Bilirubin 1.4 mg/dL (0.1-0.3) H Aspartate Amino Transf (AST/SGOT) 52 U/L (5-40) H Alanine Aminotransferase (ALT/SGPT) 48 U/L (3-41) H Alkaline Phosphatase 355 U/L (40-129) H Ammonia 145 umol/L (16-60) H Total Protein 5.4 g/dL (6.6-8.7) L Albumin 2.3 g/dL (3.5-5.2) L Globulin 3.1 g/dL Albumin/Globulin Ratio 0.7 (1.0-2.7) L Cytomegalovirus DNA Qual (PCR) Pending Jo Ann-Skinner Virus Capsid Ag IgM Ab Pending Hepatitis A IgM Antibody Pending Herpes Simplex Virus I IgM Ab (IFA) Pending Herpes Simplex Virus II IgM Ab (IFA Pending Urine Color Yellow Urine Appearance Turbid Urine pH 5 (4.5-8.0) Urine Specific [place] 1.015 (1.005-1.035) Urine Protein 4+ (NEGATIVE) H Urine Glucose (UA) Negative (NEGATIVE) Urine Ketones 1+ (NEGATIVE) H Urine Occult Blood 5+ (NEGATIVE) H Urine Nitrite Positive (NEGATIVE) H Urine Bilirubin 1+ (NEGATIVE) H Urine Ictotest Negative Urine Urobilinogen 1 MG/DL (0.0-1.0) H Urine Leukocyte Esterase 3+ (NEGATIVE) H Urine RBC 30-40 /HPF (0 - 0) H Urine WBC Tntc /HPF (0 - 0) H Urine Squamous Epithelial Cells Few /LPF (NONE/OCC) Urine Bacteria Moderate /HPF (NONE) H Urine Yeast Moderate /HPF (NONE) H Arterial Blood pH 7.621 (7.350-7.450) Arterial Blood Partial Pressure CO2 20.6 mmHg (35.0-45.0) *L Arterial Blood Partial Pressure O2 109.2 mmHg (75.0-100.0) H Arterial Blood HCO3 20.7 mmol/L (22.0-26.0) L Arterial Blood Oxygen Saturation 97.6 % (92.0-98.0) Arterial Blood Base Excess 0.7 Jarred Test Negative GURWINDER PICKETT Sep 17, 2016 10:42
[2016-09-17] MEDS ORDERED: Morphine Sulfate 2mg/ml Inj IVP PRN (10:45)
--- NOTE | 2016-09-17 11:48 | Nephrology Progress Note ---
Assessment/Plan Problem List: (1) ESRD (end stage renal disease) on dialysis (2) L arm palsy, r/p brach plexopathy,r/o lacunar stroke (3) Hepatic encephalopathy (4) Altered level of consciousness (5) Hyperphosphatemia Plan pt is comfort measures now will sign off Subjective Subjective all noted Objective Objective Last 24 Hour Vital Signs Date Time Temp Pulse Resp B/P Pulse Ox O2 Delivery O2 Flow Rate FiO2 09/17/16 11:10 71 25 99 Full Face 30 09/17/16 11:00 73 20 142/48 99 Bi-pap 30 09/17/16 10:00 69 8 124/44 100 Bi-pap 30 09/17/16 09:20 68 21 100 Full Face 30 09/17/16 09:00 69 18 108/49 100 Bi-pap 30 09/17/16 08:00 98.0 66 18 124/42 100 Bi-pap 30 09/17/16 08:00 66 09/17/16 07:23 67 18 100 Full Face 30 09/17/16 06:00 64 20 129/47 100 Bi-pap 30 09/17/16 05:28 64 20 100 Full Face 30 09/17/16 05:00 65 18 141/69 100 Bi-pap 30 09/17/16 04:00 98.4 64 23 137/42 100 Bi-pap 30 09/17/16 04:00 63 09/17/16 03:00 66 21 126/43 100 Bi-pap 30 09/17/16 03:00 66 20 100 Full Face 30 09/17/16 02:00 66 21 125/60 100 Bi-pap 30 09/17/16 01:14 66 27 100 Full Face 30 09/17/16 01:00 63 23 116/50 100 Bi-pap 30 09/17/16 00:00 62 24 130/56 100 Bi-pap 30 09/17/16 00:00 63 09/16/16 23:18 63 31 100 Full Face 30 09/16/16 23:00 62 24 143/56 100 Bi-pap 30 09/16/16 22:00 97.6 64 25 142/62 100 Bi-pap 30 09/16/16 21:34 62 158/57 09/16/16 21:00 71 25 158/57 98 Bi-pap 30 09/16/16 20:30 116 31 100 Facial 100 09/16/16 20:00 74 30 161/51 98 Bi-pap 30 09/16/16 20:00 74 09/16/16 16:23 Nasal Cannula 09/16/16 16:00 97.2 70 18 108/26 97 Room Air 09/16/16 13:34 81 155/61 09/16/16 13:20 Nasal Cannula 09/16/16 12:50 Room Air 09/16/16 12:21 97.5 74 34 130/59 98 Room Air Intake and Output 09/16/16 09/17/16 19:00 07:00 Intake Total 110 ml Output Total 3100 ml 140 ml Balance -3100 ml -30 ml Free Water 60 ml IV Total 50 ml Output Urine Total 140 ml Hemodialysis UF 3100 ml # Voids 2 Laboratory Tests 09/16/16 12:30: White Blood Count 13.1H, Red Blood Count 3.13L, Hemoglobin 9.9L, Hematocrit 31.1L, Mean Corpuscular Volume 99, Mean Corpuscular Hemoglobin 31.7H, Mean Corpuscular Hemoglobin Concent 31.9L, Red Cell Distribution Width 17.2H, Platelet Count 185, Mean Platelet Volume 6.6, Neutrophils (%) (Auto) , Lymphocytes (%) (Auto) , Monocytes (%) (Auto) , Eosinophils (%) (Auto) , Basophils (%) (Auto) , Differential Total Cells Counted 100, Neutrophils % ( Manual) 89H, Lymphocytes % (Manual) 9L, Monocytes % (Manual) 2, Eosinophils % ( Manual) 0, Basophils % (Manual) 0, Band Neutrophils 0, Platelet Estimate Adequate, Platelet Morphology Normal, Hypochromasia 1+, Anisocytosis 1+, Sodium Level 137, Potassium Level 5.4H, Chloride Level 94L, Carbon Dioxide Level 17L, Anion Gap 26H, Blood Urea Nitrogen 98H, Creatinine 7.1H, Estimat Glomerular Filtration Rate , Glucose Level 177H, Calcium Level 8.4L, Phosphorus Level 9.4H 09/16/16 18:16: Arterial Blood pH 7.543H, Arterial Blood Partial Pressure CO2 20.0*L, Arterial Blood Partial Pressure O2 105.2H, Arterial Blood HCO3 16.8L, Arterial Blood Oxygen Saturation 97.4, Arterial Blood Base Excess -3.9, Jarred Test Positive 09/16/16 18:45: White Blood Count 17.8H, Red Blood Count 3.27L, Hemoglobin 10.3L, Hematocrit 32.4L, Mean Corpuscular Volume 99, Mean Corpuscular Hemoglobin 31.7H, Mean Corpuscular Hemoglobin Concent 31.9L, Red Cell Distribution Width 17.6H, Platelet Count 222, Mean Platelet Volume 6.1L, Neutrophils (%) (Auto) , Lymphocytes (%) (Auto) , Monocytes (%) (Auto) , Eosinophils (%) (Auto) , Basophils (%) (Auto) , Differential Total Cells Counted 100, Neutrophils % ( Manual) 77H, Lymphocytes % (Manual) 12L, Monocytes % (Manual) 6, Eosinophils % ( Manual) 2, Basophils % (Manual) 1, Band Neutrophils 2, Platelet Estimate Adequate, Platelet Morphology Normal, Hypochromasia 1+, Anisocytosis 1+, Sodium Level 139, Potassium Level 4.3, Chloride Level 93L, Carbon Dioxide Level 17L, Anion Gap 29H, Blood Urea Nitrogen 73#H, Creatinine 5.8H, Estimat Glomerular Filtration Rate , Glucose Level 175H, Calcium Level 8.6, Troponin I 0.39*H, Pro- B-Type Natriuretic Peptide [id number] 09/16/16 21:14: Arterial Blood pH 7.592*H, Arterial Blood Partial Pressure CO2 19.7*L, Arterial Blood Partial Pressure O2 144.3H, Arterial Blood HCO3 18.6L, Arterial Blood Oxygen Saturation 98.5H, Arterial Blood Base Excess -1.6, Jarred Test Positive 09/17/16 05:40: White Blood Count 15.2H, Red Blood Count 2.95L, Hemoglobin 9.6L, Hematocrit 29.1L, Mean Corpuscular Volume 99, Mean Corpuscular Hemoglobin 32.6H, Mean Corpuscular Hemoglobin Concent 33.0, Red Cell Distribution Width 17.2H, Platelet Count 174, Mean Platelet Volume 6.5, Neutrophils (%) (Auto) 81.4H, Lymphocytes (%) (Auto) 9.1L, Monocytes (%) (Auto) 8.3, Eosinophils (%) (Auto) 0.3, Basophils (%) (Auto) 0.9, Sodium Level 140, Potassium Level 4.1, Chloride Level 93L, Carbon Dioxide Level 19L, Anion Gap 28H, Blood Urea Nitrogen 85H, Creatinine 6.5H, Estimat Glomerular Filtration Rate , Glucose Level 145H, Calcium Level 8.3L, Magnesium Level 2.7H, Total Bilirubin 2.5H, Direct Bilirubin 1.4H, Aspartate Amino Transf (AST/SGOT) 52H, Alanine Aminotransferase (ALT/SGPT) 48H, Alkaline Phosphatase 355H, Ammonia 145H, Total Protein 5.4L, Albumin 2.3L, Globulin 3.1, Albumin/Globulin Ratio 0.7L, Cytomegalovirus DNA Qual (PCR) [Pending], Jo Ann-Skinner Virus Capsid Ag IgM Ab [Pending], Hepatitis A IgM Antibody [Pending], Herpes Simplex Virus I IgM Ab (IFA) [Pending], Herpes Simplex Virus II IgM Ab (IFA [Pending] 09/17/16 08:00: Urine Color Yellow, Urine Appearance Turbid, Urine pH 5, Urine Specific [place] 1.015, Urine Protein 4+H, Urine Glucose (UA) Negative, Urine Ketones 1+H, Urine Occult Blood 5+H, Urine Nitrite PositiveH, Urine Bilirubin 1+H, Urine Ictotest Negative, Urine Urobilinogen 1H, Urine Leukocyte Esterase 3+H, Urine RBC 30-40H , Urine WBC TntcH, Urine Squamous Epithelial Cells Few, Urine Bacteria ModerateH , Urine Yeast ModerateH 09/17/16 08:38: Arterial Blood pH 7.621*H, Arterial Blood Partial Pressure CO2 20.6*L, Arterial Blood Partial Pressure O2 109.2H, Arterial Blood HCO3 20.7L, Arterial Blood Oxygen Saturation 97.6, Arterial Blood Base Excess 0.7, Jarred Test Negative Height (Feet): 5 Height (Inches): 11.00 Weight (Pounds): 245 NICOLASA GEE Sep 17, 2016 11:48
--- NOTE | 2016-09-17 12:01 | Diagnostic Imaging Report ---
Indication: Dyspnea Comparison: 09/08/16 A single view chest radiograph was obtained. Findings: Pulmonary interstitial edema again demonstrated. There is some improvement noted. Right permacath, right pleural effusion again noted. Nasogastric tube is in good position. Impression: Improved pulmonary edema with moderate edema still currently demonstrated.
--- NOTE | 2016-09-17 12:24 | General Progress Note ---
Progress Note Progress Note Surgery: patient and family visited at bedside. mental status and medical condition declining recently. currently in ICU on BIPAP. Unresponsive. Liver and kidney failure progressive and prognosis poor. Family has decided for comfort care. Thank you for allowing us to participate in this patients care. Alexis Blanca Sep 17, 2016 12:24
--- NOTE | 2016-09-17 12:32 | Diagnostic Imaging Report ---
Indication: Dyspnea Comparison: 09/16/16 A single view chest radiograph was obtained. Findings: Interstitial edema and cardiomegaly are present. There maybe slight improvement since the previous day. Permacath noted once again. NG tube is satisfactory in position. Impression: Interstitial edema slightly improved.
--- NOTE | 2016-09-17 14:48 | Infectious Diseases Prog Note ---
Assessment/Plan Assessment/Plan A; Leukocytosis improving ESRD on HD Cirrhosis DM HPN R pleural effusion, atelectasis P: Patient become DNR & DNI waiting for family decision regarding comfort care off antibiotic Subjective ROS Limited/Unobtainable: Yes Respiratory: Reports: other - transferred to ICU because of respiratory distress Allergies: Coded Allergies: No Known Allergies (Unverified , 07/14/16) Objective Vital Signs Last 24 Hour Vital Signs Date Time Temp Pulse Resp B/P Pulse Ox O2 Delivery O2 Flow Rate FiO2 09/17/16 14:00 75 16 129/43 100 Bi-pap 30 09/17/16 13:31 73 15 99 Full Face 30 09/17/16 13:00 71 20 112/45 99 Bi-pap 30 09/17/16 12:00 72 09/17/16 12:00 98.1 74 20 128/50 100 Bi-pap 30 09/17/16 11:31 98.1 09/17/16 11:10 71 25 99 Full Face 30 09/17/16 11:00 73 20 142/48 99 Bi-pap 30 09/17/16 10:00 69 8 124/44 100 Bi-pap 30 09/17/16 09:20 68 21 100 Full Face 30 09/17/16 09:00 69 18 108/49 100 Bi-pap 30 09/17/16 08:00 98.0 66 18 124/42 100 Bi-pap 30 09/17/16 08:00 66 09/17/16 07:23 67 18 100 Full Face 30 09/17/16 06:00 64 20 129/47 100 Bi-pap 30 09/17/16 05:28 64 20 100 Full Face 30 09/17/16 05:00 65 18 141/69 100 Bi-pap 30 09/17/16 04:00 98.4 64 23 137/42 100 Bi-pap 30 09/17/16 04:00 63 09/17/16 03:00 66 21 126/43 100 Bi-pap 30 09/17/16 03:00 66 20 100 Full Face 30 09/17/16 02:00 66 21 125/60 100 Bi-pap 30 09/17/16 01:14 66 27 100 Full Face 30 09/17/16 01:00 63 23 116/50 100 Bi-pap 30 09/17/16 00:00 62 24 130/56 100 Bi-pap 30 09/17/16 00:00 63 09/16/16 23:18 63 31 100 Full Face 30 09/16/16 23:00 62 24 143/56 100 Bi-pap 30 09/16/16 22:00 97.6 64 25 142/62 100 Bi-pap 30 09/16/16 21:34 62 158/57 09/16/16 21:00 71 25 158/57 98 Bi-pap 30 09/16/16 20:30 116 31 100 Facial 100 09/16/16 20:00 74 30 161/51 98 Bi-pap 30 09/16/16 20:00 74 09/16/16 16:23 Nasal Cannula 09/16/16 16:00 97.2 70 18 108/26 97 Room Air Height (Feet): 5 Height (Inches): 11.00 Weight (Pounds): 245 HEENT: other - On BIPAP Respiratory/Chest: other - few rhonchi Cardiovascular: normal rate Abdomen: soft, non tender Extremities: other - mild edema Neurologic/Psychiatric: unresponsiveness Microbiology Date/Time Source Procedure Growth Status 09/16/16 22:00 Sputum Expectorated Gram Stain - Final Resulted 09/16/16 22:00 Sputum Expectorated Sputum Culture Pending Resulted Laboratory Tests Test 09/16/16 18:16 09/16/16 18:45 09/16/16 21:14 09/17/16 05:40 Arterial Blood pH 7.543 (7.350-7.450) 7.592 (7.350-7.450) Arterial Blood Partial Pressure CO2 20.0 mmHg (35.0-45.0) *L 19.7 mmHg (35.0-45.0) *L Arterial Blood Partial Pressure O2 105.2 mmHg (75.0-100.0) H 144.3 mmHg (75.0-100.0) H Arterial Blood HCO3 16.8 mmol/L (22.0-26.0) L 18.6 mmol/L (22.0-26.0) L Arterial Blood Oxygen Saturation 97.4 % (92.0-98.0) 98.5 % (92.0-98.0) H Arterial Blood Base Excess -3.9 -1.6 Jarred Test Positive Positive White Blood Count 17.8 K/UL (4.8-10.8) H 15.2 K/UL (4.8-10.8) H Red Blood Count 3.27 M/UL (4.70-6.10) L 2.95 M/UL (4.70-6.10) L Hemoglobin 10.3 G/DL (14.2-18.0) L 9.6 G/DL (14.2-18.0) L Hematocrit 32.4 % (42.0-52.0) L 29.1 % (42.0-52.0) L Mean Corpuscular Volume 99 FL (80-99) 99 FL (80-99) Mean Corpuscular Hemoglobin 31.7 PG (27.0-31.0) H 32.6 PG (27.0-31.0) H Mean Corpuscular Hemoglobin Concent 31.9 G/DL (32.0-36.0) L 33.0 G/DL (32.0-36.0) Red Cell Distribution Width 17.6 % (11.6-14.8) H 17.2 % (11.6-14.8) H Platelet Count 222 K/UL (150-450) 174 K/UL (150-450) Mean Platelet Volume 6.1 FL (6.5-10.1) L 6.5 FL (6.5-10.1) Neutrophils (%) (Auto) % (45.0-75.0) 81.4 % (45.0-75.0) H Lymphocytes (%) (Auto) % (20.0-45.0) 9.1 % (20.0-45.0) L Monocytes (%) (Auto) % (1.0-10.0) 8.3 % (1.0-10.0) Eosinophils (%) (Auto) % (0.0-3.0) 0.3 % (0.0-3.0) Basophils (%) (Auto) % (0.0-2.0) 0.9 % (0.0-2.0) Differential Total Cells Counted 100 Neutrophils % (Manual) 77 % (45-75) H Lymphocytes % (Manual) 12 % (20-45) L Monocytes % (Manual) 6 % (1-10) Eosinophils % (Manual) 2 % (0-3) Basophils % (Manual) 1 % (0-2) Band Neutrophils 2 % (0-8) Platelet Estimate Adequate Platelet Morphology Normal Hypochromasia 1+ Anisocytosis 1+ Sodium Level 139 mEQ/L (135-145) 140 mEQ/L (135-145) Potassium Level 4.3 mEQ/L (3.4-4.9) 4.1 mEQ/L (3.4-4.9) Chloride Level 93 mEQ/L (98-107) L 93 mEQ/L (98-107) L Carbon Dioxide Level 17 mEQ/L (20-30) L 19 mEQ/L (20-30) L Anion Gap 29 (5-15) H 28 (5-15) H Blood Urea Nitrogen 73 mg/dL (7-23) #H 85 mg/dL (7-23) H Creatinine 5.8 mg/dL (0.7-1.2) H 6.5 mg/dL (0.7-1.2) H Estimat Glomerular Filtration Rate mL/min (>60) mL/min (>60) Glucose Level 175 mg/dL (74-106) H 145 mg/dL (74-106) H Calcium Level 8.6 mg/dL (8.6-10.2) 8.3 mg/dL (8.6-10.2) L Troponin I 0.39 ng/mL (<=0.30) *H Pro-B-Type Natriuretic Peptide 93360 pg/mL (0-450) H Magnesium Level 2.7 mg/dL (1.7-2.5) H Total Bilirubin 2.5 mg/dL (0.0-1.2) H Direct Bilirubin 1.4 mg/dL (0.1-0.3) H Aspartate Amino Transf (AST/SGOT) 52 U/L (5-40) H Alanine Aminotransferase (ALT/SGPT) 48 U/L (3-41) H Alkaline Phosphatase 355 U/L (40-129) H Ammonia 145 umol/L (16-60) H Total Protein 5.4 g/dL (6.6-8.7) L Albumin 2.3 g/dL (3.5-5.2) L Globulin 3.1 g/dL Albumin/Globulin Ratio 0.7 (1.0-2.7) L Cytomegalovirus DNA Qual (PCR) Pending Jo Ann-Skinner Virus Capsid Ag IgM Ab Pending Hepatitis A IgM Antibody Pending Herpes Simplex Virus I IgM Ab (IFA) Pending Herpes Simplex Virus II IgM Ab (IFA Pending Test 09/17/16 08:00 09/17/16 08:38 Urine Color Yellow Urine Appearance Turbid Urine pH 5 (4.5-8.0) Urine Specific [place] 1.015 (1.005-1.035) Urine Protein 4+ (NEGATIVE) H Urine Glucose (UA) Negative (NEGATIVE) Urine Ketones 1+ (NEGATIVE) H Urine Occult Blood 5+ (NEGATIVE) H Urine Nitrite Positive (NEGATIVE) H Urine Bilirubin 1+ (NEGATIVE) H Urine Ictotest Negative Urine Urobilinogen 1 MG/DL (0.0-1.0) H Urine Leukocyte Esterase 3+ (NEGATIVE) H Urine RBC 30-40 /HPF (0 - 0) H Urine WBC Tntc /HPF (0 - 0) H Urine Squamous Epithelial Cells Few /LPF (NONE/OCC) Urine Bacteria Moderate /HPF (NONE) H Urine Yeast Moderate /HPF (NONE) H Arterial Blood pH 7.621 (7.350-7.450) Arterial Blood Partial Pressure CO2 20.6 mmHg (35.0-45.0) *L Arterial Blood Partial Pressure O2 109.2 mmHg (75.0-100.0) H Arterial Blood HCO3 20.7 mmol/L (22.0-26.0) L Arterial Blood Oxygen Saturation 97.6 % (92.0-98.0) Arterial Blood Base Excess 0.7 Jarred Test Negative Current Medications Medications (Trade) Dose Ordered Sig/Jacqueline Route PRN Reason Start Time Stop Time Status Last Admin Dose Admin Dextrose (Dextrose 50%) STAT PRN IV Hypoglycemia 09/17/16 09:30 10/17/16 09:29 Furosemide (Lasix) 40 mg EVERY 8 HOURS IV 09/17/16 06:00 10/17/16 05:59 09/17/16 06:00 Insulin Detemir (Levemir) 25 units DAILY@0600 SUBQ 09/17/16 06:00 10/17/16 05:59 09/17/16 06:09 Morphine Sulfate (Morphine Sulfate) 2 mg EVERY HOUR PRN IVP TACHYPNEA> 20 BREATHS/MIN 09/17/16 10:45 09/24/16 10:44 Morphine Sulfate (Morphine Sulfate) 2 mg Q4H PRN IM For Pain 09/17/16 00:00 09/24/16 00:00 TOY WELLS Sep 17, 2016 14:48
--- NOTE | 2016-09-17 18:13 | Cardiac Electrophysiology PN ---
Assessment/Plan Assessment/Plan 1. Atrial fibrillation with rapid ventricular response. In SR. Metoprolol, aspirin and Plavix DCEd as pt comfort care. 2. End-stage renal disease, on hemodialysis. 3. Hyperlipidemia, on Lipitor. 4. 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 Encephalopathy worse. 5. Diabetes, on insulin. 6. Dysphagia. 7. Thrombocytopenia. Due to cirrhosis. 8. DNR, DNI DW RN and family Subjective Subjective Transferred to ICU. Family at bedside. On BIPAP. DNR, DNI. RN at bedside. Objective Last 24 Hour Vital Signs Date Time Temp Pulse Resp B/P Pulse Ox O2 Delivery O2 Flow Rate FiO2 09/17/16 16:55 115 15 98 Full Face 30 09/17/16 16:00 30 09/17/16 16:00 113 09/17/16 16:00 98.2 110 18 132/57 99 Bi-pap 30 09/17/16 15:00 80 16 138/41 99 Bi-pap 30 09/17/16 14:52 76 15 99 Full Face 30 09/17/16 14:00 75 16 129/43 100 Bi-pap 30 09/17/16 13:31 73 15 99 Full Face 30 09/17/16 13:00 71 20 112/45 99 Bi-pap 30 09/17/16 12:00 72 09/17/16 12:00 98.1 74 20 128/50 100 Bi-pap 30 09/17/16 11:31 98.1 09/17/16 11:10 71 25 99 Full Face 30 09/17/16 11:00 73 20 142/48 99 Bi-pap 30 09/17/16 10:00 69 8 124/44 100 Bi-pap 30 09/17/16 09:20 68 21 100 Full Face 30 09/17/16 09:00 69 18 108/49 100 Bi-pap 30 09/17/16 08:00 98.0 66 18 124/42 100 Bi-pap 30 09/17/16 08:00 66 09/17/16 07:23 67 18 100 Full Face 30 09/17/16 06:00 64 20 129/47 100 Bi-pap 30 09/17/16 05:28 64 20 100 Full Face 30 09/17/16 05:00 65 18 141/69 100 Bi-pap 30 09/17/16 04:00 98.4 64 23 137/42 100 Bi-pap 30 09/17/16 04:00 63 09/17/16 03:00 66 21 126/43 100 Bi-pap 30 09/17/16 03:00 66 20 100 Full Face 30 09/17/16 02:00 66 21 125/60 100 Bi-pap 30 09/17/16 01:14 66 27 100 Full Face 30 09/17/16 01:00 63 23 116/50 100 Bi-pap 30 09/17/16 00:00 62 24 130/56 100 Bi-pap 30 09/17/16 00:00 63 09/16/16 23:18 63 31 100 Full Face 30 09/16/16 23:00 62 24 143/56 100 Bi-pap 30 09/16/16 22:00 97.6 64 25 142/62 100 Bi-pap 30 09/16/16 21:34 62 158/57 09/16/16 21:00 71 25 158/57 98 Bi-pap 30 09/16/16 20:30 116 31 100 Facial 100 09/16/16 20:00 74 30 161/51 98 Bi-pap 30 09/16/16 20:00 74 Intake and Output 09/16/16 09/17/16 19:00 07:00 Intake Total 110 ml Output Total 3100 ml 140 ml Balance -3100 ml -30 ml Free Water 60 ml IV Total 50 ml Output Urine Total 140 ml Hemodialysis UF 3100 ml # Voids 2 Laboratory Tests Test 09/16/16 18:16 09/16/16 18:45 09/16/16 21:14 09/17/16 05:40 Arterial Blood pH 7.543 (7.350-7.450) 7.592 (7.350-7.450) Arterial Blood Partial Pressure CO2 20.0 mmHg (35.0-45.0) *L 19.7 mmHg (35.0-45.0) *L Arterial Blood Partial Pressure O2 105.2 mmHg (75.0-100.0) H 144.3 mmHg (75.0-100.0) H Arterial Blood HCO3 16.8 mmol/L (22.0-26.0) L 18.6 mmol/L (22.0-26.0) L Arterial Blood Oxygen Saturation 97.4 % (92.0-98.0) 98.5 % (92.0-98.0) H Arterial Blood Base Excess -3.9 -1.6 Jarred Test Positive Positive White Blood Count 17.8 K/UL (4.8-10.8) H 15.2 K/UL (4.8-10.8) H Red Blood Count 3.27 M/UL (4.70-6.10) L 2.95 M/UL (4.70-6.10) L Hemoglobin 10.3 G/DL (14.2-18.0) L 9.6 G/DL (14.2-18.0) L Hematocrit 32.4 % (42.0-52.0) L 29.1 % (42.0-52.0) L Mean Corpuscular Volume 99 FL (80-99) 99 FL (80-99) Mean Corpuscular Hemoglobin 31.7 PG (27.0-31.0) H 32.6 PG (27.0-31.0) H Mean Corpuscular Hemoglobin Concent 31.9 G/DL (32.0-36.0) L 33.0 G/DL (32.0-36.0) Red Cell Distribution Width 17.6 % (11.6-14.8) H 17.2 % (11.6-14.8) H Platelet Count 222 K/UL (150-450) 174 K/UL (150-450) Mean Platelet Volume 6.1 FL (6.5-10.1) L 6.5 FL (6.5-10.1) Neutrophils (%) (Auto) % (45.0-75.0) 81.4 % (45.0-75.0) H Lymphocytes (%) (Auto) % (20.0-45.0) 9.1 % (20.0-45.0) L Monocytes (%) (Auto) % (1.0-10.0) 8.3 % (1.0-10.0) Eosinophils (%) (Auto) % (0.0-3.0) 0.3 % (0.0-3.0) Basophils (%) (Auto) % (0.0-2.0) 0.9 % (0.0-2.0) Differential Total Cells Counted 100 Neutrophils % (Manual) 77 % (45-75) H Lymphocytes % (Manual) 12 % (20-45) L Monocytes % (Manual) 6 % (1-10) Eosinophils % (Manual) 2 % (0-3) Basophils % (Manual) 1 % (0-2) Band Neutrophils 2 % (0-8) Platelet Estimate Adequate Platelet Morphology Normal Hypochromasia 1+ Anisocytosis 1+ Sodium Level 139 mEQ/L (135-145) 140 mEQ/L (135-145) Potassium Level 4.3 mEQ/L (3.4-4.9) 4.1 mEQ/L (3.4-4.9) Chloride Level 93 mEQ/L (98-107) L 93 mEQ/L (98-107) L Carbon Dioxide Level 17 mEQ/L (20-30) L 19 mEQ/L (20-30) L Anion Gap 29 (5-15) H 28 (5-15) H Blood Urea Nitrogen 73 mg/dL (7-23) #H 85 mg/dL (7-23) H Creatinine 5.8 mg/dL (0.7-1.2) H 6.5 mg/dL (0.7-1.2) H Estimat Glomerular Filtration Rate mL/min (>60) mL/min (>60) Glucose Level 175 mg/dL (74-106) H 145 mg/dL (74-106) H Calcium Level 8.6 mg/dL (8.6-10.2) 8.3 mg/dL (8.6-10.2) L Troponin I 0.39 ng/mL (<=0.30) *H Pro-B-Type Natriuretic Peptide 38281 pg/mL (0-450) H Magnesium Level 2.7 mg/dL (1.7-2.5) H Total Bilirubin 2.5 mg/dL (0.0-1.2) H Direct Bilirubin 1.4 mg/dL (0.1-0.3) H Aspartate Amino Transf (AST/SGOT) 52 U/L (5-40) H Alanine Aminotransferase (ALT/SGPT) 48 U/L (3-41) H Alkaline Phosphatase 355 U/L (40-129) H Ammonia 145 umol/L (16-60) H Total Protein 5.4 g/dL (6.6-8.7) L Albumin 2.3 g/dL (3.5-5.2) L Globulin 3.1 g/dL Albumin/Globulin Ratio 0.7 (1.0-2.7) L Cytomegalovirus DNA Qual (PCR) Pending Jo Ann-Skinner Virus Capsid Ag IgM Ab Pending Hepatitis A IgM Antibody Pending Herpes Simplex Virus I IgM Ab (IFA) Pending Herpes Simplex Virus II IgM Ab (IFA Pending Test 09/17/16 08:00 09/17/16 08:38 Urine Color Yellow Urine Appearance Turbid Urine pH 5 (4.5-8.0) Urine Specific [place] 1.015 (1.005-1.035) Urine Protein 4+ (NEGATIVE) H Urine Glucose (UA) Negative (NEGATIVE) Urine Ketones 1+ (NEGATIVE) H Urine Occult Blood 5+ (NEGATIVE) H Urine Nitrite Positive (NEGATIVE) H Urine Bilirubin 1+ (NEGATIVE) H Urine Ictotest Negative Urine Urobilinogen 1 MG/DL (0.0-1.0) H Urine Leukocyte Esterase 3+ (NEGATIVE) H Urine RBC 30-40 /HPF (0 - 0) H Urine WBC Tntc /HPF (0 - 0) H Urine Squamous Epithelial Cells Few /LPF (NONE/OCC) Urine Bacteria Moderate /HPF (NONE) H Urine Yeast Moderate /HPF (NONE) H Arterial Blood pH 7.621 (7.350-7.450) Arterial Blood Partial Pressure CO2 20.6 mmHg (35.0-45.0) *L Arterial Blood Partial Pressure O2 109.2 mmHg (75.0-100.0) H Arterial Blood HCO3 20.7 mmol/L (22.0-26.0) L Arterial Blood Oxygen Saturation 97.6 % (92.0-98.0) Arterial Blood Base Excess 0.7 Jarred Test Negative Microbiology Date/Time Source Procedure Growth Status 09/16/16 22:00 Sputum Expectorated Gram Stain - Final Resulted 09/16/16 22:00 Sputum Expectorated Sputum Culture Pending Resulted Objective HEAD AND NECK: JVD. BIPAP on LUNGS: Coarse rhonchi CARDIOVASCULAR: Regular S1 and S2 with no gallop or murmur. ABDOMEN: Soft and nontender.Ascites EXTREMITIES: 1+ pitting edema. PRINCESS AGGARWAL Sep 17, 2016 18:13
[2016-09-17] MEDS ORDERED: Meropenem 500 MG in NS 55 ML IVPB SCH (21:00)
--- NOTE | 2016-09-17 23:25 | General Progress Note ---
Assessment/Plan Assessment/Plan Assessment - EtOH Cirrhosis - hepatic encephalopathy - mild ascites - Renal failure - on HD - Acute CVA, (L) carolyn --> dysphagia - dysphagia - Jaundice/decompensated liver disease - Poor Px Recommendations - Hold NGT feeds until more awake and with some gag reflex - ICU care - xifaxan / lactulose - Follow labs - HD per renal - elevate HOB - BIPAP - poor px Subjective Allergies: Coded Allergies: No Known Allergies (Unverified , 07/14/16) Subjective stilll obtunded on BIPAP getting lactulose NH3 lower, but still elevated off feeds Objective Last 24 Hour Vital Signs Date Time Temp Pulse Resp B/P Pulse Ox O2 Delivery O2 Flow Rate FiO2 09/17/16 23:00 100 19 129/95 100 Bi-pap 30 09/17/16 22:59 114 20 100 Full Face 30 09/17/16 22:00 112 19 134/53 100 Bi-pap 30 09/17/16 21:25 120 18 100 Full Face 30 09/17/16 21:00 110 18 114/58 100 Bi-pap 30 09/17/16 20:00 81 09/17/16 20:00 98.6 82 15 140/48 100 Bi-pap 30 09/17/16 20:00 30 09/17/16 19:13 112 17 100 Full Face 30 09/17/16 19:00 113 16 111/50 99 Bi-pap 30 09/17/16 18:00 114 16 115/50 99 Bi-pap 30 09/17/16 17:00 112 15 109/56 99 Bi-pap 30 09/17/16 16:55 115 15 98 Full Face 30 09/17/16 16:00 30 09/17/16 16:00 113 09/17/16 16:00 98.2 110 18 132/57 99 Bi-pap 30 09/17/16 15:00 80 16 138/41 99 Bi-pap 30 09/17/16 14:52 76 15 99 Full Face 30 09/17/16 14:00 75 16 129/43 100 Bi-pap 30 09/17/16 13:31 73 15 99 Full Face 30 09/17/16 13:00 71 20 112/45 99 Bi-pap 30 09/17/16 12:00 72 09/17/16 12:00 98.1 74 20 128/50 100 Bi-pap 30 09/17/16 11:31 98.1 09/17/16 11:10 71 25 99 Full Face 30 09/17/16 11:00 73 20 142/48 99 Bi-pap 30 09/17/16 10:00 69 8 124/44 100 Bi-pap 30 09/17/16 09:20 68 21 100 Full Face 30 09/17/16 09:00 69 18 108/49 100 Bi-pap 30 09/17/16 08:00 98.0 66 18 124/42 100 Bi-pap 30 09/17/16 08:00 66 09/17/16 07:23 67 18 100 Full Face 30 09/17/16 06:00 64 20 129/47 100 Bi-pap 30 09/17/16 05:28 64 20 100 Full Face 30 09/17/16 05:00 65 18 141/69 100 Bi-pap 30 09/17/16 04:00 98.4 64 23 137/42 100 Bi-pap 30 09/17/16 04:00 63 09/17/16 03:00 66 21 126/43 100 Bi-pap 30 09/17/16 03:00 66 20 100 Full Face 30 09/17/16 02:00 66 21 125/60 100 Bi-pap 30 09/17/16 01:14 66 27 100 Full Face 30 09/17/16 01:00 63 23 116/50 100 Bi-pap 30 09/17/16 00:00 62 24 130/56 100 Bi-pap 30 09/17/16 00:00 63 Intake and Output 09/16/16 09/17/16 19:00 07:00 Intake Total 110 ml Output Total 3100 ml 140 ml Balance -3100 ml -30 ml Free Water 60 ml IV Total 50 ml Output Urine Total 140 ml Hemodialysis UF 3100 ml # Voids 2 Laboratory Tests 09/17/16 05:40: White Blood Count 15.2H, Red Blood Count 2.95L, Hemoglobin 9.6L, Hematocrit 29.1L, Mean Corpuscular Volume 99, Mean Corpuscular Hemoglobin 32.6H, Mean Corpuscular Hemoglobin Concent 33.0, Red Cell Distribution Width 17.2H, Platelet Count 174, Mean Platelet Volume 6.5, Neutrophils (%) (Auto) 81.4H, Lymphocytes (%) (Auto) 9.1L, Monocytes (%) (Auto) 8.3, Eosinophils (%) (Auto) 0.3, Basophils (%) (Auto) 0.9, Sodium Level 140, Potassium Level 4.1, Chloride Level 93L, Carbon Dioxide Level 19L, Anion Gap 28H, Blood Urea Nitrogen 85H, Creatinine 6.5H, Estimat Glomerular Filtration Rate , Glucose Level 145H, Calcium Level 8.3L, Magnesium Level 2.7H, Total Bilirubin 2.5H, Direct Bilirubin 1.4H, Aspartate Amino Transf (AST/SGOT) 52H, Alanine Aminotransferase (ALT/SGPT) 48H, Alkaline Phosphatase 355H, Ammonia 145H, Total Protein 5.4L, Albumin 2.3L, Globulin 3.1, Albumin/Globulin Ratio 0.7L, Cytomegalovirus DNA Qual (PCR) [Pending], Jo Ann-Skinner Virus Capsid Ag IgM Ab [Pending], Hepatitis A IgM Antibody [Pending], Herpes Simplex Virus I IgM Ab (IFA) [Pending], Herpes Simplex Virus II IgM Ab (IFA [Pending] 09/17/16 08:00: Urine Color Yellow, Urine Appearance Turbid, Urine pH 5, Urine Specific [place] 1.015, Urine Protein 4+H, Urine Glucose (UA) Negative, Urine Ketones 1+H, Urine Occult Blood 5+H, Urine Nitrite PositiveH, Urine Bilirubin 1+H, Urine Ictotest Negative, Urine Urobilinogen 1H, Urine Leukocyte Esterase 3+H, Urine RBC 30-40H , Urine WBC TntcH, Urine Squamous Epithelial Cells Few, Urine Bacteria ModerateH , Urine Yeast ModerateH 09/17/16 08:38: Arterial Blood pH 7.621*H, Arterial Blood Partial Pressure CO2 20.6*L, Arterial Blood Partial Pressure O2 109.2H, Arterial Blood HCO3 20.7L, Arterial Blood Oxygen Saturation 97.6, Arterial Blood Base Excess 0.7, Jarred Test Negative Height (Feet): 5 Height (Inches): 11.00 Weight (Pounds): 245 Objective obtunded NCAT, (+) mild icterus supple CTA RRR soft ND NT (+) trace edema ESPINOZA WOOTEN Sep 17, 2016 23:25
--- NOTE | 2016-09-17 23:54 | General Progress Note ---
Assessment/Plan Status: deteriorating Assessment/Plan d75 y/o male admitted with the following problems: patient had HD on 09/16/16 and soon after developed respiratory distress, now transfered to ICU family decided on DNR/DNI comfort measures if deteriorates -Acute CVA with left hemiparesis -Cirrhosis with hepatic encephalopathy -ESRD on HD -DM insulin requiring -paroxismal atrial fibrillation now with RVR -leukoctosis -left upper extremity edema, improving -dysphasia -severe OA of left shoulder -Bilateral UE dependant edema -acute respiratory failure -pulmonary edema -?aspiration pneumonia -UTI possible sepsis Plan: -comfort care -dc all non essential meds if ok with family -NPO discussed with ICU team and Atending Dr. Padilla and family DNR/DNI Morphine drip for comfort agreed to by family Subjective Date patient seen: Sep 17, 2016 Time patient seen: 09:00 ROS Limited/Unobtainable: Yes Respiratory: Reports: SOB at rest Neurologic/Psychiatric: Reports: other - obtunded, does not repond to painful stimuli Allergies: Coded Allergies: No Known Allergies (Unverified , 07/14/16) Subjective patient was transfered to ICU last night, family declined intubation and patient is now DNR/DNI and family is agreeable to comfort care after discussion with ICU attending Dr. Franklin Objective Last 24 Hour Vital Signs Date Time Temp Pulse Resp B/P Pulse Ox O2 Delivery O2 Flow Rate FiO2 09/17/16 23:00 100 19 129/95 100 Bi-pap 30 09/17/16 22:59 114 20 100 Full Face 30 09/17/16 22:00 112 19 134/53 100 Bi-pap 30 09/17/16 21:25 120 18 100 Full Face 30 09/17/16 21:00 110 18 114/58 100 Bi-pap 30 09/17/16 20:00 81 09/17/16 20:00 98.6 82 15 140/48 100 Bi-pap 30 09/17/16 20:00 30 09/17/16 19:13 112 17 100 Full Face 30 09/17/16 19:00 113 16 111/50 99 Bi-pap 30 09/17/16 18:00 114 16 115/50 99 Bi-pap 30 09/17/16 17:00 112 15 109/56 99 Bi-pap 30 09/17/16 16:55 115 15 98 Full Face 30 09/17/16 16:00 30 09/17/16 16:00 113 09/17/16 16:00 98.2 110 18 132/57 99 Bi-pap 30 09/17/16 15:00 80 16 138/41 99 Bi-pap 30 09/17/16 14:52 76 15 99 Full Face 30 09/17/16 14:00 75 16 129/43 100 Bi-pap 30 09/17/16 13:31 73 15 99 Full Face 30 09/17/16 13:00 71 20 112/45 99 Bi-pap 30 09/17/16 12:00 72 09/17/16 12:00 98.1 74 20 128/50 100 Bi-pap 30 09/17/16 11:31 98.1 09/17/16 11:10 71 25 99 Full Face 30 09/17/16 11:00 73 20 142/48 99 Bi-pap 30 09/17/16 10:00 69 8 124/44 100 Bi-pap 30 09/17/16 09:20 68 21 100 Full Face 30 09/17/16 09:00 69 18 108/49 100 Bi-pap 30 09/17/16 08:00 98.0 66 18 124/42 100 Bi-pap 30 09/17/16 08:00 66 09/17/16 07:23 67 18 100 Full Face 30 09/17/16 06:00 64 20 129/47 100 Bi-pap 30 09/17/16 05:28 64 20 100 Full Face 30 09/17/16 05:00 65 18 141/69 100 Bi-pap 30 09/17/16 04:00 98.4 64 23 137/42 100 Bi-pap 30 09/17/16 04:00 63 09/17/16 03:00 66 21 126/43 100 Bi-pap 30 09/17/16 03:00 66 20 100 Full Face 30 09/17/16 02:00 66 21 125/60 100 Bi-pap 30 09/17/16 01:14 66 27 100 Full Face 30 09/17/16 01:00 63 23 116/50 100 Bi-pap 30 09/17/16 00:00 62 24 130/56 100 Bi-pap 30 09/17/16 00:00 63 Intake and Output 09/16/16 09/17/16 19:00 07:00 Intake Total 110 ml Output Total 3100 ml 140 ml Balance -3100 ml -30 ml Free Water 60 ml IV Total 50 ml Output Urine Total 140 ml Hemodialysis UF 3100 ml # Voids 2 Laboratory Tests 09/17/16 05:40: White Blood Count 15.2H, Red Blood Count 2.95L, Hemoglobin 9.6L, Hematocrit 29.1L, Mean Corpuscular Volume 99, Mean Corpuscular Hemoglobin 32.6H, Mean Corpuscular Hemoglobin Concent 33.0, Red Cell Distribution Width 17.2H, Platelet Count 174, Mean Platelet Volume 6.5, Neutrophils (%) (Auto) 81.4H, Lymphocytes (%) (Auto) 9.1L, Monocytes (%) (Auto) 8.3, Eosinophils (%) (Auto) 0.3, Basophils (%) (Auto) 0.9, Sodium Level 140, Potassium Level 4.1, Chloride Level 93L, Carbon Dioxide Level 19L, Anion Gap 28H, Blood Urea Nitrogen 85H, Creatinine 6.5H, Estimat Glomerular Filtration Rate , Glucose Level 145H, Calcium Level 8.3L, Magnesium Level 2.7H, Total Bilirubin 2.5H, Direct Bilirubin 1.4H, Aspartate Amino Transf (AST/SGOT) 52H, Alanine Aminotransferase (ALT/SGPT) 48H, Alkaline Phosphatase 355H, Ammonia 145H, Total Protein 5.4L, Albumin 2.3L, Globulin 3.1, Albumin/Globulin Ratio 0.7L, Cytomegalovirus DNA Qual (PCR) [Pending], Jo Ann-Skinner Virus Capsid Ag IgM Ab [Pending], Hepatitis A IgM Antibody [Pending], Herpes Simplex Virus I IgM Ab (IFA) [Pending], Herpes Simplex Virus II IgM Ab (IFA [Pending] 09/17/16 08:00: Urine Color Yellow, Urine Appearance Turbid, Urine pH 5, Urine Specific [place] 1.015, Urine Protein 4+H, Urine Glucose (UA) Negative, Urine Ketones 1+H, Urine Occult Blood 5+H, Urine Nitrite PositiveH, Urine Bilirubin 1+H, Urine Ictotest Negative, Urine Urobilinogen 1H, Urine Leukocyte Esterase 3+H, Urine RBC 30-40H , Urine WBC TntcH, Urine Squamous Epithelial Cells Few, Urine Bacteria ModerateH , Urine Yeast ModerateH 3/22/17 08:38: Arterial Blood pH 7.621*H, Arterial Blood Partial Pressure CO2 20.6*L, Arterial Blood Partial Pressure O2 109.2H, Arterial Blood HCO3 20.7L, Arterial Blood Oxygen Saturation 97.6, Arterial Blood Base Excess 0.7, Jarred Test Negative Height (Feet): 5 Height (Inches): 11.00 Weight (Pounds): 245 General Appearance: severe distress, overweight EENT: normal ENT inspection Neck: non-tender Cardiovascular: tachycardia Respiratory/Chest: crackles/rales Abdomen: soft Extremities: swelling Edema: 1+ Arm (L), 1+ Arm (R), 1+ Leg (L), 1+ Leg (R), 1+ Pedal (L), 1+ Pedal ( R), 1+ Generalized Edema: mild edema Neurologic: unresponsive Skin: normal pigmentation Lymphatic: normal anterior cervical (L), normal anterior cervical (R), normal axillary (L), normal axillary (R), normal inguinal (L), normal inguinal (R), normal other, normal posterior cervical (L), normal posterior cervical (R), normal submandibular (L), normal submandibular (R), normal supraclavicular (L), normal supraclavicular (R) Carmela Quinteros MD Sep 17, 2016 23:54
[2016-09-18] VITALS (16 sets, daily range): BP systolic 118–161; BP diastolic 51–67
[2016-09-18] MEDS: Levemir Flexpen SUBQ SCH (06:05)
[2016-09-18 09:23] LABS: EBV CAPSID IGM <36.0 U/mL (0.0-35.9)
--- NOTE | 2016-09-18 10:39 | Pulmonolgy Critical Care Note ---
Critical Care - Asmt/Plan Problems: (1) Respiratory failure, acute (2) Altered level of consciousness (3) ESRD (end stage renal disease) on dialysis (4) Cirrhosis (5) CVA (cerebral vascular accident) Respiratory: monitor respiratory rate, adjust FIO2, other - family want to remove the bipap now and see how he does Cardiac: continue to monitor HR/BP Renal: F/U I&O, check electrolytes Infectious Disease: add antibiotics Hematologic: monitor H/H Neurologic: PRN Ativan, PRN Morphine Affect: PRN ativan Disposition: keep in ICU Notes Reviewed: filter tank tender helper, renal, GI Discussed with: case management associate, other - awaiting family's decision about how to proceed. Critical Care - Objective Last 24 Hour Vital Signs Date Time Temp Pulse Resp B/P Pulse Ox O2 Delivery O2 Flow Rate FiO2 09/18/16 10:00 117 16 118/54 97 Bi-pap 30 09/18/16 09:17 85 18 99 Full Face 30 09/18/16 09:00 115 16 136/58 96 Bi-pap 30 09/18/16 08:00 30 09/18/16 08:00 84 09/18/16 08:00 98.0 116 17 152/63 98 Bi-pap 30 09/18/16 07:00 122 18 155/62 99 Bi-pap 30 09/18/16 06:45 86 16 99 Full Face 30 09/18/16 06:00 122 18 139/65 99 Bi-pap 30 09/18/16 05:19 82 14 98 Full Face 30 09/18/16 05:00 82 20 161/67 99 Bi-pap 30 09/18/16 04:00 98.5 82 20 161/67 99 Bi-pap 30 09/18/16 04:00 88 09/18/16 04:00 30 09/18/16 03:14 115 17 98 Full Face 30 09/18/16 03:00 115 18 152/56 99 Bi-pap 30 09/18/16 02:00 115 18 145/56 99 Bi-pap 30 09/18/16 01:14 122 18 99 Full Face 30 09/18/16 01:00 114 18 160/54 100 Bi-pap 30 09/17/16 23:58 98.4 100 20 126/59 100 Bi-pap 30 09/17/16 23:00 100 19 129/95 100 Bi-pap 30 09/17/16 22:59 114 20 100 Full Face 30 09/17/16 22:00 112 19 134/53 100 Bi-pap 30 09/17/16 21:25 120 18 100 Full Face 30 09/17/16 21:00 110 18 114/58 100 Bi-pap 30 09/17/16 20:00 81 09/17/16 20:00 98.6 82 15 140/48 100 Bi-pap 30 09/17/16 20:00 30 09/17/16 19:13 112 17 100 Full Face 30 09/17/16 19:00 113 16 111/50 99 Bi-pap 30 09/17/16 18:00 114 16 115/50 99 Bi-pap 30 09/17/16 17:00 112 15 109/56 99 Bi-pap 30 09/17/16 16:55 115 15 98 Full Face 30 09/17/16 16:00 30 09/17/16 16:00 113 09/17/16 16:00 98.2 110 18 132/57 99 Bi-pap 30 09/17/16 15:00 80 16 138/41 99 Bi-pap 30 09/17/16 14:52 76 15 99 Full Face 30 09/17/16 14:00 75 16 129/43 100 Bi-pap 30 09/17/16 13:31 73 15 99 Full Face 30 09/17/16 13:00 71 20 112/45 99 Bi-pap 30 09/17/16 12:00 72 09/17/16 12:00 98.1 74 20 128/50 100 Bi-pap 30 09/17/16 11:31 98.1 09/17/16 11:10 71 25 99 Full Face 30 09/17/16 11:00 73 20 142/48 99 Bi-pap 30 Status: obtunded Condition: critical HEENT: atraumatic Neck: full ROM Lungs: chest wall tender Heart: HR/BP stable Abdomen: soft, active bowel sounds Extremities: no C/C/E, edema Micro: Microbiology Date/Time Source Procedure Growth Status 09/16/16 22:00 Blood Blood Culture - Preliminary NO GROWTH AFTER 24 HOURS Resulted 09/16/16 21:50 Blood Blood Culture - Preliminary NO GROWTH AFTER 24 HOURS Resulted 09/16/16 22:00 Sputum Expectorated Gram Stain - Final Resulted 09/16/16 22:00 Sputum Expectorated Sputum Culture Pending Resulted 09/17/16 08:00 Urine,Clean Catch Urine Culture - Preliminary NO GROWTH Resulted 09/16/16 22:00 Indwelling Cath Urine Culture - Preliminary Resulted Accucheck: 203 Critical Care - Subjective ROS Limited/Unobtainable: Yes ICU Day: 3 Intubation Day: on bipap EKG Rhythm: Sinus Rhythm FI02: 30 Sputum Amount: None Tube Feeding Amount: 0 I&O: Intake and Output 09/17/16 09/18/16 19:00 07:00 Intake Total 110 ml Output Total 45 ml 55 ml Balance 65 ml -55 ml Free Water 50 ml Tube Feeding 0 ml Other 60 ml Output Urine Total 45 ml 55 ml # Bowel Movements 2 2 GURWINDER PICKETT Sep 18, 2016 10:39
[2016-09-18] MEDS ORDERED: Rate Change Narcotic Drip MISC PRN (11:00)
[2016-09-18] MEDS ORDERED: PCA Morphine 1mg/ml 30 ML IV PRN (11:00)
[2016-09-18] MEDS ORDERED: Artificial Tears 1.4% Op Soln BOTH EYES PRN (11:00)
[2016-09-18] MEDS ORDERED: Haloperidol 5mg/ml Inj IM PRN ×2 (11:00→15:30)
[2016-09-18] MEDS ORDERED: Prochlorperazine 10mg tab ORAL PRN ×2 (11:00→17:00)
[2016-09-18] MEDS ORDERED: Glycopyrrolate 0.2mg/ml 1ml Vial IV PRN ×3 (11:00→17:45)
--- NOTE | 2016-09-18 11:18 | General Progress Note ---
Assessment/Plan Assessment/Plan Assessment - EtOH Cirrhosis - hepatic encephalopathy - mild ascites - Renal failure - on HD - Acute CVA, (L) carolyn --> dysphagia - dysphagia - Jaundice/decompensated liver disease - Poor Px Recommendations - care plans per family wishes - can resume feeds, if family believes it is within their comfort care parameters - elevate HOB - All questions from family answered Subjective Allergies: Coded Allergies: No Known Allergies (Unverified , 07/14/16) Subjective above noted d/w DTR, and two other family members care plan being changed to comfort care Per DTR and , pt has repeated stated in the past that he did not want to be kept alive with tubes or machines He has stated that he should be left to if he becomes incapacitated Per patient's wishes, family do not want intubation or GT, and now transitioning plans to comfort only care lactulose and xifaxan held since yesterday morphine given Objective Last 24 Hour Vital Signs Date Time Temp Pulse Resp B/P Pulse Ox O2 Delivery O2 Flow Rate FiO2 09/18/16 11:00 120 16 142/59 100 Non-Rebreather 15.0 09/18/16 10:00 117 16 118/54 97 Bi-pap 30 09/18/16 09:17 85 18 99 Full Face 30 09/18/16 09:00 115 16 136/58 96 Bi-pap 30 09/18/16 08:00 30 09/18/16 08:00 84 09/18/16 08:00 98.0 116 17 152/63 98 Bi-pap 30 09/18/16 07:00 122 18 155/62 99 Bi-pap 30 09/18/16 06:45 86 16 99 Full Face 30 09/18/16 06:00 122 18 139/65 99 Bi-pap 30 09/18/16 05:19 82 14 98 Full Face 30 09/18/16 05:00 82 20 161/67 99 Bi-pap 30 09/18/16 04:00 98.5 82 20 161/67 99 Bi-pap 30 09/18/16 04:00 88 09/18/16 04:00 30 09/18/16 03:14 115 17 98 Full Face 30 09/18/16 03:00 115 18 152/56 99 Bi-pap 30 09/18/16 02:00 115 18 145/56 99 Bi-pap 30 09/18/16 01:14 122 18 99 Full Face 30 09/18/16 01:00 114 18 160/54 100 Bi-pap 30 09/17/16 23:58 98.4 100 20 126/59 100 Bi-pap 30 09/17/16 23:00 100 19 129/95 100 Bi-pap 30 09/17/16 22:59 114 20 100 Full Face 30 09/17/16 22:00 112 19 134/53 100 Bi-pap 30 09/17/16 21:25 120 18 100 Full Face 30 09/17/16 21:00 110 18 114/58 100 Bi-pap 30 09/17/16 20:00 81 09/17/16 20:00 98.6 82 15 140/48 100 Bi-pap 30 09/17/16 20:00 30 09/17/16 19:13 112 17 100 Full Face 30 09/17/16 19:00 113 16 111/50 99 Bi-pap 30 09/17/16 18:00 114 16 115/50 99 Bi-pap 30 09/17/16 17:00 112 15 109/56 99 Bi-pap 30 09/17/16 16:55 115 15 98 Full Face 30 09/17/16 16:00 30 09/17/16 16:00 113 09/17/16 16:00 98.2 110 18 132/57 99 Bi-pap 30 09/17/16 15:00 80 16 138/41 99 Bi-pap 30 09/17/16 14:52 76 15 99 Full Face 30 09/17/16 14:00 75 16 129/43 100 Bi-pap 30 09/17/16 13:31 73 15 99 Full Face 30 09/17/16 13:00 71 20 112/45 99 Bi-pap 30 09/17/16 12:00 72 09/17/16 12:00 98.1 74 20 128/50 100 Bi-pap 30 09/17/16 11:31 98.1 Intake and Output 09/17/16 09/18/16 19:00 07:00 Intake Total 110 ml Output Total 45 ml 55 ml Balance 65 ml -55 ml Free Water 50 ml Tube Feeding 0 ml Other 60 ml Output Urine Total 45 ml 55 ml # Bowel Movements 2 2 Height (Feet): 5 Height (Inches): 11.00 Weight (Pounds): 245 Objective obtunded NCAT supple b/l jessica RRR soft ND NT (+) trace edema ESPINOZA WOOTEN Sep 18, 2016 11:18
[2016-09-18] MEDS ORDERED: Morphine Sulfate 10mg/ml Inj IVP ONE (11:30)
[2016-09-18] MEDS ORDERED: Morphine Sulfate 10mg/ml Inj IVP PRN ×2 (12:30→15:30)
[2016-09-18] MEDS ORDERED: Lactulose 20gm/30ml UDC ORAL SCH (13:00)
--- NOTE | 2016-09-18 13:43 | General Progress Note ---
Assessment/Plan Assessment/Plan d75 y/o male admitted with the following problems: patient had HD on 09/16/16 and soon after developed respiratory distress, now transfered to ICU family decided on DNR/DNI comfort measures if deteriorates -Acute CVA with left hemiparesis -Cirrhosis with hepatic encephalopathy -ESRD on HD -DM insulin requiring -paroxismal atrial fibrillation now with RVR -leukoctosis -left upper extremity edema, improving -dysphasia -severe OA of left shoulder -Bilateral UE dependant edema -acute respiratory failure -pulmonary edema -?aspiration pneumonia -UTI possible sepsis Plan: -comfort care -dc all non essential meds -NPO discussed with ICU team and Atending Dr. Padilla and family DNR/DNI Morphine drip for comfort agreed to by family ativan `1 mg iv q4 prn agitation, robinol .2 mg iv q4 prn secretions discussed with family Subjective Date patient seen: Sep 18, 2016 Time patient seen: 13:41 ROS Limited/Unobtainable: Yes Allergies: Coded Allergies: No Known Allergies (Unverified , 07/14/16) Subjective patient was transfered to ICU last night, family declined intubation and patient is now DNR/DNI and family is agreeable to comfort care after discussion with ICU attending Dr. Franklin Objective Last 24 Hour Vital Signs Date Time Temp Pulse Resp B/P Pulse Ox O2 Delivery O2 Flow Rate FiO2 09/18/16 13:19 118 23 98 09/18/16 13:00 119 13 135/62 100 Non-Rebreather 15.0 09/18/16 12:09 98.7 09/18/16 12:00 86 09/18/16 12:00 98.7 119 11 122/58 100 Non-Rebreather 15.0 09/18/16 11:52 98.0 09/18/16 11:00 120 16 142/59 100 Non-Rebreather 15.0 09/18/16 10:55 88 20 96 09/18/16 10:00 117 16 118/54 97 Bi-pap 30 09/18/16 09:17 85 18 99 Full Face 30 09/18/16 09:00 115 16 136/58 96 Bi-pap 30 09/18/16 08:00 30 09/18/16 08:00 84 09/18/16 08:00 98.0 116 17 152/63 98 Bi-pap 30 09/18/16 07:00 122 18 155/62 99 Bi-pap 30 09/18/16 06:45 86 16 99 Full Face 30 09/18/16 06:00 122 18 139/65 99 Bi-pap 30 09/18/16 05:19 82 14 98 Full Face 30 09/18/16 05:00 82 20 161/67 99 Bi-pap 30 09/18/16 04:00 98.5 82 20 161/67 99 Bi-pap 30 09/18/16 04:00 88 09/18/16 04:00 30 09/18/16 03:14 115 17 98 Full Face 30 09/18/16 03:00 115 18 152/56 99 Bi-pap 30 09/18/16 02:00 115 18 145/56 99 Bi-pap 30 09/18/16 01:14 122 18 99 Full Face 30 09/18/16 01:00 114 18 160/54 100 Bi-pap 30 09/17/16 23:58 98.4 100 20 126/59 100 Bi-pap 30 09/17/16 23:00 100 19 129/95 100 Bi-pap 30 09/17/16 22:59 114 20 100 Full Face 30 09/17/16 22:00 112 19 134/53 100 Bi-pap 30 09/17/16 21:25 120 18 100 Full Face 30 09/17/16 21:00 110 18 114/58 100 Bi-pap 30 09/17/16 20:00 81 09/17/16 20:00 98.6 82 15 140/48 100 Bi-pap 30 09/17/16 20:00 30 09/17/16 19:13 112 17 100 Full Face 30 09/17/16 19:00 113 16 111/50 99 Bi-pap 30 09/17/16 18:00 114 16 115/50 99 Bi-pap 30 09/17/16 17:00 112 15 109/56 99 Bi-pap 30 09/17/16 16:55 115 15 98 Full Face 30 09/17/16 16:00 30 09/17/16 16:00 113 09/17/16 16:00 98.2 110 18 132/57 99 Bi-pap 30 09/17/16 15:00 80 16 138/41 99 Bi-pap 30 09/17/16 14:52 76 15 99 Full Face 30 09/17/16 14:00 75 16 129/43 100 Bi-pap 30 Intake and Output 09/17/16 09/18/16 19:00 07:00 Intake Total 110 ml Output Total 45 ml 55 ml Balance 65 ml -55 ml Free Water 50 ml Tube Feeding 0 ml Other 60 ml Output Urine Total 45 ml 55 ml # Bowel Movements 2 2 Height (Feet): 5 Height (Inches): 11.00 Weight (Pounds): 245 General Appearance: severe distress, agitated, overweight Neck: supple Cardiovascular: normal rate Respiratory/Chest: crackles/rales, rhonchi - bilaterally Abdomen: soft Genitourinary/Rectal: normal genital exam Extremities: non-tender Edema: 1+ Arm (L), 1+ Arm (R), 1+ Leg (L), 1+ Leg (R), 1+ Pedal (L), 1+ Pedal ( R), 1+ Generalized Neurologic: unresponsive Lymphatic: normal anterior cervical (L), normal anterior cervical (R), normal axillary (L), normal axillary (R), normal inguinal (L), normal inguinal (R), normal other, normal posterior cervical (L), normal posterior cervical (R), normal submandibular (L), normal submandibular (R), normal supraclavicular (L), normal supraclavicular (R) Carmela Quinteros MD Sep 18, 2016 13:43
[2016-09-18] MEDS ORDERED: LORazepam Inj 2mg/ml 1ml IV PRN ×2 (13:45→17:45)
[2016-09-18] MEDS ORDERED: Atropine Inj 1mg/10ml Syr IVP ONE (14:00)
[2016-09-18] MEDS ORDERED: Morphine Sulfate 2mg/ml Inj IVP ONE (14:00)
[2016-09-18] MEDS: Narcotic Shift Volume MISC SCH ×2 (15:00→23:01)
[2016-09-18] MEDS ORDERED: Narcotic Shift Volume MISC SCH (15:00)
--- NOTE | 2016-09-18 16:56 | Cardiac Electrophysiology PN ---
Assessment/Plan Assessment/Plan 1. Atrial fibrillation with rapid ventricular response. All cardiac meds DCEd as pt is now comfort care. 2. End-stage renal disease 3. Hyperlipidemia, on Lipitor. 4. Cirrhosis of the liver and hepatic encephalopathy 5. Diabetes, on insulin. 6. Dysphagia. 7. Thrombocytopenia. Due to cirrhosis. 8. DNR, DNI, Comfort care DW RN Will sign off Subjective Subjective Transferred out of ICU to [facility]. Family at bedside. Agonal breathing. DNR, DNI. Comfort care on morphine drip. Objective Last 24 Hour Vital Signs Date Time Temp Pulse Resp B/P Pulse Ox O2 Delivery O2 Flow Rate FiO2 09/18/16 16:00 98.4 133 20 124/64 98 Non-Rebreather 15.0 09/18/16 15:00 12 09/18/16 14:14 98.7 09/18/16 14:00 120 15 138/62 100 Non-Rebreather 15.0 09/18/16 13:19 118 23 98 09/18/16 13:00 119 13 135/62 100 Non-Rebreather 15.0 09/18/16 12:09 98.7 09/18/16 12:00 86 09/18/16 12:00 98.7 119 11 122/58 100 Non-Rebreather 15.0 09/18/16 11:52 98.0 09/18/16 11:00 120 16 142/59 100 Non-Rebreather 15.0 09/18/16 10:55 88 20 96 09/18/16 10:00 117 16 118/54 97 Bi-pap 30 09/18/16 09:17 85 18 99 Full Face 30 09/18/16 09:00 115 16 136/58 96 Bi-pap 30 09/18/16 08:00 30 09/18/16 08:00 84 09/18/16 08:00 98.0 116 17 152/63 98 Bi-pap 30 09/18/16 07:00 122 18 155/62 99 Bi-pap 30 09/18/16 06:45 86 16 99 Full Face 30 09/18/16 06:00 122 18 139/65 99 Bi-pap 30 09/18/16 05:19 82 14 98 Full Face 30 09/18/16 05:00 82 20 161/67 99 Bi-pap 30 09/18/16 04:00 98.5 82 20 161/67 99 Bi-pap 30 09/18/16 04:00 88 09/18/16 04:00 30 09/18/16 03:14 115 17 98 Full Face 30 09/18/16 03:00 115 18 152/56 99 Bi-pap 30 09/18/16 02:00 115 18 145/56 99 Bi-pap 30 09/18/16 01:14 122 18 99 Full Face 30 09/18/16 01:00 114 18 160/54 100 Bi-pap 30 09/17/16 23:58 98.4 100 20 126/59 100 Bi-pap 30 09/17/16 23:00 100 19 129/95 100 Bi-pap 30 09/17/16 22:59 114 20 100 Full Face 30 09/17/16 22:00 112 19 134/53 100 Bi-pap 30 09/17/16 21:25 120 18 100 Full Face 30 09/17/16 21:00 110 18 114/58 100 Bi-pap 30 09/17/16 20:00 81 09/17/16 20:00 98.6 82 15 140/48 100 Bi-pap 30 09/17/16 20:00 30 09/17/16 19:13 112 17 100 Full Face 30 09/17/16 19:00 113 16 111/50 99 Bi-pap 30 09/17/16 18:00 114 16 115/50 99 Bi-pap 30 09/17/16 17:00 112 15 109/56 99 Bi-pap 30 09/17/16 16:55 115 15 98 Full Face 30 Intake and Output 09/17/16 09/18/16 19:00 07:00 Intake Total 110 ml Output Total 45 ml 55 ml Balance 65 ml -55 ml Free Water 50 ml Tube Feeding 0 ml Other 60 ml Output Urine Total 45 ml 55 ml # Bowel Movements 2 2 Microbiology Date/Time Source Procedure Growth Status 09/16/16 22:00 Blood Blood Culture - Preliminary NO GROWTH AFTER 24 HOURS Resulted 09/16/16 21:50 Blood Blood Culture - Preliminary NO GROWTH AFTER 24 HOURS Resulted 09/16/16 22:00 Sputum Expectorated Gram Stain - Final Resulted 09/16/16 22:00 Sputum Expectorated Sputum Culture Pending Resulted 09/17/16 08:00 Urine,Clean Catch Urine Culture - Preliminary NO GROWTH Resulted 09/16/16 22:00 Indwelling Cath Urine Culture - Preliminary Resulted Objective HEAD AND NECK: JVD. LUNGS: Coarse rhonchi CARDIOVASCULAR: Regular S1 and S2 with no gallop or murmur. ABDOMEN: Soft and nontender.Ascites EXTREMITIES: 1+ pitting edema. PRINCESS AGGARWAL Sep 18, 2016 16:56
[2016-09-18] MEDS: PCA Morphine 1mg/ml 30 ML IV PRN ×2 (17:33→23:08)
[2016-09-19] VITALS: BP 109/44
[2016-09-19 04:00] VITALS: BP 106/36
[2016-09-19] MEDS: PCA Morphine 1mg/ml 30 ML IV PRN ×2 (05:11→11:22)
[2016-09-19] MEDS: Narcotic Shift Volume MISC SCH (07:06)
[2016-09-19 08:00] VITALS: BP 104/40
[2016-09-19] MEDS ORDERED: Rate Change Narcotic Drip MISC PRN (09:00)
[2016-09-19] MEDS ORDERED: Acetaminophen 650 MG SUPP RECTAL PRN (09:45)
[2016-09-19] MEDS ORDERED: Artificial Tears 1.4% Op Soln BOTH EYES PRN (11:00)
--- NOTE | 2016-09-19 11:25 | Infectious Diseases Prog Note ---
Assessment/Plan Assessment/Plan antibiotics : none A 1. leucocytosis resolved 2. cirrhosis 3. renal failure 4. HTN 5. rectal VRE colonization 6. ? aspiration pneumonia P 1. patient on comfort measures, off antibiotics 2. will sign off Thank you Subjective Allergies: Coded Allergies: No Known Allergies (Unverified , 07/14/16) Objective Vital Signs Last 24 Hour Vital Signs Date Time Temp Pulse Resp B/P Pulse Ox O2 Delivery O2 Flow Rate FiO2 09/19/16 08:00 102.2 85 7 104/40 Non-Rebreather 09/19/16 08:00 10 09/19/16 04:00 100.6 90 10 106/36 98 Non-Rebreather 15.0 09/19/16 04:00 10 09/19/16 00:00 12 Non-Rebreather 15.0 09/19/16 00:00 12 09/19/16 00:00 99.1 116 20 109/44 99 Room Air 09/18/16 23:01 12 09/18/16 20:00 98.6 118 20 120/51 99 Non-Rebreather 15.0 09/18/16 19:18 12 09/18/16 18:03 98.4 09/18/16 17:40 12 09/18/16 16:00 98.4 133 20 124/64 98 Non-Rebreather 15.0 09/18/16 15:00 12 09/18/16 14:14 98.7 09/18/16 14:00 120 15 138/62 100 Non-Rebreather 15.0 09/18/16 13:19 118 23 98 09/18/16 13:00 119 13 135/62 100 Non-Rebreather 15.0 09/18/16 12:09 98.7 09/18/16 12:00 86 09/18/16 12:00 98.7 119 11 122/58 100 Non-Rebreather 15.0 09/18/16 11:52 98.0 Height (Feet): 5 Height (Inches): 11.00 Weight (Pounds): 245 Microbiology Date/Time Source Procedure Growth Status 09/16/16 22:00 Blood Blood Culture - Preliminary NO GROWTH AFTER 48 HOURS Resulted 09/16/16 21:50 Blood Blood Culture - Preliminary NO GROWTH AFTER 48 HOURS Resulted 09/16/16 22:00 Sputum Expectorated Gram Stain - Final Complete 09/16/16 22:00 Sputum Culture - Final Proteus Mirabilis Complete 09/17/16 08:00 Urine,Clean Catch Urine Culture - Preliminary NO GROWTH AFTER 24 HOURS Resulted 09/16/16 22:00 Indwelling Cath Urine Culture - Preliminary Yeast Species Resulted Current Medications Medications (Trade) Dose Ordered Sig/Jacqueline Route PRN Reason Start Time Stop Time Status Last Admin Dose Admin Acetaminophen (Tylenol) 650 mg Q6H PRN ORAL Mild Pain/Temp > 100.5 09/19/16 09:45 10/19/16 09:44 Acetaminophen (Tylenol) 650 mg Q6H PRN RECTAL Mild Pain/Temp > 100.5 09/19/16 09:45 10/19/16 09:44 09/19/16 10:07 Artificial Tears (Akwa-Tears) 1 drop QIDPRN PRN BOTH EYES Dry Eyes 09/19/16 11:00 10/19/16 10:59 Glycopyrrolate (Robinul) 0.2 mg Q4H PRN IV SECRETIONS 09/18/16 17:45 10/18/16 17:44 09/18/16 16:16 Haloperidol Lactate (Haldol) 1 mg Q30M PRN IM Agitation 09/18/16 15:30 10/18/16 15:29 Lorazepam (Ativan 2mg/ml 1ml) 1 mg Q4H PRN IV For Anxiety 09/18/16 17:45 09/25/16 17:44 Miscellaneous Medication (Narcotic Drip Rate Change) 1 ea DAILY PRN MISC To Patient Comfort 09/19/16 09:00 10/19/16 08:59 Miscellaneous Medication (Narcotic Shift Volume) 1 ea Q8HR@,, MISC 09/18/16 15:00 10/18/16 14:59 09/19/16 07:06 Morphine Sulfate (Morphine Sulfate) 10 mg Q1H PRN IVP TACHYPNEA> 20 BREATHS/MIN 09/18/16 15:30 09/25/16 15:29 Morphine Sulfate (KEG RAISER Morphine) 30 ml @ 5 mls/hr KEG RAISER Protocol PRN IV COMFORT CARE 09/18/16 15:15 09/20/16 15:14 09/19/16 11:22 Prochlorperazine (Compazine) 10 mg Q6H PRN ORAL Nausea & Vomiting 09/18/16 17:00 10/18/16 16:59 Prochlorperazine (Compazine) 25 mg Q12H PRN RECTAL Nausea & Vomiting 09/18/16 23:00 10/18/16 22:59 TRACY BENITEZ Sep 19, 2016 11:25
--- NOTE | 2016-09-19 23:11 | Pulmonology Progress Note ---
Subjective Allergies: Coded Allergies: No Known Allergies (Unverified , 07/14/16) Objective Last 24 Hour Vital Signs Date Time Temp Pulse Resp B/P Pulse Ox O2 Delivery O2 Flow Rate FiO2 09/19/16 11:23 6 09/19/16 10:37 99.5 09/19/16 08:00 102.2 85 7 104/40 Non-Rebreather 09/19/16 08:00 8 09/19/16 04:00 100.6 90 10 106/36 98 Non-Rebreather 15.0 09/19/16 04:00 10 09/19/16 00:00 12 Non-Rebreather 15.0 09/19/16 00:00 12 09/19/16 00:00 99.1 116 20 109/44 99 Room Air Intake and Output 09/18/16 09/19/16 19:00 07:00 Intake Total 55 ml 35 ml Output Total 70 ml 0 ml Balance -15 ml 35 ml Free Water 50 ml IV Total 5 ml 35 ml Output Urine Total 70 ml 0 ml Microbiology Date/Time Source Procedure Growth Status 09/17/16 08:00 Urine,Clean Catch Urine Culture - Preliminary NO GROWTH AFTER 24 HOURS Resulted GURWINDER PICKETT Sep 19, 2016 23:11
--- NOTE | 2016-09-21 18:26 | Cardiology Report ---
APPROVED REPORT EKG Measurement Heart [id number] OK [id number] Normal sinus rhythm Low voltage QRS Cannot rule out Anterior infarct, age undetermined Prolonged QT Abnormal ECG
[2016-09-22 01:02] LABS: CMV DNA PCR QUAL BLOOD/CSF Positive (Negative)
--- NOTE | 2016-09-23 14:44 | Discharge Summary ---
Discharge Summary Hospital Course Date of Admission Sep 02, 2016 at 19:05 Date of Discharge Sep 19, 2016 at 12:10 Admitting Diagnosis CVA/AMS HPI Tommy Monson is a 75 year old male who was admitted on Sep 02, 2016 at 19:05 for Cerebrovascular Accident/Altered Mental Status Hospital Course dc summary # [id number] Discharge Condition Upon Discharge: critical, grave Discharge Disposition Patient Discharge Diagnoses: Discharge Instructions Discharge Instructions Special Instructions I have been assigned to complete a D/C Summary on this account. I was not involved in the patient management Ivanna Kelly NP (Vanchtein) Sep 23, 2016 14:44
--- NOTE | 2016-09-24 05:49 | Discharge Summary 2 SIG ---
DATE OF ADMISSION: 09/02/2016 DATE OF EXPIRATION: 09/19/2016 REASON FOR ADMISSION: 75 years old male presented to emergency room with a slurred speech, facial droop, and left arm weakness. Symptoms started six hours prior to arrival while the patient was on dialysis in the longterm. Daughter called paramedics. The patient unable to provide any additional history, but he denied chest pain and shortness of breath. The patient with multiple chronic medical comorbidities including diabetes, hypertension, end-stage renal disease, coronary artery disease with a history of stent, and liver cirrhosis. CT of the head revealed no acute intracranial bleeding, mass effect, or edema. Troponin was negative. EKG showed normal sinus rhythm. No ectopy. No PVC. Chest x-ray was negative. Ammonia elevated -105. Elevated AST and ALT. Elevated total and indirect bilirubin. Elevated blood pressure. The patient admitted for further management. ADMITTING DIAGNOSES: 1. Acute metabolic encephalopathy. 2. Possible cerebrovascular accident with left hemiparesis. 3. Liver cirrhosis. 4. Hepatic encephalopathy. 5. Hypertensive urgency. 6. End-stage renal disease, on hemodialysis. 7. Elevated transaminase. HOSPITAL STAY: Initially the patient admitted on telemetry and neuro checks were initiated. Neurology, Cardiology, ID, melter supervisor open hearth furnace, Critical Care Pulmonology/Pulmonology were involved in the patient's care. Neurologist seen the patient initially to rule out possible brachial plexopathy versus lacunar stroke. MRI of the brain revealed acute right postcentral gyrus, CVA. No acute hemorrhage was seen. Echocardiogram revealed ejection fraction of 55%, right ventricular systolic pressure of 19, and mild left ventricular hypertrophy. The patient with left-sided hemiparesis and aphasia. Initially, NG tube inserted for medications and feeding. The patient started to work with physical and occupational therapist. Swallow evaluation was ordered. The patient started on anticoagulation with aspirin and Plavix. Neurologist closely followed. The patient initially was progressing. Blood pressure was kept in range and above 130. Lipid panel was stable. Blood sugar was managed with the sliding scale of insulin. The patient passed swallow evaluation on pureed diet with nectar thick liquids. Leukocytosis. ID followed. Antibiotic regimen provided under ID guidance. Blood culture were negative, repeated two times. Urine culture was with Tika , colonized as per ID. Sputum culture with Proteus. The patient noted to have elevated ammonia level on admission and started on Xifaxan and lactulose. LFTs were closely followed along with ammonia level. The patient with a known history of liver cirrhosis. Ammonia level down to normal -35 on 09/12/2016. On 09/16 16 shortly after hemodialysis patient developed respiratory distress and required transfer to ICU. Patient was placed on BipAP, CXR with evidence of pulmonary edema. Treated with diuretic. Follow up chest x-ray revealed improved pulmonary edema with moderate edema still demonstrated. Family desired to remove BiPAP, and subsequently patient was placed on nonrebreathing mask. Ammonia with large trend up to 423 on 09/16/2016. LFT and bilirubin remained elevated. Abdominal CT revealed suggestion of gastric or duodenal wall thickening, suspected artifact, however gastritis or duodenitis should be considered. Evidence of hepatic cirrhosis with atrophic liver with surface nodularity. Small amount of ascites and splenomegaly suggesting portal hypertension. Cholelithiasis. Bilateral, right greater than left pleural effusion. Wall thickening of hepatic flexure of the colon and proximal transverse colon, suspected likely artifact, however, due to distention colitis could not be excluded. The patient's neuro status deteriorated on 09/16/2016 , likely due to hepatic encephalopathy ( despite continuous treatment with Lactulose and Xifaxan) , and there was overall deterioration of his condition. The patient's grave condition was discussed with the family, presenting his overall poor prognosis and limited options. Family decided on DNR/DNI status. The patient was not intubated. The patient was in ICU. At that time, the patient also developed paroxysmal atrial fibrillation with rapid ventricular response. Heart rate control with Cardizem as needed. Neurologist had recommended to hold all anticoagulation due to the high risk of bleeding and hepatic failure. The patient's mental status and medical condition were rapidly declining. . Patient was lethargic, not communicable, not arousable, intermittently restless and pulled his NG tube. Liver and kidney failure were progressing, and prognosis was poor. Family decided on DNR/DNI status with comfort measures. All unessential medications were stopped. On 09/18/2016, morphine drip was started. The orders were given for Ativan as needed for agitation and Robinul as needed for increased secretions. The patient was transferred from ICU to the the floor and on 09/19/2016 at 12:10 the patient was pronounced. CAUSE OF : Cardiopulmonary arrest. FINAL DIAGNOSIS: 1. Acute ischemic right middle cerebral artery stroke with the left arm palsy and aphasia. 2. Acute metabolic encephalopathy. 3. Liver cirrhosis. 4. Hepatic encephalopathy. 5. Hypertensive urgency. 6. Diabetes mellitus. 7. End-stage renal disease, on hemodialysis. 8. Elevated transaminase. 9. Possible sepsis. 10. Acute respiratory failure, requiring BiPAP and nonrebreathing mask. 11. Paroxysmal atrial fibrillation with rapid ventricular response. Carmela Quinteros M.D. I have been assigned to dictate discharge summary on this account and I was not involved in the patient's management. Ivanna TavarezJohn R. Oishei Children'S HospitalJimmie N.PManjula DR: SHERWIN JOB#: [id number] CC: JUSTINA
--- NOTE | 2016-09-27 11:16 | Diagnostic Imaging Report ---
Indications: Dysphagia Technique: Multiphasic barium dysphagia study was performed under fluoroscopic control with Jewels Carrasquillo speech pathologist. Cinegraphic images were obtained. Total fluoroscopy time: 269.9 sec Dose-area product: 0.4 mGy-m2 Findings: Comparison: None Oral and pharyngeal phases of swallowing demonstrate multiple mechanical abnormalities, as enumerated on speech pathology evaluation form. The patient demonstrates both laryngeal penetration and tracheal aspiration of thin and honey thickness barium, injected, superficial laryngeal penetration of nectar and pudding thickness barium without aspiration.. There is moderate coating of pharyngeal structures by barium post swallow. Esophageal phase of swallowing demonstrates barium pooling without retrograde propagation. IMPRESSION: Abnormal oropharyngeal mechanics with laryngeal penetration of multiple consistencies of barium, tracheal aspiration of thin and pudding thickness barium, ejected. Moderate post swallow pharyngeal residue Esophageal dysmotility without reverse peristalsis. Recommendation per speech pathology evaluation form.
--- NOTE | 2016-10-06 13:29 | Diagnostic Imaging Report ---
Indications: Dysphagia Technique: Multiphasic barium dysphagia study was performed under fluoroscopic control with Jewels Carrasquillo speech pathologist. Cinegraphic images were obtained. Total fluoroscopy time: 198.9 sec Dose-area product: 0.26 mGy-m2 Findings: Comparison: None Oral and pharyngeal phases of swallowing demonstrate multiple mechanical abnormalities, as enumerated on speech pathology evaluation form. The patient demonstrates tracheal aspiration of thin and nectar thickness barium, inconsistently cleared. There is moderate coating of pharyngeal structures by barium post swallow. Esophageal phase of swallowing demonstrates barium pooling without retrograde propagation. IMPRESSION: Abnormal oropharyngeal mechanics with tracheal aspiration of thin and nectar thickness barium, inconsistently cleared Moderate post swallow pharyngeal residue Esophageal dysmotility without reverse peristalsis. Recommendation per speech pathology evaluation form.
== END 2016-09-19 12:10 | disposition expired | DRG 64 ==
LOC: EDBD 18:06 → EMR 19:00 → 2E 19:05 → EDBEDREQ 22:28 → 2E 09-05 11:00 → ICU 09-16 18:52 → 4W 09-18 14:47
PROC: 5A1D60Z (ICD-10-PCS; principal; 2016-09-03)
DX: I63.8 Other cerebral infarction (principal); N18.6 End stage renal disease; J69.0 Pneumonitis due to inhalation of food and vomit; J96.00 Acute respiratory failure, unspecified whether with hypoxia or hypercapnia; R40.20 Unspecified coma; G93.41 Metabolic encephalopathy; A41.9 Sepsis, unspecified organism; J90 Pleural effusion, not elsewhere classified; G81.94 Hemiplegia, unspecified affecting left nondominant side; I12.0 Hypertensive chronic kidney disease with stage 5 chronic kidney disease or end stage renal disease; J98.11 Atelectasis; N39.0 Urinary tract infection, site not specified; K72.90 Hepatic failure, unspecified without coma; I16.0 Hypertensive urgency; E78.5 Hyperlipidemia, unspecified; Z99.2 Dependence on renal dialysis; R47.81 Slurred speech; E11.9 Type 2 diabetes mellitus without complications; Z79.4 Long term (current) use of insulin; R13.10 Dysphagia, unspecified; R29.810 Facial weakness; K70.31 Alcoholic cirrhosis of liver with ascites; F10.10 Alcohol abuse, uncomplicated; E11.22 Type 2 diabetes mellitus with diabetic chronic kidney disease; I25.10 Atherosclerotic heart disease of native coronary artery without angina pectoris; Z98.61 Coronary angioplasty status; I47.9 Paroxysmal tachycardia, unspecified; I48.91 Unspecified atrial fibrillation; Z79.01 Long term (current) use of anticoagulants; E83.39 Other disorders of phosphorus metabolism; D69.6 Thrombocytopenia, unspecified; Z66 Do not resuscitate; E87.6 Hypokalemia; M19.012 Primary osteoarthritis, left shoulder; R40.2434 Glasgow coma scale score 3-8, 24 hours or more after hospital admission; R40.2423 Glasgow coma scale score 9-12, at hospital admission
CPT/HCPCS: 36415; 36600; 70450; 70551; 71010; 74000; 74150; 74230; 76604; 76700; 80048; 80053; 80061; 80202; 81003; 82105; 82140; 82248; 82803; 82962; 83036; 83735; 83880; 84100; 84443; 84484; 85007; 85025; 85610; 85730; 86665; 86695; 86709; 86803; 87040; 87070; 87081; 87086; 87181; 87205; 87340; 87496; 93005; 93306; 94660; J1815; S5561